=== PATIENT | female | born 1985 | race Caucasian/White ===

== ENCOUNTER → 2017-08-25 09:57 | Outpatient (CLI) | payer MEDICAID, SELFPAY ==
--- NOTE | 2017-08-25 09:58 | MRI_ITS ---
STUDY: MRI BILATERAL HIPS T PELVIS REASON FOR EXAM: Lesion of the left ischium on radiographs. TECHNIQUE: Standardized fat and water weighted pulse sequences were obtained in all 3 orthogonal planes. COMPARISON: CT images 04/22/2017. FINDINGS: RIGHT HIP Normal hip joint without articular joint space narrowing. Normal right acetabulum. Normal right labrum. Normal right femoral head. Normal right femoral neck and intratrochanteric region. Normal right gluteus minimus, medius and iliopsoas tendons and distal insertions. Normal right superior and inferior pubic rami. Normal right pubic symphysis. Normal right ischial tuberosity. Normal origin of the right hamstring tendons. There is mild right sacroiliac arthrosis with mild joint space narrowing and subchondral sclerosis (T1 coronal images 11, 12). LEFT HIP Normal left hip joint without articular joint space narrowing. Normal left acetabulum. Normal left labrum. Normal left femoral head. Normal left femoral neck and intratrochanteric region. Normal left gluteus minimus, medius and iliopsoas tendons and distal insertions. Normal left superior and inferior pubic rami. Normal left pubic symphysis. There is a nonaggressive lesion in the left ischial tuberosity measuring approximately 2.6 cm in greatest dimension with sclerotic margins (T1 axial images 27- 29; T1 coronal images 11, 12) unchanged since the CT scan (CT images 173-182). The leading differential consideration is fibrous dysplasia. Normal origin of the left hamstring tendons. Normal visualized left iliac wing, sacroiliac joint, and sacral ala. Normal visualized soft tissue structures of the pelvis. 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 Mild right sacroiliac arthrosis. Electronically Signed: Corby Latham MD at 11:56 EST Tel , Service support ,
== END ==
PROVIDERS: Family Provider Internal Medicine; PCP Internal Medicine; Visit Provider Internal Medicine
DX: R93.7 Abnormal findings on diagnostic imaging of other parts of musculoskeletal system (principal)
CPT/HCPCS: 72195

== ENCOUNTER → 2017-11-10 10:00 | Outpatient (CLI) | payer MEDICAID, SELFPAY ==
[2017-11-10 12:17] LABS: Anion Gap 5 (5-15); BUN 14 mg/dL (7-18); BUN/Creat Ratio 18.9 RATIO (10-20); Calcium,Total 8.8 mg/dL (8.5-10.1); Chloride 104 mmol/L (98-107); Creatinine, Serum 0.74 mg/dL (0.55-1.02); EST Glomerular Filtration Rate 96 mL/min (>60); Est Glom Filt Rate - Afr Amer 116 mL/min (>60); Glucose 83 mg/dL (74-106); Magnesium 1.9 mg/dL (1.6-2.6); Sodium Level 139 mmol/L (136-145)
== END ==
PROVIDERS: Family Provider Internal Medicine; PCP Internal Medicine; Visit Provider Internal Medicine
DX: I10 Essential (primary) hypertension (principal)
CPT/HCPCS: 36415; 80048; 83735

== ENCOUNTER → 2018-05-04 09:40 | Outpatient (CLI) | payer MEDICAID, SELFPAY ==
[2018-05-04 13:56] LABS: Absolute Lymphocyte Count 2.54 X10^3/ul (0.83-4.51); Absolute Neutrophil Count 5.9 X10^3/uL (2.0-7.7); Basophil# 0.03 X10^3/uL; Basophil% 0.3 % (0-1); Eosinophil# 0.14 X10^3/uL; Eosinophils% 1.5 % (0-5); Hematocrit 39.8 % (37-47); Hemoglobin 13.2 g/dl (12.0-15.0); Lymphocyte # 2.54 X10^3/ul (4.0); Lymphocyte % 27.3 % (19-41); Mean Corp Hgb Conc 33.2 g/gl (32-36); Mean Corpuscular Volume 87.5 fL (81-99); Mean Platelet Vol. 10.1 fl (6.2-12.0); Monocyte# 0.63 X10^3/uL; Monocyte% 6.8 % (0-10); Neutrophil # 5.89 X10^3/uL (2.7-7.7); Neutrophil % 63.3 % (47-70); POSITIVE COUNT NO; POSITIVE DIFFERENTIAL NO; POSITIVE MORPHOLOGY NO; Platelet Count 372 K/mm3 (150-450); RBC Distribution Width CV 12.8 % (11.6-14.6); Red Blood Count 4.55 M/mm3 (4.2-5.4); White Blood Count 9.3 K/mm3 (4.4-11.0)
[2018-05-04 14:07] LABS: BUN 8 mg/dL (7-18); Creatinine, Serum 0.67 mg/dL (0.55-1.02); Glucose 97 mg/dL (74-106)
[2018-05-04 14:08] LABS: Anion Gap 7 (5-15); Calcium,Total 8.6 mg/dL (8.5-10.1); Chloride 101 mmol/L (98-107); Cholesterol 202 mg/dL (200); EST Glomerular Filtration Rate 107 mL/min (>60); Est Glom Filt Rate - Afr Amer 130 mL/min (>60); High Density Lipoprotein 33 mg/dL; Potassium 3.7 mmol/L (3.5-5.1); Sodium Level 136 mmol/L (136-145); Triglycerides 183 mg/dL; Very Low Density Lipoprotein 37 mg/dL (5-40)
[2018-05-04 15:03] LABS: Chlamydia Trachomatis by PCR Negative (Negative); Neisserai gonorrhoeae by PCR Negative (Negative); Probe Check PASS; Sample Adequacy Control PASS; Specimen Processing Control PASS
[2018-05-05 10:24] LABS: HEPATITIS B SURFACE AG Negative (Negative); Hep C Antibodies <0.1 s/co ratio (0.0-0.9)
[2018-05-05 12:28] LABS: HIV - WCH Non-Reactive (Nonreactive)
[2018-05-07 01:58] LABS: Rapid Plasmin Reagin (RPR) NONREACTIVE (NONREACTIVE)
== END ==
PROVIDERS: Internal Medicine; Visit Provider Obstetrics & Gynecology
DX: Z11.3 Encounter for screening for infections with a predominantly sexual mode of transmission (principal); I10 Essential (primary) hypertension
CPT/HCPCS: 36415; 80048; 80061; 85025; 86592; 86703; 86803; 87340; 87491; 87591

== ENCOUNTER 2018-05-11 16:50 | Emergency (ER) | payer MEDICAID, SELFPAY ==
[2018-05-11 16:52] VITALS: BP 144/78; PULSE 68; RESP 18; TEMP 37.1; O2SAT 98; BMI 30.4
== END 2018-05-11 18:19 | disposition left against medical advice (07) ==
LOC: ED 18:05
PROVIDERS: Emergency Provider Emergency Medicine
DX: K21.9 Gastro-esophageal reflux disease without esophagitis (principal); R10.9 Unspecified abdominal pain

== ENCOUNTER → 2018-12-06 09:33 | Outpatient (CLI) | payer MEDICAID, SELFPAY ==
[2018-12-06 09:15] VITALS: BMI 34.5
[2018-12-06 12:36] LABS: Anion Gap 12 (5-15); BUN 9 mg/dL (7-18); Calcium,Total 9.3 mg/dL (8.5-10.1); Chloride 101 mmol/L (98-107); Creatinine, Serum 0.75 mg/dL (0.55-1.02); EST Glomerular Filtration Rate 94 mL/min (>60); Est Glom Filt Rate - Afr Amer 113 mL/min (>60); Glucose 165 mg/dL (74-106); Potassium 3.6 mmol/L (3.5-5.1); Sodium Level 140 mmol/L (136-145)
[2018-12-06 12:46] LABS: Hemoglobin A1c 5.4 % (4.2-6.3)
== END ==
PROVIDERS: PCP Internal Medicine; Visit Provider Internal Medicine
DX: I10 Essential (primary) hypertension (principal); E78.5 Hyperlipidemia, unspecified; E66.9 Obesity, unspecified
CPT/HCPCS: 36415; 80048; 83036

== ENCOUNTER → 2019-03-22 09:45 | Outpatient (CLI) | payer MEDICAID, SELFPAY ==
[2019-03-22 09:10] VITALS: BMI 34.5
[2019-03-23 20:07] LABS: Endomysial Antibody IgA Negative (Negative)
[2019-03-24 18:26] LABS: Immunoglobulin A 89 mg/dL (87-352); t-Transglutaminase IgA <2 U/mL (0-3)
== END ==
PROVIDERS: PCP Internal Medicine; Visit Provider Nurse Practitioner Family
DX: R10.9 Unspecified abdominal pain (principal); K90.41 Non-celiac gluten sensitivity; K90.9 Intestinal malabsorption, unspecified; R19.7 Diarrhea, unspecified
CPT/HCPCS: 36415; 82784; 83516; 86255

== ENCOUNTER → 2019-03-31 10:16 | Outpatient (CLI) | payer MEDICAID, SELFPAY ==
[2019-03-22 09:10] VITALS: BMI 34.5
== END ==
PROVIDERS: PCP Internal Medicine; Visit Provider Nurse Practitioner Family
DX: R19.7 Diarrhea, unspecified (principal); R10.9 Unspecified abdominal pain; K90.9 Intestinal malabsorption, unspecified; K90.41 Non-celiac gluten sensitivity
CPT/HCPCS: 83630

== ENCOUNTER → 2019-04-25 09:58 | Outpatient (CLI) | payer MEDICAID, SELFPAY ==
[2019-03-22 09:10] VITALS: BMI 34.5
== END ==
PROVIDERS: Family Provider Internal Medicine; PCP Internal Medicine; Referring Provider Nurse Practitioner Family; Visit Provider Nurse Practitioner Family
DX: R10.9 Unspecified abdominal pain (principal); R19.7 Diarrhea, unspecified; K90.9 Intestinal malabsorption, unspecified; K90.41 Non-celiac gluten sensitivity
CPT/HCPCS: 36415

== ENCOUNTER → 2019-04-25 10:34 | Outpatient (CLI) | payer MEDICAID, SELFPAY ==
[2019-03-22 09:10] VITALS: BMI 34.5
== END ==
PROVIDERS: Family Provider Internal Medicine; PCP Internal Medicine; Visit Provider Nurse Practitioner Family
DX: Z00.00 Encounter for general adult medical examination without abnormal findings (principal)

== ENCOUNTER → 2019-06-14 09:53 | Outpatient (CLI) | payer MEDICAID, SELFPAY ==
[2019-06-14 09:21] VITALS: BMI 34.5
[2019-06-14 12:30] LABS: Anion Gap 5 (5-15); BUN 12 mg/dL (7-18); BUN/Creat Ratio 15.9 RATIO (10-20); Calcium,Total 8.9 mg/dL (8.5-10.1); Chloride 104 mmol/L (98-107); Cholesterol 211 mg/dL (200); Creatinine, Serum 0.75 mg/dL (0.55-1.02); EST Glomerular Filtration Rate 93 mL/min (>60); Est Glom Filt Rate - Afr Amer 112 mL/min (>60); Glucose 97 mg/dL (74-106); High Density Lipoprotein 31 mg/dL; Potassium 3.5 mmol/L (3.5-5.1); Sodium Level 140 mmol/L (136-145); Thyroid Stim Hormone (TSH) 2.68 uIU/mL (0.358-3.74); Triglycerides 168 mg/dL; Very Low Density Lipoprotein 34 mg/dL (5-40)
== END ==
PROVIDERS: Family Provider Internal Medicine; PCP Internal Medicine; Visit Provider Nurse Practitioner Family
DX: I10 Essential (primary) hypertension (principal); E78.5 Hyperlipidemia, unspecified; F41.9 Anxiety disorder, unspecified
CPT/HCPCS: 36415; 80048; 80061; 84443

== ENCOUNTER → 2019-07-14 09:59 | Outpatient (CLI) | payer MEDICAID, SELFPAY ==
[2019-06-14 09:21] VITALS: BMI 34.5
[2019-07-14 12:27] LABS: Probe Check PASS; Sample Adequacy Control PASS; Specimen Processing Control PASS; Trichomonas Vag DNA by PCR Negative (Negative)
[2019-07-14 12:51] LABS: Chlamydia Trachomatis by PCR Negative (Negative); Neisserai gonorrhoeae by PCR Negative (Negative); Probe Check PASS; Sample Adequacy Control PASS; Specimen Processing Control PASS
[2019-07-14 16:15] LABS: HIV - WCH Non-Reactive (Nonreactive); Hepatitis B Surface Antigen Non-Reactive (Nonreactive); Hepatitis C Antibody Non-Reactive (Nonreactive)
[2019-07-17 14:12] LABS: HSV 2 IgG < 0.91 index (0.00-0.90)
[2019-07-19 16:07] LABS: Age Gdln ACOG Testing 30-65 (.)
[2019-07-19 18:47] LABS: HPV APTIMA, High Risk Negative (Negative); HPV Reflexed? YES, CHARGE PATIENT
[2019-07-21 02:55] LABS: Rapid Plasmin Reagin (RPR) NONREACTIVE (NONREACTIVE)
== END ==
PROVIDERS: Visit Provider Advanced Practice Midwife
DX: Z12.4 Encounter for screening for malignant neoplasm of cervix (principal); Z11.3 Encounter for screening for infections with a predominantly sexual mode of transmission
CPT/HCPCS: 36415; 86592; 86695; 86696; 86703; 86803; 87340; 87491; 87591; 87624; 87661; 88175; G0145

== ENCOUNTER → 2019-12-14 09:05 | Outpatient (CLI) | payer MEDICAID, SELFPAY ==
[2019-12-14 08:18] VITALS: BMI 34.5
[2019-12-14 12:57] LABS: Anion Gap 5 (5-15); BUN 12 mg/dL (7-18); BUN/Creat Ratio 16.1 RATIO (10-20); Calcium,Total 9.2 mg/dL (8.5-10.1); Chloride 102 mmol/L (98-107); Creatinine, Serum 0.75 mg/dL (0.55-1.02); EST Glomerular Filtration Rate 94 mL/min (>60); Est Glom Filt Rate - Afr Amer 113 mL/min (>60); Glucose 121 mg/dL (74-106); Potassium 3.9 mmol/L (3.5-5.1); Sodium Level 138 mmol/L (136-145)
[2019-12-14 13:04] LABS: Cholesterol 209 mg/dL (200); High Density Lipoprotein 31 mg/dL; Triglycerides 222 mg/dL; Very Low Density Lipoprotein 44 mg/dL (5-40)
== END ==
PROVIDERS: Nurse Practitioner Family; PCP Internal Medicine; Referring Provider Internal Medicine; Visit Provider Internal Medicine
DX: I10 Essential (primary) hypertension (principal); E78.5 Hyperlipidemia, unspecified
CPT/HCPCS: 36415; 80048; 80061

== ENCOUNTER → 2020-06-19 | Outpatient (CLI) | payer MEDICAID, SELFPAY ==
[2020-03-20 09:46] VITALS: BMI 34.5
[2020-06-19 12:40] LABS: ALB/GLOB Ratio 0.9 RATIO (0.9-2.4); AST(SGOT) 8 U/L (15-37); Alanine Aminotransfer ALT/SGPT 24 U/L (13-56); Albumin, Serum 3.7 g/dL (3.2-5.0); Alkaline Phosphatase 69 U/L (45-117); Anion Gap 7 (5-15); BUN 14 mg/dL (7-18); BUN/Creat Ratio 17.2 RATIO (10-20); Calcium,Total 9.1 mg/dL (8.5-10.1); Chloride 104 mmol/L (98-107); Cholesterol 189 mg/dL (200); Creatinine, Serum 0.81 mg/dL (0.55-1.02); EST Glomerular Filtration Rate 85 mL/min (>60); Est Glom Filt Rate - Afr Amer 102 mL/min (>60); Globulin 4.2 g/dL (2.2-4.2); Glucose 112 mg/dL (74-106); High Density Lipoprotein 33 mg/dL; Potassium 3.7 mmol/L (3.5-5.1); Protein, Total 7.9 g/dL (6.4-8.2); Sodium Level 141 mmol/L (136-145); Thyroid Stim Hormone (TSH) 1.92 uIU/mL (0.358-3.74); Triglycerides 218 mg/dL; Very Low Density Lipoprotein 44 mg/dL (5-40)
== END | disposition home or self-care (01) ==
LOC: BIMLAB 09:38
PROVIDERS: PCP Internal Medicine; Referring Provider Nurse Practitioner Family; Visit Provider Nurse Practitioner Family
DX: I10 Essential (primary) hypertension (principal); E78.5 Hyperlipidemia, unspecified
CPT/HCPCS: 36415; 80053; 80061; 84443

== ENCOUNTER → 2020-08-28 | Outpatient (CLI) | payer MEDICAID, SELFPAY ==
[2020-03-20 09:46] VITALS: BMI 34.5
[2020-09-02 14:26] LABS: HPV APTIMA, High Risk Negative (Negative)
== END | disposition home or self-care (01) ==
LOC: LABSPEC 15:15
PROVIDERS: PCP Internal Medicine; Visit Provider Student in an Organized Health Care Education/Training Program
DX: Z12.4 Encounter for screening for malignant neoplasm of cervix (principal); D06.9 Carcinoma in situ of cervix, unspecified
CPT/HCPCS: 87624; 88175; G0145

== ENCOUNTER → 2020-10-10 | Outpatient (CLI) | payer MEDICAID, SELFPAY ==
[2020-09-19 09:14] VITALS: BMI 36.1
[2020-10-10 12:38] LABS: Amphetamine Urine VISTA NEGATIVE (<1000 ng/mL); Barbiturate Urine VISTA NEGATIVE (< 200 ng/mL); Benzodiazepine Urine VISTA NEGATIVE (< 200 ng/mL); Cocaine Urine VISTA NEGATIVE (< 300 ng/mL); Ecstacy Urine VISTA NEGATIVE (< 500 ng/mL); Methadone Urine VISTA NEGATIVE (< 300 ng/mL); PCP Urine VISTA NEGATIVE (< 25 ng/mL); THC Urine VISTA NEGATIVE (< 50 ng/mL); Vista UDS pH Range 6
== END | disposition home or self-care (01) ==
LOC: LABSPEC 09:52
PROVIDERS: PCP Internal Medicine; Referring Provider Nurse Practitioner Family; Visit Provider Nurse Practitioner Family
DX: F41.8 Other specified anxiety disorders (principal)
CPT/HCPCS: 80307

== ENCOUNTER 2021-04-04 17:25 | Emergency (ER) | payer MEDICAID, SELFPAY ==
[2021-04-04 17:26] VITALS: BP 139/95; PULSE 85; RESP 14; TEMP 36.6; O2SAT 98; BMI 37.0
[2021-04-04 17:41] VITALS: BP 135/79; PULSE 71; RESP 16; O2SAT 97
--- NOTE | 2021-04-04 17:41 | ED.VIS.DYS ---
HPI History of Present Illness Chief Complaint: Shortness of Breath Informant: patient Narrative Narrative: 35-year-old female presenting to the emergency department with shortness of breath. Patient states that on 25 March she developed symptoms of Covid. Her son had been diagnosed with Covid on 22 March. She states that she developed fever diarrhea cough nasal congestion myalgias and fatigue. She states that she her symptoms have gotten significantly better and as this is day 11 she went back to work today. She notes however that she feels more dyspneic than normal and more fatigue. She denies any chest pain. She has any shoulder or back pain. No prior history of DVT PE. [facility] Medical History (Updated 04/04/21 @ 18:[address] Vicente Ortiz DO) Anxiety Depression Hypertension Kidney stones Home Medications bupropion HCl 100 mg tablet,12 hr sustained-release 100 mg PO BID #60 ea 02/07/20 [Rx Last Taken Unknown] ibuprofen 600 mg tablet 600 mg PO TID PRN #30 tab 06/19/20 [Rx Last Taken Unknown] hydrochlorothiazide 25 mg tablet 25 mg PO DAILY #90 tab 07/12/20 [Rx Last Taken Unknown] lorazepam 0.5 mg tablet 0.5 mg PO BID PRN PRN #30 tab 09/19/20 [Rx Last Taken Unknown] losartan 100 mg tablet 100 mg PO DAILY #90 tab 12/06/20 [Rx Last Taken Unknown] albuterol sulfate [Ventolin HFA] 2 puff INHALATION Q4H PRN PRN #1 inhaler 04/04/21 [Rx Last Taken Unknown] dexamethasone 6 mg PO DAILY #5 tab 04/04/21 [Rx Last Taken Unknown] Allergy/AdvReac Type Severity Reaction Status Date / Time amoxicillin Allergy palms itchy Verified 04/04/21 17:28 Family History Mother Hypertension Arthritis Heart disease Depression Father Diabetes Hypertension Hyperlipemia Myocardial infarction, Onset Age: 49 Grandmother Heart disease Hypertension Osteoporosis CVA (cerebral vascular accident) Grandfather Cancer Brother Hypertension Grandmother Myocardial infarction, Onset Age: 60 Surgical History History of 2 sections history of leep proceure with D&C History of partial hysterectomy Social History Smoking Status: Never smoker alcohol intake: current alcohol intake frequency: holidays/special occasions only substance use type: does not use what type of physical activity do you participate in: none ROS ROS ED ROS Narrative Fatigue Constitutional Constitutional ED: Reports chills and fever(s); Denies weight loss Eyes Eyes: Denies change in vision or diplopia ENT ENT ED: Reports rhinorrhea; Denies ear pain or sore throat Cardiovascular Cardiovascular: Denies chest pain, orthopnea, palpitations or racing heartbeat Respiratory/Chest Respiratory/Chest: Reports cough and dyspnea; Denies orthopnea Gastrointestinal Gastrointestinal: Reports diarrhea; Denies abdominal pain, nausea or vomiting Genitourinary Genitourinary ED: Denies dysuria, hematuria or urinary frequency Musculoskeletal Musculoskeletal: Reports myalgias; Denies arthralgias Integumentary Denies abscess or rash Neurologic Neurologic: Reports headache(s); Denies weakness Psychiatric Psychiatric: Denies anxiety, depression, suicidal ideation or suicidal thoughts Endocrine Endocrinology: Denies polydipsia, polyphagia or polyuria Allergic/Immunologic Allergic/Immunologic ED: Denies mouth swelling, tongue swelling or urticaria EXAM Physical Exam Const Vital Signs: 04/04/21 17:26 04/04/21 17:41 04/04/21 17:43 Temperature 97.8 F Temperature Source Temporal Pulse Rate 85 71 Respiratory Rate 14 16 Respiratory Effort Short of Breath Respiratory Depth Normal Respiratory Pattern Normal Blood Pressure 139/95 H 135/79 H Blood Pressure Mean 109 97 Pulse Ox 98 97 Oxygen Delivery Method Room Air Room Air Room Air Positive well nourished, well developed and obese General Appearance ED: well developed Nutritional Appearance: obese HEENT Reports normocephalic, head/scalp atraumatic, TM's clear and moist mucous membranes Tympanic Membrane ED: Yes TM's clear Eyes PERRL and EOMs intact bilaterally Neck no lymphadenopathy, supple and no JVD Resp normal respiratory effort and clear to auscultation bilaterally Cardio regular rate, regular rhythm and no murmurs GI normal to inspection, nondistended, normoactive bowel sounds and non-tender Palpation: soft Back/Spine no CVA tenderness and normal ROM Extremity normal to inspection General Extremety ED: Negative for edema General Extremity: Negative for edema Neuro oriented x3 and CN's II-XII intact bilaterally Sensorium / Orientation: alert Motor Exam: strength 5/5 throughout Psych mental status grossly normal Mood & Affect: Negative for depressed or tearful Skin no rashes or lesions noted and no wounds MDM MDM MDM Narrative Medical decision making narrative: Patient is PERC negative. Patient's Covid test is positive. Her chest x-ray is consistent with patchy bilateral airspace opacities. Patient is [id number]% on room air. Her work of breathing is minimal. Patient was started on dexamethasone and albuterol MDI. She was advised to continue to quarantine. Radiography Diagnostic Testing: Radiology Impression Chest X-Ray 04/04/21 17:52 IMPRESSION: Subtle patchy bilateral airspace opacities consistent with Covid pneumonia. Electronically Signed: Raymond Coello MD at 18:05 EDT Tel , Service support , Discharge Plan Triage Chief Complaint: Shortness of Breath ED Provider: Vicente Ortiz Dx/Rx/DC Orders Clinical Impression: Pneumonia due to COVID-19 virus, Acute dyspnea, Fatigue Instructions: Coronavirus Disease 2019 (COVID-19): Caring for Yourself or Others Prescriptions: New dexamethasone 6 MG tablet 6 mg PO DAILY Qty: 5 RF: 0 albuterol sulfate [Ventolin HFA] 1 INHALER inhaler 2 puff inhalation Q4H PRN PRN (Reason: Wheezing) Qty: 1 RF: 0 No Action bupropion HCl [Wellbutrin SR] 100 mg tablet sustained-release 12 hr 100 mg PO BID Qty: 60 RF: 1 ibuprofen 600 mg tablet 600 mg PO TID PRN (Reason: pain) Qty: 30 RF: 0 lorazepam 0.5 mg tablet 0.5 mg PO BID PRN PRN (Reason: Anxiety) Qty: 30 RF: 0 hydrochlorothiazide 25 mg tablet 25 mg PO DAILY Qty: 90 RF: 3 losartan 100 mg tablet 100 mg PO DAILY Qty: 90 RF: 2 Primary Care Provider: Geraldine Greenberg Referrals: Geraldine Greenberg MD [Primary Care Provider] -
[2021-04-04 17:43] VITALS: O2SAT 97
--- NOTE | 2021-04-04 17:52 | RAD_ITS ---
INDICATION: covid 19 EXAMINATION/TECHNIQUE: X-RAY - XR Chest 1 View COMPARISON: 03/01/2017. FINDINGS: Subtle patchy bilateral airspace opacities. The cardiomediastinal silhouette is unremarkable. No pleural effusion or pneumothorax. No acute osseous abnormalities. RAD/Chest 1 View (Portable) IMPRESSION: Subtle patchy bilateral airspace opacities consistent with Covid pneumonia. Electronically Signed: Raymond Coello MD at 18:05 EDT Tel , Service support ,
[2021-04-04 18:56] VITALS: PULSE 68; RESP 16; O2SAT 96
== END 2021-04-04 18:57 | disposition home or self-care (01) ==
PROVIDERS: Emergency Provider Emergency Medicine; PCP Internal Medicine
DX: U07.1 COVID-19 (principal); J12.82 Pneumonia due to coronavirus disease 2019; I10 Essential (primary) hypertension; E66.9 Obesity, unspecified; F32.9 Major depressive disorder, single episode, unspecified; F41.9 Anxiety disorder, unspecified; Z79.899 Other long term (current) drug therapy
CPT/HCPCS: 71045; 87426; 99282

== ENCOUNTER → 2021-05-09 09:33 | Outpatient (CLI) | payer MEDICAID, SELFPAY ==
--- NOTE | 2021-05-09 09:37 | EKG12_ITS ---
Test Reason : CP Blood Pressure : / mmHG Vent. Rate : 072 BPM Atrial Rate : 072 BPM P-R Int : 134 ms QRS Dur : 082 ms QT Int : 382 ms P-R-T Axes : 033 053 035 degrees QTc Int : 418 ms Normal sinus rhythm Normal ECG Confirmed by LINA MONTIEL, TYRA ([id number]), online editor TYSON SOLORIO ([id number]) on 05/13/2021 10:10:16 A M Referred By: Vinnie Lundberg Confirmed By:XAVIER MILLS MD
--- NOTE | 2021-05-09 10:05 | RAD_ITS ---
STUDY: X-RAY - ABDOMEN/PELVIS REASON FOR EXAM: Female, 36 years old. Flank pain TECHNIQUE: Two AP supine views of the abdomen and pelvis. COMPARISON: No recent studies FINDINGS: Normal visualized lung bases. There is an unremarkable bowel gas pattern. There is no demonstrated free abdominal air. Punctate calcifications overlying the left renal shadow Normal soft tissue structures. 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
--- NOTE | 2021-05-09 10:05 | RAD_ITS ---
STUDY: X-RAY CHEST REASON FOR EXAM: Female, 36 years old. Chest pain TECHNIQUE: PA and lateral views of the chest. COMPARISON: 04/04/2021 FINDINGS: The lungs are clear and expanded. There is no demonstrated pleural abnormality. Normal size heart. Normal mediastinum and theodore. Normal visualized pulmonary arteries. Normal visualized aortic arch and descending thoracic aorta. Normal visualized thoracic spine. Normal visualized ribs, clavicles, and shoulders. There is no demonstrated abnormality of the visualized soft tissue structures of the upper abdomen. RAD/Chest PA and Lateral IMPRESSION: Normal x-ray examination of the chest. Electronically Signed: Sher Cleveland MD at 10:36 EDT , Service support ,
== END ==
PROVIDERS: PCP Internal Medicine; Referring Provider Nurse Practitioner Family; Visit Provider Nurse Practitioner Family
DX: U07.1 COVID-19 (principal); J12.82 Pneumonia due to coronavirus disease 2019; N20.0 Calculus of kidney; R07.9 Chest pain, unspecified; E78.5 Hyperlipidemia, unspecified; F41.8 Other specified anxiety disorders
CPT/HCPCS: 71046; 74018; 93005

== ENCOUNTER 2021-05-12 18:49 | Emergency (ER) | payer MEDICAID, SELFPAY ==
--- NOTE | 2021-05-12 19:05 | ED.RN ---
PT REQUESTED TO BE CHECKED IN FOR FLU TEST. WHILE ASSESSING PT, SHE VOICES BEING UPSET WITH OTHER STAFF REGARDING BEING ASKED IF SHE HAD A PCP AND REASON FOR ER VISIT. SHE REPORTS SHE HAD A TEMP OF 100.5 PRIOR TO ARRIVAL AND TOOK MEDICATION FOR SYMPTOMS, AND SYMPTOMS ARE CURRENTLY UNDER CONTROL. TEMP DURING TRIAGE WAS 97.9. EDUCATED THAT THERE IS A POSSIBILITY SHE MAY NOT BE TESTED, HER SYMPTOMS JUST STARTED TODAY AND ARE ABLE TO BE CONTROLLED WITH OTC MEDS. SHE VOICES FRUSTRATION BECAUSE SHE STATES STAFF MADE HER FEEL DUMB, APOLOGIZED TO PT, VERBALIZING THAT THIS NURSE WAS JUST TRYING TO EDUCATE ON CONTROLLED VS UNCONTROLLED SYMPTOMS. PT STATES SO ARE YOU SAYING YOU WON'T SEE ME? THIS NURSE VERBALIZED THAT ER COULD NOT REFUSE TO SEE HER, WE JUST COULDN'T GUARANTEE SHE WOULD GET A TEST. SHE THEN VERBALIZES THAT SHE CHANGED HER MIND AND DIDN'T WANT TO BE SEEN. ATTEMPTED TO VALIDATE FEELINGS AND EDUCATE, UNSUCCESSFUL.
== END 2021-05-12 18:54 | disposition left against medical advice (07) ==
LOC: ED 19:25
PROVIDERS: PCP Internal Medicine
DX: R50.9 Fever, unspecified (principal); Z53.21 Procedure and treatment not carried out due to patient leaving prior to being seen by health care provider

== ENCOUNTER 2021-08-02 14:00 | Outpatient (CLI) | payer MEDICAID, SELFPAY ==
[2021-08-02 14:19] LABS: Bacteria 0 SEEN /hpf (None Seen); Mucous, Urine 0 SEEN /hpf (<or=2+)
[2021-08-02 15:24] LABS: Color, Urine Yellow (Yellow); Glucose, Dipstick Normal (Normal); Ketone-Dipstick Negative (Negative); Leukocyte Esterase-Dipstick Negative /ul (Negative); Nitrite-Dipstick Negative (Negative); Occult Blood-Urine Negative /ul (Negative); Protein-Dipstick Negative (Negative); Urine Bilirubin Dipstick Negative (Negative); Urine Clarity Clear (Clear); Urine Urobilinogen Normal (Normal)
[2021-08-02 15:25] LABS: Absolute Lymphocyte Count 3.59 X10^3/uL (0.83-4.51); Absolute Neutrophil Count 6.5 X10^3/uL (2.0-7.7); Basophil# 0.05 X10^3/uL; Basophil% 0.5 % (0-1); Eosinophil# 0.13 X10^3/uL; Eosinophils% 1.2 % (0-5); Hematocrit 40.2 % (37-47); Hemoglobin 13.2 g/dL (12.0-15.0); Lymphocyte # 3.59 X10^3/ul (0.83-4.51); Lymphocyte % 32.6 % (19-41); Mean Corp Hgb Conc 32.8 g/dL (32-36); Mean Corpuscular Hgb 28.3 pg (27.0-32.0); Mean Corpuscular Volume 86.1 fL (81-99); Mean Platelet Vol. 9.9 fl (6.2-12.0); Monocyte# 0.67 X10^3/uL; Monocyte% 6.1 % (0-10); NRBC Flagged by Analyzer 0 % (0-5); Neutrophil # 6.52 X10^3/uL (2.7-7.7); Neutrophil % 59.2 % (47-70); Platelet Count 419 K/mm3 (150-450); RBC Distribution Width CV 12.8 % (11.6-14.6); RBC Distribution Width SD 39.6 fl (35.1-43.9); Red Blood Count 4.67 M/mm3 (4.2-5.4)
[2021-08-02 15:46] LABS: ALB/GLOB Ratio 0.9 RATIO (0.9-2.4); AST(SGOT) 17 U/L (15-37); Alanine Aminotransfer ALT/SGPT 27 U/L (13-56); Albumin, Serum 3.8 g/dL (3.2-5.0); Alkaline Phosphatase 62 U/L (45-117); Anion Gap 6 (5-15); BUN 10 mg/dL (7-18); BUN/Creat Ratio 16.7 RATIO (10-20); Calcium,Total 9.2 mg/dL (8.5-10.1); Chloride 104 mmol/L (98-107); Cholesterol 186 mg/dL (200); EST Glomerular Filtration Rate 120 mL/min (>60); Est Glom Filt Rate - Afr Amer 145 mL/min (>60); Globulin 4.2 g/dL (2.2-4.2); Glucose 79 mg/dL (74-106); High Density Lipoprotein 32 mg/dL; Potassium 3.5 mmol/L (3.5-5.1); Sodium Level 139 mmol/L (136-145); Thyroid Stim Hormone (TSH) 2.93 uIU/mL (0.358-3.74); Triglycerides 194 mg/dL; Very Low Density Lipoprotein 39 mg/dL (5-40)
[2021-08-02 15:51] LABS: White Blood Cells 0-5 SEEN /hpf (0-5)
[2021-08-02 15:52] LABS: Red Blood Cells-Urine 0 SEEN /hpf (0-5); Squamous Epithelial Cells - UA 5-10 SEEN /hpf (5-10)
== END 2021-08-02 23:59 | disposition short-term general hospital (02) ==
LOC: BIMLAB 14:00
PROVIDERS: PCP Internal Medicine; Referring Provider Nurse Practitioner Family; Visit Provider Nurse Practitioner Family
DX: U07.1 COVID-19 (principal); J12.82 Pneumonia due to coronavirus disease 2019; F41.8 Other specified anxiety disorders; E78.5 Hyperlipidemia, unspecified; R07.9 Chest pain, unspecified; R10.9 Unspecified abdominal pain
CPT/HCPCS: 36415; 80053; 80061; 81001; 84443; 85025

== ENCOUNTER 2022-04-16 23:08 | Emergency (ER) | payer MEDICAID, SELFPAY ==
[2022-04-16 23:12] VITALS: BP 167/78; PULSE 93; RESP 16; TEMP 37.9; O2SAT 100; BMI 38.0
[2022-04-16 23:41] VITALS: BP 151/72; PULSE 97; RESP 18; TEMP 38.5; O2SAT 99
[2022-04-16] MEDS: 0.9% Normal Saline 1,000 ML 999 ML IV (23:45)
[2022-04-16 23:46] LABS: Absolute Lymphocyte Count 1.28 X10^3/uL (0.83-4.51); Absolute Neutrophil Count 14.2 X10^3/uL (2.0-7.7); Basophil# 0.06 X10^3/uL; Basophil% 0.4 % (0-1); Eosinophil# 0.11 X10^3/uL; Eosinophils% 0.7 % (0-5); Hematocrit 39.6 % (37-47); Lymphocyte # 1.28 X10^3/ul (0.83-4.51); Lymphocyte % 7.7 % (19-41); Mean Corp Hgb Conc 32.8 g/dL (32-36); Mean Corpuscular Hgb 28.7 pg (27.0-32.0); Mean Corpuscular Volume 87.4 fL (81-99); Mean Platelet Vol. 9.6 fl (6.2-12.0); Monocyte# 0.96 X10^3/uL; Monocyte% 5.7 % (0-10); NRBC Flagged by Analyzer 0 % (0-5); Neutrophil # 14.19 X10^3/uL (2.7-7.7); Neutrophil % 84.9 % (47-70); Platelet Count 326 K/mm3 (150-450); RBC Distribution Width CV 12.9 % (11.6-14.6); RBC Distribution Width SD 41.1 fl (35.1-43.9); Red Blood Count 4.53 M/mm3 (4.2-5.4); White Blood Count 16.7 K/mm3 (4.4-11.0)
[2022-04-16] MEDS: dexAMETHasone 10 MG/ML Vial IV (23:46)
[2022-04-16] MEDS: Ketorolac 30 MG/ML Syringe IV (23:46)
--- NOTE | 2022-04-16 23:55 | RAD_ITS ---
STUDY: X-RAY CHEST REASON FOR EXAM: Female, 37 years old. cough TECHNIQUE: Single AP portable view of the chest. COMPARISON: 05/09/2021. FINDINGS: The lungs are clear and expanded. There is no demonstrated pleural abnormality. Normal size heart. Normal mediastinum and theodore. Normal visualized pulmonary arteries. Normal visualized aortic arch and descending thoracic aorta. Normal visualized thoracic spine. Normal visualized ribs, clavicles, and shoulders. There is no demonstrated abnormality of the visualized soft tissue structures of the upper abdomen. RAD/Chest 1 View (Portable) IMPRESSION: Normal x-ray examination of the chest. Electronically Signed: Jannet Farr MD at 0:26 EDT ,
[2022-04-17 00:02] LABS: Anion Gap 8 (5-15); BUN 19 mg/dL (7-18); BUN/Creat Ratio 17.8 RATIO (10-20); Calcium,Total 10.2 mg/dL (8.5-10.1); Chloride 102 mmol/L (98-107); Creatinine, Serum 1.07 mg/dL (0.55-1.02); EST Glomerular Filtration Rate 61 mL/min (>60); Est Glom Filt Rate - Afr Amer 74 mL/min (>60); Estimated Creatinine Clearance 64.15 ml/min; Glucose 123 mg/dL (74-106); Magnesium 1.8 mg/dL (1.6-2.6); Potassium 3.5 mmol/L (3.5-5.1); Sodium Level 137 mmol/L (136-145)
[2022-04-17 00:18] VITALS: BP 137/74; PULSE 92; RESP 18; TEMP 37.7; O2SAT 98
[2022-04-17] MEDS: Acetaminophen 325 MG Tablet 1000 MG PO (00:22)
--- NOTE | 2022-04-17 00:35 | CT_ITS ---
STUDY: CTA CHEST REASON FOR EXAM: Female, 37 years old. dyspnea RADIATION DOSAGE (If Supplied By Facility): CTDIvol = ( 16.23 ) mGy, DLP = ( 531.15 ) mGycm TECHNIQUE: The examination was performed with the intravenous administration of IV 100mL Isovue-370. Post-processing of the angiographic images was performed, with multiplanar reformation and 3D reconstruction. Individualized dose optimization techniques were used for this CT. COMPARISON: None. FINDINGS: Normal enhancement of the main pulmonary artery and right and left pulmonary arteries. Normal enhancement of the bilateral peripheral pulmonary arteries. There is no demonstrated pulmonary embolism. Normal thoracic aorta and visualized great vessels. There is no demonstrated aortic dissection. Normal heart and pericardium. Normal mediastinum. Normal hilar regions. Normal visualized trachea and bronchi. The lungs are well expanded. Normal pulmonary parenchyma. Normal pleura. Normal chest wall structures. Normal osseous structures. Normal visualized upper abdomen. CT/CTA Chest W/WO Contrast IMPRESSION: Normal CTA chest examination, without a demonstrated pulmonary embolism or arterial dissection. No acute cardiopulmonary disease. Electronically Signed: Jannet Farr MD at 1:36 EDT ,
--- NOTE | 2022-04-17 00:43 | EDS_ITS ---
HPI History of Present Illness Chief Complaint: General Illness Narrative Narrative: Patient is a 37-year-old female with history of anxiety depression hypertension hyperlipidemia. She states that her daughter was sick with nasal congestion and slight cough and then a few days later she began with similar symptoms. She states her daughter symptoms resolved after about 5 to 7 days she is approaching 10 to 14 days and does not feel any improvement. She has she states that she feels worse with subjective fevers and chills as well as cough mild shortness of breath and back pain. She states last time she felt this way she had COVID- pneumonia. She has concern for that once again and therefore comes in for evaluation. [facility] Medical History Anxiety Chest pain Depression Hypertension Irritable bowel syndrome with diarrhea Kidney stones Low back pain Home Medications ibuprofen 600 mg tablet 600 mg PO TID PRN pain #30 tabs 06/19/20 [Rx Last Taken Unknown] cyclobenzaprine 10 mg tablet 5 - 10 mg PO TID PRN muscle spasm #30 tabs 08/02/21 [Rx Last Taken Unknown] losartan 100 mg tablet 100 mg PO DAILY #90 tabs 09/16/21 [Rx Last Taken Unknown] hydrochlorothiazide 25 mg tablet 25 mg PO DAILY #90 tabs 11/04/21 [Rx Last Taken Unknown] bupropion HCl 100 mg tablet,12 hr sustained-release (Wellbutrin SR) 100 mg PO QHS #90 ea 01/01/22 [Rx Last Taken Unknown] lorazepam 0.5 mg tablet 0.5 mg PO BID PRN PRN Anxiety #30 tabs 01/01/22 [Rx Last Taken Unknown] prednisone 20 mg tablet 40 mg PO DAILY 5 days #10 tabs 04/17/22 [Rx Last Taken Unknown] promethazine 6.25 mg-codeine 10 mg/5 mL syrup 5 ml PO 4X/DAY PRN PRN cough 7 days #140 mL 04/17/22 [Rx Last Taken Unknown] Allergy/AdvReac Type Severity Reaction Status Date / Time amoxicillin Allergy palms itchy Verified 04/16/22 23:15 Family History Mother Hypertension Arthritis Heart disease Depression Father Diabetes Hypertension Hyperlipemia Myocardial infarction, Onset Age: 49 Grandmother Heart disease Hypertension Osteoporosis CVA (cerebral vascular accident) Grandfather Cancer Brother Hypertension Grandmother Myocardial infarction, Onset Age: 60 Surgical History History of 2 sections history of leep proceure with D&C History of partial hysterectomy Social History Smoking Status: Never smoker alcohol intake: current alcohol intake frequency: holidays/special occasions only substance use type: does not use what type of physical activity do you participate in: none ROS ROS ED Constitutional Constitutional ED: Reports chills and fever(s) ENT ENT ED: Reports rhinorrhea and sore throat Cardiovascular Cardiovascular: Denies chest pain Respiratory/Chest Respiratory/Chest: Reports cough and dyspnea Gastrointestinal Gastrointestinal: Reports diarrhea and nausea; Denies abdominal pain or vomiting Genitourinary Genitourinary ED: Denies dysuria Musculoskeletal Musculoskeletal: Reports myalgias Integumentary Denies rash Neurologic Neurologic: Reports headache(s) Hematologic/Lymphatic Hematologic/Lymphatic: Denies easy bleeding or easy bruising EXAM Physical Exam Const Vital Signs: 04/16/22 23:12 04/16/22 23:15 04/16/22 23:41 Temperature 100.3 F H 101.3 F H Temperature Source Oral Oral Pulse Rate 93 97 Respiratory Rate 16 18 Respiratory Effort Non-Labored Blood Pressure 167/78 H 151/72 H Blood Pressure Mean 107 98 Pulse Ox 100 99 Oxygen Delivery Method Room Air Room Air 04/17/22 00:18 04/17/22 01:16 04/17/22 01:16 Temperature 99.8 F H 98.1 F 98.1 F Temperature Source Oral Oral Oral Pulse Rate 92 86 88 Respiratory Rate 18 26 H 21 H Respiratory Effort Blood Pressure 137/74 H 122/64 H 122/64 H Blood Pressure Mean 95 83 83 Pulse Ox 98 97 98 Oxygen Delivery Method Room Air Room Air Room Air Positive well nourished, well developed and obese General Appearance ED: well developed Nutritional Appearance: obese HEENT Reports dry mucous membranes HEENT Narrative: Nasal mucosa is hyperemic and boggy with enlarged inferior nasal turbinate. There is cobblestoning the posterior pharynx consistent with sinus drainage without airway edema or compromise. No tongue or lip swelling noted. Mouth ED: Yes dry mucous membranes Mouth: dry mucous membranes Eyes PERRL and EOMs intact bilaterally Neck supple and no JVD Neck Narrative: No meningeal sign. Positive anterior cervical lymphadenopathy noted Resp normal respiratory effort and clear to auscultation bilaterally Resp Narrative: Breath sounds are diminished throughout but overall clear to auscultation Cardio regular rate and regular rhythm GI normal to inspection, nondistended, normoactive bowel sounds, non-tender and non-distended GI Narrative: No voluntary guarding or rigidity no pulsatile mass Auscultation: normoactive bowel sounds Palpation: soft Extremity normal to inspection Extremity Narrative: No asymmetric edema no pitting edema negative Homans' sign bilaterally Neuro oriented x3 and CN's II-XII intact bilaterally Sensorium / Orientation: alert Psych mental status grossly normal Skin no rashes or lesions noted MDM MDM MDM Narrative Medical decision making narrative: Patient presented to the ER with low-grade fever but otherwise no signs of respiratory distress. Her constellation of symptoms are more viral in nature especially with symptoms starting after exposure to her daughter who is also sick. Because of her previous history of COVID-pneumonia a COVID swab influenza and chest x-ray will be obtained. With a low-grade fever basic blood work will be ordered as well. Labs showed leukocytosis at 16.7 but otherwise no clinically significant findings. The chest x-ray revealed no obvious infiltrate and her viral swabs are negative. Because of her cough and mild back pain as well as the fever with leukocytosis I was concerned that we may be missing a pneumonia that is not showing up on x-ray so a CTA was ordered. This showed no PE which could also be a cause of back pain and low-grade fever nor did it show any type of pneumonia. Patient does not have abdominal pain on exam and denies any urinary symptoms I do not feel there is need for imaging of her abdomen or UA. On reevaluation after she has been given fluids Toradol and Tylenol her fever has resolved and she is in no acute distress. Therefore this time I feel she probably had developed an initial viral infection from her daughter and now has a secondary viral infection leading to the worsening symptoms. As she is not showing signs of septicemia or respiratory distress however there is no need for admission and she is otherwise safe for discharge Lab Data Attestation: I reviewed the patient's lab results. Labs: Laboratory Results - last 24 hr 04/16/22 04/16/22 23:39 23:39 WBC 16.7 H RBC 4.53 Hgb 13.0 Hct 39.6 MCV 87.4 MCH 28.7 MCHC 32.8 RDW Std Deviation 41.1 RDW Coeff of Campos 12.9 Plt Count 326 MPV 9.6 Immature Gran % (Auto) 0.600 Neut % (Auto) 84.9 H Lymph % (Auto) 7.7 L Sawyer % (Auto) 5.7 Eos % (Auto) 0.7 Baso % (Auto) 0.4 Absolute Neuts (auto) 14.2 H Absolute Lymphs (auto) 1.28 Nucleated RBC % 0 Sodium 137 Potassium 3.5 Chloride 102 Carbon Dioxide 27.0 Anion Gap 8 BUN 19 H Creatinine 1.07 H Estim Creat Clear Calc 64.15 Est GFR (MDRD) Af Amer 74 Est GFR (MDRD) Non-Af 61 BUN/Creatinine Ratio 17.8 Glucose 123 H Calcium 10.2 H Magnesium 1.8 Radiography Diagnostic Testing: Clinical Impression(s) from Imaging Studies Chest X-Ray 04/16/22 23:55 IMPRESSION: Normal x-ray examination of the chest. Electronically Signed: Jannet Farr MD at 0:26 EDT Reading Location ID and State: [id number] / [employer] , Service support , Chest CTA 04/17/22 00:35 IMPRESSION: Normal CTA chest examination, without a demonstrated pulmonary embolism or arterial dissection. No acute cardiopulmonary disease. Electronically Signed: Jannet Farr MD at 1:36 EDT Reading Location ID and State: [id number] / [employer] , Service support , 1 view chest x-ray as interpreted by the emergency medicine physician reveals no acute infiltrate pneumothorax or pleural effusion Discharge Plan Triage Chief Complaint: General Illness ED Provider: Richie Sterling Dx/Rx/DC Orders Clinical Impression: Viral upper respiratory tract infection, Pyrexia, Mild dehydration Instructions: ED Fever Control (Adult), ED URI, Viral, No Abx (Adult) Prescriptions: New prednisone 20 mg tablet 40 mg PO DAILY 5 Days Qty: 10 0RF promethazine-codeine 6.25-10 mg/5 mL syrup 5 ml PO 4X/DAY PRN PRN (Reason: cough) 7 Days Qty: 140 0RF No Action ibuprofen 600 mg tablet 600 mg PO TID PRN (Reason: pain) Qty: 30 0RF Rx Instructions: take with food cyclobenzaprine 10 mg tablet 5 - 10 mg PO TID PRN (Reason: muscle spasm) Qty: 30 0RF bupropion HCl [Wellbutrin SR] 100 mg tablet sustained-release 12 hr 100 mg PO QHS Qty: 90 1RF lorazepam 0.5 mg tablet 0.5 mg PO BID PRN PRN (Reason: Anxiety) Qty: 30 0RF losartan 100 mg tablet 100 mg PO DAILY Qty: 90 3RF hydrochlorothiazide 25 mg tablet 25 mg PO DAILY Qty: 90 3RF Stand Alone Forms: ED Work / School Excuse Primary Care Provider: Geraldine Greenberg Referrals: Geraldine Greenberg MD [Primary Care Provider] - Disposition Disposition: Home, Self Care
[2022-04-17 01:16] VITALS: BP 122/64; PULSE 86; PULSE 88; RESP 21; RESP 26; TEMP 36.7; O2SAT 97; O2SAT 98
[2022-04-17 01:50] VITALS: BP 122/64; PULSE 86; RESP 26; TEMP 36.7; O2SAT 97
== END 2022-04-17 01:55 | disposition home or self-care (01) ==
PROVIDERS: Emergency Provider Emergency Medicine; PCP Internal Medicine; Visit Provider Emergency Medicine
DX: J06.9 Acute upper respiratory infection, unspecified (principal); E86.0 Dehydration; K58.0 Irritable bowel syndrome with diarrhea; M54.9 Dorsalgia, unspecified; Z20.822 Contact with and (suspected) exposure to COVID-19; I10 Essential (primary) hypertension; E78.5 Hyperlipidemia, unspecified; E66.9 Obesity, unspecified; F32.A Depression, unspecified; F41.9 Anxiety disorder, unspecified; Z79.52 Long term (current) use of systemic steroids; Z79.899 Other long term (current) drug therapy
CPT/HCPCS: 71045; 71275; 80048; 83735; 85025; 87428; 96361; 96374; 96375; 99284; J7030; Q9967; A4216

== ENCOUNTER → 2022-11-13 | Outpatient (CLI) | payer MEDICAID, SELFPAY ==
[2022-11-13 12:21] LABS: Absolute Lymphocyte Count 3.28 X10^3/uL (0.83-4.51); Absolute Neutrophil Count 6.6 X10^3/uL (2.0-7.7); Basophil# 0.05 X10^3/uL; Basophil% 0.5 % (0-1); Eosinophil# 0.16 X10^3/uL; Eosinophils% 1.5 % (0-5); Hematocrit 38.3 % (37-47); Hemoglobin 12.7 g/dL (12.0-15.0); Lymphocyte # 3.28 X10^3/ul (0.83-4.51); Lymphocyte % 30.5 % (19-41); Mean Corp Hgb Conc 33.2 g/dL (32-36); Mean Corpuscular Hgb 28.9 pg (27.0-32.0); Mean Platelet Vol. 9.9 fl (6.2-12.0); Monocyte# 0.59 X10^3/uL; Monocyte% 5.5 % (0-10); NRBC Flagged by Analyzer 0 % (0-5); Neutrophil # 6.61 X10^3/uL (2.7-7.7); Neutrophil % 61.4 % (47-70); Platelet Count 372 K/mm3 (150-450); RBC Distribution Width CV 12.7 % (11.6-14.6); RBC Distribution Width SD 39.9 fl (35.1-43.9); White Blood Count 10.8 K/mm3 (4.4-11.0)
[2022-11-13 12:33] LABS: Vitamin B12 409 pg/mL (211-911); Vitamin D,25 Hydroxy 15.7 ng/mL
[2022-11-13 12:35] LABS: Hemoglobin A1c 5.5 % (3.8-5.6)
[2022-11-13 12:56] LABS: ALB/GLOB Ratio 0.9 RATIO (0.9-2.4); AST(SGOT) 15 U/L (15-37); Alanine Aminotransfer ALT/SGPT 32 U/L (13-56); Albumin, Serum 3.5 g/dL (3.2-5.0); Alkaline Phosphatase 56 U/L (45-117); Anion Gap 7 (5-15); BUN 11 mg/dL (7-18); BUN/Creat Ratio 16.5 RATIO (10-20); Calcium,Total 9.1 mg/dL (8.5-10.1); Chloride 104 mmol/L (98-107); Cholesterol 178 mg/dL (200); Creatinine, Serum 0.67 mg/dL (0.55-1.02); EST Glomerular Filtration Rate 105 mL/min (>60); Est Glom Filt Rate - Afr Amer 127 mL/min (>60); Globulin 3.9 g/dL (2.2-4.2); Glucose 134 mg/dL (74-106); High Density Lipoprotein 30 mg/dL; Potassium 3.4 mmol/L (3.5-5.1); Protein, Total 7.4 g/dL (6.4-8.2); Sodium Level 138 mmol/L (136-145); Thyroid Stim Hormone (TSH) 3.33 uIU/mL (0.358-3.74); Triglycerides 328 mg/dL; Very Low Density Lipoprotein 66 mg/dL (5-40)
== END | disposition home or self-care (01) ==
LOC: BIMLAB 10:56
PROVIDERS: PCP Internal Medicine; Referring Provider Nurse Practitioner Family; Visit Provider Nurse Practitioner Family
DX: F32.9 Major depressive disorder, single episode, unspecified (principal); F41.9 Anxiety disorder, unspecified; I10 Essential (primary) hypertension; R53.83 Other fatigue; G47.10 Hypersomnia, unspecified; R73.09 Other abnormal glucose
CPT/HCPCS: 36415; 80053; 80061; 82306; 82607; 83036; 84443; 85025

== ENCOUNTER → 2022-11-17 | Outpatient (CLI) | payer MEDICAID, SELFPAY | END | disposition home or self-care (01) | PROVIDERS: PCP Internal Medicine; Visit Provider Nurse Practitioner Family | DX: G47.10 Hypersomnia, unspecified (principal) | CPT/HCPCS: 95801; 95806 ==

== ENCOUNTER → 2022-12-17 | Outpatient (CLI) | payer MEDICAID, SELFPAY | END | disposition home or self-care (01) | LOC: SL 08:20 | PROVIDERS: PCP Internal Medicine; Visit Provider Nurse Practitioner Family | DX: Z00.00 Encounter for general adult medical examination without abnormal findings (principal) ==

== ENCOUNTER → 2022-12-23 | Outpatient (CLI) | payer MEDICAID, SELFPAY | END | disposition home or self-care (01) | LOC: SL 21:09 | PROVIDERS: PCP Internal Medicine; Visit Provider Nurse Practitioner Family | DX: G47.33 Obstructive sleep apnea (adult) (pediatric) (principal) | CPT/HCPCS: 95811 ==

== ENCOUNTER 2023-02-11 12:30 | Outpatient (RCR) | payer MEDICAID, SELFPAY ==
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
--- NOTE | 2023-01-13 12:34 | HP.PTREVAL_ITS ---
Re-Evaluation Intro: Vinnie Lundberg, MAHESH-C, It has been my pleasure to treat YVONNE HULL over the last 11 visits for Chronic back pain. Please see the progress note below for an update on the physical therapy plan of care! Subjective Subjective: Her back pain is better. Some days she has pain and some days she does not. She has most of her pain when she first wakes up. She describes the pain as achy and it feels like she needs her back cracked. She has no pain down the legs and no leg weakness. She is doing stretches at home. She feels massage gun is helping. She does not have another appt until February. She was given Lidocane patches but she has not tried them. She still has pain with meloxicam so she does not take it. Objective Objective/Function: trunk AROM (at time of the eval: Trunk AROM: flex 85%, Ext 15%, SB B 75, Rot B 100% Plan Plan Plan: 2X/ week for 8 weeks for trial of extension principle, neutral spine core stability (h/o 3 abdominal surgeries), LE strength to be able to use legs more than spine, with HEP Balance/Gait/Functional tests Balance/Special Test Scores Oswestry Low Back Score: 9 Goals Goals Goal 1:: I HEP Goal Time Frame: 6-8 Weeks Goal 2:: Decrease LBP to 2/10 with ADL's Goal Time Frame: 6-8 Weeks Goal Progress: Progressing Goal 3:: Increase trunk AROM (at time of the eval: Trunk AROM: flex 75%, Ext 10%, SB B 75, Rot B 75%). Goal Time Frame: 6-8 Weeks Anticipated Interventions Anticipated Interventions Patient/Client Instruction: Educate patient on: Condition and Plan of Care For the Purpose of:: To decrease pain, To increase ROM, To improve nutrient delivery to tissue, To improve muscle performance and motor function, To improve ability to perform ADL's, To increase tolerance to activity/condition/position, To improve performance and independence with ADL's, To decrease level of supervision to perform tasks, To improve ability of physical actions for home/community/work/leisure, To improve gait and locomotor functions, To improve health of tissue, To decrease soft tissue restriction, To increase flexibility/ROM and To improve endurance Therapeutic Exercise to Include: Strength training, Endurance training, Postural training, Flexibilty training, Gait and locomotor training, Neuromotor development, Passive ROM, Active ROM and Dynamic Lumbar Stabilization For the Purpose of:: To decrease pain, To increase ROM, To improve nutrient delivery to tissue, To improve muscle performance and motor function, To improve ability to perform ADL's, To increase tolerance to activity/condition/position, To improve performance and independence with ADL's, To decrease level of supervision to perform tasks, To improve ability of physical actions for home/community/work/leisure, To improve gait and locomotor functions, To improve health of tissue, To decrease soft tissue restriction and To increase flexibility/ROM Manual Therapy Techniques to Include: Mobilization, Passive ROM and Soft tissue mobilization For the Purpose of:: To decrease pain, To increase ROM, To improve nutrient deli very to tissue, To improve muscle performance and motor function, To improve ability to perform ADL's, To increase tolerance to activity/condition/position, To improve performance and independence with ADL's, To decrease level of supervision to perform tasks, To improve health of tissue, To decrease soft tissue restriction and To increase flexibility/ROM Re-Evaluation Ending Re-evaluation ending: Please do not hesitate to contact me at [phone] by phone or if you have questions or concerns regarding this new plan of care! Sincerely, GREG Hopkins
--- NOTE | 2023-02-11 12:55 | HP.PTDCSUM ---
Discharge Summary D/C summary: It has been my pleasure to treat YVONNE HULL referred by LAZARO Barraza, with the diagnosis of Chronic back pain for a total of 17 visit(s). Discharge Date: 02/11/23 Please see the following information for a summary of their discharge status. Subjective Subjective: Her back is not any better. She feels that her mattress is not good. She is not doing much exercises at home. She will make an appt with her Dr. She still has the Lidocane patches. Pt thinks that she will look for a chiropractor. Pain Back Pain: Pain Intensity (Out of 10): 5 Overall Improvement % Improvement: 70 Objective Objective/Function: Trunk AROM: flex 75%, Ext 50%, SB B 75%, Rot B 75% Pt is able to walk on heels and toes Pt demonstrates good posture sitting here in the clinic Goals Goal 1:: I HEP Goal Progress: Goal Met Goal 2:: Decrease LBP to 2/10 with ADL's Goal Progress: Progressing Goal 3:: Increase trunk AROM (at time of the eval: Trunk AROM: flex 75%, Ext 10%, SB B 75, Rot B 75%). Goal Progress: Goal Met Plan Plan: DC PT back to D/C Information Discharge Comments: DC PT d/c sentence: If there are questions or concerns regarding this patient's physical therapy, please feel free to call me at [phone]. Thank you for the referral of this patient. Sincerely, Mireya Macdonald, MPT Balance/Gait/Functional tests Balance/Special Test Scores Oswestry Low Back Score: 9
== END 2023-02-11 19:00 | disposition home or self-care (01) ==
LOC: PT 12:30
PROVIDERS: PCP Internal Medicine; Referring Provider Nurse Practitioner Family; Visit Provider Nurse Practitioner Family
DX: M54.9 Dorsalgia, unspecified (principal); G89.29 Other chronic pain
CPT/HCPCS: 97110; 97140; 97161; 97530

== ENCOUNTER 2023-03-21 15:21 | Emergency (ER) | payer MEDICAID, SELFPAY ==
[2023-03-21 15:22] VITALS: BP 153/112; PULSE 81; RESP 18; TEMP 36.6; O2SAT 99; BMI 38.7
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
== END 2023-03-21 16:09 | disposition home or self-care (01) ==
PROVIDERS: Emergency Provider Emergency Medicine; PCP Internal Medicine; Visit Provider Emergency Medicine
DX: T59.3X4A Toxic effect of lacrimogenic gas, undetermined, initial encounter (principal); H57.89 Other specified disorders of eye and adnexa; M54.50 Low back pain, unspecified; G89.29 Other chronic pain; I10 Essential (primary) hypertension; K58.0 Irritable bowel syndrome with diarrhea; F32.A Depression, unspecified; F41.9 Anxiety disorder, unspecified
CPT/HCPCS: 99284

== ENCOUNTER → 2023-12-31 | Outpatient (CLI) | payer MEDICAID, SELFPAY ==
[2023-12-31 10:18] LABS: Mucous, Urine 0 SEEN /hpf (<or=2+)
--- NOTE | 2023-12-31 10:56 | RAD_ITS ---
STUDY: X-RAY - ABDOMEN/PELVIS REASON FOR EXAM: Female, 38 years old. Abdominal pain. TECHNIQUE: AP supine and upright views of the abdomen and pelvis on 4 images. COMPARISON: None. FINDINGS: Normal visualized lung bases. Normal bowel gas pattern with air seen to the rectosigmoid. Moderate amount of feces within the colon. The visualized liver, spleen and kidneys are grossly normal in size and morphology. Normal soft tissue structures. Normal visualized osseous structures. RAD/Abd Inc Decub and/or Erect IMPRESSION: No acute abnormality identified. Electronically Signed: Pato Dai MD at 11:39 EDT ,
[2023-12-31 12:26] LABS: Color, Urine Yellow (Yellow); Glucose, Dipstick Normal (Normal); Ketone-Dipstick Negative (Negative); Leukocyte Esterase-Dipstick Negative /ul (Negative); Nitrite-Dipstick Negative (Negative); Occult Blood-Urine Negative /ul (Negative); Protein-Dipstick Negative (Negative); Urine Bilirubin Dipstick Negative (Negative); Urine Clarity Sl. Cloudy (Clear); Urine Urobilinogen Normal (Normal)
[2023-12-31 12:32] LABS: Absolute Lymphocyte Count 3.26 X10^3/uL (0.83-4.51); Absolute Neutrophil Count 6.8 X10^3/uL (2.0-7.7); Basophil# 0.07 X10^3/uL; Basophil% 0.6 % (0-1); Eosinophil# 0.14 X10^3/uL; Eosinophils% 1.3 % (0-5); Hematocrit 38.3 % (37-47); Hemoglobin 12.4 g/dL (12.0-15.0); Lymphocyte # 3.26 X10^3/ul (0.83-4.51); Lymphocyte % 29.6 % (19-41); Mean Corp Hgb Conc 32.4 g/dL (32-36); Mean Corpuscular Hgb 28.2 pg (27.0-32.0); Mean Corpuscular Volume 87.2 fL (81-99); Mean Platelet Vol. 10.1 fl (6.2-12.0); Monocyte# 0.64 X10^3/uL; Monocyte% 5.8 % (0-10); NRBC Flagged by Analyzer 0 % (0-5); Neutrophil % 61.9 % (47-70); Platelet Count 371 K/mm3 (150-450); RBC Distribution Width CV 12.6 % (11.6-14.6); RBC Distribution Width SD 40.3 fl (35.1-43.9); Red Blood Count 4.39 M/mm3 (4.2-5.4)
[2023-12-31 12:38] LABS: Bacteria 2+ /hpf (None Seen); Squamous Epithelial Cells - UA 10-25 SEEN /hpf (5-10); White Blood Cells 0-5 SEEN /hpf (0-5)
[2023-12-31 12:51] LABS: Vitamin B12 300 pg/mL (211-911)
[2023-12-31 12:54] LABS: ALB/GLOB Ratio 0.9 RATIO (0.9-2.4); AST(SGOT) 13 U/L (15-37); Alanine Aminotransfer ALT/SGPT 28 U/L (13-56); Albumin, Serum 3.6 g/dL (3.2-5.0); Alkaline Phosphatase 74 U/L (45-117); Anion Gap 6 (5-15); BUN 12 mg/dL (7-18); BUN/Creat Ratio 16.1 RATIO (10-20); Calcium,Total 9.3 mg/dL (8.5-10.1); Chloride 101 mmol/L (98-107); Cholesterol 185 mg/dL (200); Creatinine, Serum 0.74 mg/dL (0.55-1.02); EST Glomerular Filtration Rate 92 mL/min (>60); Est Glom Filt Rate - Afr Amer 111 mL/min (>60); Globulin 4.2 g/dL (2.2-4.2); Glucose 94 mg/dL (74-106); High Density Lipoprotein 34 mg/dL; Magnesium 1.9 mg/dL (1.6-2.6); Potassium 3.4 mmol/L (3.5-5.1); Protein, Total 7.8 g/dL (6.4-8.2); Sodium Level 136 mmol/L (136-145); T4 Free Direct 0.95 ng/dL (0.76-1.46); Thyroid Stim Hormone (TSH) 2.08 uIU/mL (0.358-3.74); Triglycerides 240 mg/dL; Very Low Density Lipoprotein 48 mg/dL (5-40)
[2024-01-01 08:12] LABS: Thyroid Peroxidase AB < 9 IU/mL (0-34)
== END | disposition home or self-care (01) ==
PROVIDERS: PCP Nurse Practitioner Family; Referring Provider Nurse Practitioner Family; Visit Provider Nurse Practitioner Family
DX: I10 Essential (primary) hypertension (principal); E56.9 Vitamin deficiency, unspecified; R10.9 Unspecified abdominal pain; L65.9 Nonscarring hair loss, unspecified
CPT/HCPCS: 36415; 74019; 80053; 80061; 81001; 82306; 82607; 83735; 84439; 84443; 85025; 86376; 87086

== ENCOUNTER → 2024-07-26 | Outpatient (CLI) | payer MEDICAID, SELFPAY ==
[2024-07-29 11:39] LABS: HPV Reflexed? YES, CHARGE PATIENT
== END | disposition home or self-care (01) ==
PROVIDERS: PCP Nurse Practitioner Family; Referring Provider Nurse Practitioner Family; Visit Provider Nurse Practitioner Family
DX: Z11.3 Encounter for screening for infections with a predominantly sexual mode of transmission (principal)
CPT/HCPCS: 87624; 88142

== ENCOUNTER → 2024-07-26 | Outpatient (CLI) | payer MEDICAID, SELFPAY ==
--- NOTE | 2024-07-26 10:53 | EKG12_ITS ---
Test Reason : HYPERTENSION Blood Pressure : */* mmHG Vent. Rate : 73 BPM Atrial Rate : 73 BPM P-R Int : 132 ms QRS Dur : 84 ms QT Int : 380 ms P-R-T Axes : 56 75 10 degrees QTcB Int : 418 ms Normal sinus rhythm Nonspecific T wave abnormality Abnormal ECG When compared with ECG of 09-May-2021 09:53, Nonspecific T wave abnormality, worse in Inferior leads Nonspecific T wave abnormality now evident in Lateral leads Confirmed by LINA MONTIEL, TYRA ([id number]), state editor STANLEY MINER ([id number]) on 08/01/2024 2:16:26 PM Referred By: Vinnie Lundberg Confirmed By: TYRA MILLS MD
[2024-07-26 13:18] LABS: HIV - WCH Non-Reactive (Nonreactive); Syphilis Antibodies Non-reactive
[2024-07-27 05:07] LABS: HEPATITIS B SURFACE AG Negative (Negative); Hep B Surface Antibodies Non Reactive (.); Hepatitis B Core Ab Total Negative (Negative); Hepatitis C Ab Non Reactive (Non Reactive)
== END | disposition home or self-care (01) ==
LOC: PSN 10:48
PROVIDERS: PCP Nurse Practitioner Family; Referring Provider Nurse Practitioner Family; Visit Provider Nurse Practitioner Family
DX: Z11.3 Encounter for screening for infections with a predominantly sexual mode of transmission (principal); I10 Essential (primary) hypertension
CPT/HCPCS: 36415; 86703; 86704; 86705; 86706; 86707; 86780; 86803; 87340; 87350; 93005

== ENCOUNTER → 2024-09-08 | Outpatient (CLI) | payer MEDICAID, SELFPAY ==
--- NOTE | 2024-09-08 13:01 | BI_ITS ---
PROCEDURE: SCRN MAMM (CAD)W/DEBORAH BILAT REASON FOR EXAM: F, Age 39 y/o , . no family history. TECHNIQUE: Bilateral screening digital breast tomosynthesis with 2D and 3D images. Computer aided detection. COMPARISON: None. This is a baseline mammogram. FINDINGS: There are scattered areas of fibroglandular density. Small bilateral fat containing axillary lymph nodes. No suspicious masses, areas of developing architectural distortion, or suspicious calcifications. BI/SCRN MAMM (CAD)W/DEBORAH BILAT IMPRESSION: BI-RADS 2: BENIGN. RECOMMEND ANNUAL MAMMOGRAPHIC SCREENING. Follow-up code: Routine Follow-up The patient will be notified of the results by letter. Reading Location: [facility]
== END | disposition home or self-care (01) ==
LOC: OPBI 12:59
PROVIDERS: PCP Nurse Practitioner Family; Referring Provider Nurse Practitioner Family; Visit Provider Nurse Practitioner Family
DX: Z12.31 Encounter for screening mammogram for malignant neoplasm of breast (principal)
CPT/HCPCS: 77063; 77067

== ENCOUNTER → 2024-09-28 | Outpatient (CLI) | payer MEDICAID, SELFPAY ==
[2024-09-28 19:59] LABS: AST(SGOT) 17 U/L (<=31); Alanine Aminotransfer ALT/SGPT 17 U/L (<=34); Albumin, Serum 4.4 g/dL (3.5-5.0); Alkaline Phosphatase 67 U/L (35-104); Bilirubin, Direct 0.21 mg/dL (0.00-0.30); Globulin 3.3 g/dL (2.2-4.2); Protein, Total 7.7 g/dL (5.9-8.4); Total Bilirubin 0.53 mg/dL (0.00-1.30)
[2024-09-28 20:38] LABS: Cholesterol 206 mg/dL (<=200); High Density Lipoprotein 36 mg/dL; Low Density Lipoprotein Calc. 135 mg/dL; Triglycerides 173 mg/dL; Very Low Density Lipoprotein 35 mg/dL (5-40); cholesterol:hdl ratio screen 5.69
== END | disposition home or self-care (01) ==
LOC: LAB 15:46
PROVIDERS: PCP Nurse Practitioner Family; Referring Provider Internal Medicine Cardiovascular Disease; Visit Provider Internal Medicine Cardiovascular Disease
DX: I10 Essential (primary) hypertension (principal)
CPT/HCPCS: 36415; 80061; 80076; 82088; 84244

== ENCOUNTER → 2024-10-28 | Outpatient (CLI) | payer MEDICAID, SELFPAY ==
--- NOTE | 2024-10-28 06:44 | ECHOD_ITS ---
Reason For Study Reason For Study: ESSENTIAL HTN Procedure This was a 2D Doppler, Color Flow transthoracic echocardiogram. Exam performed in department. Left Ventricle Normal LV size. Left ventricular systolic function is normal. The left ventricular ejection fraction is 65 %. No regional wall motion abnormalities noted. Right Ventricle Normal RV size. Normal systolic function. Atria Normal left atrium. Normal right atrium. Mitral Valve Normal mitral valve. Tricuspid Valve Normal tricuspid valve. Mild tricuspid valve insufficiency. Pulmonary artery systolic pressure is 24 mmHg. Pulmonic Valve Normal pulmonic valve. Great Vessels Normal aortic root. The pulmonary artery is normal size. Inferior vena cava collapse with respiration. Pericardium/Pleural No pericardial effusion. MMode/2D Measurements & Calculations LVIDd: 4.8 cm IVSd: 0.81 cm Ao root diam: 3.3 cm LVIDs: 2.8 cm LVPWd: 0.93 cm RVDd: 3.0 cm FS: 42.3 % LAV(MOD-bp): 53.8 ml LVAd ap4: 30.0 cm2 LVAd ap2: 22.2 cm2 LAV(MOD-bp) Indexed: 25.7 ml/m2 LVLd ap4: 7.8 cm LVLd ap2: 8.0 cm LAV(MOD-sp2): 48.0 ml EDV(MOD-sp4): 95.1 ml EDV(MOD-sp2): 54.6 ml LAV(MOD-sp4): 55.7 ml EDV(sp4-el): 97.9 ml EDV(sp2-el): 52.2 ml LVAs ap4: 14.5 cm2 LVAs ap2: 11.4 cm2 LVLs ap4: 6.6 cm LVLs ap2: 6.2 cm ESV(MOD-sp4): 29.1 ml ESV(MOD-sp2): 19.1 ml ESV(sp4-el): 27.0 ml ESV(sp2-el): 17.7 ml EF(MOD-sp4): 69.4 % EF(MOD-sp2): 65.0 % EF(sp4-el): 72.4 % SV(MOD-sp4): 66.0 ml SV(MOD-sp2): 35.5 ml SV(sp4-el): 70.9 ml SI(MOD-sp4): 31.5 ml/m2 SI(MOD-sp2): 16.9 ml/m2 LA A4 area: 18.9 cm2 LA dimension(2D): 3.5 cm RA A4 area: 15.8 cm2 TAPSE: 2.0 cm Time Measurements MV dec time: 0.26 sec Doppler Measurements & Calculations MV E max angel luis: 68.9 cm/sec Lat Peak E' Angel Luis: 9.0 cm/sec Med Peak E' Angel Luis: 5.7 cm/sec MV A max angel luis: 75.9 cm/sec E/E' lat: 7.7 E/E' med: 12.1 MV E/A: 0.91 MV V2 max: 77.0 cm/sec MV P1/2t max angel luis: 66.6 cm/sec Ao V2 max: 145.2 cm/sec MV max P.4 mmHg MV P1/2t: 74.5 msec Ao max P.4 mmHg MV V2 mean: 41.5 cm/sec Ao V2 mean: 89.1 cm/sec MV mean P.80 mmHg MV dec slope: 261.9 cm/sec2 Ao mean P.7 mmHg MV V2 VTI: 19.0 cm MVA(P1/2t): 3.0 cm2 Ao V2 VTI: 24.9 cm PA V2 max: 93.4 cm/sec TR max angel luis: 229.0 cm/sec PA V2 mean: 63.5 cm/sec TR max P.0 mmHg ECHO/Echo Complete Interpretation Summary Normal LV size. Left ventricular systolic function is normal. The left ventricular ejection fraction is 65 %. Pulmonary artery systolic pressure is 24 mmHg. Ordering Physician: Kyree Iglesias Referring Physician: Vinnie Lundberg Performed By: Arcelia Gates, NEYDA, RVT
== END | disposition home or self-care (01) ==
LOC: CVS 06:44
PROVIDERS: PCP Nurse Practitioner Family; Referring Provider Internal Medicine Cardiovascular Disease; Visit Provider Internal Medicine Cardiovascular Disease
DX: I10 Essential (primary) hypertension (principal)
CPT/HCPCS: 93306

== ENCOUNTER → 2024-11-04 | Outpatient (CLI) | payer MEDICAID, SELFPAY ==
--- NOTE | 2024-11-04 08:51 | RDU_ITS ---
Reason For Study Reason For Study: HTN Right Renal Artery Left Renal Artery Right renal artery ostium 94.2/30.3 Left renal artery ostium 106.7/21.1 RSV/EDV. PSV/EDV. Right renal artery proximal 149.2/58.6 Left renal artery proximal PSV/EDV PSV/EDV. 106.7/29.8 . Right renal artery mid 162.2/45.6 Left renal artery mid 116.4/41.2 PSV/EDV. PSV/EDV . Right renal artery distal 176.6/44 Left renal artery distal 91.7/23.5 PSV/EDV. PSV/EDV. Right Renal Parenchyma Left Renal Parenchyma Upper Pole Medula 26.7/9.7 PSV/EDV. Left upper pole medulla 27.6/6.7 Right upper pole medulla EDR 0.4 . PSV/EDV . Right upper pole medulla R.I. 0.64 . Left upper pole medulla EDR 0.76 . Upper Kevin Cortx 19.5/7.2 PSV/EDV. Left upper pole medulla R.I. 18.4/6.7 . Right upper pole cortex EDR 0.4 . UP Cortex 0.4 PSV/EDV. Right upper pole cortex R.I. 0.63 . Left upper pole cortex EDR 0.4 . Right lower Pole medulla 26.3/6.9 Left upper pole cortex R.I. 0.64 . PSV/EDV . Left lower Pole medulla 28.8/11 PSV/EDV . Right lower pole medulla EDR 0.3 . Left lower pole medulla EDR 0.4 . Right lower pole medulla R.I. 0.74 . Left lower pole medulla R.I. 0.62 . Lower Pole Cortex 21.5/8.3 PSV/EDV. Lower Pole Cortx 19/6.7 PSV/EDV. Right lower pole cortex EDR 0.4 . Left lower pole cortex EDR 0.4 . Right lower pole cortex R.I. 0.61 . Left lower pole cortex R.I. 0.65 . Right Renal Hilar Left Renal Hilar Right Hilar avg 55.7/21.6 PSV/EDV. LT Hilar avg 61.9/21.2 PSV/EDV . Right hilar acceleration time 30 m/sec. Left hilar acceleration time 40 m/sec. Right Renal Dimensions Left Renal Dimensions Right kidney size 10.49 cm . Left kidney size 35.1 cm . Right cortical dimension 1.65 cm . Left cortical dimension 1.92 cm . Aorta Proximal abdominal aorta 1.80 x 1.76 cm . Proximal abdominal aorta peak systolic velocity is 84.3 cm/sec . Distal abdominal aorta 1.07 x 1.05 cm . Distal abdominal aorta peak systolic velocity is 118 cm/sec . VL/Renal Artery Duplex Ultrasound Interpretation Summary Right renal artery patent with normal velocities and no evidence of stenosis. Left renal artery patent with normal velocities and no evidence of stenosis. Right renal vein patent. Left renal vein patent. Right kidney normal in size. Left kidney normal in size. Ordering Physician: Kyree Iglesias Referring Physician: Vinnie Lundberg Performed By: Mackenzie Thopmson RVT
== END | disposition home or self-care (01) ==
PROVIDERS: PCP Nurse Practitioner Family; Referring Provider Internal Medicine Cardiovascular Disease; Visit Provider Internal Medicine Cardiovascular Disease
DX: I10 Essential (primary) hypertension (principal)
CPT/HCPCS: 93975

== ENCOUNTER 2025-01-25 16:18 | Outpatient (CLI) | payer MEDICAID, SELFPAY ==
[2025-01-25 16:54] LABS: Hematocrit 36.4 % (37-47); Hemoglobin 12.5 g/dL (12.0-15.0); Immature Granulocytes Count 0.090 X10^3/uL (0.0-0.0); Mean Corp Hgb Conc 34.3 g/dL (32-36); Mean Corpuscular Volume 84.8 fL (81-99); Mean Platelet Vol. 9.6 fl (6.2-12.0); NRBC Flagged by Analyzer 0 % (0-5); Platelet Count 408 K/mm3 (150-450); RBC Distribution Width CV 12.5 % (11.6-14.6); RBC Distribution Width SD 38.3 fl (35.1-43.9); Red Blood Count 4.29 M/mm3 (4.2-5.4); White Blood Count 12.6 K/mm3 (4.4-11.0)
[2025-01-25 17:00] LABS: Color, Urine Straw (Yellow); Glucose, Dipstick Normal (Normal); Ketone-Dipstick Negative (Negative); Leukocyte Esterase-Dipstick Negative /ul (Negative); Nitrite-Dipstick Negative (Negative); Occult Blood-Urine Negative /ul (Negative); Protein-Dipstick Negative (Negative); Specific Gravity, Urine 1.015 (1.002-1.030); Urine Bilirubin Dipstick Negative (Negative)
[2025-01-25 18:08] LABS: AST(SGOT) 16 U/L (<=31); Alanine Aminotransfer ALT/SGPT 20 U/L (<=34); Albumin, Serum 4.4 g/dL (3.5-5.0); Alkaline Phosphatase 74 U/L (35-104); Anion Gap 14 (5-15); BUN 14 mg/dL (4-19); BUN/Creat Ratio 21.1 RATIO (10-20); Calcium,Total 9.8 mg/dL (7.6-11.0); Carbon Dioxide 25.2 mmol/L (21.0-32.0); Chloride 100 mmol/L (98-108); Cholesterol 212 mg/dL (<=200); Globulin 3.3 g/dL (2.2-4.2); Glucose 91 mg/dL (70-99); Low Density Lipoprotein Calc. 123 mg/dL; Potassium 3.2 mmol/L (3.3-5.1); Triglycerides 276 mg/dL; Very Low Density Lipoprotein 55 mg/dL (5-40); Vitamin B12 381 pg/mL (180-914); Vitamin D,25 Hydroxy 21.2 ng/mL (30-100); cholesterol:hdl ratio screen 6.29
== END 2025-01-25 23:59 | disposition home or self-care (01) ==
LOC: VSLAB 16:19
PROVIDERS: PCP Nurse Practitioner Family; Visit Provider Nurse Practitioner Family
DX: I10 Essential (primary) hypertension (principal); E56.9 Vitamin deficiency, unspecified
CPT/HCPCS: 36415; 80053; 80061; 81002; 82306; 82607; 83036; 84443; 85025

== ENCOUNTER → 2025-02-07 | Outpatient (CLI) | payer MEDICAID, SELFPAY ==
--- NOTE | 2025-02-07 09:31 | US_ITS ---
PROCEDURE: ABDOMEN LIMITED 02/07/2025 REASON FOR EXAM: RUQ PAIN COMPARISON: None FINDINGS: Liver: Diffusely echogenic suggesting fatty infiltration. The liver measures 16.6 cm. Gallbladder: No stones sludge wall thickening or tenderness. Common bile duct: Normal measuring 5 mm . Pancreas: Normal Other: Visualized portions of the right kidney are unremarkable. No right upper quadrant ascites. US/Abdomen Limited IMPRESSION: Fatty infiltration of the liver. No evidence of gallstones. Reading Location: [id number]
== END | disposition home or self-care (01) ==
PROVIDERS: PCP Nurse Practitioner Family; Referring Provider Surgery; Visit Provider Surgery
DX: R10.11 Right upper quadrant pain (principal)
CPT/HCPCS: 76705

== ENCOUNTER → 2025-03-29 | Outpatient (CLI) | payer MEDICAID, SELFPAY ==
[2025-03-29 17:06] LABS: Potassium 3.6 mmol/L (3.3-5.1)
== END | disposition home or self-care (01) ==
LOC: VSLAB 16:02
PROVIDERS: PCP Nurse Practitioner Family
DX: E87.6 Hypokalemia (principal)
CPT/HCPCS: 36415; 84132

== ENCOUNTER 2025-04-26 07:21 | Day surgery (SDC) | payer MEDICAID, SELFPAY ==
--- NOTE | 2025-04-24 13:03 | PAT.ANESEVAL ---
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 When Was Last Pacemaker Check QUESTION #4 FULL TEXT: You/Your Family Experience fever (hyperthermia) with Anesthesia Last Oral Intake Last Oral intake: Last Oral Intake NPO since Meds taken in AM with sips of water? Meds patient instructed to take am of surgery PONV PONV - hospice care sales consultant: PONV - hospice care sales consultant Female Yes 04/24/25 09:48 HX of Motion Sickness No 04/24/25 09:48 HX of N/V After Surgery No 04/24/25 09:48 Non-Smoker Yes 04/24/25 09:48 Duration of Surgery greater No 04/24/25 09:48 than 60 minutes Number of Risk Factors 2 04/24/25 09:48 PONV Score Moderate Risk 04/24/25 09:48 Height & Weight Height & Weight: Anesthesia: Height & Weight Height 5 ft 5 in 09/28/24 15:15 Respiratory Assessment Respiratory Assessment - hospice care sales consultant: Respiratory Tract Infection Hx - hospice care sales consultant Hx Respiratory Tract Infection No 04/24/25 09:48 STOP Sleep Apnea STOP Sleep Apnea - hospice care sales consultant: STOP Sleep Apnea - hospice care sales consultant Hx Hypertension Yes: CONTROLLED WITH MED 04/24/25 09:48 Hx Sleep Apnea Yes 04/24/25 09:48 CPAP Yes 04/24/25 09:48 BIPAP No 04/24/25 09:48 Do you snore loudly (louder than talking or can be heard Do you often feel tired/ fatigued/ sleepy during daytime? Has anyone observed you stop breathing during sleep? STOP Results Positive 04/24/25 09:48 QUESTION #5 FULL TEXT : Do you snore loudly (louder than talking or can be heard through closed doors)? 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 Specify any problems Hx of Preganancy in last 3 N/A 04/24/25 09:48 Months Nurse Filling Out Transfusion [facility]BU[facility] 04/24/25 09:48 & Questions: Date: 04/24/25 04/24/25 09:48 Time: 09:50 04/24/25 09:48 Patient unable to answer at this time (ie. confused, unrespo /Reproduction History /Reproductive History - hospice care sales consultant: /Reproductive Hx- hospice care sales consultant Hx Now No 04/24/25 09:48 Gestational Age (in weeks): EDC: Hx Hx Para Hx Section SAB No 04/24/25 09:48 [facility] Medical History (Updated 04/24/25 @ 09:58 by Latoya Azar) Fatty liver Migraine headache Gastric reflux Leg cramps CPAP (continuous positive airway pressure) dependence Sleep apnea Non-smoker History of echocardiogram Cardiology follow-up encounter Panic disorder Abnormal EKG Obstructive sleep apnea Chronic back pain Fatigue Hypersomnia Irritable bowel syndrome with diarrhea Low back pain Chest pain Obesity (BMI 30-39.9) Hyperlipidemia Kidney stones Depression Anxiety Hypertension Home Medications ?Medication ?Instructions ?Recorded ?Last Taken ?Type hydrochlorothiazide 25 mg tablet 25 mg PO DAILY #90 tabs 11/13/22 Unknown Rx lidocaine 5 % topical patch 2 patch topical DAILY PRN back 11/13/22 Unknown Rx pain #30 ea losartan 100 mg tablet 100 mg PO DAILY #90 tabs 11/13/22 Unknown Rx ergocalciferol (vitamin D2) 1,250 See Rx Instructions .Route 03/04/23 Unknown Rx mcg (50,000 unit) capsule .COMPLEX #8 caps desvenlafaxine succinate 25 mg 25 mg PO QDAY 08/24/24 Unknown History tablet,extended release 24 hr lorazepam 0.5 mg tablet 0.5 mg PO QDAY PRN anxiety 08/24/24 Unknown History hydroxyzine HCl 25 mg tablet 25 mg PO QHS PRN sleep 03/31/25 Unknown History amlodipine 10 mg tablet 10 mg PO QHS 04/24/25 Unknown History bisacodyl 5 mg tablet,delayed 20 mg (4 x 5 mg) PO ONCE #4 tabs 04/24/25 Unknown Rx release (Dulcolax (bisacodyl)) polyethylene glycol 3350 17 See Rx Instructions PO .COMPLEX 04/24/25 Unknown Rx gram/dose oral powder (Miralax) #238 grams vit no.95-ferrous 1 tab PO DAILY 04/24/25 Unknown History fumarate 28 mg-folic acid 800 mcg tablet () Allergy/AdvReac Type Severity Reaction Status Date / Time metronidazole Allergy Intermediate Hives Verified 04/24/25 09:44 amoxicillin Allergy palms itchy Verified 04/24/25 09:44 Family History Mother Hypertension Arthritis Heart disease Depression Father Diabetes Hypertension Hyperlipemia Myocardial infarction, Onset Age: 49 Grandmother Heart disease Hypertension Osteoporosis CVA (cerebral vascular accident) Grandfather Cancer Brother Hypertension Grandmother Myocardial infarction, Onset Age: 60 Surgical History (Updated 04/24/25 @ 09:58 by Latoya Azar) history of leep proceure with D&C History of 2 sections History of partial hysterectomy Social History Smoking Status: Never smoker alcohol intake: current alcohol intake frequency: holidays/special occasions only substance use type: does not use what type of physical activity do you participate in: none Audit: Pertinent Findings Pertinent Findings EKG Perinent findings: 09/28/2024. Sinus rhythm. Nonspecific T wave abnormality. Echo (EF%) pertinent findings: 10/28/2024. Normal size function EF 65%. Pulmonary artery pressure 24. Consult pertinent findings: Cardiology 03/31/2025. Chronic hypertension. Continue antihypertensive agents. Follow-up 1 year. Recommendation Anesthesia Recommendation Anesthesia recommendation: OPTIMIZED for anesthesia
--- OUTSIDE RECORDS SUMMARY | 2025-04-26 07:24 | XMS RPT_ITS | CCD ---
Author Organization [facility] Care Team Providers Care Specialist Managers Name Role Phone Unavailable Primary Care Provider Dr. Rani Kim Primary Care Provider [phone] Dr. Rani Greenberg Referring Provider [phone] Tamika COMPLIANCE REVIEW SPECIALIST, COMPLIANCE REVIEW SPECIALIST-C Vinnie Attending Provider [phone] Rani Greenberg MD Primary Care Provider [phone] SILVINA CADE Attending Unavailable RANI GREENBERG Primary Care Unavailable Dr. Rani Greenberg Primary Care Provider Dr. Rani Greenberg Referring Provider Tamika ARAGON, COMPLIANCE REVIEW SPECIALIST-C Vinnie Attending Provider [phone] Dr. Rani Greenberg Attending Provider [phone] Vinnie Morales Primary Care Provider Rani Greenberg MD Primary Care Provider [phone] Vinnie Morales Primary Care Provider QUINN Suarez Referring Unavailable AJ LANE Referring Unavailable Tamiak ARAGON-C, Vinnie Primary Care Provider Tamika ARAGON-CVinnie Attending Provider Tamika COMPLIANCE REVIEW SPECIALIST-CVinnie Referring Provider Jona ARAGON-CSailaja Other Provider Palak MONTIEL, Dr. Moise Attending Provider Jona ARAGON-C, Sailaja Attending Provider Jona COMPLIANCE REVIEW SPECIALIST-C, Sailaja Referring Provider Morales COMPLIANCE REVIEW SPECIALIST-C, Vinnie Primary Care Provider Jona COMPLIANCE REVIEW SPECIALIST-C, Sailaja Attending Provider Jona COMPLIANCE REVIEW SPECIALIST-C, Sailaja Referring Provider Harris MONTIEL, Dr. Adorno Attending Provider Harris MONTIEL, Dr. Adorno Referring Provider [phone] Trice MONTIEL, Dr. Sutherland Attending Provider Morales COMPLIANCE REVIEW SPECIALIST-C, Vinnie Primary Care Provider Harris MONTIEL, Dr. Adorno Attending Provider [phone] Harris MONTIEL, Dr. Adorno Referring Provider Morales COMPLIANCE REVIEW SPECIALIST-C, Vinnie Attending Provider Veronica MONTIEL, Dr. Nick Attending Provider Veronica MONTIEL, Dr. Nick Referring Provider Morales COMPLIANCE REVIEW SPECIALIST-C, Vinnie Primary Care Physician Morales COMPLIANCE REVIEW SPECIALIST-C, Vinnie Attending Physician Dr. Sandoval Martin MD Attending Physician Beam COMPLIANCE REVIEW SPECIALIST-C, Shahnaz Attending Physician Morales COMPLIANCE REVIEW SPECIALIST-C, Vinnie Referring Provider Alvino Daugherty Attending Physician Morales, Vinnie Primary Care Unavailable Morales, Vinnie Attending Unavailable Morales, Vinnie Primary Care Unavailable Morales, Vinnie Referring Unavailable Taya Craig Attending Unavailable Morales, Vinnie Primary Care Unavailable Cebul VSCSandoval Referring Unavailable Cebul VSC, Sandoval Attending Unavailable Morales, Vinnie Primary Care Unavailable Beam VSC, Shahnaz Attending Unavailable Morales, Vinnie Referring Unavailable Jose Maria Cid Attending Unavailabl e Morales, Ivnnie Primary Care Unavailable Morales, Vinnie Primary Care Unavailable Harris, [place] Attending Unavailable Morales, Vinnie Primary Care Unavailable Harris, [place] Referring Unavailable Koko Carnes Attending Unavailable Morales, Vinnie Primary Care Unavailable Morales, Vinnie Referring Unavailable Alvino Greenwood Attending Unavailable Morales, Vinnie Referring Unavailable Harris, [place] Attending Unavailable Morales, Vinnie Primary Care Unavailable Morales, Vinnie Referring Unavailable Morales, Vinnie Attending Unavailable Jona, Sailaja Consulting Unavailable Morales, Vinnie Primary Care Unavailable Jona, Sailaja Referring Unavailable Jona, Sailaja Attending Unavailable Morales, Vinnie Primary Care Unavailable Jona, Sailaja Referring Unavailable Jona, Sailaja Attending Unavailable Morales, Vinnie Primary Care Unavailable Morales, Vinnie Primary Care Unavailable Harris, Kyree Attending Unavailable Harris, Kyree Referring Unavailable Morales, Vinnie Primary Care Unavailable Harris, [place] Attending Unavailable Harris, [place] Referring Unavailable Morales, Vinnie Primary Care Unavailable Harris, [place] Attending Unavailable Harris, Kyree Referring Unavailable Allergies Allergy Classification Reported Allergen(s) Allergy Type Date of Onset Reaction(s) Facility (20 sources) Amoxicillin; Translations: [AMOXICILLIN] Drug Allergy 5 Itching, Rash [place], [place] (7 sources) metroNIDAZOLE Drug Allergy 5 Rash [facility] (1 source) Amoxicillin Drug Allergy 5 [facility] (1 source) metroNIDAZOLE Drug Allergy 5 [facility] Medications Current Medications Medication Drug Class(es) Dates Sig (Normalized) Sig (Original) [id number] 200 actuat albuterol 0.09 mg/actuat metered dose inhaler (20 sources) beta2-Adrenergic Agonist Start: 05-16-2024 take 2 puff(s) by inhalation every four hours as needed for wheezing albuterol HFA (PROVENTIL HFA, VENTOLIN HFA) 90 mcg/actuation inhaler Indications: Pneumonia of right upper lobe due to infectious organism Inhale 2 Puffs as instructed every 4 hours as needed for wheezing/shortnes s of breath. 18 g 05/16/2024 Active Start: 04-04-2021 End: 05-01-2021 Albuterol Sulfate (Ventolin Hfa) 1 INHALER inhaler Discontinued 2 NMA INHALATION EVERY 4 HOURS NEEDED as needed for Wheezing 1 0 April 04, 2021 12:00am May 01, 2021 9:49am with spacer Start: 04-04-2021 End: 05-01-2021 take 1 puff(s) by inhalation every four hours as needed Albuterol Sulfate (Ventolin Hfa) 1 INHALER inhaler Discontinued 2 PUFF INHALATION EVERY 4 HOURS NEEDED April 04, 2021 12:00am May 01, 2021 9:49am with spacer Start: 02-09-2017 End: 05-16-2024 take 2 puff(s) by inhalation every four hours as needed for wheezing albuterol HFA (VENTOLIN HFA) 90 mcg/actuation inhaler Indications: Acute bronchitis, unspecified organism Inhale 2 Puffs as instructed every 4 hours as needed for Wheezing/Shortness of Breath. 1 Inhaler 02/09/2017 05/16/2024 Discontinued Comment on above: Inhale 2 Puffs as in structed every 4 hours as needed for Wheezing/Shortness of Breath. amLODIPine 10 mg oral tablet (6 sources) Dihydropyridine Calcium Channel Naun Start: 2024 take 1 tablet by mouth once daily Amlodipine 10 mg tablet Active 10 mg PO daily 90 September 28, 2024 12:00am Complies with drug therapy brompheniramine maleate 0.4 mg/ml / dextromethorphan hydrobromide 2 mg/ml / pseudoephedrine hydrochloride 6 mg/ml oral solution (2 sources) alpha-Adrenergic Agonist, Uncompetitive X-qmjkns-P-aspartate Receptor Antagonist, Sigma-1 Agonist Start: 2023 take 10 mL by mouth every six hours as needed Brompheniramine-Pseu doeph-DM (BROMFED DM) 2-30-10 mg/5 mL syrup Take 10 mL by mouth four times a day as needed. 200 mL 05/30/2024 Active cefdinir 300 mg oral capsule (1 source) Cephalosporin Antibacterial Start: 2023 End: 2023 take 1 capsule by mouth twice daily cefdinir (OMNICEF) 300 mg capsule Indications: Acute otitis media, unspecified otitis media type Take 1 capsule by mouth two times a day for 7 days. 14 capsule 0 11/19/2023 11/26/2023 Active 24 hr desvenlafaxine succinate 25 mg extended release oral tablet (13 sources) Serotonin and Norepinephrine Reuptake Inhibitor Start: 2024 take 1 tablet by mouth once daily Desvenlafaxine Succinate 25 mg tablet extended release 24 hr Active 25 mg PO daily August 24, 2024 1:00am Complies with drug therapy Start: 03-21-2024 take 1 tablet by mouth once de svenlafaxine ER (PRISTIQ) 25 mg 24 hr tablet Take 1 tablet by mouth every afternoon. 03/21/2024 Active doxycycline monohydrate 100 mg oral capsule (1 source) Tetracycline-class Drug Start: 05-16-2024 End: 05-21-2024 take 1 capsule by mouth twice daily doxycycline monohydrate (MONODOX) 100 mg capsule Indications: Pneumonia of right upper lobe due to infectious organism Take 1 capsule by mouth two times a day for 5 days. 10 capsule 05/16/2024 05/21/2024 Active hydrOXYzine hydrochloride 25 mg oral tablet (8 sources) Antihistamine Start: 09-28-2024 End: 03-31-2025 take 1 tablet by mouth at bedtime as needed Hydroxyzine Hcl 25 mg tablet Active 25 mg PO AT BEDTIME as needed March 31, 2025 1:17pm Complies with drug therapy Start: 09-28-2024 take 1 tablet by yoselin th at bedtime Hydroxyzine Hcl 25 mg tablet Active 25 mg PO AT BEDTIME September 28, 2024 12:00am Inhalational Spacing Device (1 source) Start: 05-16-2024 End: 05-16-2024 Inhalational Spacing Device 1 Device one time only for 1 dose. 1 Each 05/16/2024 05/16/2024 Active lidocaine 0.05 mg/mg medicated patch (12 sources) Antiarrhythmic, Amide Local Anesthetic Start: 11-13-2022 Lidocaine 5 % adhesive patch,medicated Active 2 NMA TOPICAL DAILY as needed for back pain 30 November 13, 2022 12:00am leave on most painful area for up to 12 hrs Complies with drug therapy LORazepam 0.5 mg oral tablet (20 sources) Benzodiazepine Start: 08-24-2024 take 1 tablet by mouth once daily as needed Lorazepam 0.5 mg tablet Active 0.5 mg PO daily as needed August 24, 2024 1:00am Complies with drug therapy Start: 03-03-2017 End: 11-13-2022 take 1 tablet by mouth twice daily as needed for anxiety Lorazepam 0.5 mg tablet Discontinued 0.5 mg PO TWICE DAILY NEEDED as needed for Anxiety 30 August 02th, 2022 5:25pm September 27, 2021 2:58pm take 0.5 mg by mouth every eight hours as needed LORazepam (ATIVAN) 0.5 mg Take 0.5 mg by mouth three times daily as needed. Active Comment on above: Take 0.5 mg by mouth three times daily as needed. nystatin [id number] unt/ml topical cream (1 source) Polyene Antifungal Start: 07-26-2024 nystatin (MYCOSTATIN) cream APPLY TO AFFECTED AREA UNDER BREAST TWICE DAILY 07/26/2024 Active predniSONE 10 mg oral tablet (20 sources) Start: 08-04-2024 End: 08-13-2024 predniSONE (DELTASONE) 10 mg tablet Indications: Rash Take 4 tabs daily for 3 days, then 2 tabs daily for 3 days, then 1 tab daily for 3 days with food. 21 tablet 08/04/2024 08/13/2024 Active Start: 05-30-2024 End: 06-04-2024 take 2 tablets by mouth once daily predniSONE (DELTASONE) 20 mg tablet Take 2 tablets by mouth once daily for 5 days. 10 tablet 05/30/2024 06/04/2024 Active Start: 04-17-2022 End: 11-13-2022 take 2 tablets by mouth once daily Prednisone 20 mg tablet Discontinued 40 mg PO DAILY April 17, 2022 12:00am November 13, 2022 9:53am Start: 04-17-2022 End: 11-13-2022 take 40 mg by mouth once daily Prednisone Discontinued 40 MG PO DAILY 04 09April 17, 2022 12:00am November 13, 2022 9:53am Completed/Discontinued Medications Medication Drug Class(es) Dates Sig (Normalized) Sig (Original) acetaminophen 325 mg / HYDROcodone bitartrate 5 mg oral tablet (13 sources) Opioid Agonist Start: 04-22-2017 End: 07-14-2017 Hydrocodone-Acetami nophen 1 TABLET tablet Discontinued 1 - 2 {tbl} PO EVERY 4 HOURS NEEDED as needed for Pain April 22, 2017 12:00am July 14, 2017 10:48am Start: 04-22-2017 End: 07-14-2017 take 1 tablet by mouth every four hours as needed Hydrocodone-Acetaminophen Discontinued 1 - 2 TABLET PO EVERY 4 HOURS NEEDED April 22, 2017 12:00am July 14, 2017 10:48am 12 hr buPROPion hydrochloride 100 mg extended release oral tablet (20 sources) Aminoketone Start: 08-02-2021 End: 05-16-2024 take 1 tablet by mouth once daily at bedtime buPROPion SR (WELLBUTRIN SR) 100 mg 12 hr tablet Take 100 mg by mouth daily at bedtime. 08/02/2021 05/16/2024 Discontinued Start: 08-02-2021 End: 11-13-2022 take 1 tablet by mouth every twelve hours at bedtime Bupropion Hcl (Wellbutrin Sr) 100 mg tablet sustained-release 12 hr Discontinued 100 mg PO AT BEDTIME 90 January 01, 2022 10:25am November 13, 2022 9:52am Start: 02-07-2020 End: 05-01-2021 Bupropion Hcl (Wellbutrin Sr ) 100 mg tablet sustained-release 12 hr Discontinued 100 mg PO TWICE A DAY 60 February 07, 2020 12:00am May 01, 2021 10:33am take daily for the first week, then increase to twice a day Comment on above: Take 100 mg by mouth daily at bedtime. busPIRone hydrochloride 5 mg oral tablet (12 sources) Start: 05-07-20 End: 11-14-19 23 take 1 tablet by mouth twice daily Buspirone 5 mg tablet Discontinued 5 mg PO TWICE A DAY 60 May 07, 2022 12:00am November 13, 2022 9:52am cephalexin 500 mg oral capsule (2 sources) Cephalosporin Antibacterial Start: 10-29-19 End: 11-08-19 cephALEXin (KEFLEX) capsule 500 mg citalopram 20 mg oral tablet (13 sources) Serotonin Reuptake Inhibitor Start: 06-14-20 19 End: 02-07-20 take 1 tablet by mouth once daily Citalopram 20 mg tablet Discontinued 20 mg PO DAILY June 14, 2019 1:00am February 07, 2020 9:14am codeine phosphate 2 mg/ml / promethazine hydrochloride 1.25 mg/ml oral solution (20 sources) Opioid Agonist, Phenothiazine Start: 04-17-20 End: 05-07-20 take 1 mL by mouth four times daily as needed for cough Promethazine-Codeine 6.25-10 mg/5 mL syrup Discontinued 5 mL PO 4 TIMES DAILY as needed for cough 140 7 0 April 17, 2022 6:30am May 07, 2022 1:13pm Viral upper respiratory tract infection Acute upper respiratory infection, unspecified Start: 04-17-2022 End: 05-07-2022 take 1 mL by mouth four times daily Promethazine-Codeine Discontinued 5 ML P O 4 TIMES DAILY 140 7 April 17, 2022 6:30am May 07, 2022 1:13pm cyclobenzaprine hydrochloride 10 mg oral tablet (13 sources) Muscle Relaxant Start: 08-02-2021 End: 11-13-2022 take 5-10 mg by mouth three times daily as needed for muscle spasms Cyclobenzaprine 10 mg tablet Discontinued 5 - 10 mg PO THREE TIMES A DAY as needed for muscle spasm 30 0 August 02, 2021 1:00am November 13, 2022 9:52am dexamethasone 6 mg oral tablet (13 sources) Corticosteroid Start: 04-04-2021 End: 05-01-2021 take 1 tablet by mouth once daily Dexamethasone 6 MG tablet Discontinued 6 mg PO DAILY 5 0 April 04, 2021 12:00am May 01, 2021 9:49am dicyclomine hydrochloride 10 mg oral capsule (13 sources) Anticholinergic Start: 05-03-2019 End: 12-14-2019 take 1 capsule by mouth three times daily at mealtime Dicyclomine 10 mg capsule Discontinued 10 mg PO THREE TIMES A DAY 90 1 May 03, 2019 12:00am December 14, 2019 8:10am take with meals ergocalciferol 1.25 mg oral capsule (20 sources) Provitamin D2 Compound Start: 11-18-2022 End: 03-04-2023 take 1 capsule by mouth every week Ergocalciferol (Vitamin D2) 1,250 mcg (50,000 unit) capsule Discontinued 0 .ROUTE .COMPLEX 8 0 January 09, 2023 1:57pm March 04, 2023 7:44pm Take 1 capsule by mouth once a week Start: 11-18-2022 End: 01-09-2023 take 1 capsule by mouth every week Ergocalciferol (Vitamin D2) Active 0 .ROUTE .COMPLEX 8 January 09, 2023 1:57pm Take 1 capsule by mouth once a week FLUoxetine 40 mg oral capsule (20 sources) Serotonin Reuptake Inhibitor Start: 12-06-2018 End: 03-22-2019 take 1 capsule by mouth once daily Fluoxetine 40 mg capsule Discontinued 40 mg PO DAILY 180 December 06, 2018 12:56pm March 22, 2019 9:08am Start: 08-25-2017 End: 12-06-2018 take 1 capsule by mouth twice daily Fluoxetine 20 mg capsule Discontinued 20 mg PO TWICE A DAY 180 January 22, 2018 9:37am December 06, 2018 12:56pm Start: 07-14-2017 End: 05-16-2024 take 1 capsule by mouth once daily Fluoxetine 20 mg capsule Discontinued 20 mg PO daily 60 July 14, 2017 1:00am August 25, 2017 10:34am Comment on above: Take 20 mg by mouth once daily. fluticasone propionate 0.05 mg/actuat metered dose nasal spray (9 sources) Corticosteroid Start : 11-23 End: 05-16 take 2 spray(s) by mouth once daily fluticasone (FLONASE) 50 mcg/actuation nasal spray Indications: URI with cough and congestion Use 2 Sprays in each nostril once daily. Rinse mouth after use. 1 Bottle 11/23/2017 05/16/2024 Discontinued Comment on above: Use 2 Sprays in each nostril once daily. Rinse mouth after use. hydroCHLOROthiazide 25 mg oral tablet (20 sources) Thiazide Diuretic Start : 11-17 End: 11-13 take 1 tablet by mouth once daily Hydrochlorothiazide 25 mg tablet Discontinued 25 mg PO DAILY 90 3 November 04, 2021 9:47am November 13, 2022 10:25am Comment on above: Take 1 tablet by yoselin th once daily. ibuprofen 600 mg oral tablet (20 sources) Nonsteroidal Anti-inflammatory Drug Start : 06-14 End: 08-24 take 1 tablet by mouth three times daily at mealtime for pain Ibuprofen 600 mg tablet Discontinued 600 mg PO THREE TIMES A DAY as needed for pain 30 0 June 19, 2020 10:20am August 24, 2024 3:19pm take with food ketorolac tromethamine 10 mg oral tablet (13 sources) Nonsteroidal Anti-inflammatory Drug, Cyclooxygenase Inhibitor Start : 04-22 End: 07-14 take 1 tablet by mouth every six hours as needed for pain Ketorolac 10 MG tablet Discontinued 10 mg PO EVERY 6 HOURS as needed for Pain 14 0 April 22, 2017 7:48pm July 14, 2017 10:49am losartan potassium 100 mg oral tablet (20 sources) Angiotensin 2 Receptor Naun Start : 11-07 End: 11-13 take 1 tablet by mouth once daily Losartan 100 mg tablet Discontinued 100 mg PO DAILY 90 October 10, 2022 1:00pm November 13, 2022 10:25am Start: 04-22-2017 End: 11-08-2019 take 1 tablet by mouth once daily Losartan 50 mg tablet Discontinued 50 mg PO DAILY 90 June 15, 2019 12:04pm November 08, 2019 4:20pm Comment on above: Take 50 mg by mouth once daily. meloxicam 15 mg oral tablet (12 sources) Nonsteroidal Anti-inflammatory Drug Start: 11-14-19 End: 08-24-19 take 1 tablet by mouth once daily as needed for pain Meloxicam 15 mg tablet Discontinued 15 mg PO DAILY as needed for back pain November 13, 2022 12:00am August 24, 2024 3:19pm 24 hr metoprolol succinate 25 mg extended release oral tablet (8 sources) beta-Adrenergic Naun Start: 08-24-19 End: 09-29-19 take 1 tablet by mouth once daily Metoprolol Succinate 25 mg tablet extended release 24 hr Discontinued 25 mg PO daily August 24, 2024 1:00am September 28, 2024 3:39pm metroNIDAZOLE 500 mg oral tablet (1 source) Nitroimidazole Antimicrobial Start: 07-28-19 End: 08-04-19 take 1 tablet by mouth twice daily metroNIDAZOLE (FLAGYL) 500 mg tablet TAKE 1 TABLET BY MOUTH TWICE DAILY FOR 7 DAYS. AVOID ALCOHOL UNTIL 48 HOURS AFTER LAST DOSE 07/28/2024 08/04/2024 Discontinued ondansetron 4 mg disintegrating oral tablet (13 sources) Serotonin-3 Receptor Antagonist Start: 04-22-20 End: 07-14-19 take 1 tablet by mouth every eight hours as needed for nausea Ondansetron 4 MG tablet Discontinued 4 mg PO EVERY 8 HOURS NEEDED as needed for Nausea April 22, 2017 12:00am July 14, 2017 10:49am Vit No.[id number] (Classic ) 28 mg iron- 800 mcg tablet (12 sources) Start: 11-14-19 End: 08-24-19 Vit No.127-Dmhg-Lgcnb (Classic ) 28 mg iron- 800 mcg tablet Discontinued 1 {tbl} PO daily November 13, 2022 12:00am August 24, 2024 3:20pm Start: 11-13-2022 End: 08-24-2024 Vit No.025-Vvkv-Pgg ic (Classic ) 28 mg iron- 800 mcg tablet Discontinued 1 {tbl} PO daily November 13, 2022 12:00am August 24, 2024 3:20pm Start: 11-13-2022 take 1 tablet by yoselin th once daily Vit No.376-Ubfo-Maqgr (Classic ) 28 mg iron- 800 mcg tablet Active 1 TABLET PO daily November 13, 2022 12:00am sertraline 50 mg oral tablet (13 sources) Serotonin Reuptake Inhibitor Start: 04-23-2017 End: 07-14-2017 take 1 tablet by mouth once daily Sertraline 50 MG tablet Discontinued 50 mg PO DAILY April 23, 2017 12:00am July 14, 2017 10:48am 24 hr venlafaxine 37.5 mg extended release oral capsule (13 sources) Serotonin and Norepinephrine Reuptake Inhibitor Start: 05-01-2021 End: 08-02-2021 take 1 capsule by mouth every twenty-four hours at bedtime Venlafaxine 37.5 mg capsule,extended release 24hr Discontinued 37.5 mg PO AT BEDTIME 90 0 May 01, 2021 12:00am August 02, 2021 2:51pm Problems Active Problems Problem Classification Problem Date Documented Da te Episodic/Chronic Abdominal pain (1 source) Right upper quadrant pain; Translations: [Right upper quadrant pain] Onset: 02-13-2025 Episodic Anxiety disorders (20 sources) Mixed anxiety and depressive disorder; Translations: [Other specified anxiety disorders] Chronic Calculus of urinary tract (20 sources) Kidney stone; Translations: [Calculus of kidney] Onset: 09-25-2022 Episodic Disorders of lipid metabolism (15 sources) Hyperlipidemia; Translations: [Hyperlipidemia, unspecified] Onset: 09-28-2024 08-03-2018 Chronic Essential hypertension (20 sources) Hypertensive disorder; Translations: [Essential (primary) hypertension] Onset: 01-30-2025 Chronic Fever of unknown origin (13 sources) Fever; Translations: [Fever, unspecified] 04-25-2022 Episodic Fluid and electrolyte disorders (14 sources) Mild dehydration; Translations: [Dehydration] Onset: 04-04-2025 04-25-2022 Episodic Mood disorders (18 sources) Depressive disorder; Translations: [Depression] Chronic Other eye disorders (8 sources) Inflammatory disorder of the eye; Translations: [Other specified disorders of eye and adnexa] 03-29-2023 Episodic Other gastrointestinal disorders (13 sources) Irritable bowel syndrome with diarrhea; Translations: [Irritable bowel syndrome with diarrhea] 01-01-2022 Chronic Other gastrointestinal disorders (1 source) Irritable bowel syndrome with diarrhea; Translations: [Irritable bowel syndrome] Chronic Other injuries and conditions due to external causes (2 sources) Injury of right foot; Translations: [Unspecified injury of right foot, initial encounter] 03-30-2023 Episodic Other lower respiratory disease (13 sources) Dyspnea; Translations: [Dyspnea, unspecified] 04-12-2021 Episodic Other lower respiratory disease (2 sources) Cough; Translations: [Acute cough] 05-16-2024 Episodic Other lower respiratory disease (2 sources) Cough; Translations: [Subacute cough] 05-30-2024 Episodic Other lower respiratory disease (1 source) H/O: pneumonia; Translations: [Personal history of pneumonia (recurrent)] 05-30-2024 Episodic Other nutritional; endocrine; and metabolic disorders (13 sources) Body mass index 30+ - obesity; Translations: [Obesity, unspecified] 12-06-2018 Chronic Other skin disorders (1 source) Eruption; Translations: [Rash and other nonspecific skin eruption] 08-04-2024 Episodic Other upper respiratory infections (16 sources) Streptococcal sore throat; Translations: [Viral upper respiratory tract infection] 04-25-2022 Episodic Otitis media and related conditions (1 source) Acute otitis media; Translations: [Otitis media, unspecified, unspecified ear] 11-19-2023 Episodic Pneumonia (except that caused by tuberculosis or sexually transmitted disease) (1 source) Right upper zone pneumonia; Translations: [Pneumonia, unspecified organism] 05-16-2024 Episodic Poisoning by nonmedicinal substances (8 sources) Toxic effect of other specified substances, accidental (unintentional), initial encounter; Translations: [Toxic effect of pepper spray] 03-29-2023 Episodic Residual codes; unclassified (12 sources) Hypersomnia; Translations: [Hypersomnia, unspecified] 11-13-2022 Chronic Residual codes; unclassified (4 sources) Hypersomnia, unspecified; Translations: [Hypersomnia, unspecified] 11-13-2022 Chronic Residual codes; unclassified (9 sources) Obstructive sleep apnea syndrome; Translations: [Obstructive sleep apnea (adult) (pediatric)] 01-16-2023 Chronic Residual codes; unclassified (1 source) Obstructive sleep apnea (adult) (pediatric); Translations: [Obstructive sleep apnea (adult)(pediatric)] 01-16-2023 Chronic Spondylosis; intervertebral disc disorders; other back problems (20 sources) Low back pain; Translations: [Low back pain] 09-27-2021 Episodic Unclassified (1 source) Subacute cough; Translations: [Subacute cough] Onset: 05-30-2024 Unclassified (1 source) Acute cough; Translations: [Acute cough] Onset: 05-16-2024 Viral infection (13 sources) COVID-19; Translations: [Pneumonia due to COVID-19 virus] 04-04-2021 Episodic Past or Other Problems Problem Classification Problem Date Documented Date Episodic/Chronic Immunizations and screening for infectious disease (1 source) Encounter for screening for infections with a predominantly sexual mode of transmission; Translations: [Encounter for screening for infections with a predominantly sexual mode of transmission] Onset: 09-23-2024 Episodic Malaise and fatigue (20 sources) Fatigue; Translations: [Other fatigue] Onset: 09-28-2024 11-13-2022 Episodic Nonspecific chest pain (14 sources) Chest pain; Translations: [Chest pain, unspecified] Onset: 09-28-2024 05-01-2021 Episodic Other screening for suspected conditions (not mental disorders or infectious disease) (20 sources) Plain X-ray pelvis abnormal; Translations: [Abnormal findings on diagnostic imaging of other parts of musculoskeletal system] Onset: 09-20-2024 07-14-2017 Episodic Unclassified (13 sources) history of leep proceure with D&C 01-25-2022 Results Test Name Value Interpretation Reference Range Facility MR/PATMi 04-24-2025 [facility] [address] [facility] [address] PAT - Anesthesia 04/24/25 1303 MR#: [id number] Acct: [id number] Name: BARBARA HULL Rep #: [id number] : 1985 40 From: Terrence Shipley MD PCP: Vinnie Morales NP-C Status:PRE ORC Y Race: C Location: EN Pre-Assessment Diagnosis/Proposed Procedure Planned Operative Procedure(s): EGD, CSCOPE Anesthesia History Anesthesia History - manager community relations: Anesthesia History - manager community relations Hx Hospitalization No 04/24/25 09:48 Any Problems With Anesthesia No 04/24/25 09:48 Cholinesterase deficiency No 04/24/25 09:48 You/Your Family Experience No 04/24/25 09:48 fever (hyperthermia) with Relationship Recent Exposure to Contagious No 11/01/13 07:31 Disease Does patient have nerve No 04/24/25 09:48 stimulator Patient instructed to have device shut off --Does patient have Pacemaker or ICD? When Was Last Pacemaker Check QUESTION #4 FULL TEXT: You/Your Family Experience fever (hyperthermia) with Anesthesia Last Oral Intake Last Oral intake: Last Oral Intake NPO since Meds taken in AM with sips of water? Meds patient instructed to take am of surgery PONV PONV - manager community relations: PONV - manager community relations Female Yes 04/24/25 09:48 HX of Motion Sickness No 04/24/25 09:48 HX of N/V After Surgery No 04/24/25 09:48 Non-Smoker Yes 04/24/25 09:48 Duration of Surgery greater No 04/24/25 09:48 than 60 minutes Number of Risk Factors 2 04/24/25 09:48 PONV Score Moderate Risk 04/24/25 09:48 Height Weight Height Weight: Anesthesia: Height Weight Height 5 ft 5 in 09/28/24 15:15 Respiratory Assessment Respiratory Assessment - manager community relations: Respiratory Tract Infection Hx - manager community relations Hx Respiratory Tract Infection No 04/24/25 09:48 STOP Sleep Apnea STOP Sleep Apnea - manager community relations: STOP Sleep Apnea - manager community relations Hx Hypertension Yes: CONTROLLED WITH MED 04/24/25 09:48 Hx Sleep Apnea Yes 04/24/25 09:48 CPAP Yes 04/24/25 09:48 BIPAP No 04/24/25 09:48 Do you snore loudly (louder than talking or can be heard Do you often feel tired/ fatigued/ sleepy during daytime? Has anyone observed you stop breathing during sleep? STOP Results Positive 04/24/25 09:48 QUESTION #5 FULL TEXT : Do you snore loudly (louder than talking or can be heard through closed doors)? Tobacco Use History Tobacco Use History - manager community relations: Tobacco Use History - manager community relations Tobacco Use Smoking Status Never smoker 04/24/25 09:48 Hx Tobacco Use No 04/24/25 09:48 Years Smoking Packs Smoked per Day Smoking Cessation Date was within the last 15 years Hx Smoking Cessation Date Hx Smoking Cessation Counseling Hematologic Medial History Hematologic Hx - manager community relations: Hematologic Medical Hx - manager flight Hx of Blood Transfusion No 04/24/25 09:48 Hx of Transfusion in last 3 No 04/24/25 09:48 Months Date of Last Transfusion (if within last 3 months) Ever experience any problems No 04/24/25 09:48 with transfusion(s)? Specify any problems Hx of Preganancy in last 3 N/A 04/24/25 09:48 Months Nurse Filling Out Transfusion NBUCHER 04/24/25 09:48 Questions: Date: 04/24/25 04/24/25 09:48 Time: 09:50 04/24/25 09:48 Patient unable to answer at this time (ie. confused, unrespo /Reproduction History /Reproductive History - manager community relations: /Reproductive Hx- manager community relations Hx Now No 04/24/25 09:48 Gestational Age (in weeks): EDC: Hx Hx Para Hx Section SAB No 04/24/25 09:48 [facility] Medical History (Updated 04/24/25 @ 09:58 by Latoya Azar) Fatty liver Migraine headache Gastric reflux Leg cramps CPAP (continuous positive airway pressure) dependence Sleep apnea Non-smoker History of echocardiogram Cardiology follow-up encounter Panic disorder Abnormal EKG Obstructive sleep apnea Chronic back pain Fatigue Hypersomnia Irritable bowel syndrome with diarrhea Low back pain Chest pain Obesity (BMI 30-39.9) Hyperlipidemia Kidney stones Depression Anxiety Hypertension Home Medications ???Medication ???Instructions ???Recorded ???Last Taken ???Type hydrochlorothiazide 25 mg tablet 25 mg PO DAILY #90 tabs 11/13/22 U nknown Rx lidocaine 5 % topical patch 2 patch topical DAILY PRN back 05/28 Unknown Rx pain #30 ea losartan 100 mg tablet 100 mg PO DAILY #90 tabs 11/13/22 Unknown Rx ergocalciferol (vitamin D2) 1,250 See Rx Instructions .Route Unknown Rx mcg (50,000 unit) capsule .C (more content not included)... Normal [facility] Cardiology Visit Reporton Cardiology Visit Report [facility] [address] [place] [address] OFFICE VISIT Date of Service: 03/31/25 MR#: [id number] Acct: [id number] Name: BARBARA HULL Rep #: [id number] : 1985 Provider: GHULAM Albert Age/Sex: 39/F Location: [facility] [place] Status: Signed HPI HPI History of Present Illness Details: Barbara Hull is a 39-year-old female who presents to office today for follow-up for monitoring her cardiovascular health. She established with our office in September 2024. She has a history of anxiety disorder and significant family history of coronary artery disease. Echocardiogram 10/28/24 demonstrates a preserved ejection fraction at 65%, no regional wall motion abnormalities, no significant valve disease. Upon presentation today, patient reports fatigue described as feeling tired after waking up and sleeping 8 hours. She does have sleep apnea and reports she should probably be wearing her PAP mask at home more. She reports bilateral LE edema that started after taking amlodipine. She notices her edema mid-day and worsens in to the evening. She reports heartburn that is chronic and is directly associated with certain foods. Further ROS below. Intake Vital Signs 09/28/24 15:15 03/31/25 08:42 Height 5 ft 5 in 5 ft 5 in Weight: 223 lb BMI 37.0 BP 128/86 H Blood Pressure Location Lt brachial Position Sitting Respiration 18 Pulse 62 Pulse Source Monitor Pulse Oximetry (%) 97 Intake Visit Reasons: 6 M FU B2B Account Executive Required: No Is patient in pain?: No Allergies metronidazole Allergy (Intermediate, Verified 09/28/24 15:20) Hives amoxicillin Allergy (Verified 03/21/23 15:23) palms itchy Medications ???Medication ???Instructions ???Recorded ???Confirmed ???Type hydrochlorothiazide 25 mg tablet 25 mg PO DAILY #90 tabs 11/13/22 0 03/31/25 Rx lidocaine 5 % topical patch 2 patch topical DAILY PRN back 05/2803/31/25 Rx pain #30 ea losartan 100 mg tablet 100 mg PO DAILY #90 tabs 11/13/22 03/31/25 Rx ergocalciferol (vitamin D2) 1,250 See Rx Instructions .Route 03/31/25 Rx mcg (50,000 unit) capsule .COMPLEX #8 caps desvenlafaxine succinate 25 mg 25 mg PO QDAY 08/24/24 03/31/25 Hi story tablet,extended release 24 hr lorazepam 0.5 mg tablet 0.5 mg PO QDAY PRN 08/24/24 History amlodipine 10 mg tablet 10 mg PO QDAY #90 tabs 09/28/24 Rx hydroxyzine HCl 25 mg tablet 25 mg PO QHS PRN 03/31/25 03/31/25 History Ejection fraction %: 65 Have you fallen in the past year?: No PFSH Medical History Panic disorder Abnormal EKG Obstructive sleep apnea Chronic back pain Fatigue Hypersomnia Irritable bowel syndrome with diarrhea Low back pain Chest pain Obesity (BMI 30-39.9) Hyperlipidemia Kidney stones Depression Anxiety Hypertension Surgical History history of leep proceure with D C History of 2 sections History of partial hysterectomy Family History Mother Hypertension Arthritis Heart disease Depression Father Diabetes Hypertension Hyperlipemia Myocardial infarction, Onset Age: 49 Grandmother Heart disease Hypertension Osteoporosis CVA (cerebral vascular accident) Grandfather Cancer Brother Hypertension Grandmother Myocardial infarction, Onset Age: 60 Social History Smoking Status: Never smoker alcohol intake: current alcohol intake frequency: holidays/special occasions only substance use type: does not use what type of physical activity do you participate in: none ROS Const Const: Positive for fatigue; Negative for weakness, headache(s) or frequent falls Eyes Eyes: Negative for blurry vision ENT ENT: Negative for headache(s), dizziness or Nosebleed/epistaxis Cardio Chest Pain: No Palpitations: No Edema: Bilateral Muscle aches with walking: None Resp Respiratory: Negative for SOB with activity, SOB at rest or SOB orthopnea SOB lying down GI GI: Positive for heartburn; Negative nausea, vomiting, bright, red blood in stools or black,tarry stools : Negative for hematuria Neuro Neuro: Negative for dizziness, lightheadedness, near syncope, syncope, frequent falls, headache(s), weakness or blurry vision Endo Endo: Positive for fatigue Cardiology Exam Const Appearance: cooperative, comfortable, no acute distress and well developed; Negative diaphoretic or ill appearing Nutritional Appearance: obese Orientation: alert and oriented x3 Ambulating without assistive device Head Head: normal to inspection, normocephalic and atraumatic (more content not included)... Normal [facility] Potassiumon 03-29-2025 Potassium [Moles/Vol] 3.6 mmol/L Normal 3.3-5.1 [facility] Comment on above: Order Comment: PT WI LL GO TO THE HOSPITAL Performed By: #### L 3000.0800, L509.8000, L3890.6005 #### [facility] [address] [facility] [place], [address] Potassium measurement (mass/ volume)Ordered By: Shahnaz Clark on 03-29-2025 Potassium (Unsp spec) [Mass/Vol] 3.6 mmol/L 3.3-5.1 [facility] Abdomen Limitedon 02-07-2025 Abdomen Limited [facility] Imaging Services [address] [place], [place] [id number] Abdomen Limited MR#: [id number] Acct: [id number] Name: HULLBARBARA BRIDGES Rep #: [id number] : 1985 F 39 From: Renato delgado MD PCP: LAZARO Barraza Status: REG CLI Study: Abdomen Limited Date of Exam: 02/07/25 Exam# [id number] Ordering Dr: Sandoval Martin MD PROCEDURE: ABDOMEN LIMITED 02/07/2025 REASON FOR EXAM: RUQ PAIN COMPARISON: None FINDINGS: Liver: Diffusely echogenic suggesting fatty infiltration. The liver measures 16.6 cm. Gallbladder: No stones sludge wall thickening or tenderness. Common bile duct: Normal measuring 5 mm . Pancreas: Normal Other: Visualized portions of the right kidney are unremarkable. No right upper quadrant ascites. US/Abdomen Limited IMPRESSION: Fatty infiltration of the liver. No evidence of gallstones. Reading Location: [id number] CC: LAZARO Morales; GRAYSON Andrade MD Central Office Repairer: Signed Normal [facility] Absolute lymphocyte countOrd ered By: Vinnie Morales on 01-25-2025 Lymphocytes Auto (Unsp spec) [#/Vol] 3.66 10*3/uL 0.83-4.51 [facility] Absolute neutrophil countOrd ered By: Vinnie Morales on 01-25-2025 Neutrophils (Bld) [#/Vol] 7.9 10*3/uL High 2.0-7.7 [facility] Anion gap in Serum or Plasma Ordered By: Vinnie Morales on 01-25-2025 Anion gap [Moles/Vol] 14 mmol/L 5-15 [facility] Automated lymphocyte count a s percentage of total leukocytesOrdered By: Vinnie Morales on 01-25-2025 Lymphocytes/100 WBC Auto (Unsp spec) 29.1 % 19-41 [facility] BUN/creatinine ratioOrdered By: Vinnie Morales on 01-25-2025 Urea nitrogen/Creatinine [Mass ratio] 21.1 mg/mg High 10-20 [facility] Basophil percentageOrdered B y: Vinnie Morales on 01-25-2025 Basophils/100 WBC (Bld) 0.4 % 0-1 [facility] Bilirubin Test strip Ql (U)O rdered By: Vinnie Morales on 01-25-2025 Bilirubin Ql (U) Negative Negative [facility] Bilirubin, totalOrdered By: Vinnie Morales on 01-25-2025 Bilirubin [Mass/Vol] 0.32 mg/dL 0.00-1.30 [facility] CBC W/Diff, Automatedon 01-04 Absolute Lymph 3.66 X10 3/uL Normal 0.83-4.51 [facility] Comment on above: Performed By: #### L 3000.0800, L509.8000, L3890.6005 #### [facility] [address] [place], [address] Absolute Neut 7.9 X10 3/uL High 2.0-7.7 [facility] Comment on above: Performed By: #### L 3000.0800, L509.8000, [id number] #### [facility] [address] [place], [address] Basophils/100 WBC (Bld) 0.4 % Normal 0-1 [facility] Comment on above: Performed By: #### L 3000.0800, L509.8000, [id number] #### [facility] [address] [place], [address] Eosinophils/100 WBC (Bld) 1.6 % Normal 0-5 [facility] Comment on above: Performed By: #### L 3000.0800, L509.8000, [id number] #### [facility] [address] [place], [address] Erythrocyte distribution width (RBC) [Ratio] 12.5 % Normal 11.6-14.6 [facility] Comment on above: Performed By: #### L 3000.0800, L509.8000, [id number] #### [facility] [address] [place], [address] Hematocrit (Bld) [Volume fraction] 36.4 % Low 37-47 [facility] Comment on above: Performed By: #### L 3000.0800, L509.8000, [id number] #### [facility] [address] [place], [address] Hemoglobin (Bld) [Mass/Vol] 12.5 g/dL Normal 12.0-15.0 [facility] Comment on above: Performed By: #### L 3000.0800, L509.8000, [id number] #### [facility] [address] [place], [address] IG% 0.700 Normal 0.0-0.9 [facility] Comment on above: Result Comment: IG% - Immature Granulocytes (promyelocytes, myelocytes and metamyelocytes) > 1% indicates that a LEFT SHIFT is Present. Performed By: #### L 3000.0800, L509.8000, [id number] #### [facility] [address] [place], [address] Lymphocytes/100 WBC (Bld) 29.1 % Normal 19-41 [facility] Comment on above: Performed By: #### L 3000.0800, L509.8000, [id number] #### [facility] [address] [place], [address] MCH (RBC) [Entitic mass] 29.1 pg Normal 27.0-32.0 [facility] Comment on above: Performed By: #### L 3000.0800, L509.8000, [id number] #### [facility] [address] [place], [address] MCHC (RBC) [Mass/Vol] 34.3 g/dL Normal 32-36 [facility] Comment on above: Performed By: #### L 3000.0800, L509.8000, [id number] #### [facility] [address] [place], [address] MCV (RBC) [Entitic vol] 84.8 fL Normal 81-99 [facility] Comment on above: Performed By: #### L 3000.0800, L509.8000, [id number] #### [facility] [address] [place], [address] Monocytes/100 WBC (Bld) 5.7 % Normal 0-10 [facility] Comment on above: Performed By: #### L 3000.0800, L509.8000, [id number] #### [facility] [address] [place], [address] Neutrophils/100 WBC (Bld) 62.5 % Normal 47-70 [facility] Comment on above: Performed By: #### L 3000.0800, L509.8000, [id number] #### [facility] [address] [place], [address] Nucleated RBC (Bld) [#/Vol] 0 10*3/uL Normal 0-5 [facility] Comment on above: Performed By: #### L 3000.0800, L509.8000, [id number] #### [facility] [address] [place], [address] Platelet mean volume (Bld) [Entitic vol] 9.6 fL Normal 6.2-12.0 [facility] Comment on above: Performed By: #### L 3000.0800, L509.8000, [id number] #### [facility] [address] [place], [address] Platelets (Bld) [#/Vol] 408 10*3/uL Normal 150-450 [facility] Comment on above: Performed By: #### L 3000.0800, L509.8000, [id number] #### [facility] [address] [place], [address] RBC (Bld) [#/Vol] 4.29 10*6/uL Normal 4.2-5.4 [facility] Comment on above: Performed By: #### L 3000.0800, L509.8000, [id number] #### [facility] [address] [place], [address] RDW SD 38.3 fl Normal 35.1-43.9 [facility] Comment on above: Performed By: #### L 3000.0800, L509.8000, [id number] #### [facility] [address] [place], [address] WBC (Bld) [#/Vol] 12.6 10*3/uL High 4.4-11.0 [facility] Comment on above: Performed By: #### L 3000.0800, L509.8000, L3890.6005 #### [facility] [address] [place], [address] Calculated very low density lipoprotein (VLDL) cholesterol measurementOrdered By: Vinnie Morales on 01-25-2025 Calculated very low density lipoprotein (VLDL) cholesterol measurement 55 mg/dL High 5-40 [facility] Carbon dioxide, total [Moles /volume] in Central venous bloodOrdered By: Vinnie Morales on 01-25-2025 CO2 [Moles/Vol] 25.2 mmol/L 21.0-32.0 [facility] Chloride assayOrdered By: Shantel Morales on 01-25-2025 Chloride [Moles/Vol] 100 mmol/L 98-108 [facility] Comprehensive Metabolic Prof ilon 01-25-2025 Albumin [Mass/Vol] 4.4 g/dL Normal 3.5-5.0 [facility] Comment on above: Performed By: #### L 3000.0800, L509.8000, L3890.6005 #### [facility] [address] [place], [address] Albumin/Globulin [Mass ratio] 1.3 {ratio} Normal 0.9-2.4 [facility] Comment on above: Performed By: #### L 3000.0800, L509.8000, [id number] #### [facility] [address] [place], [address] ALK PHOS 74 U/L Normal 35-104 [facility] Comment on above: Performed By: #### L 3000.0800, L509.8000, [id number] #### [facility] [address] [place], [address] ALT [Catalytic activity/Vol] 20 U/L Normal <=34 [facility] Comment on above: Performed By: #### L 3000.0800, L509.8000, [id number] #### [facility] [address] [place], [address] AST [Catalytic activity/Vol] 16 U/L Normal <=31 [facility] Comment on above: Performed By: #### L 3000.0800, L509.8000, [id number] #### [facility] [address] [place], [address] Bilirubin [Mass/Vol] 0.32 mg/dL Normal 0.00-1.30 [facility] Comment on above: Performed By: #### L 3000.0800, L509.8000, [id number] #### [facility] [address] [place], [address] BUN/CRE 21.1 RATIO High 10-20 [facility] Comment on above: Performed By: #### L 3000.0800, L509.8000, [id number] #### [facility] [address] [place], [address] Calcium [Mass/Vol] 9.8 mg/dL Normal 7.6-11.0 [facility] Comment on above: Performed By: #### L 3000.0800, L509.8000, [id number] #### [facility] [address] [place], [address] Chloride [Moles/Vol] 100 mmol/L Normal 98-108 [facility] Comment on above: Performed By: #### L 3000.0800, L509.8000, L3890.6005 #### [facility] [address] [place], [address] CO2 [Moles/Vol] 25.2 mmol/L Normal 21.0-32.0 [facility] Comment on above: Performed By: #### L 3000.0800, L509.8000, [id number] #### [facility] [address] [place], [address] Creatinine [Mass/Vol] 0.65 mg/dL Low 0.70-1.20 [facility] Comment on above: Performed By: #### L 3000.0800, L509.8000, [id number] #### [facility] [address] [place], [address] GAP 14 Normal 5-15 [facility] Comment on above: Performed By: #### L 3000.0800, L509.8000, [id number] #### [facility] [address] [place], [address] GFR/1.73 sq M.predicted among non-blacks MDRD (S/P/Bld) [Vol rate/Area] 114 mL/min/{1.73_m2} Normal >60 [facility] Comment on above: Result Comment: mL/m in/1.73m2 CKD-EPI Creatinine Equation (2020) Performed By: #### L 3000.0800, L509.8000, [id number] #### [facility] [address] [place], [address] Globulin (S) [Mass/Vol] 3.3 g/dL Normal 2.2-4.2 [facility] Comment on above: Performed By: #### L 3000.0800, L509.8000, [id number] #### [facility] [address] [place], [address] Glucose [Mass/Vol] 91 mg/dL Normal 70-99 [facility] Comment on above: Performed By: #### L 3000.0800, L509.8000, [id number] #### [facility] [address] [place], [address] Potassium [Moles/Vol] 3.2 mmol/L Low 3.3-5.1 [facility] Comment on above: Performed By: #### L 3000.0800, L509.8000, [id number] #### [facility] [address] [place], [address] Sodium [Moles/Vol] 139 mmol/L Normal 133-145 [facility] Comment on above: Performed By: #### L 3000.0800, L509.8000, [id number] #### [facility] [address] [place], [address] T PROT 7.7 g/dL Normal 5.9-8.4 [facility] Comment on above: Performed By: #### L 3000.0800, L509.8000, [id number] #### [facility] [address] [place], [address] Urea nitrogen [Mass/Vol] 14 mg/dL Normal 4-19 [facility] Comment on above: Performed By: #### L 3000.0800, L509.8000, [id number] #### [facility] [address] [place], [address] Eosinophil percentageOrdered By: Vinnie Morales on 01-25-2025 Eosinophils/100 WBC (Bld) 1.6 % 0-5 [facility] Erythrocyte distribution wid th ratioOrdered By: Vinnie Morales on 01-25-2025 Erythrocyte distribution width (RBC) [Ratio] 12.5 % 11.6-14.6 [facility] Erythrocyte distribution wid th standard deviationOrdered By: Vinnie Morales on 01-25-2025 Erythrocyte distribution width (RBC) [Ratio] 38.3 fl 35.1-43.9 [facility] Glomerular filtration rate ( GFR) estimation/1.73 sq m using serum, plasma, or whole bOrdered By: Vinnie Morales on 01-25-2025 GFR/1.73 sq M.predicted among non-blacks MDRD (S/P/Bld) [Vol rate/Area] 114 mL/min/{1.73_m2} >60 [facility] Comment on above: mL/min/1.73m2 CKD-EP I Creatinine Equation (2020) Hematocrit Auto (Bld) [Volum e fraction]Ordered By: Vinnie Morales on 01-25-2025 Hematocrit (Bld) [Volume fraction] 36.4 % Low 37-47 [facility] Hemoglobin A1con 01-25-2025 HbA1c (Bld) [Mass fraction] 5.8 % High <=5.6 [facility] Comment on above: Result Comment: Norm al < 5.7 % Prediabetic 5.7 - 6.4 % Diabetic >or= 6.5 % Please note range changes. Performed By: #### L 3000.0800, L509.8000, L3890.6005 #### [facility] [address] [place] [address], [id number] Hemoglobin A1c percentageOrd ered By: Vinnie Morales on 01-25-2025 HbA1c (Bld) [Mass fraction] 5.8 % High <5.7 [facility] Comment on above: Normal < 5.7 % Predi abetic 5.7 - 6.4 % Diabetic >or= 6.5 % Please note range changes. Hemoglobin measurementOrdere d By: Vinnie Morales on 01-25-2025 Hemoglobin (Bld) [Mass/Vol] 12.5 g/dL 12.0-15.0 [facility] Immature granulocytes/100 WB C Auto (Bld)Ordered By: Vinnie Morales on 01-25-2025 Immature granulocytes/100 WBC (Bld) 0.700 % 0.0-0.9 [facility] Comment on above: IG% - Immature Granu locytes (promyelocytes, myelocytes and metamyelocytes) > 1% indicates that a LEFT SHIFT is Present. Ketones Test strip Ql (U)Ord ered By: Vinnie Morales on 01-25-2025 Ketones Ql (U) Negative Negative [facility] [facility] LDL calc ser/plasOrdered By: Vinnie Morales on 01-25-2025 Cholesterol in LDL [Mass/Vol] 123 mg/dL [facility] Comment on above: Tpqxwufytg=419-817 m g/dL & Higher Hvbl=208 mg/dL or greater Laboratory - Chemistry and C hemistry - challengeOrdered By: Vinnie Morales on 01-25-2025 AST [Catalytic activity/Vol] 16 U/L <32 [facility] Lipid Profileon 01-25-2025 CHOL:HDL 6.29 Normal [facility] Comment on above: Performed By: #### L 3000.0800, L509.8000, L3890.6005 #### [facility] [address] [place], [place], [id number] Cholesterol [Mass/Vol] 212 mg/dL High <=200 [facility] Comment on above: Result Comment: Chol esterol level, Desirable <200 mg/dL Borderline high cholesterol 200-239 mg/dL High cholesterol >=240 mg/dL Recommendations of the NCEP Adult Treatment Panel for the following risk-cutoff thresholds for the [place] population. Performed By: #### L 3000.0800, L509.8000, L3890.6005 #### [facility] [address] [place], [place], [address] Cholesterol in HDL [Mass/Vol] 34 mg/dL Low [facility] Comment on above: Result Comment: Fabienne onal Cholesterol Education Program (NCEP) guidelines: <40 mg/dL: Low HDL-cholesterol (major risk factor for CHD) >= 60 mg/dL: High HDL-cholesterol (negative risk factor for CHD) HDL-cholesterol is affected by a number of factors, e.g. smoking, exercise, hormones, sex and age. Performed By: #### L 3000.0800, L509.8000, L3890.6005 #### [facility] [address] [place], [address] Cholesterol in LDL [Mass/Vol] 123 mg/dL Normal [facility] Comment on above: Result Comment: Bord rzyexo=276-247 mg/dL Higher Lqcu=924 mg/dL or greater Performed By: #### L 3000.0800, L509.8000, L3890.6005 #### [facility] [address] [place], [address] Cholesterol in VLDL [Mass/Vol] 55 mg/dL High 5-40 [facility] Comment on above: Performed By: #### L 3000.0800, L509.8000, L3890.6005 #### [facility] [address] [place], [address] Triglyceride [Mass/Vol] 276 mg/dL High [facility] Comment on above: Result Comment: The drugs N-Acetylcysteine and Metamizole may falsely depress this assay. Normal range: <150 mg/dL Borderline High: 150-199 mg/dL High: 200-499 mg/dL Very High: >500 mg/dL Performed By: #### L 3000.0800, L509.8000, L3890.6005 #### [facility] [address] [place], [address] MCV (mean corpuscular volume ) determinationOrdered By: Vinnie Morales on 01-25-2025 MCV (RBC) [Entitic vol] 84.8 fL 81-99 [facility] Mean corpuscular hemoglobin (MCH) determinationOrdered By: Vinnie Morales on 01-25-2025 MCH (RBC) [Entitic mass] 29.1 pg 27.0-32.0 [facility] Mean corpuscular hemoglobin concentration (MCHC) determinationOrdered By: Vinnie Morales on 01-25-2025 MCHC (RBC) [Mass/Vol] 34.3 g/dL 32-36 [facility] Mean platelet volume determi nationOrdered By: Vinnie Morales on 01-25-2025 Platelet mean volume (Bld) [Entitic vol] 9.6 fL 6.2-12.0 [facility] Monocyte percentageOrdered B y: Vinnie Morales on 01-25-2025 Monocytes/100 WBC (Bld) 5.7 % 0-10 [facility] Neutrophil percentageOrdered By: Vinnie Morales on 01-25-2025 Neutrophils/100 WBC (Bld) 62.5 % 47-70 [facility] Nucleated red blood cell per centageOrdered By: Vinnie Morales on 01-25-2025 Nucleated RBC/100 WBC (Bld) [Ratio] 0 % 0-5 [facility] Platelet countOrdered By: Shantel Morales on 01-25-2025 Platelets (Bld) [#/Vol] 408 10*3/uL 150-450 [facility] Potassium measurement (mass/ volume)Ordered By: Vinnie Morales on 01-25-2025 Potassium (Unsp spec) [Mass/Vol] 3.2 mmol/L Low 3.3-5.1 [facility] Protein Test strip Ql (U)Ord ered By: Vinnie Morales on 01-25-2025 Protein Ql (U) Negative Negative [facility] RBC Auto (Bld) [#/Vol]Ordere d By: Vinnie Morales on 01-25-2025 RBC (Bld) [#/Vol] 4.29 10*6/uL 4.2-5.4 [facility] Screening total cholesterol/ high density lipoprotein (HDL) cholesterol ratioOrdered By: Vinnie Morales on 01-25-2025 Cholesterol.total/Chol esterol in HDL [Mass ratio] 6.29 {ratio} [facility] Serum creatinine measurement (mass/volume)Ordered By: Vinnie Morales on 01-25-2025 Creatinine [Mass/Vol] 0.65 mg/dL Low 0.70-1.20 [facility] Serum globulin measurementOr dered By: Vinnie Morales on 01-25-2025 Globulin (S) [Mass/Vol] 3.3 g/dL 2.2-4.2 [facility] Serum glucose measurement (m ass/volume)Ordered By: Vinnie Morales on 01-25-2025 Glucose [Mass/Vol] 91 mg/dL 70-99 [facility] Serum or plasma alanine daly otransferase (ALT) measurementOrdered By: Vinnie Morales on 01-25-2025 ALT [Catalytic activity/Vol] 20 U/L <35 [facility] Serum or plasma albumin jaimie urement (mass/volume)Ordered By: Vinnie Morales on 01-25-2025 Albumin [Mass/Vol] 4.4 g/dL 3.5-5.0 [facility] Serum or plasma albumin/glob ulin mass ratioOrdered By: Vinnie Morales on 01-25-2025 Albumin/Globulin [Mass ratio] 1.3 {ratio} 0.9-2.4 [facility] Serum or plasma alkaline jenelle sphatase measurementOrdered By: Vinnie Morales on 01-25-2025 ALP [Catalytic activity/Vol] 74 U/L 35-104 [facility] Serum or plasma calcium jaimie urement (mass/volume)Ordered By: Vinnie Morales on 01-25-2025 Calcium [Mass/Vol] 9.8 mg/dL 7.6-11.0 [facility] Serum or plasma cholesterol in HDL measurement (mass/volume)Ordered By: Vinnie Morales on 01-25-2025 Cholesterol in HDL [Mass/Vol] 34 mg/dL Low >40 [facility] Comment on above: National Cholesterol Education Program (NCEP) guidelines:<40 mg/dL: Low HDL-cholesterol (major risk factor for CHD)>= 60 mg/dL: High HDL-cholesterol (negative risk factor for CHD)HDL-cholesterol is affected by a number of factors, e.g. smoking, exercise, hormones, sex and age. Serum or plasma cholesterol measurement (mass/volume)Ordered By: Vinnie Morales on 01-25-2025 Cholesterol [Mass/Vol] 212 mg/dL High <201 [facility] Comment on above: Cholesterol level, D esirable <200 mg/dLBorderline high cholesterol 200-239 mg/dLHigh cholesterol >=240 mg/dLRecommendations of the NCEP Adult Treatment Panel for the following risk-cutoff thresholds for the [place] population. Serum or plasma urea nitroge n measurement (mass/volume)Ordered By: Vinnie Morales on 01-25-2025 Urea nitrogen [Mass/Vol] 14 mg/dL 4-19 [facility] Sodium levelOrdered By: Vinnie Tamika on 01-25-2025 Sodium [Moles/Vol] 139 mmol/L 133-145 [facility] TSH DL <= 0.005 mIU/L QnOrde red By: Vinnie Tamika on 01-25-2025 TSH Qn 3.190 uIU/mL 0.300-4.200 [facility] Thyroid Stim Hormone (TSH)on 01-25-2025 TSH 3.190 uIU/mL Normal 0.300-4.200 [facility] Comment on above: Performed By: #### L 3000.0800, L509.8000, L3890.6005 #### [facility] [address] [place], [address] Total proteinOrdered By: Patience kerrie Tamika on 01-25-2025 Protein [Mass/Vol] 7.7 g/dL 5.9-8.4 [facility] Triglycerides measurementOrd ered By: Vinnie Tamika on 01-25-2025 Triglyceride [Mass/Vol] 276 mg/dL High <199 [facility] Comment on above: The drugs N-Acetylcy steine and Metamizole may falsely depress this assay. Normal range: <150 mg/dLBorderline High: 150-199 mg/dLHigh: 200-499 mg/dLVery High: >500 mg/dL Urinalysis, Routine (Dipstic k)on 01-25-2025 BILIRUBIN URINE Negative Normal Negative [facility] Comment on above: Order Comment: CLEAN CATCH Performed By: #### L 3000.0800, L509.8000, L3890.6005 #### [facility] [address] [place], [address] GLUCOSE, UR Normal Normal Normal [facility] Comment on above: Order Comment: CLEAN CATCH Performed By: #### L 3000.0800, L509.8000, L3890.6005 #### [facility] [address] [place], [address] KETONE UR Negative Normal Negative [facility] Comment on above: Order Comment: CLEAN CATCH Performed By: #### L 3000.0800, L509.8000, L3890.6005 #### [facility] [address] [place], [address] LEUK ESTERASE Negative Normal Negative [facility] Comment on above: Order Comment: CLEAN CATCH Performed By: #### L 3000.0800, L509.8000, L3890.6005 #### [facility] [address] [place], [address] OCCULT BLOOD-UR Negative Normal Negative [facility] Comment on above: Order Comment: CLEAN CATCH Performed By: #### L 3000.0800, L509.8000, L3890.6005 #### [facility] [address] [place], [address] pH UR 7.0 Normal 5.0 - 8.0 [facility] Comment on above: Order Comment: CLEAN CATCH Performed By: #### L 3000.0800, L509.8000, L3890.6005 #### [facility] [address] [place], [address] PROT DIPSTX Negative Normal Negative [facility] Comment on above: Order Comment: CLEAN CATCH Performed By: #### L 3000.0800, L509.8000, L3890.6005 #### [facility] [address] [place], [address] SP.GR. DIPSTX 1.015 Normal 1.002-1.030 [facility] Comment on above: Order Comment: CLEAN CATCH Performed By: #### L 3000.0800, L509.8000, L3890.6005 #### [facility] [address] [place], [address] UROBILI Normal Normal Normal [facility] Comment on above: Order Comment: CLEAN CATCH Performed By: #### L 3000.0800, L509.8000, L3890.6005 #### [facility] [address] [place], [address] Urine clarityOrdered By: Patience Morales on 01-25-2025 Clarity (U) Clear Normal Clear [facility] Comment on above: Order Comment: CLEAN CATCH Performed By: #### L 3000.0800, L509.8000, L3890.6005 #### [facility] [address] [place], [address] Urine color determinationOrd ered By: Vinnie Morales on 01-25-2025 Color (U) Straw Normal Yellow [facility] Comment on above: Order Comment: CLEAN CATCH Performed By: #### L 3000.0800, L509.8000, L3890.6005 #### [facility] [address] [place], [address] Urine glucose detectionOrder ed By: Vinnie Morales on 01-25-2025 Glucose Ql (U) Normal mg/dl Normal [facility] Urine leukocyte esterase det ection by dipstickOrdered By: Vinnie Morales on 01-25-2025 Leukocyte esterase Test strip Ql (U) Negative Negative [facility] Urine nitrite test by dipsti ckOrdered By: Vinnie Morales on 01-25-2025 Nitrite Ql (U) Negative Normal Negative [facility] Comment on above: Order Comment: CLEAN CATCH Performed By: #### L 3000.0800, L509.8000, L3890.6005 #### [facility] [address] [place], [address] Urine pHOrdered By: Vinnie almazan on 01-25-2025 pH (U) 7.0 [pH] 5.0 - 8.0 [facility] Urine specific gravity measu rementOrdered By: Vinnie Morales on 01-25-2025 Specific gravity (U) [Rel density] 1.015 1.002-1.030 [facility] Urine urobilinogen measureme ntOrdered By: Vinnie Morales on 01-25-2025 Urobilinogen Ql (U) Normal mg/dl Normal [facility] Vitamin B12on 01-25-2025 Cobalamin (Vitamin B12) [Mass/Vol] 381 pg/mL Normal 180-914 [facility] Comment on above: Performed By: #### L 3000.0800, L509.8000, L3890.6005 #### [facility] [address] [place], [address] Vitamin B12 ser/plasOrdered By: Vinnie Morales on 01-25-2025 Cobalamin (Vitamin B12) [Mass/Vol] 381 pg/mL 180-914 [facility] Vitamin D,25 Hydroxyon 01-25 Vitamin D 25-OH 21.2 ng/mL Low 30-100 [facility] Comment on above: Result Comment: Melia min D Status Deficiency: <20 ng/mL (50nmol/L) Insufficiency: 20-30 ng/mL (50-75 nmol/L) Sufficiency: 30-100 ng/mL (75-250 nmol/L) Toxicity: >100 ng/mL (>250 nmol/L) Performed By: #### L 3000.0800, L509.8000, L3890.6005 #### [facility] [address], [address] White blood cell (WBC) count Ordered By: Vinnie Morales on 01-25-2025 WBC (Bld) [#/Vol] 12.6 10*3/uL High 4.4-11.0 [facility] Duplex ultrasound of renal a rtery reportOrdered By: Koko Carnes on 11-07-2024 Study report [facility] [address] [place] [address] Renal Artery Duplex Ultrasound 11/04/24 0852 MR#: [id number] Acct: [id number] Name: BARBARA HULL Rep #:[id number] : 1985 39 From: Koko Sahu Attending Dr: Dr. Kyree Iglesias MD S tatus: REG CLI Ordering Dr: Kyree Iglesias MD Date: 08/30 Location: [facility] Sex: F C Admitted: Reason For Study Reason For Study: HTN Right Renal Artery Left Renal Artery Right renal artery ostium 94.2/30.3 Left renal artery ostium 106.7/21.1 RSV/EDV. PSV/EDV. Right renal artery proximal 149.2/58.6 Left renal artery proximal PSV/EDV PSV/EDV. 106.7/29.8 . Right renal artery mid 162.2/45.6 Left renal artery mid 116.4/41.2 PSV/EDV. PSV/EDV . Right renal artery distal 176.6/44 Left renal artery distal 91.7/23.5 PSV/EDV. PSV/EDV. Right Renal Parenchyma Left Renal Parenchyma Upper Pole Medula 26.7/9.7 PSV/EDV. Left upper pole medulla 27.6/6.7 Right upper pole medulla EDR 0.4 . PSV/EDV . Right upper pole medulla R.I. 0.64 . Left upper pole medulla EDR 0.76 . Upper Kevin Cortx 19.5/7.2 PSV/EDV. Left upper pole medulla R.I. 18.4/6.7 . Right upper pole cortex EDR 0.4 . UPCortex 0.4 PSV/EDV. Right upper pole cortex R.I. 0.63 . Left upper pole cortex EDR 0.4 . Right lower Pole medulla 26.3/6.9 Left upper pole cortex R.I. 0.64 . PSV/EDV . Left lower Pole medulla 28.8/11 PSV/EDV . Right lower pole medulla EDR 0.3 . Left lower pole medulla EDR 0.4 . Right lower pole medulla R.I. 0.74 . Left lower pole medulla R.I. 0.62 . Lower Pole Cortex 21.5/8.3 PSV/EDV. Lower Pole Cortx 19/6.7 PSV/EDV. Right lower pole cortex EDR 0.4 . Left lower pole cortex EDR 0.4 . Right lower pole cortex R.I. 0.61 . Left lower pole cortex R.I. 0.65 . Right Renal Hilar Left Renal Hilar Right Hilar avg 55.7/21.6 PSV/EDV. LTHilar avg 61.9/21.2 PSV/EDV . Right hilar acceleration time 30 m/sec. Left hilar acceleration time 40 m/sec. Right Renal Dimensions Left Renal Dimensions Right kidney size 10.49 cm . Left kidney size 35.1 cm . Right cortical dimension 1.65 cm . Left cortical dimension 1.92 cm . Aorta Proximal abdominal aorta 1.80 x 1.76 cm . Proximal abdominal aorta peak systolicvelocity is 84.3 cm/sec . Distal abdominal aorta 1.07 x 1.05 cm . Distal abdominal aorta peak systolic velocity is 118 cm/sec . VL/Renal Artery Duplex Ultrasound Interpretation Summary Right renal artery patent with normal velocities and no evidence of stenosis. Left renal artery patent with normal velocities and no evidence of stenosis. Right renal vein patent. Left renal vein patent. Right kidney normal in size. Left kidney normal in size. Ordering Physician: Kyree Iglesias Referring Physician: Vinnie Morales Performed By: Mackenzie Thompson RVT 11/07/24728 Date _ Koko Carnes MD CC: COMPLIANCE REVIEW SPECIALIST-Yomi Morales; Dr. Kyree Iglesias MD ~ Date Dictated: 11/04/24851 Date Transcribed: 11/07/24728 Central Office Repairer: Signed [facility] Work Phone: Renal Artery Duplex Ultrasou ndon 11-04-2024 Renal Artery Duplex Ultrasound [facility] [address] [place] [address] Renal Artery Duplex Ultrasound 11/04/24851 MR#: [id number] Acct: [id number] Name: BARBARA HULL Rep #: [id number] : 1985 39 From: Koko Carnes MD Attending Dr: Dr. Kyree Iglesias MD Status: REG C GIULIANA Ordering Dr: Kyree Iglesias MD Date: 11/04/24 Location: [facility] Sex: F C Admitted: Reason For Study Reason For Study: HTN Right Renal Artery Left Renal Artery Right renal artery ostium 94.2/30.3 Left renal artery ostium 106.7/21.1 RSV/EDV. PSV/EDV. Right renal artery proximal 149.2/58.6 Left renal artery proximal PSV/EDV PSV/EDV. 106.7/29.8 . Right renal artery mid 162.2/45.6 Left renal artery mid 116.4/41.2 PSV/EDV. PSV/EDV . Right renal artery distal 176.6/44 Left renal artery distal 91.7/23.5 PSV/EDV. PSV/EDV. Right Renal Parenchyma Left Renal Parenchyma Upper Pole Medula 26.7/9.7 PSV/EDV. Left upper pole medulla 27.6/6.7 Right upper pole medulla EDR 0.4 . PSV/EDV . Right upper pole medulla R.I. 0.64 . Left upper pole medulla EDR 0.76 . Upper Kevin Cortx 19.5/7.2 PSV/EDV. Left upper pole medulla R.I. 18.4/6.7 . Right upper pole cortex EDR 0.4 . UP Cortex 0.4 PSV/EDV. Right upper pole cortex R.I. 0.63 . Left upper pole cortex EDR 0.4 . Right lower Pole medulla 26.3/6.9 Left upper pole cortex R.I. 0.64 . PSV/EDV . Left lower Pole medulla 28.8/11 PSV/EDV . Right lower pole medulla EDR 0.3 . Left lower pole medulla EDR 0.4 . Right lower pole medulla R.I. 0.74 . Left lower pole medulla R.I. 0.62 . Lower Pole Cortex 21.5/8.3 PSV/EDV. Lower Pole Cortx 19/6.7 PSV/EDV. Right lower pole cortex EDR 0.4 . Left lower pole cortex EDR 0.4 . Right lower pole cortex R.I. 0.61 . Left lower pole cortex R.I. 0.65 . Right Renal Hilar Left Renal Hilar Right Hilar avg 55.7/21.6 PSV/EDV. LT Hilar avg 61.9/21.2 PSV/EDV . Right hilar acceleration time 30 m/sec. Left hilar acceleration time 40 m/sec. Right Renal Dimensions Left Renal Dimensions Right kidney size 10.49 cm . Left kidney size 35.1 cm . Right cortical dimension 1.65 cm . Left cortical dimension 1.92 cm . Aorta Proximal abdominal aorta 1.80 x 1.76 cm . Proximal abdominal aorta peak systolic velocity is 84.3 cm/sec . Distal abdominal aorta 1.07 x 1.05 cm . Distal abdominal aorta peak systolic velocity is 118 cm/sec . VL/Renal Artery Duplex Ultrasound Interpretation Summary Right renal artery patent with normal velocities and no evidence of stenosis. Left renal artery patent with normal velocities and no evidence of stenosis. Right renal vein patent. Left renal vein patent. Right kidney normal in size. Left kidney normal in size. Ordering Physician: Kyree Iglesias Referring Physician: Vinnie Morales Performed By: Mackenzie Thompson [facility] 11/07/24728 Date Koko Carnes MD CC: COMPLIANCE REVIEW SPECIALIST-C Vinnie Morales; Dr. Kyree Iglesias MD Date Dictated: 11/04/2452 Date Transcribed: 11/07/24728 Central Office Repairer: Signed Normal [facility] Echo Completeon 10-28-2024 Echo Complete [facility] [address] [place] [address] Echo Complete 10/28/24 0657 MR#: [id number] Acct: [id number] Name: BARBARA HULL Rep #: [id number] : 1985 39 From: Kyree Iglesias MD Attending Dr: Dr. Kyree Iglesias MD Status: BEBA GIORDANO Ordering Dr: Kyree Iglesias MD Date: 10/28/24 Location: [facility] Sex: F C Admitted: Reason For Study Reason For Study: ESSENTIAL HTN Procedure This was a 2D Doppler, Color Flow transthoracic echocardiogram. Exam performed in department. Left Ventricle Normal LV size. Left ventricular systolic function is normal. The left ventricular ejection fraction is 65 %. No regional wall motion abnormalities noted. Right Ventricle Normal RV size. Normal systolic function. Atria Normal left atrium. Normal right atrium. Mitral Valve Normal mitral valve. Tricuspid Valve Normal tricuspid valve. Mild tricuspid valve insufficiency. Pulmonary artery systolic pressure is 24 mmHg. Pulmonic Valve Normal pulmonic valve. Great Vessels Normal aortic root. The pulmonary artery is normal size. Inferior vena cava collapse with respiration. Pericardium/Pleural No pericardial effusion. MMode/2D Measurements Calculations LVIDd: 4.8 cm IVSd: 0.81 cm Ao root diam: 3.3 cm LVIDs: 2.8 cm LVPWd: 0.93 cm RVDd: 3.0 cm FS: 42.3 % LAV(MOD-bp): 53.8 ml LVAd ap4: 30.0 cm2 LVAd ap2: 22.2 cm2 LAV(MOD-bp) Indexed: 25.7 ml/m2 LVLd ap4: 7.8 cm LVLd ap2: 8.0 cm LAV(MOD-sp2): 48.0 ml EDV(MOD-sp4): 95.1 ml EDV(MOD-sp2): 54.6 ml LAV(MOD-sp4): 55.7 ml EDV(sp4-el): 97.9 ml EDV(sp2-el): 52.2 ml LVAs ap4: 14.5 cm2 LVAs ap2: 11.4 cm2 LVLs ap4: 6.6 cm LVLs ap2: 6.2 cm ESV(MOD-sp4): 29.1 ml ESV(MOD-sp2): 19.1 ml ESV(sp4-el): 27.0 ml ESV(sp2-el): 17.7 ml EF(MOD-sp4): 69.4 % EF(MOD-sp2): 65.0 % EF(sp4-el): 72.4 % SV(MOD-sp4): 66.0 ml SV(MOD-sp2): 35.5 ml SV(sp4-el): 70.9 ml SI(MOD-sp4): 31.5 ml/m2 SI(MOD-sp2): 16.9 ml/m2 LA A4 area: 18.9 cm2 LA dimension(2D): 3.5 cm RA A4 area: 15.8 cm2 TAPSE: 2.0 cm Time Measurements MV dec time: 0.26 sec Doppler Measurements Calculations MV E max dali: 68.9 cm/sec Lat Peak E' Dali: 9.0 cm/sec Med Peak E' Dali: 5.7 cm/sec MV A max dali: 75.9 cm/sec E/E' lat: 7.7 E/E' med: 12.1 MV E/A: 0.91 MV V2 max: 77.0 cm/sec MV P1/2t max dali: 66.6 cm/sec Ao V2 max: 145.2 cm/sec MV max P.4 mmHg MV P1/2t: 74.5 msec Ao max P.4 mmHg MV V2 mean: 41.5 cm/sec Ao V2 mean: 89.1 cm/sec MV mean P.80 mmHg MV dec slope: 261.9 cm/sec2 Ao mean P.7 mmHg MV V2 VTI: 19.0 cm MVA(P1/2t): 3.0 cm2 Ao V2 VTI: 24.9 cm PA V2 max: 93.4 cm/sec TR max dali: 229.0 cm/sec PA V2 mean: 63.5 cm/sec TR max P.0 mmHg ECHO/Echo Complete Interpretation Summary Normal LV size. Left ventricular systolic function is normal. The left ventricular ejection fraction is 65 %. Pulmonary artery systolic pressure is 24 mmHg. Ordering Physician: Kyree Iglesias Referring Physician: Vinnie Morales Performed By: Arcelia Gates, NEYDA, RVT 11/01/24840 Date Kyree Iglesias MD CC: COMPLIANCE REVIEW SPECIALIST-C Vinnie Morales; Dr. Kyree Iglesias MD Date Dictated: 10/28/24656 Date Transcribed: 11/01/24840 Central Office Repairer: Signed Normal [facility] Aldosterone, Serumon 025 ALDOSTERONE,S 3.1 ng/dL Normal 0.0-30.0 [facility] Comment on above: Order Comment: Test( s) 233417-Jmrao Activity, Plasmawas developed and its performance characteristicsdetermined by [employer]. It has not been cleared or approvedby the Food and Drug Administration. Result Comment: Perf ormed at: - [address] [id number] Accident Examiner: Martín Moyer MD, Phone: [phone] Performed By: #### L 3000.3823, E698.7475, O0364.2892 #### [facility] [address] [place], [place], [address] Renin, Plasmaon 10-05-2024 RENIN, PLASMA 13.393 ng/mL/hr High 0.167-5.380 [facility] Comment on above: Order Comment: Test( s) 146314-Vrylc Activity, Plasmawas developed and its performance characteristicsdetermined by [employer]. It has not been cleared or approvedby the Food and Drug Administration. Performed By: #### L 3000.0800, L509.8000, L3890.6005 #### [facility] [address] [place], [address] 12 Lead EKG performed by [facility] on 09-28-2024 12 Lead EKG performed by [facility] [address] [place] [address] 12 Lead EKG performed by [facility] 09/28/241514 MR#: [id number] Acct: [id number] Name: BARBARA HULL Rep #: [id number] : 1985 39 From: Kyree Iglesias MD Attending Dr: Dr. Kyree Iglesias MD Status: DEP A MB Ordering Dr: Kyree Iglesias MD Date: 09/28/24 Location: [facility] [place] Sex: F C Admitted: BMS/12 Lead EKG performed by [facility] [place] ECG Report Interpretation Sinus Rhythm - Nonspecific T-abnormality. ABNORMAL Electronically signed on 09/29/2024 at 15:53 by Kryee Ig[employer] Version [id number] 09/29/247 Date Kyree Iglesias MD CC: LAZARO Morales Date Dictated: 09/28/241514 Date Transcribed: 09/28/241514 Central Office Repairer: [place] Signed Normal [facility] Aldosterone, serumOrdered By : Kyree Iglesias on 09-28-2024 Aldosterone 3.1 ng/dL 0.0-30.0 [facility] Comment on above: Performed at: [address] [id number] Director: Martín Moyer MD, Phone: [phone] Bilirubin directOrdered By: Kyree Iglesias on 09-28-2024 Bilirubin.direct [Mass/Vol] 0.21 mg/dL 0.00-0.30 [facility] Bilirubin, totalOrdered By: Kyree Iglesias on 09-28-2024 Bilirubin [Mass/Vol] 0.53 mg/dL 0.00-1.30 [facility] Calculated very low density lipoprotein (VLDL) cholesterol measurementOrdered By: Kyree Iglesias on 09-28-2024 VLDL Cholesterol 35 mg/dL 5-40 [facility] Cardiology Visit Reporton Cardiology Visit Report [facility] [address] [place], [place] [address] OFFICE VISIT Date of Service: 09/28/24 MR#: [id number] Acct: [id number] Name: BARBARA HULL Rep #: [id number] : 1985 Provider: Dr. Kyree Iglesias MD Age/Sex: 39/F Location: [facility] [place] Status: Signed HPI HPI History of Present Illness Details: Pleasant 39-year-old lady with no previous cardiac history but a history of anxiety disorder and significant family history of coronary artery disease. She recently lost her mother and grandmother within the last 6 months a day apart. She has been noted to have elevated blood pressure but denies any headaches or significant palpitations. She saw you at the clinic and was put on an ARB as well as a diuretic and later on a beta-naun was added. You do remember that she has reported a lack of energy and does not feel like getting out of bed. She has of course been under significant amount of stress recently. Blood work done in March last year demonstrated a GFR of 92 a total cholesterol 185 LDL of 103 and HDL of 34. Her physical exam today is otherwise unremarkable her electrocardiogram demonstrates sinus rhythm with a rate of 74 bpm. Intake Vital Signs 03/21/23 15:22 09/28/24 15:15 Height 5 ft 5 in 5 ft 5 in Weight: 229 lb BMI 38.1 BP 150/92 H Blood Pressure Location Lt brachial Position Sitting Respiration 16 Pulse 76 Pulse Source Monitor Intake Visit Reasons: ABN EKG (MORALES) B2B Account Executive Required: No Accompanied by: Self Is patient in pain?: No Allergies metronidazole Allergy (Intermediate, Verified 09/28/24 15:20) Hives amoxicillin Allergy (Verified 03/21/23 15:23) palms itchy Medications ???Medication ???Instructions ???Recorded ???Confirmed ???Type hydrochlorothiazide 25 mg tablet 25 mg PO DAILY #90 tabs 11/13/22 0 09/28/24 Rx lidocaine 5 % topical patch 2 patch topical DAILY PRN back 05/2809/28/24 Rx pain #30 ea losartan 100 mg tablet 100 mg PO DAILY #90 tabs 11/13/22 09/28/24 Rx ergocalciferol (vitamin D2) 1,250 See Rx Instructions .Route 09/28/24 Rx mcg (50,000 unit) capsule .COMPLEX #8 caps desvenlafaxine succinate 25 mg 25 mg PO QDAY 08/24/24 09/28/24 Hi story tablet,extended release 24 hr lorazepam 0.5 mg tablet 0.5 mg PO QDAY PRN 08/24/24 History amlodipine 10 mg tablet 10 mg PO QDAY #90 tabs 09/28/24 Rx hydroxyzine HCl 25 mg tablet 25 mg PO QHS 09/28/24 09/28/24 His tory [facility] Medical History Panic disorder Abnormal EKG Obstructive sleep apnea Chronic back pain Fatigue Hypersomnia Irritable bowel syndrome with diarrhea Low back pain Chest pain Obesity (BMI 30-39.9) Hyperlipidemia Kidney stones Depression Anxiety Hypertension Surgical History history of leep proceure with D C History of 2 sections History of partial hysterectomy Family History Mother Hypertension Arthritis Heart disease Depression Father Diabetes Hypertension Hyperlipemia Myocardial infarction, Onset Age: 49 Grandmother Heart disease Hypertension Osteoporosis CVA (cerebral vascular accident) Grandfather Cancer Brother Hypertension Grandmother Myocardial infarction, Onset Age: 60 Social History Smoking Status: Never smoker alcohol intake: current alcohol intake frequency: holidays/special occasions only substance use type: does not use what type of physical activity do you participate in: none ROS Const Const: Positive for fatigue; Negative for weakness, headache(s), daytime sleepiness or difficulty sleeping ENT ENT: Negative for headache(s), dizziness or Nosebleed/epistaxis Cardio Chest Pain: No Palpitations: No Edema: None Resp Respiratory: Negative for SOB with activity, SOB at rest, SOB orthopnea SOB lying down or Cough GI GI: Negative nausea, vomiting or heartburn Neuro Neuro: Negative for dizziness, lightheadedness, near syncope, headache(s) or weakness Endo Endo: Positive for fatigue Cardiology Exam Const Appearance: cooperative, healthy appearing, no acute distress, well developed and well groomed Nutritional Appearance: average body habitus and well nourished Orientation: alert, awake and oriented x3 Head Head: normal to inspection, normocephalic and atraumatic Ears: hearing grossly normal bilaterally and external ears normal Nose: external nose normal, nares normal, nasal mucous membranes and turbinates normal, septum normal and no nasal discharge Face and Sinus: face symmetric Mouth: oral mucosae normal, tongue normal, o (more content not included)... Normal [facility] LDL calc ser/plasOrdered By: Kyree Iglesias on 09-28-2024 LDL Cholesterol, Calculated 135 mg/dL [facility] Comment on above: Dcuybedvsj=491-897 m g/dL & Higher Akhz=900 mg/dL or greater Laboratory - Chemistry and C hemistry - challengeOrdered By: Kyree Iglesias on 09-28-2024 AST [Catalytic activity/Vol] 17 U/L <32 [facility] Lipid Profileon 09-28-2024 CHOL:HDL 5.69 Normal [facility] Comment on above: Performed By: #### L 3000.0800, L509.8000, L3890.6005 #### [facility] [address] [place], [address] Cholesterol [Mass/Vol] 206 mg/dL High <=200 [facility] Comment on above: Result Comment: Chol esterol level, Desirable <200 mg/dL Borderline high cholesterol 200-239 mg/dL High cholesterol >=240 mg/dL Recommendations of the NCEP Adult Treatment Panel for the following risk-cutoff thresholds for the [place] population. Performed By: #### L 3000.0800, L509.8000, L3890.6005 #### [facility] [address] [place], [address] Cholesterol in HDL [Mass/Vol] 36 mg/dL Low [facility] Comment on above: Result Comment: Fabienne onal Cholesterol Education Program (NCEP) guidelines: <40 mg/dL: Low HDL-cholesterol (major risk factor for CHD) >= 60 mg/dL: High HDL-cholesterol (negative risk factor for CHD) HDL-cholesterol is affected by a number of factors, e.g. smoking, exercise, hormones, sex and age. Performed By: #### L 3000.0800, L509.8000, L3890.6005 #### [facility] [address] [place], [address] Cholesterol in LDL [Mass/Vol] 135 mg/dL Normal [facility] Comment on above: Result Comment: Bord kdnbcd=500-484 mg/dL Higher Lvnb=980 mg/dL or greater Performed By: #### L 3000.0800, L509.8000, [id number] #### [facility] [address] [place], [address] Cholesterol in VLDL [Mass/Vol] 35 mg/dL Normal 5-40 [facility] Comment on above: Performed By: #### L 3000.0800, L509.8000, [id number] #### [facility] [address] [place], [address] Triglyceride [Mass/Vol] 173 mg/dL Normal [facility] Comment on above: Result Comment: The drugs N-Acetylcysteine and Metamizole may falsely depress this assay. Normal range: <150 mg/dL Borderline High: 150-199 mg/dL High: 200-499 mg/dL Very High: >500 mg/dL Performed By: #### L 3000.0800, L509.8000, [id number] #### [facility] [address] [place], [address] Liver Profileon 09-28-2024 Albumin [Mass/Vol] 4.4 g/dL Normal 3.5-5.0 [facility] Comment on above: Performed By: #### L 3000.0800, L509.8000, [id number] #### [facility] [address] [place], [address] ALK PHOS 67 U/L Normal 35-104 [facility] Comment on above: Performed By: #### L 3000.0800, L509.8000, [id number] #### [facility] [address] [place], [address] ALT [Catalytic activity/Vol] 17 U/L Normal <=34 [facility] Comment on above: Performed By: #### L 3000.0800, L509.8000, [id number] #### [facility] [address] [place], [address] AST [Catalytic activity/Vol] 17 U/L Normal <=31 [facility] Comment on above: Performed By: #### L 3000.0800, L509.8000, [id number] #### [facility] [address] [place], [address] Bilirubin [Mass/Vol] 0.53 mg/dL Normal 0.00-1.30 [facility] Comment on above: Performed By: #### L 3000.0800, L509.8000, [id number] #### [facility] [address] [place], [address] Bilirubin.direct [Mass/Vol] 0.21 mg/dL Normal 0.00-0.30 [facility] Comment on above: Performed By: #### L 3000.0800, L509.8000, [id number] #### [facility] [address] [place], [address] Globulin (S) [Mass/Vol] 3.3 g/dL Normal 2.2-4.2 [facility] Comment on above: Performed By: #### L 3000.0800, L509.8000, [id number] #### [facility] [address] [place], [address] T PROT 7.7 g/dL Normal 5.9-8.4 [facility] Comment on above: Performed By: #### L 3000.0800, L509.8000, [id number] #### [facility] [address] [place], [address] Renin (P) [Catalytic activit y/Vol]Ordered By: Kyree Iglesias on 09-28-2024 Renin 13.393 ng/mL/hr High 0.167-5.380 [facility] Screening total cholesterol/ high density lipoprotein (HDL) cholesterol ratioOrdered By: Kyree Iglesias on 09-28-2024 Cholesterol.total/Chol esterol in HDL [Mass ratio] 5.69 {ratio} [facility] Serum globulin measurementOr dered By: Kyree Iglesias on 09-28-2024 Globulin (S) [Mass/Vol] 3.3 g/dL 2.2-4.2 [facility] Serum or plasma alanine daly otransferase (ALT) measurementOrdered By: Kyree Iglesias on 09-28-2024 ALT [Catalytic activity/Vol] 17 U/L <35 [facility] Serum or plasma albumin jaimie urement (mass/volume)Ordered By: Kyree Iglesias on 09-28-2024 Albumin [Mass/Vol] 4.4 g/dL 3.5-5.0 [facility] Serum or plasma alkaline jenelle sphatase measurementOrdered By: Kyree Iglesias on 09-28-2024 ALP [Catalytic activity/Vol] 67 U/L 35-104 [facility] Serum or plasma cholesterol in HDL measurement (mass/volume)Ordered By: Kyree Iglesias on 03-26-2025 Cholesterol in HDL [Mass/Vol] 36 mg/dL Low >40 [facility] Comment on above: National Cholesterol Education Program (NCEP) guidelines:<40 mg/dL: Low HDL-cholesterol (major risk factor for CHD)>= 60 mg/dL: High HDL-cholesterol (negative risk factor for CHD)HDL-cholesterol is affected by a number of factors, e.g. smoking, exercise, hormones, sex and age. Serum or plasma cholesterol measurement (mass/volume)Ordered By: Kyree Iglesias on 09-28-2024 Cholesterol [Mass/Vol] 206 mg/dL High <201 [facility] Comment on above: Cholesterol level, D esirable <200 mg/dLBorderline high cholesterol 200-239 mg/dLHigh cholesterol >=240 mg/dLRecommendations of the NCEP Adult Treatment Panel for the following risk-cutoff thresholds for the [place] population. Total proteinOrdered By: Hiram Iglesias on 09-28-2024 Protein [Mass/Vol] 7.7 g/dL 5.9-8.4 [facility] Triglycerides measurementOrd ered By: Kyree Iglesias on 09-28-2024 Triglyceride [Mass/Vol] 173 mg/dL <199 [facility] Comment on above: The drugs N-Acetylcy steine and Metamizole may falsely depress this assay. Normal range: <150 mg/dLBorderline High: 150-199 mg/dLHigh: 200-499 mg/dLVery High: >500 mg/dL Breast imaging reportOrdered By: Renato Little on 09-08-2024 Study report [facility] Imaging Services [address], [place] [id number] SCRN MAMM (CAD)W/DEBORAH BILAT MR#: [id number] Acct: [id number] Name: BARBARA HULL Rep #: [id number] : 1985 F 39 From: Shyam Little MD PCP: Vinnie Morales COMPLIANCE REVIEW SPECIALIST-C Status: [facility] Study:SCRN MAMM (CAD)W/DEBORAH BILAT Date of Exa m: 09/08/24 Exam# [id number] Ordering Dr: Sailaja Tenorio [facility] COMPLIANCE REVIEW SPECIALIST-C PROCEDURE: SCRN MAMM (CAD)W/DEBORAH BILAT REASON FOR EXAM: F, Age 39 y/o , . no family history. TECHNIQUE: Bilateral screening digital breast tomosynthesis with 2D and 3D images. Computeraided detection. COMPARISON: None. This is a baseline mammogram. FINDINGS: There are scattered areas of fibroglandular density. Small bilateral fat containing axillary lymph nodes. No suspicious masses, areas of developing architectural distortion, or suspicious calcifications. BI/SCRN MAMM (CAD)W/DEBORAH BILAT IMPRESSION: BI-RADS 2: BENIGN. RECOMMEND ANNUAL MAMMOGRAPHIC SCREENING. Follow-up code: Routine Follow-up The patient will be notified of the results by letter. Reading Location: [id number] CC: LAZARO Morales; [facility] COMPLIANCE REVIEW SPECIALIST-C Sailaja Tenorio ~ Central Office Repairer: Signed [facility] SCRN MAMM (CAD)W/DEBORAH BILATo n 09-08-2024 SCRN MAMM (CAD)W/DEBORAH BILAT [facility] Imaging Services [address], [place] [address] SCRN MAMM (CAD)W/DEBORAH BILAT MR#: [id number] Acct: [id number] Name: BARBARA HULL Rep #: [id number] : 1985 F 39 From: Renato delgado MD PCP: LAZARO Barraza Status: [facility] Study: SCRN MAMM (CAD)W/DEBORAH BILAT Date of Exam: 12/28 Exam# [id number] Ordering Dr: Sailaja Tenorio [facility] COMPLIANCE REVIEW SPECIALIST-C PROCEDURE: SCRN MAMM (CAD)W/DEBORAH BILAT REASON FOR EXAM: F, Age 39 y/o , . no family history. TECHNIQUE: Bilateral screening digital breast tomosynthesis with 2D and 3D images. Computer aided detection. COMPARISON: None. This is a baseline mammogram. FINDINGS: There are scattered areas of fibroglandular density. Small bilateral fat containing axillary lymph nodes. No suspicious masses, areas of developing architectural distortion, or suspicious calcifications. BI/SCRN MAMM (CAD)W/DEBORAH BILAT IMPRESSION: BI-RADS 2: BENIGN. RECOMMEND ANNUAL MAMMOGRAPHIC SCREENING. Follow-up code: Routine Follow-up The patient will be notified of the results by letter. Reading Location: [id number] CC: LAZARO Morales; [facility] LAZARO Tenorio Central Office Repairer: Signed Normal [facility] CNOVon 08-04-2024 CNOV Office Visit (UCWSTR ) -- BARBARA HULL ([id number]) 1985 F Date Time Provider Department 08/04/24 10:45 AM ZULEYKA MACIAS [facility] During your visit today, we recorded the following information about you: Temperature Pulse Respiration Blood pressure 99.1 degrees 85/minute 18/minute 129/85 Weight 102.4 kg Zuleyka Macias APRN.TABULATING CLERK 08/04/2024 11:37 AM Signed Subjective Rash Associated symptoms include a sore throat. Pertinent negatives include no congestion, cough or fever. Barbara Hull is a 39 year old female who presents with chills last night and a rash today. Rash is red and itchy. It is not painful. She states she had a sore throat this morning but states she probably slept with her mouth open. She is currently taking Flagyl for BV. She also started Pristiq at the beginning of this month. She denies any new lotions, soaps or detergents. She did eat some cake Thursday which contained strawberries and raspberries, but she has never had a reaction to this before. Review of Systems Constitutional: Positive for chills. Negative for fever. HENT: Positive for sore throat. Negative for congestion. Respiratory: Negative for cough. Cardiovascular: Negative. Musculoskeletal: Negative. Skin: Positive for itching and rash. BP 129/85 Pulse 85 Temp 37.3 ?C (99.1 ?F) Resp 18 Wt 102.4 kg (225 lb 12 oz) LMP 07/05/2007 SpO2 100% BMI 37.28 kg/m? PAST MEDICAL HISTORY Diagnosis Date Anxiety Hyperlipidemia Hypertension Obesity ALEX (obstructive sleep apnea) Pre-eclampsia PAST SURGICAL HISTORY Procedure Laterality Date HYSTERECTOMY HX ALLERGIES Amoxicillin MEDICATIONS ergocalciferol 50,000 unit capsule (VITAMIN D2, DRISDOL) Take 1 capsule by mouth one time a week. metroNIDAZOLE (FLAGYL) 500 mg tablet TAKE 1 TABLET BY MOUTH TWICE DAILY FOR 7 DAYS. AVOID ALCOHOL UNTIL 48 HOURS AFTER LAST DOSE nystatin (MYCOSTATIN) cream APPLY TO AFFECTED AREA UNDER BREAST TWICE DAILY losartan (COZAAR) 100 mg tablet Take 1 tablet by mouth every afternoon. desvenlafaxine ER (PRISTIQ) 25 mg 24 hr tablet Take 1 tablet by mouth every afternoon. LORazepam (ATIVAN) 0.5 mg Take 0.5 mg by mouth three times daily as needed. hydroCHLOROthiazide (HYDRODIURIL, ESIDRIX) 25 mg tablet Take 1 tablet by mouth once daily. Brompheniramine-Pseudoeph- DM (BROMFED DM) 2-30-10 mg/5 mL syrup Take 10 mL by mouth four times a day as needed. (Patient not taking: Reported on 08/04/2024) albuterol HFA (PROVENTIL HFA, VENTOLIN HFA) 90 mcg/actuation inhaler Inhale 2 Puffs as instructed every 4 hours as needed for wheezing/shortness of breath. (Patient not taking: Reported on 08/04/2024) losartan (COZAAR) 50 mg tablet Take 50 mg by mouth once daily. (Patient not taking: Reported on 08/04/2024) FAMILY HISTORY Problem Relation Age of Onset Hypertension Mother Headache Mother Cancer Maternal Grandfather pancreatic Coronary Artery Disease Maternal Grandmother Stroke Paternal Grandfather Social History Tobacco Use Smoking status: Never Smokeless tobacco: Never Substance Use Topics Alcohol use: Yes Comment: occaional Drug use: No ' Objective Physical Exam Vitals and nursing note reviewed. Constitutional: General: She is not in acute distress. Appearance: Normal appearance. She is not ill-appearing. HENT: Mouth/Throat: Mouth: Mucous membranes are moist. Pharynx: Uvula midline. Posterior oropharyngeal erythema present. No oropharyngeal exudate. Cardiovascular: Rate and Rhythm: Normal rate and regular rhythm. Heart sounds: Normal heart sounds. Pulmonary: Effort: Pulmonary effort is normal. No respiratory distress. Breath sounds: Normal breath sounds. No wheezing or rales. Musculoskeletal: Cervical back: Neck supple. Lymphadenopathy: Cervical: No cervical adenopathy. Skin: General: Skin is warm and dry. Findings: Erythema and rash present. Neurological: Mental Status: She is alert. ASSESSMENT/PLAN: 1. Rash - ICD9: 782.1, ICD10: R21 - unknown etiology. Discussed possibility that flagyl was the cause-she should stop this medication and avoid this medication in the future. - PREDNISONE 10 MG TABLET - Follow-up with your PCP in 3-5 days if symptoms have not improved or sooner if symptoms worsen - Discussed red flags and need for immediate medical evaluation if any occur. - Discussed supportive care treatment with fluids, rest and analgesia. - Discussed expected course of illness JADON Hummel Kathy, APRN.CNP 08/04/2024 11:37 AM Addendum ASSESSMENT/PLAN: 1. Rash - ICD9: 782.1, ICD10: R21 - unknown etiology. Discussed possibility that flagyl was the cause-she should avoid this medication in the future. - PREDNISONE 10 MG TABLET - Follow-up with your PCP in 3-5 days if symptoms have not improved or sooner if sy (more content not included)... Normal [facility] STREP A MOLECULAR (POC)on Procedural Control Valid [facility] Strep A (POCT) Negative Negative [facility] LQD PAP High Risk HPVon 07-07 ADEQ Comment Normal . [facility] Comment on above: Order Comment: Speci men Comment: Source.............VaginaSpecimen Comment: LMP / Prev Treat...Hyst PartSpecimen Comment: No. of containers..01 ThinPrep Vial Result Comment: Sati sfactory for evaluation. No endocervical cells are present. This is consistent with a history of hysterectomy. Performed By: #### L 3000.0800, L509.8000, L3890.6005 #### [facility] [address] [place], [address] COMM . Normal . [facility] Comment on above: Order Comment: Speci men Comment: Source.............VaginaSpecimen Comment: LMP / Prev Treat...Hyst PartSpecimen Comment: No. of containers..01 ThinPrep Vial Performed By: #### L 3000.0800, L509.8000, L3890.6005 #### [facility] [address] [place], [address] DIAG Comment Normal . [facility] Comment on above: Order Comment: Speci men Comment: Source.............VaginaSpecimen Comment: LMP / Prev Treat...Hyst PartSpecimen Comment: No. of containers..01 ThinPrep Vial Result Comment: NEGA TIVE FOR INTRAEPITHELIAL LESION OR MALIGNANCY. Performed By: #### L 3000.0800, L509.8000, L3890.6005 #### [facility] [address] [place], [place], [id number] PAPSMR Comment Normal . [facility] Comment on above: Order Comment: Speci men Comment: Source.............VaginaSpecimen Comment: LMP / Prev Treat...Hyst PartSpecimen Comment: No. of containers..01 ThinPrep Vial Result Comment: The Pap smear is a screening test designed to aid in the detection of premalignant and malignant conditions of the uterine cervix. It is not a diagnostic procedure and should not be used as the sole means of detecting cervical cancer. Both false-positive and false-negative reports do occur. Performed By: #### L 3000.0800, L509.8000, L3890.6005 #### [facility] [address] [place], [place], [address] PERFORM Comment Normal . [facility] Comment on above: Order Comment: Speci men Comment: Source.............VaginaSpecimen Comment: LMP / Prev Treat...Hyst PartSpecimen Comment: No. of containers..01 ThinPrep Vial Result Comment: Syeda Reynaga, [employer] Machine Offbearer (ASCP) Performed By: #### L 3000.0800, L509.8000, L3890.6005 #### [facility] [address] [place], [address] Hepatitis B/C Profile VIIIon 07-27-2024 COMMENT Comment Normal . [facility] Comment on above: Result Comment: Not infected with HCV unless early or acute infection is suspected (which may be delayed in an immunocompromised individual), or other evidence exists to indicate HCV infection. Performed at: [address] [id number] Accident Examiner: Kevin Vizcarra PhD, Phone: [phone] Performed By: #### L 3000.0800, L509.8000, L3890.6005 #### [facility] [address] [place], [address] HEP B CORE,TOT Negative Normal Negative [facility] Comment on above: Performed By: #### L 3000.0800, L509.8000, L3890.6005 #### [facility] [address] [place], [address] Hep B Galileo AB Non-Reactive Normal . [facility] Comment on above: Result Comment: Non Reactive: Not immune to HBV infection. Equivocal: Unable to determine if anti-HBs is present at levels consistent with immunity. Reactive: Anti-HBs concentration detected at greater than 10 mIU/mL. Individual is considered to be immune to infection with HBV. Performed By: #### L 3000.0800, L509.8000, L3890.6005 #### [facility] [address] [place], [address] HEP B SURF AG Negative Normal Negative [facility] Comment on above: Performed By: #### L 3000.0800, L509.8000, L3890.6005 #### [facility] [address] [place], [address] HEP C Antibody Non-Reactive Normal Non Reactive [facility] Comment on above: Performed By: #### L 3000.0800, L509.8000, L3890.6005 #### [facility] [address] [place], [address] 12 Lead EKGon 07-26-2024 12 Lead EKG [facility] Cardiovascular Services [address] [place] [address] 12 Lead EKG 07/26/24 1056 MR#: [id number] Acct: [id number] Name: BARBARA HULL Rep #: [id number] : 1985 39 From: Jose Maria Cid MD Attending Dr: SHAD BarrazaC Status: REG CLI Ordering Dr: Vinnie Morales [facility] COMPLIANCE REVIEW SPECIALIST-C Date: 07/26/24 Location: [facility] Sex: F C Admitted: Test Reason : HYPERTENSION Blood Pressure : */* mmHG Vent. Rate : 73 BPM Atrial Rate : 73 BPM P-R Int : 132 ms QRS Dur : 84 ms QT Int : 380 ms P-R-T Axes : 56 75 10 degrees QTcB Int : 418 ms Normal sinus rhythm Nonspecific T wave abnormality Abnormal ECG When compared with ECG of 09-May-2021 09:53, Nonspecific T wave abnormality, worse in Inferior leads Nonspecific T wave abnormality now evident in Lateral leads Confirmed by PALAK MONTIEL, TYRA ([id number]), senior editor STANLEY MINER ([id number]) on 08/01/2024 2:16:26 PM Referred By: Vinnie Morales Confirmed By: TYRA CID MD 08/01/24 1416 Date Jose Maria Cid MD CC: COMPLIANCE REVIEW SPECIALIST-C Vinnie Morales Signed Normal [facility] Scheduler Cyto stain Nom (C vx/Vag) [ID]Ordered By: [facility] Sailaja Tenorio on 07-26-2024 Pap Smear Performed By Comment . [facility] Comment on above: Syeda Reynaga, Cytotec hnologist (ASCP) Cytology report Cyto stain D oc (Cvx/Vag)Ordered By: [facility] Sailaja Tenorio on 07-26-2024 Thin Prep Pap Smear Comment . [facility] Comment on above: The Pap smear is a s creening test designed to aid in thedetection of premalignant and malignant conditions of theuterine cervix. It is not a diagnostic procedure andshould not be used as the sole means of detecting cervicalcancer. Both false-positive and false-negative reports dooccur. HBV core Ab Ql (S)Ordered By : Vinnie Morales on 07-26-2024 Hepatitis B Core Total Antibody Negative Negative [facility] HBV surface Ag IA QlOrdered By: Vinnie Morales on 07-26-2024 Hepatitis B Surface Antigen Negative Negative [facility] HIV - WCHon 07-26-2024 HIV Non-Reactive Normal Nonreactive [facility] Comment on above: Performed By: #### L 3000.0800, L509.8000, L3890.6005 #### [facility] [place], [address] HIV 1+2 Ab+HIV1 p24 Ag IA Ql Ordered By: Vinnie Morales on 07-26-2024 HIV (1&2) Antibody Non-Reactive Nonreactive [facility] Hepatitis B surface antibody Ordered By: Vinnie Morales on 07-26-2024 Hepatitis B Surface Antibody Non-Reactive . [facility] Comment on above: Non Reactive: Not im mune to HBV infection. Equivocal: Unable to determine if anti-HBs is present at levels consistent with immunity. Reactive: Anti-HBs concentration detected at greater than 10 mIU/mL. Individual is considered to be immune to infection with HBV. Hepatitis C virus antibody a ssay by recombinant immunoblot assayOrdered By: Vinnie Morales on 07-26-2024 Hepatitis C Antibody Non-Reactive Non Reactive [facility] Image-guided liquid-based Pa pOrdered By: [facility] Sailaja Tenorio on 07-26-2024 Pap Smear Diagnosis Comment . [facility] Comment on above: NEGATIVE FOR INTRAEP ITHELIAL LESION OR MALIGNANCY. L509.8000on 07-26-2024 Syphilis Abs Non-Reactive Normal [facility] Comment on above: Performed By: #### L 3000.0800, L509.8000, L3890.6005 #### [facility] [address] [place], [address] No Panel InformationOrdered By: Vinnie Morales on 07-26-2024 Hepatitis C Antibody Comment Comment . [facility] Comment on above: Not infected with HC V unless early or acute infection issuspected (which may be delayed in an immunocompromisedindividual), or other evidence exists to indicate HCVinfection.Performed at: [address] [id number] Director: Kevin Vizcarra PhD, Phone: [phone] Service comment (Unsp spec) [Interp]Ordered By: [facility] Sailaja Tenorio on 07-26-2024 Pap Smear Comment (3) . . [facility] Treponema sp Ab Ql (S)Ordere d By: Vinnie Morales on 07-26-2024 Syphilis Total Antibody Non-Reactive [facility] CNOVon 05-30-2024 CNOV Office Visit (WSTR ) -- BARBARA HULL ([id number]) 1985 F Date Time Provider Department 05/30/24 4:[address] [facility] During your visit today, we recorded the following information about you: Temperature Pulse Respiration Blood pressure 97.7 degrees 98/minute 18/minute 146/98 [address] PA-C 05/30/2024 5:32 PM Signed This note was created using NoteWriter. Subjective Barbaranaomi Hull is a 39 year old female. HPI Patient presents with a chief complaint of a cough. She was seen on May 16 and had pneumonia in the right upper lobe on chest x-ray. She completed doxycycline but states she is still coughing. no fever. She states her back has been achy on both sides as well. Does worsen with twisting and some movements. No shortness of breath. Review of Systems Constitutional: Negative. HENT: Negative. Respiratory: Positive for cough. Negative for shortness of breath and wheezing. Cardiovascular: Negative for chest pain, palpitations and leg swelling. Gastrointestinal: Negative. Musculoskeletal: Positive for back pain. All other systems reviewed and are negative. PAST MEDICAL HISTORY Diagnosis Date Anxiety Hyperlipidemia Hypertension Obesity ALEX (obstructive sleep apnea) Pre-eclampsia Current Outpatient Medications Medication Sig Dispense Refill desvenlafaxine ER (PRISTIQ) 25 mg 24 hr tablet Take 1 tablet by mouth every afternoon. albuterol HFA (PROVENTIL HFA, VENTOLIN HFA) 90 mcg/actuation inhaler Inhale 2 Puffs as instructed every 4 hours as needed for wheezing/shortness of breath. 18 g 0 losartan (COZAAR) 50 mg tablet Take 50 mg by mouth once daily. LORazepam (ATIVAN) 0.5 mg Take 0.5 mg by mouth three times daily as needed. hydroCHLOROthiazide (HYDRODIURIL, ESIDRIX) 25 mg tablet Take 1 tablet by mouth once daily. 30 tablet 2 predniSONE (DELTASONE) 20 mg tablet Take 2 tablets by mouth once daily for 5 days. 10 tablet 0 Brompheniramine-Pseudoeph- DM (BROMFED DM) 2-30-10 mg/5 mL syrup Take 10 mL by mouth four times a day as needed. 200 mL 0 No current facility-administered medications for this visit. PAST SURGICAL HISTORY Procedure Laterality Date HYSTERECTOMY HX FAMILY HISTORY Problem Relation Age of Onset Hypertension Mother Headache Mother Cancer Maternal Grandfather pancreatic Coronary Artery Disease Maternal Grandmother Stroke Paternal Grandfather Social History Tobacco Use Smoking status: Never Smokeless tobacco: Never Substance Use Topics Alcohol use: Yes Comment: occaional Drug use: No Objective BP 146/98 Pulse 98 Temp 36.5 ?C (97.7 ?F) Resp 18 Wt 105.6 kg (232 lb 12.9 oz) LMP 07/05/2007 SpO2 98% BMI 38.44 kg/m? Physical Exam Vitals reviewed. Constitutional: Appearance: Normal appearance. HENT: Head: Normocephalic and atraumatic. Right Ear: Tympanic membrane, ear canal and external ear normal. Left Ear: Tympanic membrane, ear canal and external ear normal. Nose: Nose normal. Mouth/Throat: Mouth: Mucous membranes are moist. Pharynx: Oropharynx is clear. Cardiovascular: Rate and Rhythm: Normal rate and regular rhythm. Heart sounds: Normal heart sounds. Pulmonary: Effort: Pulmonary effort is normal. Breath sounds: Normal breath sounds. Musculoskeletal: Cervical back: Neck supple. Comments: Patient is tender minimally bilaterally on her ribs on her lower thoracic back. Some pain with twisting as well. No pain with a deep breath. She does have some pain on bending and extending. Skin: General: Skin is warm and dry. Neurological: Mental Status: She is alert. Assessment and Plan ASSESSMENT/PLAN: 1. Subacute cough - ICD9: 786.2, ICD10: R05.2 (primary diagnosis) Patient's chest x-ray shows that the pneumonia has resolved. The pain in her back is reproducible with twisting and palpation, likely musculoskeletal pain. I will treat with prednisone. Also given cough medication. Follow-up with PCP if not improving. Patient agreeable. - XR CHEST 2V FRONTAL/LAT 2. History of pneumonia - ICD9: V12.61, ICD10: Z87.01 GHULAM Marion-C Allergies As of Date: 05/30/2024 Noted Allergy Reaction AMOXICILLIN 11/13/2014 2 - Rash Date Reviewed: 05/30/2024 Reviewed by: Nathaly Prince MA - Fully Assessed Reason for Visit: Cough [28] Cmt: productive and mid back pain dx with pneumonia given doxy 2 weeks ago Primary Visit Diagnosis:Subacute cough [R05.2] Other Visit Diagnosis:History of pneumonia [Z87.01] Order(s):XR CHEST 2V FRONTAL/LAT [[id number]] Order #: [id number] FUTURE predniSONE (DELTASONE) 20 mg tabletTake 2 tablets by mouth once daily for 5 days.Disp: 10 tabletRfl: 0 Brompheniramine-Pseudoeph- DM (BROMFED DM) 2-30-10 mg/5 mL syrupTake 10 mL by mouth four times a day as needed.Disp: 200 mLRfl: 0 Prescriptions as of 05/30/2024 - predniSONE (DELTASONE (more content not included)... Normal [facility] XR CHEST 2V FRONTAL/LATon XR CHEST 2V FRONTAL/LAT * * *Final Report* * * DATE OF EXAM: May 30 2024 4:27PM WOX [id number] - XR CHEST 2V FRONTAL/LAT / PROCEDURE REASON: Subacute cough * * * * Physician Interpretation * * * * EXAMINATION: CHEST RADIOGRAPH (2 VIEW FRONTAL and LATERAL) CLINICAL HISTORY: Subacute cough MQ: XC2_6 EXAM DATE/TIME: 05/30/2024 4:27 PM COMPARISON: Chest x-ray on 05/16/2024 RESULT: Lines, tubes, and devices: None. Lungs and pleura: Interval resolution/near total resolution of pulmonary infiltrates in the right upper lung. No new consolidations. No lung mass. No pleural effusion. No pneumothorax. Cardiomediastinal silhouette: Normal cardiomediastinal silhouette. Bones and soft tissues: Unremarkable. IMPRESSION: Interval resolution/near total resolution of pulmonary infiltrates in the right lung Central Office Repairer: INDY Transcribe Date/Time: May 30 2024 4:32P Dictated by : BASILIO ZAFAR MD This examination was interpreted and the report reviewed and electronically signed by: BASILIO ZAFAR MD on May 30 2024 4:34PM EST [id number] Normal [facility] XR Chest PA and Lateralon IMPRESSION: Interval resolution/near total resolution of pulmonary infiltrates in the right lung Central Office Repairer: PSC Transcribe Date/Time: May 30 2024 4:32P Dictated by : BASILIO ZAFAR MD This examination was interpreted and the report reviewed and electronically signed by: BASILIO ZAFAR MD on May 30 2024 4:34PM EST DIVISION OF RADIOLOGY * * *Final Report* * * DATE OF EXAM: May 30 2024 4:27PM WOX [id number] - XR CHEST 2V FRONTAL/LAT / PROCEDURE REASON: Subacute cough * * * * Physician Interpretation * * * * EXAMINATION: CHEST RADIOGRAPH (2 VIEW FRONTAL & LATERAL) CLINICAL HISTORY: Subacute cough MQ: XC2_6 EXAM DATE/TIME: 05/30/2024 4:27 PM COMPARISON: Chest x-ray on 05/16/2024 RESULT: Lines, tubes, and devices: None. Lungs and pleura: Interval resolution/near total resolution of pulmonary infiltrates in the right upper lung. No new consolidations. No lung mass. No pleural effusion. No pneumothorax. Cardiomediastinal silhouette: Normal cardiomediastinal silhouette. Bones and soft tissues: Unremarkable. DIVISION OF RADIOLOGY Provider, Carmen Perez - 05/30/2024 * * *Final Report* * * DATE OF EXAM: May 30 2024 4:27PM WOX 5291 - XR CHEST 2V FRONTAL/LAT / PROCEDURE REASON: Subacute cough * * * * Physician Interpretation * * * * EXAMINATION: CHEST RADIOGRAPH (2 VIEW FRONTAL & LATERAL) CLINICAL HISTORY: Subacute cough MQ: XC2_6 EXAM DATE/TIME: 05/30/2024 4:27 PM COMPARISON: Chest x-ray on 05/16/2024 RESULT: Lines, tubes, and devices: None. Lungs and pleura: Interval resolution/near total resolution of pulmonary infiltrates in the right upper lung. No new consolidations. No lung mass. No pleural effusion. No pneumothorax. Cardiomediastinal silhouette: Normal cardiomediastinal silhouette. Bones and soft tissues: Unremarkable. IMPRESSION IMPRESSION: Interval resolution/near total resolution of pulmonary infiltrates in the right lung Central Office Repairer: PAUL Transcribe Date/Time: May 30 2024 4:32P Dictated by : BASILIO ZAFAR MD This examination was interpreted and the report reviewed and electronically signed by: BASILIO ZAFAR MD on May 30 2024 4:34PM EST [facility] Radiology Study observation (narrative) [facility] XR Chest PA and LateralOrder ed By: [facility]cf Provider on 05-30-2024 [facility] CNOVon 05-16-2024 CNOV Office Visit (UCWSTR ) -- BARBARA HULL ([id number]) 1985 F Date Time Provider Department 05/16/24 5:15 PM QUINN VILLALOBOS [facility] During your visit today, we recorded the following information about you: Temperature Pulse Respiration Blood pressure 99.1 degrees 80/minute 21/minute 148/90 Weight 102.5 kg Quinn Villalobos MD 05/16/2024 5:07 PM Signed Patient presents with: Cough: Chest congestion x 4 days HPI: Feeling sick for 5 days. Positive symptoms: cough, Wheezing, Chest pain, upper back pain, Fever, Chills, Malaise, Fatigue, Negative symptoms: Nasal Congestion, Rhinorrhea, Vomiting, Diarrhea, OTC: Coricidin Cold Medicine, Tylenol She has had pneumonia in the past and this feels similar. Denies risk of -hysterectomy. PAST MEDICAL HISTORY Diagnosis Date Anxiety Hyperlipidemia Hypertension Obesity ALEX (obstructive sleep apnea) Pre-eclampsia PAST SURGICAL HISTORY Procedure Laterality Date HYSTERECTOMY HX MEDICATIONS: Current Outpatient Medications Medication Sig desvenlafaxine ER (PRISTIQ) 25 mg 24 hr tablet Take 1 tablet by mouth every afternoon. losartan (COZAAR) 50 mg tablet Take 50 mg by mouth once daily. LORazepam (ATIVAN) 0.5 mg Take 0.5 mg by mouth three times daily as needed. hydroCHLOROthiazide (HYDRODIURIL, ESIDRIX) 25 mg tablet Take 1 tablet by mouth once daily. No current facility-administered medications for this visit. ALLERGIES: ALLERGIES Allergen Reactions Amoxicillin Rash VITALS: BP 148/90 Pulse 80 Temp 37.3 ?C (99.1 ?F) Resp 21 Wt 102.5 kg (225 lb 15.5 oz) LMP 07/05/2007 SpO2 98% BMI 37.32 kg/m? PHYSICAL EXAM: GEN: mildly ill appearing HEENT: PERRL, EOMI, conjunctiva clear Ears: canals clear. TMs without erythema, bulge, or effusion Sinuses: non-tender frontal sinus, non-tender maxillary sinuses Throat: moist mucous membranes, mild erythema, no exudate Neck: supple, no thyromegaly, no lymphadenopathy HEART: regular rate and rhythm, no murmurs LUNGS: faint end expiratory crackles right upper lung, no increased WOB ASSESSMENT/PLAN: 1. Pneumonia of right upper lobe due to infectious organism - ICD9: 486, ICD10: J18.9 (primary diagnosis) 2. Acute cough - ICD9: 786.2, ICD10: R05.1 - XR CHEST 2V FRONTAL/LAT - Right upper lobe pneumonia - DOXYCYCLINE MONOHYDRATE 100 MG CAPSULE - ALBUTEROL SULFATE HFA 90 MCG/ACTUATION AEROSOL INHALER Continue supportive care with as needed analgesia and cough and cold medicine. Follow up with worsening cough, worsening shortness of breath, increasing chest pain, or late onset fever. Quinn Villalobos MD Allergies As of Date: 05/16/2024 Noted Allergy Reaction AMOXICILLIN 11/13/2014 2 - Rash Date Reviewed: 05/16/2024 Reviewed by: Sonja Morales MA - Fully Assessed Reason for Visit: Cough [28] Cmt: Chest congestion x 4 days Primary Visit Diagnosis:Pneumonia of right upper lobe due to infectious organism [J18.9] Other Visit Diagnosis:Acute cough [R05.1] Order(s):XR CHEST 2V FRONTAL/LAT [[id number]] Order #: [id number] FUTURE doxycycline monohydrate (MONODOX) 100 mg capsuleTake 1 capsule by mouth two times a day for 5 days.Disp: 10 capsuleRfl: 0 albuterol HFA (PROVENTIL HFA, VENTOLIN HFA) 90 mcg/actuation inhalerInhale 2 Puffs as instructed every 4 hours as needed for wheezing/shortness of breath.Disp: 18 gRfl: 0 Inhalational Spacing Device1 Device one time only for 1 dose.Disp: 1 EachRfl: 0 Prescriptions as of 05/16/2024 - desvenlafaxine ER (PRISTIQ) 25 mg 24 hr tablet Take 1 tablet by mouth every afternoon. - doxycycline monohydrate (MONODOX) 100 mg capsule Take 1 capsule by mouth two times a day for 5 days. - albuterol HFA (PROVENTIL HFA, VENTOLIN HFA) 90 mcg/actuation inhaler Inhale 2 Puffs as instructed every 4 hours as needed for wheezing/shortness of breath. - Inhalational Spacing Device 1 Device one time only for 1 dose. - losartan (COZAAR) 50 mg tablet Take 50 mg by mouth once daily. - LORazepam (ATIVAN) 0.5 mg Take 0.5 mg by mouth three times daily as needed. - hydroCHLOROthiazide (HYDRODIURIL, ESIDRIX) 25 mg tablet Take 1 tablet by mouth once daily. Problem List As Of Date 05/16/2024 Noted Resolved Hypertension [I10] Kidney stone [N20.0] 09/25/2022 Prescriptions ordered this encounter Disp Refills Start End DOXYCYCLINE MONOHYDRATE 100 MG CAPSU* 10 c* 0 05/16/2024 05/21/2024 Route: ORAL Sig: Take 1 capsule by mouth two times a day for 5 days. ALBUTEROL SULFATE HFA 90 MCG/ACTUATI* 18 g 0 05/16/2024 Cmt: Generic or brand: dispense inhaler preferred by patient/insurance unless CLEOPATRA flag is selected. Route: INHALATION Sig: Inhale 2 Puffs as instructed every 4 hours as needed for wheezing/shortness of breath. INHALATIONAL SPACING DEVICE 1 Ea* 0 05/16/2024 05/16/2024 Route: Misc Si Device one time only for 1 dose. Medic (more content not included)... Normal [facility] XR CHEST 2V FRONTAL/LATon XR CHEST 2V FRONTAL/LAT * * *Final Report* * * DATE OF EXAM: May 16 2024 4:47PM WOX 5291 - XR CHEST 2V FRONTAL/LAT / PROCEDURE REASON: Acute cough * * * * Physician Interpretation * * * * EXAMINATION: CHEST RADIOGRAPH (2 VIEW FRONTAL and LATERAL) CLINICAL HISTORY: Acute cough MQ: XC2_6 EXAM DATE/TIME: 05/16/2024 4:47 PM COMPARISON: No relevant prior studies available. RESULT: Lines, tubes, and devices: None. Lungs and pleura: Focal air space consolidation in the right upper lobe abutting the right minor fissure compatible with pneumonia. No pleural effusion or pneumothorax. Cardiomediastinal silhouette: Normal cardiomediastinal silhouette. Bones and soft tissues: Unremarkable. IMPRESSION: Right upper lobe pneumonia Central Office Repairer: PAUL Transcribe Date/Time: May 16 2024 4:49P Dictated by : KEITH EASLEY MD This examination was interpreted and the report reviewed and electronically signed by: KEITH EASLEY MD on May 16 2024 4:49PM EST [id number] Normal [facility] XR Chest PA and Lateralon IMPRESSION: Right upper lobe pneumonia Central Office Repairer: PSCKaleb Transcribe Date/Time: May 16 2024 4:49P Dictated by : KEITH EASLEY MD This examination was interpreted and the report reviewed and electronically signed by: KEITH EASLEY MD on May 16 2024 4:49PM EST DIVISION OF RADIOLOGY * * *Final Report* * * DATE OF EXAM: May 16 2024 4:47PM WOX 5291 - XR CHEST 2V FRONTAL/LAT / PROCEDURE REASON: Acute cough * * * * Physician Interpretation * * * * EXAMINATION: CHEST RADIOGRAPH (2 VIEW FRONTAL & LATERAL) CLINICAL HISTORY: Acute cough MQ: XC2_6 EXAM DATE/TIME: 05/16/2024 4:47 PM COMPARISON: No relevant prior studies available. RESULT: Lines, tubes, and devices: None. Lungs and pleura: Focal air space consolidation in the right upper lobe abutting the right minor fissure compatible with pneumonia. No pleural effusion or pneumothorax. Cardiomediastinal silhouette: Normal cardiomediastinal silhouette. Bones and soft tissues: Unremarkable. DIVISION OF RADIOLOGY Provider, [facility] - 05/16/2024 * * *Final Report* * * DATE OF EXAM: May 16 2024 4:47PM WOX 5291 - XR CHEST 2V FRONTAL/LAT / PROCEDURE REASON: Acute cough * * * * Physician Interpretation * * * * EXAMINATION: CHEST RADIOGRAPH (2 VIEW FRONTAL & LATERAL) CLINICAL HISTORY: Acute cough MQ: XC2_6 EXAM DATE/TIME: 05/16/2024 4:47 PM COMPARISON: No relevant prior studies available. RESULT: Lines, tubes, and devices: None. Lungs and pleura: Focal air space consolidation in the right upper lobe abutting the right minor fissure compatible with pneumonia. No pleural effusion or pneumothorax. Cardiomediastinal silhouette: Normal cardiomediastinal silhouette. Bones and soft tissues: Unremarkable. IMPRESSION IMPRESSION: Right upper lobe pneumonia Central Office Repairer: PSCB Transcribe Date/Time: May 16 2024 4:49P Dictated by : KEITH EASLEY MD This examination was interpreted and the report reviewed and electronically signed by: KEITH EASLEY MD on May 16 2024 4:49PM EST [facility] Radiology Study observation (narrative) [facility] XR Chest PA and LateralOrder ed By: Ccf Provider on 05-16-2024 [facility] CNOVon 11-19-2023 CNOV Office Visit ([facility]WSTR ) -- BARBARA HULL ([id number]) 1985 F Date Time Provider Department 11/19/23 3:15 PM GARCIA WILLIS [facility] During your visit today, we recorded the following information about you: Temperature Pulse Respiration Blood pressure 98 degrees 85/minute 21/minute 140/100 Weight 103.4 kg Garcia Willis APRN.[facility] 11/19/2023 3:43 PM Signed CC: Patient presents with: Sore Throat: Bilateral ear pain x 1 week HPI: Barbara Hull is a 38 year old female who presents to the office with complaint of sore throat, sinus symptoms, and ear symptoms for a week. Symptoms are staying the same. Associated symptoms includes ear pain. Denies body aches, fever, nausea, vomiting , and diarrhea. Treatments tried include nothing so far. with no relief of symptoms. Sick contacts: unknown. History of asthma, frequent episodes of bronchitis, chronic bronchitis, bronchiectasis or COPD: No Smoker: No Seasonal/environmental allergies: No The ROS is otherwise negative. The patient's pmh, medications, allergies, and past visits are reviewed. PHYSICAL EXAM: BP 140/100 Pulse 85 Temp 36.7 ?C (98 ?F) Resp 21 Wt 103.4 kg (227 lb 15.3 oz) LMP 07/05/2007 SpO2 98% BMI 37.64 kg/m? General appearance: alert, cooperative, pleasant, in no acute distress Head: Normocephalic Eyes: EOM's intact, conjunctiva pink and moist, no icterus, sclera white, non-injected Ears: Right ear: External ear/canal- Normal, TM - erythematous, bulging. Left ear: External ear/canal- Normal, TM - clear with good landmarks Oropharynx:mild erythema, without exudates present Heart: Negative. RRR without obvious murmur, gallop, or rubs. No ectopy. Lungs: clear to auscultation, without rales or wheeze, good air exchange PAST MEDICAL HISTORY Diagnosis Date Anxiety Hypertension Obesity Pre-eclampsia PAST SURGICAL HISTORY Procedure Laterality Date HYSTERECTOMY HX ALLERGIES Amoxicillin MEDICATIONS losartan (COZAAR) 50 mg tablet Take 50 mg by mouth once daily. LORazepam (ATIVAN) 0.5 mg Take 0.5 mg by mouth three times daily as needed. hydroCHLOROthiazide (HYDRODIURIL, ESIDRIX) 25 mg tablet Take 1 tablet by mouth once daily. buPROPion SR (WELLBUTRIN SR) 100 mg 12 hr tablet Take 100 mg by mouth daily at bedtime. (Patient not taking: Reported on 09/25/2022) fluticasone (FLONASE) 50 mcg/actuation nasal spray Use 2 Sprays in each nostril once daily. Rinse mouth after use. (Patient not taking: Reported on 07/10/2018) FLUoxetine (PROZAC) 20 mg capsule Take 20 mg by mouth once daily. (Patient not taking: Reported on 09/12/2021) albuterol HFA (VENTOLIN HFA) 90 mcg/actuation inhaler Inhale 2 Puffs as instructed every 4 hours as needed for Wheezing/Shortness of Breath. (Patient not taking: Reported on 07/10/2018) FAMILY HISTORY Problem Relation Age of Onset Hypertension Mother Headache Mother Cancer Maternal Grandfather pancreatic Coronary Artery Disease Maternal Grandmother Stroke Paternal Grandfather Social History Tobacco Use Smoking status: Never Smokeless tobacco: Never Substance Use Topics Alcohol use: Yes Comment: occaional Drug use: No ASSESSMENT/PLAN: 1. Sore throat - ICD9: 462, ICD10: J02.9 (primary diagnosis) - STREP A MOLECULAR (POC)-neg 2. Acute otitis media, unspecified otitis media type - ICD9: 382.9, ICD10: H66.90 - CEFDINIR 300 MG CAPSULE Prescription instructions reviewed with patient as applicable. Potential red flag symptoms discussed with the patient. Reviewed appropriate action plan to take if red flag symptoms occur. Patient agreeable to treatment plan. Garcia Willis APRN.TABULATING CLERK Allergies As of Date: 11/19/2023 Noted Allergy Reaction AMOXICILLIN 11/13/2014 2 - Rash Date Reviewed: 11/19/2023 Reviewed by: Sonja Morales MA - Fully Assessed Reason for Visit: Sore Throat [200] Cmt: Bilateral ear pain x 1 week Primary Visit Diagnosis:Sore throat [J02.9] Other Visit Diagnosis:Acute otitis media, unspecified otitis media type [H66.90] Order(s):STREP A MOLECULAR (POC) [[id number]] Order #: [id number]. #:[id number] 6-LAB cefdinir (OMNICEF) 300 mg capsuleTake 1 capsule by mouth two times a day for 7 days.Disp: 14 capsuleRfl: 0 Prescriptions as of 11/19/2023 - cefdinir (OMNICEF) 300 mg capsule Take 1 capsule by mouth two times a day for 7 days. - buPROPion SR (WELLBUTRIN SR) 100 mg 12 hr tablet Take 100 mg by mouth daily at bedtime. - fluticasone (FLONASE) 50 mcg/actuation nasal spray Use 2 Sprays in each nostril once daily. Rinse mouth after use. - losartan (COZAAR) 50 mg tablet Take 50 mg by mouth once daily. - FLUoxetine (PROZAC) 20 mg capsule Take 20 mg by mouth once daily. - albuterol HFA (VENTOLIN HFA) 90 mcg/actuation inhaler Inhale 2 Puffs as instructed every 4 hours as needed for Wheezing/Shortness of Breath. - LO (more content not included)... Normal [facility] STREP A MOLECULAR (POC)on Procedural Control Valid [facility] Strep A (POCT) Negative Negative [facility] XR FOOT GENERAL 3V AP/LAT/OB L RIGHTon 03-30-2023 [facility] XR Foot - right AP and Later al and obliqueon 03-30-2023 IMPRESSION: Negative right foot. Central Office Repairer: PSCB Transcribe Date/Time: Mar 30 2023 8:32P Dictated by : TRIPP QUINN MD This examination was interpreted and the report reviewed and electronically signed by: TRIPP QUINN MD on Mar 30 2023 8:33PM [facility] DIVISION OF RADIOLOGY * * *Final Report* * * DATE OF EXAM: Mar 30 2023 8:14PM WOX [id number] - XR FOOT 3V AP/LAT/OBL RT / PROCEDURE REASON: Injury of right foot, initial encounter * * * * Physician Interpretation * * * * RIGHT FOOT X-RAY SERIES CLINICAL HISTORY: Rolled foot today regarding down steps TECHNIQUE: AP, lateral and oblique views. COMPARISON: None available. RESULT: No fracture or malalignment. Joint spaces and articular surfaces are preserved. DIVISION OF RADIOLOGY Provider, Cherelle Timbo gallegos [place] - 03/30/2023 * * *Final Report* * * DATE OF EXAM: Mar 30 2023 8:14PM WOX [id number] - XR FOOT 3V AP/LAT/OBL RT / PROCEDURE REASON: Injury of right foot, initial encounter * * * * Physician Interpretation * * * * RIGHT FOOT X-RAY SERIES CLINICAL HISTORY: Rolled foot today regarding down steps TECHNIQUE: AP, lateral and oblique views. COMPARISON: None available. RESULT: No fracture or malalignment. Joint spaces and articular surfaces are preserved. IMPRESSION IMPRESSION: Negative right foot. Central Office Repairer: PAUL Transcribe Date/Time: Mar 30 2023 8:32P Dictated by : TRIPP QUINN MD This examination was interpreted and the report reviewed and electronically signed by: TRIPP QUINN MD on Mar 30 2023 8:33PM EST [facility] Radiology Study observation (narrative) [facility] XR Foot - right AP and Later al and obliqueOrdered By: Ccf Provider on 03-30-2023 [facility] STREP A MOLECULAR (POC)on Procedural Control Valid [facility] Strep A (POCT) Negative Negative [facility] Absolute lymphocyte countOrd ered By: Vinnie Morales on 11-13-2022 Lymphocytes Auto (Unsp spec) [#/Vol] 3.28 10*3/uL 0.83-4.51 [facility] Basophil percentageOrdered B y: Vinnie Morales on 11-13-2022 Basophils/100 WBC (Bld) 0.5 % 0-1 [facility] Bilirubin [Mass/Vol] 0.40 mg/dL 0.20-1.00 [facility] Comment on above: For patients on eltr ombopag therapy, use of [address] TBIL is not recommended. Chloride [Moles/Vol] 104 mmol/L 98-107 [facility] Cholesterol [Mass/Vol] 178 mg/dL <200 [facility] Comment on above: <200 mg/dL Desirable 200-240 mg/dL Borderline >240 mg/dL High Risk Eosinophils/100 WBC (Bld) 1.5 % 0-5 [facility] Glucose [Mass/Vol] 134 mg/dL 74-106 [facility] Comment on above: Fasting Glucose resu lt greater than or equal to 126 mg/dL suggests DIABETES MELLITUS per A.D.A. criteria. Neutrophils (Bld) [#/Vol] 6.6 10*3/uL 2.0-7.7 [facility] Neutrophils/100 WBC (Bld) 61.4 % 47-70 [facility] Potassium [Moles/Vol] 3.4 mmol/L 3.5-5.1 [facility] Protein [Mass/Vol] 7.4 g/dL 6.4-8.2 [facility] Sodium [Moles/Vol] 138 mmol/L 136-145 [facility] Triglyceride [Mass/Vol] 328 mg/dL <199 [facility] Comment on above: The drugs N-Acetylcy steine and Metamizole may falsely depress this assay.Serum Triglycerides Reference Interval Normal <150 mg/dL Borderline high 150 - 199 mg/dL High 200 - 499 mg/dL Very High > or = 500 mg/dL WBC (Bld) [#/Vol] 10.8 10*3/uL 4.4-11.0 [facility] Blood erythrocytes count (nu mber/volume)Ordered By: Vinnie Morales on 11-13-2022 RBC (Bld) [#/Vol] 4.40 10*6/uL 4.2-5.4 [facility] Blood hemoglobin measurement (mass/volume)Ordered By: Vinnie Morales on 11-13-2022 Hemoglobin (Bld) [Mass/Vol] 12.7 g/dL 12.0-15.0 [facility] Blood lymphocytes/100 leukoc ytesOrdered By: Vinnie Morales on 11-13-2022 Lymphocytes/100 WBC (Bld) 30.5 % 19-41 [facility] Blood monocytes/100 leukocyt esOrdered By: Vinnie Morales on 11-13-2022 Monocytes/100 WBC (Bld) 5.5 % 0-10 [facility] Blood platelet mean volumeOr dered By: Vinnie Morales on 11-13-2022 Platelet mean volume (Bld) [Entitic vol] 9.9 fL 6.2-12.0 [facility] Determination of erythrocyte mean corpuscular volume (MCV)Ordered By: Vinnie Morales on 11-13-2022 MCV (RBC) [Entitic vol] 87.0 fL 81-99 [facility] Hematocrit Auto (Bld) [Volum e fraction]Ordered By: Vinnie Morales on 11-13-2022 Hematocrit (Bld) [Volume fraction] 38.3 % 37-47 [facility] Laboratory - Chemistry and C hemistry - challengeOrdered By: Vinnie Morales on 11-13-2022 ALP [Catalytic activity/Vol] 56 U/L 45-117 [facility] ALT [Catalytic activity/Vol] 32 U/L 13-56 [facility] CO2 [Moles/Vol] 27.0 mmol/L 21.0-32.0 [facility] Cobalamin (Vitamin B12) [Mass/Vol] 409 pg/mL 211-911 [facility] Globulin (S) [Mass/Vol] 3.9 g/dL 2.2-4.2 [facility] Urea nitrogen/Creatinine [Mass ratio] 16.5 mg/mg 10-20 [facility] Laboratory - Hematology and Cell countsOrdered By: Vinnie Morales on 11-13-2022 Erythrocyte distribution width (RBC) [Entitic vol] 39.9 fL 35.1-43.9 [facility] Erythrocyte distribution width (RBC) [Ratio] 12.7 % 11.6-14.6 [facility] Immature granulocytes/100 WBC (Bld) 0.600 % 0.0-0.9 [facility] Comment on above: IG% - Immature Granu locytes (promyelocytes, myelocytes and metamyelocytes) > 1% indicates that a LEFT SHIFT is Present. MCH (RBC) [Entitic mass] 28.9 pg 27.0-32.0 [facility] Nucleated RBC/100 WBC (Bld) [Ratio] 0 % 0-5 [facility] MCHC Auto (RBC) [Mass/Vol]Or dered By: Vinnie Morales on 11-13-2022 MCHC (RBC) [Mass/Vol] 33.2 g/dL 32-36 [facility] No Panel InformationOrdered By: Vinnie Morales on 11-13-2022 Estimated GFR (MDRD) Amer 127 mL/min >60 [facility] Comment on above: GFR Calc Estimated GFR (MDRD) Non-Af Amer 105 mL/min >60 [facility] Comment on above: Non- GFR Calc Thyroid Stimulating Hormone (TSH) 3.33 uIU/mL 0.358-3.74 [facility] Vitamin D 25-Hydroxy 15.7 ng/mL [facility] Comment on above: Vitamin D 25(OH) Sta tus Range Deficiency <20 ng/mL (50nmol/L) Insufficiency 20 - 30 ng/mL (50 - 75 nmol/L) Sufficiency 30 - 100 ng/mL (75 - 250 nmol/L) Toxicity >100 ng/mL (>250 nmol/L) Platelets bldOrdered By: Patience Morales on 11-13-2022 Platelets (Bld) [#/Vol] 372 10*3/uL 150-450 [facility] Serum or plasma albumin jaimie urement (mass/volume)Ordered By: Vinnie Morales on 11-13-2022 Albumin [Mass/Vol] 3.5 g/dL 3.2-5.0 [facility] Serum or plasma albumin/glob ulin mass ratioOrdered By: Vinnie Morales on 11-13-2022 Albumin/Globulin [Mass ratio] 0.9 {ratio} 0.9-2.4 [facility] Serum or plasma calcium jaimie urement (mass/volume)Ordered By: Vinnie Morales on 11-13-2022 Calcium [Mass/Vol] 9.1 mg/dL 8.5-10.1 [facility] Serum or plasma cholesterol in HDL measurement (mass/volume)Ordered By: Vinnie Morales on 11-13-2022 Cholesterol in HDL [Mass/Vol] 30 mg/dL >40 [facility] Comment on above: The drugs N-Acetylcy steine and Metamizole may falsely depress this assay. Reference Range HDL <40 mg/dL Low HDL Cholesterol HDL >or= 60 mg/dL High HDL Cholesterol Serum or plasma cholesterol in VLDL measurement (mass/volume)Ordered By: Vinnie Morales on 11-13-2022 Cholesterol in VLDL [Mass/Vol] 66 mg/dL 5-40 [facility] Serum or plasma creatinine m easurement (mass/volume)Ordered By: Vinnie Morales on 11-13-2022 Creatinine [Mass/Vol] 0.67 mg/dL 0.55-1.02 [facility] Comment on above: The validity of the calculated GFR & GFRAA in patients over 70 years has not been determined. Clinical correlation is essential. Serum or plasma low density lipoprotein (LDL) cholesterol measurement (mass/volume)Ordered By: Vinnie Morales on 11-13-2022 Cholesterol in LDL [Mass/Vol] 82 mg/dL 0-130 [facility] Serum or plasma urea nitroge n measurement (mass/volume)Ordered By: Vinnie Morales on 11-13-2022 Urea nitrogen [Mass/Vol] 11 mg/dL 7-18 [facility] Thin prep Papanicolaou smear with manual screeningOrdered By: Vinnie Morales on 11-13-2022 Thin prep Papanicolaou smear with manual screening 15 U/L 15-37 [facility] Thin prep Papanicolaou smear with manual screening 7 5-15 [facility] Whole blood hemoglobin A1c/t otal hemoglobin ratio (mass fraction)Ordered By: Vinnie Morales on 11-13-2022 HbA1c (Bld) [Mass fraction] 5.5 % 3.8-5.6 [facility] Comment on above: Normal < 5.7 % Predi abetic 5.7 - 6.4 % Diabetic >or= 6.5 % Please note range changes. CNOVon 09-25-2022 CNOV Office Visit (URCANT ) -- BARBARA HULL ([id number]) 1985 F Date Time Provider Department 09/25/22 10:40 AM SILVINA CADE During your visit today, we recorded the following information about you: Pulse Weight 76/minute 102.1 kg Silvina Cade MD 09/25/2022 11:00 AM Signed ESTABLISHED PATIENT OFFICE VISIT Follow-up kidney stones. She denies any colic since her last visit. She does say that she has some chronic musculoskeletal low back pain. I reviewed her KUB. There are some scattered calcifications over the kidneys. LAB RESULTS Creatinine Date Value Ref Range Status 11/17/2016 0.75 0.58 - 0.96 mg/dL Final GLUCOSE UA (POCT) (mg/dL) Date Value 09/25/2022 Negative BILIRUBIN UA (POCT) (no units) Date Value 09/25/2022 Negative KETONE UA (POCT) (mg/dL) Date Value 09/25/2022 Negative SPECIFIC GRAVITY UA (POCT) (no units) Date Value 09/25/2022 1.020 HEMOGLOBIN/BLOOD UA (POCT) (no units) Date Value 09/25/2022 Negative PH UA (POCT) (no units) Date Value 09/25/2022 6.5 PROTEIN UA (POCT) (mg/dL) Date Value 09/25/2022 Negative UROBILINOGEN UA (POCT) (E.U./dL) Date Value 09/25/2022 0.2 NITRITE UA (POCT) (no units) Date Value 09/25/2022 Negative LEUKOCYTES UA (POCT) (no units) Date Value 09/25/2022 Trace (A) COLOR UA (POCT) (no units) Date Value 09/25/2022 Yellow CLARITY UA (POCT) (no units) Date Value 09/25/2022 Clear ] ALLERGIES Allergen Reactions Amoxicillin Rash MEDICATIONS: losartan (COZAAR) 50 mg tablet Take 50 mg by mouth once daily. LORazepam (ATIVAN) 0.5 mg Take 0.5 mg by mouth three times daily as needed. hydroCHLOROthiazide (HYDRODIURIL, ESIDRIX) 25 mg tablet Take 1 tablet by mouth once daily. buPROPion SR (WELLBUTRIN SR) 100 mg 12 hr tablet Take 100 mg by mouth daily at bedtime. (Patient not taking: Reported on 09/25/2022) fluticasone (FLONASE) 50 mcg/actuation nasal spray Use 2 Sprays in each nostril once daily. Rinse mouth after use. (Patient not taking: No sig reported) FLUoxetine (PROZAC) 20 mg capsule Take 20 mg by mouth once daily. (Patient not taking: No sig reported) albuterol HFA (VENTOLIN HFA) 90 mcg/actuation inhaler Inhale 2 Puffs as instructed every 4 hours as needed for Wheezing/Shortness of Breath. (Patient not taking: No sig reported) REVIEW OF SYSTEMS GENERAL: No unintentional weight loss, malaise or fevers. NEUROLOGIC: pt is alert and oriented GASTROINTESTINAL: No nausea, vomiting, or diarrhea GENITOURINARY: No history of dysuria, frequency or incontinence MUSCULOSKELETAL: Negative for joint pain or swelling, back pain or muscle pain SKIN: Negative for lesions, rash, and itching. ACTIVE PROBLEM LIST Hypertension Kidney Stone HISTORIES PAST MEDICAL HISTORY Diagnosis Date Anxiety Hypertension Obesity Pre-eclampsia FAMILY HISTORY Problem Relation Age of Onset Hypertension Mother Headache Mother Cancer Maternal Grandfather pancreatic Coronary Artery Disease Maternal Grandmother Stroke Paternal Grandfather PAST SURGICAL HISTORY Procedure Laterality Date HYSTERECTOMY HX SOCIAL HISTORY Social History Tobacco Use Smoking status: Never Smokeless tobacco: Never Substance Use Topics Alcohol use: Yes Comment: occaional Drug use: No PHYSICAL EXAMINATION General appearance: Well appearing, alert, in no acute distress, well-hydrated, well nourished Psych Alert and oriented to person, place and time Genitourinary: FEMALE EXAM: Exam NOT Indicated ASSESSMENT/PLAN: 1. Kidney stone - ICD9: 592.0, ICD10: N20.0 I discussed prevention. I told her that I would not need to see her back unless she had a problem. Silvina Cade MD Allergies As of Date: 09/25/2022 Noted Allergy Reaction AMOXICILLIN 11/13/2014 2 - Rash Date Reviewed: 09/25/2022 Reviewed by: Chandni Downey MA - Fully Assessed Reason for Visit: Follow Up [171] Cmt: 1 year Visit Diagnosis:Kidney stone [N20.0] Order(s):UA DIP, URINE (POC) [[id number]] Order #: [id number]. #:[id number] [id number] Prescriptions as of 09/25/2022 - buPROPion SR (WELLBUTRIN SR) 100 mg 12 hr tablet Take 100 mg by mouth daily at bedtime. - fluticasone (FLONASE) 50 mcg/actuation nasal spray Use 2 Sprays in each nostril once daily. Rinse mouth after use. - losartan (COZAAR) 50 mg tablet Take 50 mg by mouth once daily. - FLUoxetine (PROZAC) 20 mg capsule Take 20 mg by mouth once daily. - albuterol HFA (VENTOLIN HFA) 90 mcg/actuation inhaler Inhale 2 Puffs as instructed every 4 hours as needed for Wheezing/Shortness of Breath. - LORazepam (ATIVAN) 0.5 mg Take 0.5 mg by mouth three times daily as needed. - hydroCHLOROthiazide (HYDRODIURIL, ESIDRIX) 25 mg tablet Take 1 tablet by mouth once daily. Problem List As Of Date 09/25/2022 Noted Resolved Hypertension [I10] Kidney stone [N20.0] 09/25/2022 (more content not included)... Normal [facility] UA DIP, URINE (POC)on 2022 BILIRUBIN UA (POCT) Negative Negative [facility] CLARITY UA (POCT) Clear [facility] COLOR UA (POCT) Yellow [facility] GLUCOSE UA (POCT) Negative Negative mg/dL [facility] HEMOGLOBIN/BLOOD UA (POCT) Negative Negative [facility] KETONE UA (POCT) Negative Negative mg/dL [facility] LEUKOCYTES UA (POCT) Trace Abnormal Negative [facility] NITRITE UA (POCT) Negative Negative [facility] PH UA (POCT) 6.5 4.5 - 8.0 [facility] Protein Ql (U) Negative Negative mg/dL [facility] SPECIFIC GRAVITY UA (POCT) 1.020 1.005 - 1.030 [facility] UROBILINOGEN UA (POCT) 0.2 E.U./dL Debby l E.U./dL [facility] XR ABDOMEN 1V SUPINEon 09-24 [facility] CNPNon 08-18-2022 CNPN Telephone (URCANT) -- BARBARA HULL ([id number]) 1985 F Date Time Provider Department 08/18/22 SILVINA CADE During your visit today, we recorded the following information about you: Mesha Sharon 08/18/2022 4:18 PM Signed Patient requests order for xray prior to her visit 09/25/22 in [facility]. Silvina Cade MD 08/18/2022 5:47 PM Signed done Mesha Herrera 08/19/2022 9:01 AM Signed Patient is aware that order is in Allergies As of Date: 08/18/2022 Noted Allergy Reaction AMOXICILLIN 11/13/2014 2 - Rash Date Reviewed: 09/12/2021 Reviewed by: Yodit Sousa MA - Fully Assessed Reason for Visit: Orders [681] Primary Visit Diagnosis:Kidney stone [N20.0] Order(s):XR ABDOMEN 1V SUPINE [[id number]] Order #: [id number] FUTURE Prescriptions as of 08/19/2022 - buPROPion SR (WELLBUTRIN SR) 100 mg 12 hr tablet Take 100 mg by mouth daily at bedtime. - fluticasone (FLONASE) 50 mcg/actuation nasal spray Use 2 Sprays in each nostril once daily. Rinse mouth after use. - losartan (COZAAR) 50 mg tablet Take 50 mg by mouth once daily. - FLUoxetine (PROZAC) 20 mg capsule Take 20 mg by mouth once daily. - albuterol HFA (VENTOLIN HFA) 90 mcg/actuation inhaler Inhale 2 Puffs as instructed every 4 hours as needed for Wheezing/Shortness of Breath. - LORazepam (ATIVAN) 0.5 mg tab Take 0.5 mg by mouth three times daily as needed. - hydroCHLOROthiazide (HYDRODIURIL, ESIDRIX) 25 mg tablet Take 1 tablet by mouth once daily. Problem List As Of Date 08/18/2022 Noted Resolved Hypertension [I10] Encounter Status:Closed by MESHA HERRERA on 08/19/22 [facility] Absolute lymphocyte counton 04-16-2022 Lymphocytes Auto (Unsp spec) [#/Vol] 1.28 10*3/uL 0.83-4.51 [facility] Work Phone: Basophil percentageon 2021 Basophils/100 WBC (Bld) 0.4 % 0-1 [facility] Work Phone: Chloride [Moles/Vol] 102 mmol/L 98-107 [facility] Work Phone: Eosinophils/100 WBC (Bld) 0.7 % 0-5 [facility] Work Phone: Glucose [Mass/Vol] 123 mg/dL 74-106 [facility] Work Phone: Comment on above: Fasting Glucose resu lt from 100 to 125 mg/dL suggests IMPAIRED HOMEOSTASIS per A.D.A. criteria. Neutrophils (Bld) [#/Vol] 14.2 10*3/uL 2.0-7.7 [facility] Work Phone: Neutrophils/100 WBC (Bld) 84.9 % 47-70 [facility] Work Phone: Potassium [Moles/Vol] 3.5 mmol/L 3.5-5.1 [facility] Work Phone: Sodium [Moles/Vol] 137 mmol/L 136-145 [facility] Work Phone: WBC (Bld) [#/Vol] 16.7 10*3/uL 4.4-11.0 [facility] Work Phone: Blood erythrocytes count (nu mber/volume)on 04-16-2022 RBC (Bld) [#/Vol] 4.53 10*6/uL 4.2-5.4 [facility] Work Phone: Blood hemoglobin measurement (mass/volume)on 04-16-2022 Hemoglobin (Bld) [Mass/Vol] 13.0 g/dL 12.0-15.0 [facility] Work Phone: Blood lymphocytes/100 leukoc yteson 04-16-2022 Lymphocytes/100 WBC (Bld) 7.7 % 19-41 [facility] Work Phone: Blood monocytes/100 leukocyt eson 04-16-2022 Monocytes/100 WBC (Bld) 5.7 % 0-10 [facility] Work Phone: [phone] Blood platelet mean volumeon 04-16-2022 Platelet mean volume (Bld) [Entitic vol] 9.6 fL 6.2-12.0 [facility] Work Phone: [phone] Determination of erythrocyte mean corpuscular volume (MCV)on 04-16-2022 MCV (RBC) [Entitic vol] 87.4 fL 81-99 [facility] Work Phone: [phone] Hematocrit Auto (Bld) [Volum e fraction]on 04-16-2022 Hematocrit (Bld) [Volume fraction] 39.6 % 37-47 [facility] Work Phone: [phone] Laboratory - Chemistry and C hemistry - challengeon 04-16-2022 CO2 [Moles/Vol] 27.0 mmol/L 21.0-32.0 [facility] Work Phone: [phone] Magnesium [Mass/Vol] 1.8 mg/dL 1.6-2.6 [facility] Work Phone: [phone] Urea nitrogen/Creatinine [Mass ratio] 17.8 mg/mg 10-20 [facility] Work Phone: [phone] Laboratory - Hematology and Cell countson 04-16-2022 Erythrocyte distribution width (RBC) [Entitic vol] 41.1 fL 35.1-43.9 [facility] Work Phone: [phone] Erythrocyte distribution width (RBC) [Ratio] 12.9 % 11.6-14.6 [facility] Work Phone: [phone] Immature granulocytes/100 WBC (Bld) 0.600 % 0.0-0.9 [facility] Work Phone: [phone] Comment on above: IG% - Immature Granu locytes (promyelocytes, myelocytes and metamyelocytes) > 1% indicates that a LEFT SHIFT is Present. MCH (RBC) [Entitic mass] 28.7 pg 27.0-32.0 [facility] Work Phone: [phone] Nucleated RBC/100 WBC (Bld) [Ratio] 0 % 0-5 [facility] Work Phone: MCHC Auto (RBC) [Mass/Vol]on 04-16-2022 MCHC (RBC) [Mass/Vol] 32.8 g/dL 32-36 [facility] Work Phone: No Panel Informationon 04-16 Estimated Creatinine Clearance Calc 64.15 ml/min [facility] Work Phone: Estimated GFR (MDRD) Amer 74 mL/min >60 [facility] Work Phone: Comment on above: GFR Calc Estimated GFR (MDRD) Non-Af Amer 61 mL/min >60 [facility] Work Phone: Comment on above: Non- GFR Calc Platelets bldon 04-16-2022 Platelets (Bld) [#/Vol] 326 10*3/uL 150-450 [facility] Work Phone: Serum or plasma calcium jaimie urement (mass/volume)on 04-16-2022 Calcium [Mass/Vol] 10.2 mg/dL 8.5-10.1 [facility] Work Phone: Serum or plasma creatinine m easurement (mass/volume)on 04-16-2022 Creatinine [Mass/Vol] 1.07 mg/dL 0.55-1.02 [facility] Work Phone: Comment on above: The validity of the calculated GFR & GFRAA in patients over 70 years has not been determined. Clinical correlation is essential. Serum or plasma urea nitroge n measurement (mass/volume)on 04-16-2022 Urea nitrogen [Mass/Vol] 19 mg/dL 7-18 [facility] Work Phone: Thin prep Papanicolaou smear with manual screeningon 04-16-2022 Thin prep Papanicolaou smear with manual screening 8 5-15 [facility] Work Phone: ABDOMEN OR KUBon 04-10-2020 ABDOMEN OR KUB ABDOMEN OR KUB Ordering Physician: Ana Rosa Quintero 04/10/2020 10:27 AM KUB THE ABDOMEN Clinical Statement: Kidney stones. Comparison 04/26/2019 FINDINGS: Multiple punctate calcifications are noted overlying both kidneys, not significantly changed compared with the prior study. No definite ureteral calculi. Bowel gas pattern is unremarkable. No acute osseous abnormalities. Lung bases are clear. IMPRESSION: Punctate bilateral nephrolithiasis, not significantly changed compared with the prior study. ---- Electronic Signature on File ---- Signed By: Asiya Milian MD [email or web address] Dictated: 04/10/2020 10:51 AM Signed: 04/10/2020 10:53 AM Reported By: ASIYA MILIAN M.D. Signed By: ASIYA MILIAN M.D. [facility] [id number] 10-30-2019 SARS-CoV-2 SARS-CoV-2 --> Statu s: F Not Detected Expected Result: Not Detected _ Real-time, RT-PCR performed on the [employer] System by the [facility] Service. Negative results do not preclude SARS-CoV-2 infection and should not be used as the sole basis for treatment or other patient management decisions. This assay was developed by [employer] and distributed under an Emergency Use Authorization (EUA) granted by the FDA for the qualitative detection of SARS-CoV-2 nucleic acid. Expected Result: Not Detected _ Real-time, RT-PCR performed on the [employer] System by [facility]. Negative results do not preclude SARS-CoV-2 infection and should not be used as the sole basis for treatment or other patient management decisions. This assay was developed by [employer] and distributed under an Emergency Use Authorization (EUA) granted by the FDA for the qualitative detection of SARS-CoV-2 nucleic acid. [facility] Comment on above: Order Comment: Speci men Source Comment:Nasopharyngeal Swab Performed By: #### C OVID #### [facility] [address] [place] [id number] HCG,Urine Qualon 10-29-2019 Beta HCG ( test) Ql (U) Negative Normal [facility] Comment on above: Result Comment: Preg jayden is the most common reason for HCG in urine, although choriocarcinoma, hydatidiform mole, and certain nontropho- blastic malignancies also result in detectable urinary HCG levels. Sensitivity = 20mIU/mL. Performed By: #### H FRANK, STRP3 #### [facility] [address] [place] [address] HGC Urine Qual [place] 2019 Beta HCG ( test) Ql (U) Negative Negative NA [place], [place] Comment on above: is the mos t common reason for HCG in urine, although choriocarcinoma, hydatidiform mole, and certain nontropho- blastic malignancies also result in detectable urinary HCG levels. Sensitivity = 20mIU/mL. Otheron 10-29-2019 Test Performed by [facility], [address] , [place], [place] [id number] [place] [address] Rapid Strep Screenon 020 Interpretation and review of laboratory results Abnormal [place], [place] S. pyogenes Ag Ql (Throat) see below Abnormal Negative NA [place], [place] Comment on above: POSITIVE for Group A Streptococcus antigen. Method: Immunochromatographic Assay Strep A Rapidon 10-29-2019 S. pyogenes Ag IA Ql (Unsp spec) see below Abnormal Negative [facility] Comment on above: Result Comment: POSI TIVE for Group A Streptococcus antigen. Method: Immunochromatographic Assay Performed By: #### H FRANK, STRP3 #### [facility] [address] [place] [address] ABDOMEN OR KUBon 04-26-2019 ABDOMEN OR KUB ABDOMEN OR KUB Ordering Physician: Ana Rosa Quintero 04/26/2019 9:04 AM ABDOMEN/KUB (TWO IMAGES): Clinical Statement: Kidney stones. Comparison: Abdomen/KUB 09/21/2018. FINDINGS: Bilateral lung bases are grossly unremarkable. Nonobstructive bowel gas pattern. No supine evidence of intra-abdominal free air. Moderate amount of fecal material is identified within the colon. No portal venous gas. No organomegaly. The abdominal fat planes are intact. Bilateral renal shadows are partially obscured by overlying bowel gas and fecal material. Several tiny calcifications project over the bilateral renal shadows, more or less unchanged since prior exam. No obvious ureteral calculi identified. There is redemonstration of a left ischial tuberosity lytic lesion, similar in appearance when compared to 09/21/2018 and remote prior exam 05/12/2017. IMPRESSION: 1. Unchanged bilateral nephrolithiasis. No obvious ureteral calculi. 2. Demonstration of a left ischial tuberosity lytic lesion, grossly unchanged when compared to 09/21/2018 and 05/12/2017. However, please note that evaluation is suboptimal on this exam. ---- Electronic Signature on File ---- Signed By: Ephraim Asif MD [email or web address] Dictated: 04/26/2019 10:00 AM Signed: 04/26/2019 3:15 PM Reported By: EPHRAIM ASIF M.D. Signed By: EPHRAIM ASIF M.D. [facility] No Panel Information SARS-CoV-2 & FLU Antigen (Rapid) [facility] Work Phone: Vital Signs Date Time Vital Sign Value Performing Clinician Facility 03-31-2025 08:42-0400 Body mass index (BMI) [Ratio] 37 kg/m2 Vinnie Morales COMPLIANCE REVIEW SPECIALIST-C Work Phone: [facility] 03-31-2025 08:42-0400 Body weight 101.15 kg Vinnie Morales COMPLIANCE REVIEW SPECIALIST-C Work Phone: [facility] 03-31-2025 08:42-0400 Diastolic blood pressure 86 mm[Hg] Vinnie Morales COMPLIANCE REVIEW SPECIALIST-C Work Phone: [facility] 03-31-2025 08:42-0400 Heart rate 62 /min Vinnie Morales COMPLIANCE REVIEW SPECIALIST-C Work Phone: [facility] 03-31-2025 08:42-0400 Respiratory rate 18 /min Vinnie Morales COMPLIANCE REVIEW SPECIALIST-C Work Phone: [facility] 03-31-2025 08:42-0400 SaO2% (BldA) [Mass fraction] 97 % Vinnie Morales COMPLIANCE REVIEW SPECIALIST-C Work Phone: [facility] 03-31-2025 08:42-0400 Systolic blood pressure 128 mm[Hg] Vinnie Morales COMPLIANCE REVIEW SPECIALIST-C Work Phone: [facility] 09-28-2024 15:15-0400 Body height 165.1 cm Vinnie Morales COMPLIANCE REVIEW SPECIALIST-C Work Phone: [facility] 09-28-2024 15:15-0400 Body mass index (BMI) [Ratio] 38.1 kg/m2 Vinnie Morales COMPLIANCE REVIEW SPECIALIST-C Work Phone: [facility] 09-28-2024 15:15-0400 Body weight 103.87 kg Vinnie Morales COMPLIANCE REVIEW SPECIALIST-C Work Phone: [facility] 09-28-2024 15:15-0400 Diastolic blood pressure 92 mm[Hg] Vinnie Morales COMPLIANCE REVIEW SPECIALIST-C Work Phone: [facility] 09-28-2024 15:15-0400 Heart rate 76 /min Vinnie Morales COMPLIANCE REVIEW SPECIALIST-C Work Phone: [facility] 09-28-2024 15:15-0400 Respiratory rate 16 /min Vinnie Morales COMPLIANCE REVIEW SPECIALIST-C Work Phone: [facility] 09-28-2024 15:15-0400 Systolic blood pressure 150 mm[Hg] Vinnie Morales COMPLIANCE REVIEW SPECIALIST-C Work Phone: [facility] 08-04-2024 11:03-0500 Body mass index (BMI) [Ratio] 37.28 kg/m2 Zuleyka Praisler-Wood FINANCE OFFICER.TABULATING CLERK Work Phone: [facility] 08-04-2024 11:03-0500 Body temperature 99.1 [degF] Zuleyka Praisler-Wood FINANCE OFFICER.TABULATING CLERK Work Phone: [facility] 08-04-2024 11:03-0500 Body weight 102.4 kg Zuleyka Praisler-Wood FINANCE OFFICER.TABULATING CLERK Work Phone: [facility] 08-04-2024 11:03-0500 Diastolic blood pressure 85 mm[Hg] Zuleyka Praisler-Wood FINANCE OFFICER.TABULATING CLERK Work Phone: [facility] 08-04-2024 11:03-0500 Heart rate 85 /min Zuleyka Praisler-Wood FINANCE OFFICER.TABULATING CLERK Work Phone: [facility] 08-04-2024 11:03-0500 Respiratory rate 18 /min Zuleyka Praisler-Wood FINANCE OFFICER.TABULATING CLERK Work Phone: [facility] 08-04-2024 11:03-0500 SaO2% (BldA) [Mass fraction] 100 % Zuleyka Praisler-Wood FINANCE OFFICER.TABULATING CLERK Work Phone: [facility] 08-04-2024 11:03-0500 Systolic blood pressure 129 mm[Hg] Zuleyka Praisler-Wood FINANCE OFFICER.TABULATING CLERK Work Phone: [facility] 05-30-2024 16:03-0500 Body mass index (BMI) [Ratio] 38.44 kg/m2 Aj Athy PA-C Work Phone: [facility] 05-30-2024 16:03-0500 Body temperature 97.7 [degF] Aj Athy PA-C Work Phone: [facility] 05-30-2024 16:03-0500 Body weight 105.6 kg Aj Athy PA-C Work Phone: [facility] 05-30-2024 16:03-0500 Diastolic blood pressure 98 mm[Hg] Aj Athy PA-C Work Phone: [facility] 05-30-2024 16:03-0500 Heart rate 98 /min Aj Athy PA-C Work Phone: [facility] 05-30-2024 16:03-0500 Respiratory rate 18 /min Aj Athy PA-C Work Phone: [facility] 05-30-2024 16:03-0500 SaO2% (BldA) [Mass fraction] 98 % Aj Athy PA-C Work Phone: [facility] 05-30-2024 16:03-0500 Systolic blood pressure 146 mm[Hg] Aj Athy PA-C Work Phone: [facility] 05-16-2024 16:33-0500 Body mass index (BMI) [Ratio] 37.32 kg/m2 Quinn Villalobos MD Work Phone: [facility] 05-16-2024 16:33-0500 Body temperature 99.1 [degF] Quinn Villalobos MD Work Phone: [facility] 05-16-2024 16:33-0500 Body weight 102.5 kg Quinn Villalobos MD Work Phone: [facility] 05-16-2024 16:33-0500 Diastolic blood pressure 90 mm[Hg] Quinn Villalobos MD Work Phone: [facility] 05-16-2024 16:33-0500 Heart rate 80 /min Quinn Villalobos MD Work Phone: [facility] 05-16-2024 16:33-0500 Respiratory rate 21 /min Quinn Villalobos MD Work Phone: [facility] 05-16-2024 16:33-0500 SaO2% (BldA) [Mass fraction] 98 % Quinn Villalobos MD Work Phone: [facility] 05-16-2024 16:33-0500 Systolic blood pressure 148 mm[Hg] Quinn Villalobos MD Work Phone: [facility] 11-19-2023 15:17-0400 Body mass index (BMI) [Ratio] 37.64 kg/m2 Garcia Willis APRN.TABULATING CLERK Work Phone: [facility] 11-19-2023 15:17-0400 Body temperature 98.01 [degF] Garcia Willis APRN.TABULATING CLERK Work Phone: [facility] 11-19-2023 15:17-0400 Body weight 103.4 kg Garcia Willis APRN.TABULATING CLERK Work Phone: [facility] 11-19-2023 15:17-0400 Diastolic blood pressure 100 mm[Hg] Garcia Willis APRN.TABULATING CLERK Work Phone: [facility] 11-19-2023 15:17-0400 Heart rate 85 /min Garcia Willis FINANCE OFFICER.TABULATING CLERK Work Phone: [facility] 11-19-2023 15:17-0400 Respiratory rate 21 /min Garcia James FINANCE OFFICER.TABULATING CLERK Work Phone: [facility] 11-19-2023 15:17-0400 SaO2% (BldA) [Mass fraction] 98 % Garcia Willis FINANCE OFFICER.TABULATING CLERK Work Phone: [facility] 11-19-2023 15:17-0400 Systolic blood pressure 140 mm[Hg] Garcialibia Willis FINANCE OFFICER.TABULATING CLERK Work Phone: [facility] 03-30-2023 19:35-0400 Body temperature 98.6 [degF] Riley Allisonfran FINANCE OFFICER.TABULATING CLERK Work Phone: [facility] 03-30-2023 19:35-0400 Diastolic blood pressure 88 mm[Hg] Riley Allisonfran FINANCE OFFICER.TABULATING CLERK Work Phone: [facility] 03-30-2023 19:35-0400 Heart rate 92 /min Riley Guerra FINANCE OFFICER.TABULATING CLERK Work Phone: [facility] 03-30-2023 19:35-0400 Respiratory rate 16 /min Riley Geurra FINANCE OFFICER.TABULATING CLERK Work Phone: [facility] 03-30-2023 19:35-0400 SaO2% (BldA) [Mass fraction] 96 % Riley Ana Cristinajeanfran FINANCE OFFICER.TABULATING CLERK Work Phone: [facility] 03-30-2023 19:35-0400 Systolic blood pressure 128 mm[Hg] [facility] FINANCE OFFICER.TABULATING CLERK Work Phone: [facility] 01-16-2023 10:55-0400 Body height 165.[address] Rani Greenberg Work Phone: [facility] 01-16-2023 10:55-0400 Body mass index (BMI) [Ratio] 38 kg/m2 Dr. Rani Greenberg Work Phone: [facility] 01-16-2023 10:55-0400 Body temperature 95.1 [degF] Dr. Rani Greenberg Work Phone: [facility] 01-16-2023 10:55-0400 Body weight 103.[address] Rani Greenberg Work Phone: [facility] 01-16-2023 10:55-0400 Diastolic blood pressure 80 mm[Hg] Dr. Rani Greenberg Work Phone: [facility] 01-16-2023 10:55-0400 Heart rate 74 /min Dr. Rani Greenberg Work Phone: [facility] 01-16-2023 10:55-0400 Respiratory rate 18 /min Dr. Rani Greenberg Work Phone: [facility] 01-16-2023 10:55-0400 SaO2% (BldA) [Mass fraction] 95 % Dr. Rani Greenberg Work Phone: [facility] 01-16-2023 10:55-0400 Systolic blood pressure 118 mm[Hg] Dr. Rani Greenberg Work Phone: [facility] 01-08-2023 15:31-0400 Body temperature 97.2 [degF] Garcia Willis APRN.TABULATING CLERK Work Phone: [facility] 01-08-2023 15:31-0400 Body weight 106.14 kg Garcia Willis APRN.TABULATING CLERK Work Phone: [facility] 01-08-2023 15:31-0400 Diastolic blood pressure 88 mm[Hg] Garcia Willis APRN.TABULATING CLERK Work Phone: [facility] 01-08-2023 15:31-0400 Heart rate 73 /min Garcia Willis APRN.TABULATING CLERK Work Phone: [facility] 01-08-2023 15:31-0400 Respiratory rate 14 /min Garcia Willis APRN.TABULATING CLERK Work Phone: [facility] 01-08-2023 15:31-0400 SaO2% (BldA) [Mass fraction] 97 % Garcia Willis APRN.TABULATING CLERK Work Phone: [facility] 01-08-2023 15:31-0400 Systolic blood pressure 128 mm[Hg] Garcia Willis APRN.TABULATING CLERK Work Phone: [facility] 11-13-2022 09:55-0400 Body height 165.[address] Rani Greenberg Work Phone: [facility] 11-13-2022 09:55-0400 Body mass index (BMI) [Ratio] 37.9 kg/m2 Dr. Rani Greenberg Work Phone: [facility] 11-13-2022 09:55-0400 Body temperature 98.3 [degF] Dr. Rani Greenberg Work Phone: [facility] 11-13-2022 09:55-0400 Body weight 103.[address] Rani Greenberg Work Phone: [facility] 11-13-2022 09:55-0400 Diastolic blood pressure 88 mm[Hg] Dr. Rani Greenberg Work Phone: [facility] 11-13-2022 09:55-0400 Heart rate 73 /min Dr. Rani Greenberg Work Phone: [facility] 11-13-2022 09:55-0400 Respiratory rate 16 /min Dr. Rani Greenberg Work Phone: [facility] 11-13-2022 09:55-0400 SaO2% (BldA) [Mass fraction] 97 % Dr. Rani Greenberg Work Phone: [facility] 11-13-2022 09:55-0400 Systolic blood pressure 130 mm[Hg] Dr. Rani Greenberg Work Phone: [facility] 09-25-2022 10:34-0400 Body weight 102.06 kg Silvina Cade MD Work Phone: [facility] 09-25-2022 10:34-0400 Heart rate 76 /min Silvina Cade MD Work Phone: [facility] 09-25-2022 10:34-0400 SaO2% (BldA) [Mass fraction] 96 % Silvina Cade MD Work Phone: [facility] 04-17-2022 01:50-0400 Body temperature 98.1 [degF] Dr. Rani Greenberg Work Phone: [facility] Work Phone: 04-17-2022 01:50-0400 Diastolic blood pressure 64 mm[Hg] Dr. Rani Greenberg Work Phone: [facility] Work Phone: 04-17-2022 01:50-0400 Heart rate 86 /min Dr. Rain Greenberg Work Phone: [facility] Work Phone: 04-17-2022 01:50-0400 Respiratory rate 26 /min Dr. Rani Greenberg Work Phone: [facility] Work Phone: 04-17-2022 01:50-0400 SaO2% (BldA) [Mass fraction] 97 % Dr. Rani Greenberg Work Phone: [facility] Work Phone: 04-17-2022 01:50-0400 Systolic blood pressure 122 mm[Hg] Dr. Rani Greenberg Work Phone: [facility] Work Phone: 04-16-2022 23:12-0400 Body height 165.[address] Rani Greenberg Work Phone: [facility] Work Phone: 04-16-2022 23:12-0400 Body mass index (BMI) [Ratio] 38 kg/m2 Dr. Rani Greenberg Work Phone: [facility] Work Phone: 04-16-2022 23:12-0400 Body weight 103.[address] Rani Greenberg Work Phone: [facility] Work Phone: 01-01-2022 10:09-0400 Body mass index (BMI) [Ratio] 38.3 kg/m2 Dr. Rani Greenberg Work Phone: [facility] Work Phone: 01-01-2022 10:09-0400 Body temperature 97.5 [degF] Dr. Rani Greenberg Work Phone: [facility] Work Phone: 01-01-2022 10:09-0400 Body weight 101.[address] Rani Greenberg Work Phone: [facility] Work Phone: 01-01-2022 10:09-0400 Diastolic blood pressure 74 mm[Hg] Dr. Rani Greenberg Work Phone: [facility] Work Phone: 01-01-2022 10:09-0400 Heart rate 66 /min Dr. Rani Greenberg Work Phone: [facility] Work Phone: 01-01-2022 10:09-0400 Respiratory rate 18 /min Dr. Rani Greenberg Work Phone: [facility] Work Phone: 01-01-2022 10:09-0400 SaO2% (BldA) [Mass fraction] 98 % Dr. Rani Greenberg Work Phone: [facility] Work Phone: 01-01-2022 10:09-0400 Systolic blood pressure 122 mm[Hg] Dr. Rani Greenberg Work Phone: [facility] Work Phone: 10-29-2019 21:39-0400 BP Diastolic 76 mm[Hg] [place] [facility] , [place] 10-29-2019 21:39-0400 BP Systolic 146 mm[Hg] [place] [facility] [place] 10-29-2019 21:39-0400 Pulse (Heart Rate) 110 /min [facility], [place] 10-29-2019 21:39-0400 Respiratory Rate 16 /min [place] [facility], [place] 10-29-2019 19:53-0400 BMI (Body Mass Index) 36.61 kg/m2 [place] Espinosa [facility], [place] 10-29-2019 19:53-0400 Body Temperature 99.61 [degF] [facility] [place] 10-29-2019 19:53-0400 Body weight 99.79 kg [place] [facility] [place] 10-29-2019 19:53-0400 Height 165.1 cm [place] [facility] [place] 10-29-2019 19:53-0400 Pulse Oximetry 99 % [place] [facility] [place] Encounters Encounter Date Encounter Type Care Provider Facility Start: 04-26-2025 ambulatory Vinnie Morales Facility:[facility] Start: 03-31-2025 End: 03-31-2025 Patient encounter procedure Alvino PARMAR -[facility] Work Phone: Start: 03-31-2025 End: 03-31-2025 ambulatory Vinnie Morales COMPLIANCE REVIEW SPECIALIST-C Work Phone: -[facility] Start: 03-29-2025 End: 03-29-2025 ambulatory Vinnie Morales COMPLIANCE REVIEW SPECIALIST-C Work Phone: -[facility] Start: 03-29-2025 End: 03-29-2025 Patient encounter procedure Shahnaz Clark COMPLIANCE REVIEW SPECIALIST-C -[facility] Start: 03-29-2025 End: 03-29-2025 ambulatory Vinnie Morales Facility:[facility] Start: 02-07-2025 End: 02-07-2025 ambulatory Vinnie Morales COMPLIANCE REVIEW SPECIALIST-C Work Phone: -[facility]trasound [facility] Start: 02-07-2025 End: 02-07-2025 Patient encounter procedure Sandoval Martin MD -[facility]trasound [facility] Work Phone: Start: 02-07-2025 End: 02-07-2025 ambulatory Vinnie Morales Facility:[facility] Start: 01-25-2025 End: 01-25-2025 Patient encounter procedure Vinnie Morales COMPLIANCE REVIEW SPECIALIST-C -[facility] Start: 01-25-2025 End: 01-25-2025 ambulatory Vinnie Morales COMPLIANCE REVIEW SPECIALIST-C Work Phone: -[facility]atory [facility] Start: 11-04-2024 Non-patient / Non-visit Dr. Koko jerry MD -[facility] Start: 11-04-2024 End: 11-04-2024 ambulatory Vinnie Morales COMPLIANCE REVIEW SPECIALIST-C Work Phone: [facility] Work Phone: Start: 11-04-2024 End: 11-04-[address] Kyree Iglesias MD -Cardiovascular Services Work Phone: Start: 11-04-2024 End: 11-04-2024 ambulatory Vinnie Morales Facility:[facility] Start: 10-28-2024 ambulatory Vinnie Morales Facility:[facility] Start: 10-28-2024 Non-patient / Non-visit Dr. Sonia MNOTIEL -[facility] Start: 10-28-2024 End: 10-28-[address] Kyree Iglesias MD -Cardiovascular Services Work Phone: Start: 10-28-2024 End: 10-28-2024 ambulatory Vinnie Morales Facility:[facility] Start: 09-28-2024 End: 09-28-[address] Kyree Iglesias MD -[facility] Work Phone: Start: 09-28-2024 End: 09-28-2024 ambulatory Vinnie Morales COMPLIANCE REVIEW SPECIALIST-C Work Phone: [facility] Work Phone: Start: 09-28-2024 End: 09-28-2024 ambulatory Vinnie Morales Facility:[facility] Start: 09-08-2024 End: 09-08-2024 ambulatory Vinnie Killiander COMPLIANCE REVIEW SPECIALIST-C Work Phone: [facility] Work Phone: Start: 09-08-2024 End: 09-08-2024 Patient encounter procedure [facility] Sailaja Tenorio COMPLIANCE REVIEW SPECIALIST-C -Outpatient Breast Imaging Work Phone: Start: 09-08-2024 End: 09-08-2024 ambulatory Sailaja eTnorio Facility:[facility] Start: 08-04-2024 End: 08-04-2024 ambulatory QUINN VILLALOBOS Facility:[facility] Start: 08-04-2024 End: 08-04-2024 Patient encounter procedure Zuleyka Macias APRN.CNP Work Phone: [facility] Comment on above: Rash (Primary Dx) Start: 07-26-2024 End: 07-26-2024 Non-patient / Non-visit Dr. Jose Maria Cid MD -[facility] Work Phone: Start: 07-26-2024 End: 07-26-2024 ambulatory Vinnie Morales COMPLIANCE REVIEW SPECIALIST-C Work Phone: [facility] Work Phone: Start: 07-26-2024 End: 07-26-2024 Patient encounter procedure Vinnie Killiander COMPLIANCE REVIEW SPECIALIST-C -Pulmonary Services/Neurology Work Phone: Start: 07-26-2024 End: 07-26-2024 ambulatory Vinnie Morales Facility:[facility] Start: 05-30-2024 End: 05-30-2024 Subsequent hospital visit by physician [facility] Work Phone: Radiology Comment on above: Subacute cough [R05. 2] Start: 05-30-2024 End: 05-30-2024 ambulatory AJ R JAKLeona Facility:[facility] Start: 05-30-2024 End: 05-30-2024 Patient encounter procedure Aj R Sandro ERICKSONC Work Phone: [facility] Comment on above: Subacute cough (Prim sarwat Dx); History of pneumonia Start: 05-16-2024 End: 05-16-2024 Office outpatient visit 25 minutes Quinn Villalobos MD Work Phone: [facility] Comment on above: Pneumonia of right u pper lobe due to infectious organism (Primary Dx); Acute cough Start: 05-16-2024 End: 05-16-2024 ambulatory QUINN VILLALOBOS Facility:[facility] Start: 05-16-2024 End: 05-16-2024 Subsequent hospital visit by physician [facility] Work Phone: Radiology Comment on above: Acute cough [R05.1] Start: 11-19-2023 End: 11-19-2023 ambulatory QUINN VILLALOBOS Facility:[facility] Start: 11-19-2023 End: 11-19-2023 Patient encounter procedure Garcia Willis APRN.TABULATING CLERK Work Phone: [facility] Comment on above: Sore throat (Primary Dx); Acute otitis media, unspecified otitis media type Start: 03-30-2023 End: 03-30-2023 Subsequent hospital visit by physician [facility] [place] Work Phone: Radiology Comment on above: Injury of right foot , initial encounter [S99.921A] Start: 03-30-2023 End: 03-30-2023 Office outpatient visit 15 minutes Riley Guerra FINANCE OFFICER.TABULATING CLERK Work Phone: [facility] Comment on above: Injury of right foot , initial encounter (Primary Dx) Start: 03-30-2023 Telephone encounter Riley davila APRN.TABULATING CLERK Work Phone: [facility] Comment on above: Results Start: 02-11-2023 End: 02-11-[address] Rani Greenberg Work Phone: [facility] Work Phone: Start: 02-11-2023 End: 02-11-[address] Rani Greenberg Work Phone: [facility]-Physical Therapy Work Phone: Start: 01-16-2023 End: 01-16-[address] Rani Greenberg Work Phone: [facility] Internal Medicine Work Phone: Start: 01-08-2023 End: 01-08-2023 Patient encounter procedure Garcia Willis APRN.[facility] Work Phone: [facility] Comment on above: Sore throat (Primary Dx) Start: 12-24-[address] Briseida Greenberg Work Phone: [facility]-Physical Therapy Start: 12-23-2022 End: 12-23-[address] Rani Greenberg Work Phone: [facility] Work Phone: Start: 12-23-2022 End: 12-23-[address] Rani Greenberg Work Phone: [facility]-Sleep Lab Start: 12-22-[address] Briseida Greenberg Work Phone: [facility]-Physical Therapy Start: 12-17-2022 End: 12-17-[address] Rani Greenberg Work Phone: [facility] Work Phone: Start: 12-17-2022 End: 12-17-[address] Rani Greenberg Work Phone: [facility]Sleep [facility] Start: 11-17-2022 End: 11-17-[address] Rani Greenberg Work Phone: [facility] Start: 11-13-2022 End: 11-13-[address] Rani Greenberg Work Phone: [facility] Work Phone: Start: 11-13-2022 End: 11-13-[address] Rani Greenberg Work Phone: [facility]-Laboratory, [facility] Start: 11-13-2022 End: 11-13-[address] Rani Greenberg Work Phone: [facility] Internal Medicine Start: 09-25-2022 End: 09-25-2022 ambulatory SILVINA CADE Facility:[id number] Start: 09-25-2022 End: 09-25-2022 Patient encounter procedure Silvina Cade MD Work Phone: Urology Comment on above: Kidney stone Start: 09-24-2022 End: 09-24-2022 Subsequent hospital visit by physician Xr [facility] Work Phone: Radiology Comment on above: Kidney stone [N20.0] Start: 08-18-2022 Telephone encounter Silvina Cade MD Work Phone: Urology Comment on above: Orders Start: 04-16-2022 End: 04-17-2022 Emergency department patient visit Dr. Rani Greenberg Work Phone: [facility] Start: 01-01-2022 End: 01-01-[address] Rani Greenberg Work Phone: [facility] Internal Medicine Start: 10-29-2019 End: 10-29-2019 Emergency department patient visit Bereket Espinosa Work Phone: [facility] Comment on above: Streptococcal sore t hroat (Primary Dx) Procedures Date Procedure Procedure Detail Performing Clinician Start: 02-07-2025 Ultrasonography of abdomen Vinnie WILLIS Work Phone: Start: 01-25-2025 Urnls dip stick/tabl et reagent auto microscopy Vinnie Morales COMPLIANCE REVIEW SPECIALIST-C Work Phone: Start: 01-25-2025 Vitamin D, 25-hydrox y measurement Vinnie Mroales COMPLIANCE REVIEW SPECIALIST-C Work Phone: Comment on above: Vitamin D StatusDefi ciency: <20 ng/mL (50nmol/L)Insufficiency: 20-30 ng/mL (50-75 nmol/L)Sufficiency: 30-100 ng/mL (75-250 nmol/L)Toxicity: >100 ng/mL (>250 nmol/L) Start: 09-28-2024 Evaluation of diagno stic study results Vinnie Morales COMPLIANCE REVIEW SPECIALIST-C Work Phone: Start: 09-08-2024 Screening mammography Larry Morales COMPLIANCE REVIEW SPECIALIST-C Work Phone: Start: 08-04-2024 STREP A MOLECULAR (POC) [facility] Provider Start: 05-30-2024 Radiologic exam ches t [address] PA-C Work Phone: Start: 05-16-2024 Radiologic exam ches t 2 views Quinn Villalobos MD Work Phone: Start: 11-19-2023 STREP A MOLECULAR (POC) Garcia Willis APRN.TABULATING CLERK Work Phone: Start: 03-30-2023 Radex foot complete minimum 3 views Riley Guerra APRN.TABULATING CLERK Work Phone: Start: 01-08-2023 STREP A MOLECULAR (POC) Garcia Willis APRN.TABULATING CLERK Work Phone: Start: 09-25-2022 Urnls dip stick/tabl et rgnt auto w/o microscopy Silvina Cade MD Work Phone: Start: 09-24-2022 Radiologic exam abdo men 1 view Silvina Cade MD Work Phone: Start: 04-17-2022 CT angiography of ch est with contrast Dr. Rani Greenberg Work Phone: Start: 04-16-2022 Plain chest X-ray Dr. Milind Greenberg Work Phone: Start: 10-29-2019 Iaad ia streptococcu s group a Bereket Espinosa Work Phone: Start: 10-29-2019 Urine test visual color cmprsn meths Bereket Espinosa Work Phone: SARS-CoV-2 & FLU Ant igen (Rapid) Dr. Rani Greenberg Work Phone: Plan of Treatment Date Care Activity Detail Author Start: 09-28-2024 Aldosterone [Mass/volume] in Serum or Plasma [facility] Start: 09-28-2024 Renin [Enzymatic activity/volume] in Plasma [facility] Start: 2024 Screening for malign ant neoplasm of breast Mammogram Screening [facility] Start: 03-06-2024 Covid-19 Vaccine ( season) Covid-19 Vaccine ( season) [facility] Start: 03-06-2024 Covid-19 Vaccine ( season) Covid-19 Vaccine ( season) [facility] Start: 03-06-2024 Influenza vaccination C [facility] Start: 07-06-2023 Behavioral Health Screening Behavioral Health Screening [facility] Start: 03-06-2023 Covid-19 Vaccine ( season) Covid-19 Vaccine ( season) [facility] Start: 03-06-2023 Influenza vaccination C [facility] Start: 11-17-2022 Tap Out Operator stdy unatnd w/mi n hrt rate/o2 sat/resp anal MILITARY PAY TECHNICIAN STDY UNATND W/ANAL [facility] Start: 11-13-2022 Patient referral [facility] Work Phone: Start: 07-06-2022 DEPRESSION ASSESSMENT DEPRESSION ASS ESSMENT [facility] Start: 03-06-2022 Influenza vaccination INFLUENZA (#1) [facility] Start: 01-01-2022 Patient referral [facility] Work Phone: Start: 03-06-2020 Influenza vaccination Flu vacc ine (Season Ended) [facility] [place] Start: 2014 HPV TESTING HPV TESTING [facility] Start: 2014 Screening for malign ant neoplasm of cervix HPV Testing [facility] Start: 07-22-2012 PAP TESTING PAP TESTING [facility] Start: 07-22-2012 Screening for malign ant neoplasm of cervix Pap Testing [facility] Start: 07-22-2010 Screening for malign ant neoplasm of cervix Cervical Cancer Screening [facility] Start: 2003 Hepatitis B Vaccine (1 of 3 - 19+ 3-dose series) Hepatitis B Vaccine (1 of 3 - 19+ 3-dose series) [facility] Start: 2003 Urine microalbumin profile [facility] Start: 2002 ANNUAL PCP TEAM MOTORMAN/WOMAN REBEKA DISEASE VISIT ANNUAL PCP TEAM CHRONIC DISEASE VISIT [facility] Start: 2002 Anxiety Screening Anxiety Screening [facility] Start: 2002 BP CONTROLLED (<130/80) BP CON TROLLED (<130/80) [facility] Start: 2002 Depression Screening Depression Scre ening [facility] Start: 2002 HEPATITIS C SCREENING HEPATITIS C [facility] Start: 2002 Hepatitis C screening Hepatitis C [facility] Start: 2002 HIV SCREENING HIV SCREENING [facility] Start: 2002 HIV screening HIV Screening [facility] Start: 1984 COVID-19 VACCINE (#1) COVID-19 VACCI NE (#1) [facility] Start: 1984 HEPATITIS B (1 of 3 - 3-dose series) HEPATITIS B (1 of 3 - 3-dose series) [facility] Start: 1984 Hepatitis B Vaccine (1 of 3 - 3-dose series) Hepatitis B Vaccine (1 of 3 - 3-dose series) [facility] End: 10-29-2019 COVID-19 COVID-19 Lab Routine One Time for 1 Occurrences starting 10/29/2019 until 10/29/2019 [facility] on above: One Time for 1 Occur rences starting 10/29/2019 until 10/29/2019 COVID-19 COVID-19 Lab STA T 10/29/2019 8:53 PM EDT [facility] Patient Education ED Fever Contr ol (Adult) ED URI, Viral, No Abx (Adult) [facility] Work Phone: Patient referral [facility] Work Phone: US [facility] US Renal artery [facility] End: 09-17-2023 XR ABDOMEN 1V SUPINE XR ABDOMEN 1V SUPINE Radiology Routine Kidney stone 1 Occurrences starting 08/18/2022 until 09/17/2023 [facility] Work Phone: Comment on above: 1 Occurrences starti ng 08/18/2022 until 09/17/2023 [facility] Immunizations Immunization Date Immunization Notes Care Provider Sadi armenta 06-01-[address] Rani Greenberg Work Phone: [facility] 06-01-2013 influenza virus vaccine, unspecified formulation Riley Guerra APRN.CNP Work Phone: [facility] 05-31-2013 measles, mumps and rubella virus vaccine Dr. Rani Greenberg Work Phone: [facility] Payers Date Payer Category Payer Self-pay [id number] 2022 Medicaid [id number] 2013 Medicaid [id number] 2013 Unknown [facility] [id number] Unknown [id number] 2.16.8 [id number] Unknown [id number] 2.16.8 [id number] Unknown [id number] 2.16.8 [id number] Unknown [id number] 2.16.8 [id number] Unknown [id number] 2.16.8 [id number] Unknown [id number] 2.16.8 [id number] Unknown [id number] 2.16.8 [id number] Unknown [id number] 2.16.8 [id number] Unknown [id number] 2.16.8 [id number] Unknown [id number] 2.16.8 [id number] Unknown [id number] 2.16.8 [id number] Unknown [id number] 2.16.8 [id number] Unknown [id number] 2.16.8 [id number] Unknown [id number] 2.16.8 [id number] Unknown [id number] 2.16.8 [id number] Social History Date Type Detail Facility Start: 10-29-2019 End: 03-21-2023 Tobacco smoking status NHIS Never smoker [facility] Start: 10-29-2019 End: 08-04-2024 Alcohol intake Current drinker of alcohol (finding) [place], [place] Start: 10-29-2019 Alcohol Comment occasionally [place], [place] Start: 1985 Sex Assigned At Not on file M [place], [place] Exposure to SARS-CoV-2 (event) Unable to assess [place], [place] Start: 04-16-2022 End: 01-16-2023 Tobacco smoking status CTIS Unknown if ever smoked [facility] Start: 1985 Sex Assigned At Female W [facility] Start: 07-16-2017 End: 09-25-2022 Tobacco use and exposure Smokeless tobacco non-user [facility] Start: 07-18-2022 End: 03-30-2023 History of Social function [facility] Start: 07-18-2022 End: 03-30-2023 Tobacco use panel [facility] National Score (1-100), lower number is lower risk 64 [facility] Start: 09-20-2024 End: 11-09-2024 Sex Female (finding) [facility] Mental Status Date Assessment Result Facility 04-16-2022 Cognitive function Level Of Cons ciousness Awake;Alert [facility] Work Phone: Clinical Notes 08-19-2022 to 03-31-2025 Note Date & Type Note Facility 03-31-2025 Evaluation note Diagnosis Onset Date Resolution Hypertension chronic March 312024 1:05pm [facility] Work Phone: 1(692) 100-752609-26-2025 Progress [facility] [address] [place] [address] OFFICE VISIT Date of Service: 03/31/25 MR#: [id number] Acct: [id number] Name: BARBARA HULL Rep #: [id number] : 1985 Provider: GHULAM Alva Age/Sex: 39/F Location: [facility] [place] Status: Signed HPI HPI History of Present Illness Details: Barbara Hull is a 39-year-old female who presents to office today for follow-up for monitoringher cardiovascular health. She established with our office in September 2024. She has a history of anxiety disorder and significant family history of coronary artery disease. Echocardiogram 10/28/24 demonstrates a preserved ejection fraction at 65%, no regional wall motion abnormalities, no significant valve disease. Upon presentation today, patient reports fatigue described as feeling tired after waking up and sleeping 8 hours. She does have sleep apnea and reports she should probably be wearing her PAP mask at home more. She reports bilateral LE edema that started after taking amlodipine. She notices her edema mid-day and worsens in to the evening. She reports heartburn that is chronic and is directlyassociated with certain foods. Further ROS below. Intake Vital Signs 09/28/24 15:15 03/31/25 08:42 Height 5 ft 5 in 5 ft 5 in Weight: 223 lb BMI 37.0 BP 128/86 H Blood Pressure Location Lt brachial Position Sitting Respiration 18 Pulse 62 Pulse Source Monitor Pulse Oximetry (%) 97 Intake Visit Reasons: 6 M FU B2B Account Executive Required: No Is patient in pain?: No Allergies metronidazole Allergy (Intermediate, Verified 09/28/24 15:20) Hives amoxicillin Allergy (Verified 03/21/23 15:23) palms itchy Medications ?Medication ?Instructions ?Recorded ?Confirmed ?Type hydrochlorothiazide 25 mg tablet 25 mg PO DAILY #90 ta bs 11/13/22 03/31/25 Rx lidocaine 5 % topical patch 2 patch topical DAILY PRN back 11/13/22 03/31/25 Rx pain #30 ea losartan 100 mg tablet 100 mg PO DAILY #90 tabs 05/2803/31/25 Rx ergocalciferol (vitamin D2) 1,250 See Rx Instructions .Route 03/04/23 03/31/25 Rx mcg (50,000 unit) capsule .COMPLEX #8 caps desvenlafaxine succinate 25 mg 25 mg PO QDAY 08/24/24 03/31/25 History tablet,extended release 24 hr lorazepam 0.5 mg tablet 0.5 mg PO QDAY PRN 08/24/24 03/31/25 History amlodipine 10 mg tablet 10 mg PO QDAY #90 tabs 09/2803/31/25 Rx hydroxyzine HCl 25 mg tablet 25 mg PO QHS PRN 03/31/25 03/31/25 History Ejection fraction %: 65 Have you fallen in the past year?: No PFSH Medical History Panic disorder Abnormal EKG Obstructive sleep apnea Chronic back pain Fatigue Hypersomnia Irritable bowel syndrome with diarrhea Low back pain Chest pain Obesity (BMI 30-39.9) Hyperlipidemia Kidney stones Depression Anxiety Hypertension Surgical History history of leep proceure with D&C History of 2 sections History of partial hysterectomy Family History Mother Hypertension Arthritis Heart disease Depression Father Diabetes Hypertension Hyperlipemia Myocardial infarction, Onset Age: 49 Grandmother Heart disease Hypertension Osteoporosis CVA (cerebral vascular accident) Grandfather Cancer Brother Hypertension Grandmother Myocardial infarction, Onset Age: 60 Social History Smoking Status: Never smoker alcohol intake: current alcohol intake frequency: holidays/special occasions only substance use type: does not use what type of physical activity do you participate in: none ROS Const Const: Positive for fatigue; Negative for weakness, headache(s) or frequent falls Eyes Eyes: Negative for blurry vision ENT ENT: Negative for headache(s), dizziness or Nosebleed/epistaxis Cardio Chest Pain: No Palpitations: No Edema: Bilateral Muscle aches with walking: None Resp Respiratory: Negative for SOB with activity, SOB at rest or SOB orthopnea\SOB lying down GI GI: Positive for heartburn; Negative nausea, vomiting, bright, red blood in stools or black,tarry stools : Negative for hematuria Neuro Neuro: Negative for dizziness, lightheadedness, near syncope, syncope, frequent falls, headache(s),weakness or blurry vision Endo Endo: Positive for fatigue Cardiology Exam Const Appearance: cooperative, comfortable, no acute distress and well developed; Negative diaphoretic or ill appearing Nutritional Appearance: obese Orientation: alert and oriented x3 Ambulating without assistive device Head Head: normal to inspection, normocephalic and atraumatic Ears: hearing grossly normal bilaterally Nose: external nose normal and Negative epistaxis Face and Sinus: face symmetric Eyes General: appearance normal, both eyes and all related structures Eyelids: eyelids normal Conjunctivae: conjunctivae normal; Negative scleral icterus EOM: EOM intact bilaterally Neck Neck: no JVD Carotids: normal carotid upstroke; Negative bruit Neck Mass: Negative Neck mass Chest Chest inspection: normal respiratory effort; Negative respiratory distress, audible wheezes or tachypneic Auscultation: Bilateral: Clear to Auscultation Cardio Rate: regular rate Rhythm: regular rhythm Heart sounds: S1 normal and S2 normal; Negative rub, gallop or murmur GI GI: obese Neuro General: patient alert, patient awake, patient oriented x3 and moves all extremities Skin Skin: no rashes or lesions noted Extremities Pulses: Normal: Right Posterior Tibial Pulse, Left Posterior Tibial Pulse, RightRadial Pulse and Left Radial Pulse Lower Extremity Edema: None: Bilateral Psych Psychological: normal affect Supplemental Info Supplemental Information CTA Chest 04/17/22 FINDINGS: Normal enhancement of the main pulmonary artery and right and left pulmonary arteries. Normal enhancement of the bilateral peripheral pulmonary arteries. There is no demonstrated pulmonary embolism. Normal thoracic aorta and visualized great vessels. There is no demonstrated aortic dissection. Normal heart and pericardium. Echo Complete 10/2024 Interpretation Summary Normal LV size. Left ventricular systolic function is normal. The left ventricular ejection fraction is 65 %. Pulmonary artery systolic pressure is 24 mmHg. Labs: HDL Cholesterol, (40-) 34 mg/dL L Cholesterol, (<=200) 212 mg/dL H Triglycerides, (-199) 276 mg/dL H Diagnostics: Electrocardiogram Echocardiogram Chest X-Ray Chest CTA Abdomen Ultrasound Abdomen/Pelvis CT Renal Artery Duplex Past Visits: Cardiology Visit 03/31/25 Assessment and Plan Assessment and Plan (1) Hypertension: Status: Chronic Qualifiers: Hypertension type: essential hypertension Qualified Code(s): I10 - Essential (primary) hypertension Plan: BP 128/86 in office today. She reports noticing lower extremity edema with initiation of amlodipine. We discussed options of adjusting medications secondary to the side effect and at this time, patient reports she wishes to continue to monitor and will notify our office if wishing to further adjust. Plan: Recommend patient continue antihypertensive agents, amlodipine, losartan and hydrochlorothiazide. Encourage lifestyle risk factor modification. Recommend patient monitor BP at home environment and notify our office with anypersistently elevated or low findings. Plan Patient will follow-up in 1 year or sooner, if needed. Thank you for allowing me to participate in the care of your patient. Please don't hesitate to callif any issues arise. This note was generated using a voice recognition system and there may be incorrect words, spelling, or punctuation that were not noted when reviewing theoffice note prior to saving. Portions of this documentation were copied and pasted from previous office visitnotes to provide a cohesive continuity of the history. The note has been reviewed, edited, and updated, as necessary. Plan Details Follow Up: 1 Year (WOUND SPECIALIST) Coding Level of Care Code Off vis,est,level 3 Diagnoses Essential hypertension I10 Hypertension type: essential hypertension Coding Level of Care Code Off vis,est,level 3 Diagnoses Essential hypertension I10 Hypertension type: essential hypertension Clinical Quality Measures Falls Risk Screening/Assistive Devices Have you fallen in the past year?: No Cardiac Ejection fraction %: 65 04/05/25 0738 r PA> Date _ Alvino Demiter PA 04/05/25 1037 Cosigner Signature: Date (if applicable) Kyree Iglesias MD CC: LAZARO Morales ~ [facility]08-05-2025 Radiology Diagnostic study note [facility] Imaging Services [address] [place], [place] [address] Abdomen Limited MR#: [id number] Acct: [id number] Name: BARBARA HULL Rep #: [id number] : 1985 F 39 From: Shyam Little MD PCP: LAZARO Barraza Status: REG CLI Study:Abdomen Limited Date of Exam: 11/27 Exam# [id number] Ordering Dr: Rani Martin MD PROCEDURE: ABDOMEN LIMITED 02/07/2025 REASON FOR EXAM: RUQ PAIN COMPARISON: None FINDINGS: Liver: Diffusely echogenic suggesting fatty infiltration. The liver measures 16.6 cm. Gallbladder: No stones sludge wall thickening or tenderness. Common bile duct: Normal measuring 5 mm . Pancreas: Normal Other: Visualized portions of the right kidney are unremarkable. No right upperquadrant ascites. US/Abdomen Limited IMPRESSION: Fatty infiltration of the liver. No evidence of gallstones. Reading Location: [facility] CC: LAZARO Morales; GRAYSON Andrade MD ~ Central Office Repairer: Signed [facility]03-26-2025 Evaluation note* Diagnosis Onset Date Resolution Status Admit Date Hypertension chronic September 28, 2024 3:13pm [facility] Work Phone: 1(493) 711-270601-30-2025 Instructions* Patient Instructions* Zuleyka Macias APRN.CNP - 08/04/2024 11:35 AM EST ASSESSMENT/PLAN: 1. Rash - ICD9: 782.1, ICD10: R21 - unknown etiology. Discussed possibility that flagyl was the cause-she should avoid this medication in the future. - PREDNISONE 10 MG TABLET - Follow-up with your PCP in 3-5 days if symptoms have not improved or sooner if symptoms worsen - Discussed red flags and need for immediate medical evaluation if any occur. - Discussed supportive care treatment with fluids, rest and analgesia. - Discussed expected course of illness Zuleyka Macias APRN.CNP NONSPECIFIC RASH: Our exam shows you have a rash which has no clear cause. Rashes can result from infections, allergies, or irritation of the skin by chemicals or other environmental factors. Rashes can also result from scratching or rubbing the skin too much to relieve itching. Further medical examination may be needed to identify the specific cause and proper treatment of your skin rash. You should treat your rash as recommended by your doctor. If you have itching, you should avoid scratching as much as possible, as this further damages the skin. Ask your doctor or pharmacist if you have any questions about what topical medicines may help relieve your symptoms. Call your doctor right away if your rash is not better in 2-3 days, if it worsens, or if there are signs of infection (increased pain, redness, drainage or pus). [facility] NoteHNO ID: [id number] Author: ZULEYKA MACIAS APRN.DHEERAJ Service: ? Author Type: Nurse Practitioner Type: Progress Notes Filed: 08/04/2024 11:37 Note Text: Subjective Rash Associated symptoms include a sore throat. Pertinent negatives include no congestion, cough or fever. Barbara Hull is a 39 year old female who presents with chills last night and a rash today. Rash is red and itchy. It is not painful. She states she had a sore throat this morning but states she probably slept with her mouth open. She is currently taking Flagyl for BV. She also started Pristiq at the beginning of this month. She denies any new lotions, soaps or detergents. She did eat some cake Thursday which contained strawberries and raspberries, but she has never had a reaction to this before. Review of Systems Constitutional: Positive for chills. Negative for fever. HENT: Positive for sore throat. Negative for congestion. Respiratory: Negative for cough. Cardiovascular: Negative. Musculoskeletal: Negative. Skin: Positive for itching and rash. BP 129/85 Pulse 85 Temp 37.3 ?C (99.1 ?F) Resp 18 Wt 102.4 kg (225 lb 12 oz) LMP 07/05/2007 SpO2 100% BMI 37.28 kg/m? PAST MEDICAL HISTORY Diagnosis Date Anxiety Hyperlipidemia Hypertension Obesity ALEX (obstructive sleep apnea) Pre-eclampsia PAST SURGICAL HISTORY Procedure Laterality Date HYSTERECTOMY HX ALLERGIES Amoxicillin MEDICATIONS ergocalciferol 50,000 unit capsule (VITAMIN D2, DRISDOL) Take 1 capsule by mouth one time a week. metroNIDAZOLE (FLAGYL) 500 mg tablet TAKE 1 TABLET BY MOUTH TWICE DAILY FOR 7 DAYS. AVOID ALCOHOL UNTIL 48 HOURS AFTER LAST DOSE nystatin (MYCOSTATIN) cream APPLY TO AFFECTED AREA UNDER BREAST TWICE DAILY losartan (COZAAR) 100 mg tablet Take 1 tablet by mouth every afternoon. desvenlafaxine ER (PRISTIQ) 25 mg 24 hr tablet Take 1 tablet by mouth every afternoon. LORazepam (ATIVAN) 0.5 mg Take 0.5 mg by mouth three times daily as needed. hydroCHLOROthiazide (HYDRODIURIL, ESIDRIX) 25 mg tablet Take 1 tablet by mouth once daily. Lkzfjmnwnlndqss-Uyqufztgz-ZB (BROMFED DM) 2-30-10 mg/5 mL syrup Take 10 mL by mouth four times a day as needed. (Patient not taking: Reported on 08/04/2024) albuterol HFA (PROVENTIL HFA, VENTOLIN HFA) 90 mcg/actuation inhaler Inhale 2 Puffs as instructed every 4 hours as needed for wheezing/shortness of breath. (Patient not taking: Reported on 08/04/2024) losartan (COZAAR) 50 mg tablet Take 50 mg by mouth once daily. (Patient not taking: Reported on 08/04/2024) FAMILY HISTORY Problem Relation Age of Onset Hypertension Mother Headache Mother Cancer Maternal Grandfather pancreatic Coronary Artery Disease Maternal Grandmother Stroke Paternal Grandfather Social History Tobacco Use Smoking status: Never Smokeless tobacco: Never Substance Use Topics Alcohol use: Yes Comment: occaional Drug use: No ' Objective Physical Exam Vitals and nursing note reviewed. Constitutional: General: She is not in acute distress. Appearance: Normal appearance. She is not ill-appearing. HENT: Mouth/Throat: Mouth: Mucous membranes are moist. Pharynx: Uvula midline. Posterior oropharyngeal erythema present. No oropharyngeal exudate. Cardiovascular: Rate and Rhythm: Normal rate and regular rhythm. Heart sounds: Normal heart sounds. Pulmonary: Effort: Pulmonary effort is normal. No respiratory distress. Breath sounds: Normal breath sounds. No wheezing or rales. Musculoskeletal: Cervical back: Neck supple. Lymphadenopathy: Cervical: No cervical adenopathy. Skin: General: Skin is warm and dry. Findings: Erythema and rash present. Neurological: Mental Status: She is alert. ASSESSMENT/PLAN: 1. Rash - ICD9: 782.1, ICD10: R21 - unknown etiology. Discussed possibility that flagyl was the cause-she should stop this medication and avoid this medication in the future. - PREDNISONE 10 MG TABLET - Follow-up with your PCP in 3-5 days if symptoms have not improved or sooner if symptoms worsen - Discussed red flags and need for immediate medical evaluation if any occur. - Discussed supportive care treatment with fluids, rest and analgesia. - Discussed expected course of illness [facility]uleyka Macias APRN.[facility] History of Present illness Narrative* Zuleyka Macias APRN.TABULATING CLERK - 08/04/2024 11:17 AM EST Images from the original note were not included. Subjective Rash Associated symptoms include a sore throat. Pertinent negatives include no congestion, cough or fever. Barbara Hull is a 39 year old female who presents with chills last night and a rash today. Rash is red and itchy. It is not painful. She states she had a sore throat this morning but states she probably slept with her mouth open. She is currently taking Flagyl for BV. She also started Pristiq at the beginning of this month. She denies any new lotions, soaps or detergents. She did eat some cake Thursday which contained strawberries and raspberries, but she has never had areaction to this before. Review of Systems Constitutional: Positive for chills. Negative for fever. HENT: Positive for sore throat. Negative for congestion. Respiratory: Negative for cough. Cardiovascular: Negative. Musculoskeletal: Negative. Skin: Positive for itching and rash. BP 129/85 Pulse 85 Temp 37.3 C (99.1 F) Resp 18 Wt 102.4 kg (225 lb 12 oz) LMP 07/05/2007 SpO2 100% BMI 37.28 kg/m PAST MEDICAL HISTORY Diagnosis Date Anxiety Hyperlipidemia Hypertension Obesity ALEX (obstructive sleep apnea) Pre-eclampsia PAST SURGICAL HISTORY Procedure Laterality Date HYSTERECTOMY HX ALLERGIES Amoxicillin MEDICATIONS ergocalciferol 50,000 unit capsule (VITAMIN D2, DRISDOL) Take 1 capsule by mouth one time a week. metroNIDAZOLE (FLAGYL) 500 mg tablet TAKE 1 TABLET BY MOUTH TWICE DAILY FOR 7 DAYS. AVOID ALCOHOL UNTIL 48 HOURS AFTER LAST DOSE nystatin (MYCOSTATIN) cream APPLY TO AFFECTED AREA UNDER BREAST TWICE DAILY losartan (COZAAR) 100 mg tablet Take 1 tablet by mouth every afternoon. desvenlafaxine ER (PRISTIQ) 25 mg 24 hr tablet Take 1 tablet by mouth every afternoon. LORazepam (ATIVAN) 0.5 mg Take 0.5 mg by mouth three times daily as needed. hydroCHLOROthiazide (HYDRODIURIL, ESIDRIX) 25 mg tablet Take 1 tablet by mouth once daily. Kxayqopngxiorur-Nctagauzz-PA (BROMFED DM) 2-30-10 mg/5 mL syrup Take 10 mL by mouth four times a day as needed. (Patient not taking: Reported on 08/04/2024) albuterol HFA (PROVENTIL HFA, VENTOLIN HFA) 90 mcg/actuation inhaler Inhale 2 Puffs as instructed every 4 hours as needed for wheezing/shortness of breath. (Patient not taking: Reported on 08/04/2024) losartan (COZAAR) 50 mg tablet Take 50 mg by mouth once daily. (Patient not taking: Reported on 08/04/2024) FAMILY HISTORY Problem Relation Age of Onset Hypertension Mother Headache Mother Cancer Maternal Grandfather pancreatic Coronary Artery Disease Maternal Grandmother Stroke Paternal Grandfather Social History Tobacco Use Smoking status: Never Smokeless tobacco: Never Substance Use Topics Alcohol use: Yes Comment: occaional Drug use: No ' Objective Physical Exam Vitals and nursing note reviewed. Constitutional: General: She is not in acute distress. Appearance: Normal appearance. She is not ill-appearing. HENT: Mouth/Throat: Mouth: Mucous membranes are moist. Pharynx: Uvula midline. Posterior oropharyngeal erythema present. No oropharyngeal exudate. Cardiovascular: Rate and Rhythm: Normal rate and regular rhythm. Heart sounds: Normal heart sounds. Pulmonary: Effort: Pulmonary effort is normal. No respiratory distress. Breath sounds: Normal breath sounds. No wheezing or rales. Musculoskeletal: Cervical back: Neck supple. Lymphadenopathy: Cervical: No cervical adenopathy. Skin: General: Skin is warm and dry. Findings: Erythema and rash present. Neurological: Mental Status: She is alert. ASSESSMENT/PLAN: 1. Rash - ICD9: 782.1, ICD10: R21 - unknown etiology. Discussed possibility that flagyl was the cause-she should stop this medicationand avoid this medication in the future. - PREDNISONE 10 MG TABLET - Follow-up with your PCP in 3-5 days if symptoms have not improved or sooner if symptoms worsen - Discussed red flags and need for immediate medical evaluation if any occur. - Discussed supportive care treatment with fluids, rest and analgesia. - Discussed expected course of illness Zuleyka Macias APRN.TABULATING CLERK documented [facility] encounterSam[facility] NotePap Smear Specimen AdequacyJanuary 2024 9:54amComment.Satisfactory for evaluation. No endocervical cells are present. This isconsistent with a history ofhysterectomy. [facility] A#[id number] Health AdministrationComment on above: Satisfactory for evaluation. No endocervical cells are present. This isconsistent with a history ofhysterectomy.07-26-2024 NotePap Smear Specimen AdequacyJanuary 2024 9:54amComment.Satisfactory for evaluation. No endocervical cells are present. This isconsistent with a history ofhysterectomy. [facility] A#[id number] [facility] on above: Satisfactory for evaluation. No endocervical cells are present. This isconsistent with a history ofhysterectomy.07-26-2024 NotePap Smear Specimen AdequacyJanuary 2024 9:54amComment.Satisfactory for evaluation. No endocervical cells are present. This isconsistent with a history ofhysterectomy. [facility] INTER[facility]AC[facility] A#[id number] Health AdministrationComhenry [facility] on above: Satisfactory for evaluation. No endocervical cells are present. This isconsistent with a history ofhysterectomy.05-30-2024 NoteHNO ID: [id number] Author: AJ LANE PA-C Service: ? Author Type: Physician Marketing Support Coordinator Type: Progress Notes Filed: 05/30/2024 17:32 Note Text: This note was created using PAYFORMANCE HOLDINGriter. Subjective Barbara Hull is a 39 year old female. HPI Patient presents with a chief complaint of a cough. She was seen on May 16 and had pneumonia in the right upper lobe on chest x-ray. She completed doxycycline but states she is still coughing. no fever. She states her back has been achy on both sides as well. Does worsen with twisting and some movements. No shortness of breath. Review of Systems Constitutional: Negative. HENT: Negative. Respiratory: Positive for cough. Negative for shortness of breath and wheezing. Cardiovascular: Negative for chest pain, palpitations and leg swelling. Gastrointestinal: Negative. Musculoskeletal: Positive for back pain. All other systems reviewed and are negative. PAST MEDICAL HISTORY Diagnosis Date Anxiety Hyperlipidemia Hypertension Obesity ALEX (obstructive sleep apnea) Pre-eclampsia Current Outpatient Medications Medication Sig Dispense Refill desvenlafaxine ER (PRISTIQ) 25 mg 24 hr tablet Take 1 tablet by mouth every afternoon. albuterol HFA (PROVENTIL HFA, VENTOLIN HFA) 90 mcg/actuation inhaler Inhale 2 Puffs as instructed every 4 hours as needed for wheezing/shortness of breath. 18 g 0 losartan (COZAAR) 50 mg tablet Take 50 mg by mouth once daily. LORazepam (ATIVAN) 0.5 mg Take 0.5 mg by mouth three times daily as needed. hydroCHLOROthiazide (HYDRODIURIL, ESIDRIX) 25 mg tablet Take 1 tablet by mouth once daily. 30 tablet 2 predniSONE (DELTASONE) 20 mg tablet Take 2 tablets by mouth once daily for 5 days. 10 tablet 0 Vqhkllmnxdvgpop-Ykzlyhfmf-LP (BROMFED DM) 2-30-10 mg/5 mL syrup Take 10 mL by mouth four times a day as needed. 200 mL 0 No current facility-administered medications for this visit. PAST SURGICAL HISTORY Procedure Laterality Date HYSTERECTOMY HX FAMILY HISTORY Problem Relation Age of Onset Hypertension Mother Headache Mother Cancer Maternal Grandfather pancreatic Coronary Artery Disease Maternal Grandmother Stroke Paternal Grandfather Social History Tobacco Use Smoking status: Never Smokeless tobacco: Never Substance Use Topics Alcohol use: Yes Comment: occaional Drug use: No Objective BP 146/98 Pulse 98 Temp 36.5 ?C (97.7 ?F) Resp 18 Wt 105.6 kg (232 lb 12.9 oz) LMP 07/05/2007 SpO2 98% BMI 38.44 kg/m? Physical Exam Vitals reviewed. Constitutional: Appearance: Normal appearance. HENT: Head: Normocephalic and atraumatic. Right Ear: Tympanic membrane, ear canal and external ear normal. Left Ear: Tympanic membrane, ear canal and external ear normal. Nose: Nose normal. Mouth/Throat: Mouth: Mucous membranes are moist. Pharynx: Oropharynx is clear. Cardiovascular: Rate and Rhythm: Normal rate and regular rhythm. Heart sounds: Normal heart sounds. Pulmonary: Effort: Pulmonary effort is normal. Breath sounds: Normal breath sounds. Musculoskeletal: Cervical back: Neck supple. Comments: Patient is tender minimally bilaterally on her ribs on her lower thoracic back. Some pain with twisting as well. No pain with a deep breath. She does have some pain on bending and extending. Skin: General: Skin is warm and dry. Neurological: Mental Status: She is alert. Assessment and Plan ASSESSMENT/PLAN: 1. Subacute cough - ICD9: 786.2, ICD10: R05.2 (primary diagnosis) Patient's chest x-ray shows that the pneumonia has resolved. The pain in her back is reproducible with twisting and palpation, likely musculoskeletal pain. I will treat with prednisone. Also given cough medication. Follow-up with PCP if not improving. Patient agreeable. - XR CHEST 2V FRONTAL/LAT 2. History of pneumonia - ICD9: V12.61, ICD10: Z87.01 GHULAM [facility]11-25-2024 History of Present illness Narrative* Aj Lane PA-C - 05/30/2024 5:28 PM EST This note was created using PA[employer]riter. Subjective Barbara Hull is a 39 year old female. HPI Patient presents with a chief complaint of a cough. She was seen on May 16 and had pneumonia in the right upper lobe on chest x-ray. She completed doxycycline but states she is still coughing. no fever. She states her back has been achy on both sides as well. Does worsen with twisting and somemovements. No shortness of breath. Review of Systems Constitutional: Negative. HENT: Negative. Respiratory: Positive for cough. Negative for shortness of breath and wheezing. Cardiovascular: Negative for chest pain, palpitations and leg swelling. Gastrointestinal: Negative. Musculoskeletal: Positive for back pain. All other systems reviewed and are negative. PAST MEDICAL HISTORY Diagnosis Date Anxiety Hyperlipidemia Hypertension Obesity ALEX (obstructive sleep apnea) Pre-eclampsia Current Outpatient Medications Medication Sig Dispense Refill desvenlafaxine ER (PRISTIQ) 25 mg 24 hr tablet Take 1 tablet by mouth every afternoon. albuterol HFA (PROVENTIL HFA, VENTOLIN HFA) 90 mcg/actuation inhaler Inhale 2 Puffs as instructed every 4 hours as needed for wheezing/shortness of breath. 18 g 0 losartan (COZAAR) 50 mg tablet Take 50 mg by mouth once daily. LORazepam (ATIVAN) 0.5 mg Take 0.5 mg by mouth three times daily as needed. hydroCHLOROthiazide (HYDRODIURIL, ESIDRIX) 25 mg tablet Take 1 tablet by mouth once daily. 30 tablet 2 predniSONE (DELTASONE) 20 mg tablet Take 2 tablets by mouth once daily for 5 days. 10 tablet 0 Fqycmhagqkfkywd-Gahpuvtfs-MH (BROMFED DM) 2-30-10 mg/5 mL syrup Take 10 mL by mouth four times a day as needed. 200 mL 0 No current facility-administered medications for this visit. PAST SURGICAL HISTORY Procedure Laterality Date HYSTERECTOMY HX FAMILY HISTORY Problem Relation Age of Onset Hypertension Mother Headache Mother Cancer Maternal Grandfather pancreatic Coronary Artery Disease Maternal Grandmother Stroke Paternal Grandfather Social History Tobacco Use Smoking status: Never Smokeless tobacco: Never Substance Use Topics Alcohol use: Yes Comment: occaional Drug use: No Objective BP 146/98 Pulse 98 Temp 36.5 C (97.7 F) Resp 18 Wt 105.6 kg (232 lb 12.9 oz) LMP 07/05/2007 SpO2 98% BMI 38.44 kg/m Physical Exam Vitals reviewed. Constitutional: Appearance: Normal appearance. HENT: Head: Normocephalic and atraumatic. Right Ear: Tympanic membrane, ear canal and external ear normal. Left Ear: Tympanic membrane, ear canal and external ear normal. Nose: Nose normal. Mouth/Throat: Mouth: Mucous membranes are moist. Pharynx: Oropharynx is clear. Cardiovascular: Rate and Rhythm: Normal rate and regular rhythm. Heart sounds: Normal heart sounds. Pulmonary: Effort: Pulmonary effort is normal. Breath sounds: Normal breath sounds. Musculoskeletal: Cervical back: Neck supple. Comments: Patient is tender minimally bilaterally on her ribs on her lower thoracic back. Some painwith twisting as well. No pain with a deep breath. She does have some pain on bending and extending. Skin: General: Skin is warm and dry. Neurological: Mental Status: She is alert. Assessment and Plan ASSESSMENT/PLAN: 1. Subacute cough - ICD9: 786.2, ICD10: R05.2 (primary diagnosis) Patient's chest x-ray shows that the pneumonia has resolved. The pain in her back is reproducible with twisting and palpation, likely musculoskeletal pain. I will treat with prednisone. Also given cough medication. Follow-up with PCP if not improving. Patient agreeable. - XR CHEST 2V FRONTAL/LAT 2. History of pneumonia - ICD9: V12.61, ICD10: Z87.[address] PA-C documented in this encounterSam[facility]11-25-2024 History of Present illness Narrative* Eric Barahona RT(R) - 05/30/2024 4:30 PM EST Radiology Service Progress Note PATIENT NAME: Barbara Hull DATE OF SERVICE: May 30, 2024 TIME: 4:21 PM PATIENT IDENTITY VERIFICATION COMPLETED USING TWO (2) IDENTIFIERS: Name and Date of confirmedby patient verbally. FALL SCREENING: Has the patient had 2 falls in the last year or 1 fall with injury or currently using an Ambulatory Assistive Device (Walker, Cane, Wheelchair, Crutches, etc.)? No PATIENT GENDER DATA: Female. status: : No status: NO. PATIENT RELEVANT IMPLANT DATA REVIEWED: Yes PATIENT PRESENTS WITH AN IMPLANTABLE OR ATTACHED RECREATION ESTABLISHMENT MANAGER: No RADIOLOGY DEPARTMENT: General X-ray: Exam(s) Completed: Chest X-Ray PERIPHERAL IV DATA: Not applicable SIGNED BY: RT Haley(R) May 30, 2024 4:21 PM documented in this encounterSam[facility]11-25-2024 NoteHNO ID: [id number] Author: ERIC BARAHONA RT(R) Service: ? Author Type: Keller Machine Operator Type: Progress Notes Filed: 05/30/2024 16:27 Note Text: Radiology Service Progress Note PATIENT NAME: Barbara Hull DATE OF SERVICE: May 30, 2024 TIME: 4:21 PM PATIENT IDENTITY VERIFICATION COMPLETED USING TWO (2) IDENTIFIERS: Name and Date of confirmed by patient verbally. FALL SCREENING: Has the patient had 2 falls in the last year or 1 fall with injury or currently using an Ambulatory Assistive Device (Walker, Cane, Wheelchair, Crutches, etc.)? No PATIENT GENDER DATA: Female. status: : No status: NO. PATIENT RELEVANT IMPLANT DATA REVIEWED: Yes PATIENT PRESENTS WITH AN IMPLANTABLE OR ATTACHED RECREATION ESTABLISHMENT MANAGER: No RADIOLOGY DEPARTMENT: General X-ray: Exam(s) Completed: Chest X-Ray PERIPHERAL IV DATA: Not applicable SIGNED BY: RT Haley(R) May 30, 2024 4:21 [facility] [place]11-11-2024 History of Present illness Narrative* Lucy Springer RT(R) - 05/16/2024 4:50 PM EST Radiology Service Progress Note PATIENT NAME: Barbara Hull DATE OF SERVICE: May 16, 2024 TIME: 4:42 PM PATIENT IDENTITY VERIFICATION COMPLETED USING TWO (2) IDENTIFIERS: Name and Date of confirmedby patient verbally. FALL SCREENING: Has the patient had 2 falls in the last year or 1 fall with injury or currently using an Ambulatory Assistive Device (Walker, Cane, Wheelchair, Crutches, etc.)? No PATIENT GENDER DATA: Female. status: : No status: NO. PATIENT RELEVANT IMPLANT DATA REVIEWED: Not Applicable PATIENT PRESENTS WITH AN IMPLANTABLE OR ATTACHED RECREATION ESTABLISHMENT MANAGER: No RADIOLOGY DEPARTMENT: General X-ray: Exam(s) Completed: Chest X-Ray PERIPHERAL IV DATA: Not applicable SIGNED BY: RT Ileana(Kavon) May 16, 2024 4:42 PM documented in this encounterSam[facility]11-11-2024 NoteHNO ID: [id number] Author: LUCY SPRINGER RT(R) Service: Radiology Author Type: Technologist Type: Progress Notes Filed: 05/16/2024 16:48 Note Text: Radiology Service Progress Note PATIENT NAME: Barbara Hull DATE OF SERVICE: May 16, 2024 TIME: 4:42 PM PATIENT IDENTITY VERIFICATION COMPLETED USING TWO (2) IDENTIFIERS: Name and Date of confirmed by patient verbally. FALL SCREENING: Has the patient had 2 falls in the last year or 1 fall with injury or currently using an Ambulatory Assistive Device (Walker, Cane, Wheelchair, Crutches, etc.)? No PATIENT GENDER DATA: Female. status: : No status: NO. PATIENT RELEVANT IMPLANT DATA REVIEWED: Not Applicable PATIENT PRESENTS WITH AN IMPLANTABLE OR ATTACHED RECREATION ESTABLISHMENT MANAGER: No RADIOLOGY DEPARTMENT: General X-ray: Exam(s) Completed: Chest X-Ray PERIPHERAL IV DATA: Not applicable SIGNED BY: VERITO Tejeda) May 16, 2024 4:42 [facility] [place]11-11-2024 NoteHNO ID: [id number] Author: QUINN VILLALOBOS MD Service: ? Author Type: Physician Type: Progress Notes Filed: 05/16/2024 17:07 Note Text: Patient presents with: Cough: Chest congestion x 4 days HPI: Feeling sick for 5 days. Positive symptoms: cough, Wheezing, Chest pain, upper back pain, Fever, Chills, Malaise, Fatigue, Negative symptoms: Nasal Congestion, Rhinorrhea, Vomiting, Diarrhea, OTC: Coricidin Cold Medicine, Tylenol She has had pneumonia in the past and this feels similar. Denies risk of -hysterectomy. PAST MEDICAL HISTORY Diagnosis Date Anxiety Hyperlipidemia Hypertension Obesity ALEX (obstructive sleep apnea) Pre-eclampsia PAST SURGICAL HISTORY Procedure Laterality Date HYSTERECTOMY HX MEDICATIONS: Current Outpatient Medications Medication Sig desvenlafaxine ER (PRISTIQ) 25 mg 24 hr tablet Take 1 tablet by mouth every afternoon. losartan (COZAAR) 50 mg tablet Take 50 mg by mouth once daily. LORazepam (ATIVAN) 0.5 mg Take 0.5 mg by mouth three times daily as needed. hydroCHLOROthiazide (HYDRODIURIL, ESIDRIX) 25 mg tablet Take 1 tablet by mouth once daily. No current facility-administered medications for this visit. ALLERGIES: ALLERGIES Allergen Reactions Amoxicillin Rash VITALS: BP 148/90 Pulse 80 Temp 37.3 ?C (99.1 ?F) Resp 21 Wt 102.5 kg (225 lb 15.5 oz) LMP 07/05/2007 SpO2 98% BMI 37.32 kg/m? PHYSICAL EXAM: GEN: mildly ill appearing HEENT: PERRL, EOMI, conjunctiva clear Ears: canals clear. TMs without erythema, bulge, or effusion Sinuses: non-tender frontal sinus, non-tender maxillary sinuses Throat: moist mucous membranes, mild erythema, no exudate Neck: supple, no thyromegaly, no lymphadenopathy HEART: regular rate and rhythm, no murmurs LUNGS: faint end expiratory crackles right upper lung, no increased WOB ASSESSMENT/PLAN: 1. Pneumonia of right upper lobe due to infectious organism - ICD9: 486, ICD10: J18.9 (primary diagnosis) 2. Acute cough - ICD9: 786.2, ICD10: R05.1 - XR CHEST 2V FRONTAL/LAT - Right upper lobe pneumonia - DOXYCYCLINE MONOHYDRATE 100 MG CAPSULE - ALBUTEROL SULFATE HFA 90 MCG/ACTUATION AEROSOL INHALER Continue supportive care with as needed analgesia and cough and cold medicine. Follow up with worsening cough, worsening shortness of breath, increasing chest pain, or late onset fever. Quinn Villalobos, [facility]11-11-2024 History of Present illness Narrative* Quinn Villalobos MD - 05/16/2024 4:34 PM EST Patient presents with: Cough: Chest congestion x 4 days HPI: Feeling sick for 5 days. Positive symptoms: cough, Wheezing, Chest pain, upper back pain, Fever, Chills, Malaise, Fatigue, Negative symptoms: Nasal Congestion, Rhinorrhea, Vomiting, Diarrhea, OTC: Coricidin Cold Medicine, Tylenol She has had pneumonia in the past and this feels similar. Denies risk of -hysterectomy. PAST MEDICAL HISTORY Diagnosis Date Anxiety Hyperlipidemia Hypertension Obesity ALEX (obstructive sleep apnea) Pre-eclampsia PAST SURGICAL HISTORY Procedure Laterality Date HYSTERECTOMY HX MEDICATIONS: Current Outpatient Medications Medication Sig desvenlafaxine ER (PRISTIQ) 25 mg 24 hr tablet Take 1 tablet by mouth every afternoon. losartan (COZAAR) 50 mg tablet Take 50 mg by mouth once daily. LORazepam (ATIVAN) 0.5 mg Take 0.5 mg by mouth three times daily as needed. hydroCHLOROthiazide (HYDRODIURIL, ESIDRIX) 25 mg tablet Take 1 tablet by mouth once daily. No current facility-administered medications for this visit. ALLERGIES: ALLERGIES Allergen Reactions Amoxicillin Rash VITALS: BP 148/90 Pulse 80 Temp 37.3 C (99.1 F) Resp 21 Wt 102.5 kg (225 lb 15.5 oz) LMP 07/05/2007 SpO2 98% BMI 37.32 kg/m PHYSICAL EXAM: GEN: mildly ill appearing HEENT: PERRL, EOMI, conjunctiva clear Ears: canals clear. TMs without erythema, bulge, or effusion Sinuses: non-tender frontal sinus, non-tender maxillary sinuses Throat: moist mucous membranes, mild erythema, no exudate Neck: supple, no thyromegaly, no lymphadenopathy HEART: regular rate and rhythm, no murmurs LUNGS: faint end expiratory crackles right upper lung, no increased WOB ASSESSMENT/PLAN: 1. Pneumonia of right upper lobe due to infectious organism - ICD9: 486, ICD10: J18.9 (primary diagnosis) 2. Acute cough - ICD9: 786.2, ICD10: R05.1 - XR CHEST 2V FRONTAL/LAT - Right upper lobe pneumonia - DOXYCYCLINE MONOHYDRATE 100 MG CAPSULE - ALBUTEROL SULFATE HFA 90 MCG/ACTUATION AEROSOL INHALER Continue supportive care with as needed analgesia and cough and cold medicine. Follow up with worsening cough, worsening shortness of breath, increasing chest pain, or late onsetfever. Quinn Villalobos MD documented in this encounterSam[facility]05-16-2024 NoteHNO ID: [id number] Author: GARCIA WILLIS APRN.TABULATING CLERK Service: ? Author Type: Nurse Practitioner Type: Progress Notes Filed: 11/19/2023 15:43 Note Text: CC: Patient presents with: Sore Throat: Bilateral ear pain x 1 week HPI: Barbara Hull is a 38 year old female who presents to the office with complaint of sore throat, sinus symptoms, and ear symptoms for a week. Symptoms are staying the same. Associated symptoms includes ear pain. Denies body aches, fever, nausea, vomiting , and diarrhea. Treatments tried include nothing so far. with no relief of symptoms. Sick contacts: unknown. History of asthma, frequent episodes of bronchitis, chronic bronchitis, bronchiectasis or COPD: No Smoker: No Seasonal/environmental allergies: No The ROS is otherwise negative. The patient's pmh, medications, allergies, and past visits are reviewed. PHYSICAL EXAM: BP 140/100 Pulse 85 Temp 36.7 ?C (98 ?F) Resp 21 Wt 103.4 kg (227 lb 15.3 oz) LMP 07/05/2007 SpO2 98% BMI 37.64 kg/m? General appearance: alert, cooperative, pleasant, in no acute distress Head: Normocephalic Eyes: EOM's intact, conjunctiva pink and moist, no icterus, sclera white, non-injected Ears: Right ear: External ear/canal- Normal, TM - erythematous, bulging. Left ear: External ear/canal- Normal, TM - clear with good landmarks Oropharynx:mild erythema, without exudates present Heart: Negative. RRR without obvious murmur, gallop, or rubs. No ectopy. Lungs: clear to auscultation, without rales or wheeze, good air exchange PAST MEDICAL HISTORY Diagnosis Date Anxiety Hypertension Obesity Pre-eclampsia PAST SURGICAL HISTORY Procedure Laterality Date HYSTERECTOMY HX ALLERGIES Amoxicillin MEDICATIONS losartan (COZAAR) 50 mg tablet Take 50 mg by mouth once daily. LORazepam (ATIVAN) 0.5 mg Take 0.5 mg by mouth three times daily as needed. hydroCHLOROthiazide (HYDRODIURIL, ESIDRIX) 25 mg tablet Take 1 tablet by mouth once daily. buPROPion SR (WELLBUTRIN SR) 100 mg 12 hr tablet Take 100 mg by mouth daily at bedtime. (Patient not taking: Reported on 09/25/2022) fluticasone (FLONASE) 50 mcg/actuation nasal spray Use 2 Sprays in each nostril once daily. Rinse mouth after use. (Patient not taking: Reported on 07/10/2018) FLUoxetine (PROZAC) 20 mg capsule Take 20 mg by mouth once daily. (Patient not taking: Reported on 09/12/2021) albuterol HFA (VENTOLIN HFA) 90 mcg/actuation inhaler Inhale 2 Puffs as instructed every 4 hours as needed for Wheezing/Shortness of Breath. (Patient not taking: Reported on 07/10/2018) FAMILY HISTORY Problem Relation Age of Onset Hypertension Mother Headache Mother Cancer Maternal Grandfather pancreatic Coronary Artery Disease Maternal Grandmother Stroke Paternal Grandfather Social History Tobacco Use Smoking status: Never Smokeless tobacco: Never Substance Use Topics Alcohol use: Yes Comment: occaional Drug use: No ASSESSMENT/PLAN: 1. Sore throat - ICD9: 462, ICD10: J02.9 (primary diagnosis) - STREP A MOLECULAR (POC)-neg 2. Acute otitis media, unspecified otitis media type - ICD9: 382.9, ICD10: H66.90 - CEFDINIR 300 MG CAPSULE Prescription instructions reviewed with patient as applicable. Potential red flag symptoms discussed with the patient. Reviewed appropriate action plan to take if red flag symptoms occur. Patient agreeable to treatment plan. Garcia Willis APRN.[facility]05-16-2024 History of Present illness Narrative* Garcia Willis APRN.[facility] - 11/19/2023 3:18 PM EDT CC: Patient presents with: Sore Throat: Bilateral ear pain x 1 week HPI: Barbara Hull is a 38 year old female who presents to the office with complaint of sore throat, sinus symptoms, and ear symptoms for a week. Symptoms are staying the same. Associated symptoms includes ear pain. Denies body aches, fever, nausea, vomiting , and diarrhea. Treatments tried include nothing so far. with no relief of symptoms. Sick contacts: unknown. History of asthma, frequent episodes of bronchitis, chronic bronchitis, bronchiectasis or COPD: No Smoker: No Seasonal/environmental allergies: No The ROS is otherwise negative. The patient's pmh, medications, allergies, and past visits are reviewed. PHYSICAL EXAM: BP 140/100 Pulse 85 Temp 36.7 C (98 F) Resp 21 Wt 103.4 kg (227 lb 15.3 oz) LMP 07/05/2007 SpO2 98% BMI 37.64 kg/m General appearance: alert, cooperative, pleasant, in no acute distress Head: Normocephalic Eyes: EOM's intact, conjunctiva pink and moist, no icterus, sclera white, non-injected Ears: Right ear: External ear/canal- Normal, TM - erythematous, bulging. Left ear: External ear/canal- Normal, TM - clear with good landmarks Oropharynx:mild erythema, without exudates present Heart: Negative. RRR without obvious murmur, gallop, or rubs. No ectopy. Lungs: clear to auscultation, without rales or wheeze, good air exchange PAST MEDICAL HISTORY Diagnosis Date Anxiety Hypertension Obesity Pre-eclampsia PAST SURGICAL HISTORY Procedure Laterality Date HYSTERECTOMY HX ALLERGIES Amoxicillin MEDICATIONS losartan (COZAAR) 50 mg tablet Take 50 mg by mouth once daily. LORazepam (ATIVAN) 0.5 mg Take 0.5 mg by mouth three times daily as needed. hydroCHLOROthiazide (HYDRODIURIL, ESIDRIX) 25 mg tablet Take 1 tablet by mouth once daily. buPROPion SR (WELLBUTRIN SR) 100 mg 12 hr tablet Take 100 mg by mouth daily at bedtime. (Patient not taking: Reported on 09/25/2022) fluticasone (FLONASE) 50 mcg/actuation nasal spray Use 2 Sprays in each nostril once daily. Rinse mouth after use. (Patient not taking: Reported on 07/10/2018) FLUoxetine (PROZAC) 20 mg capsule Take 20 mg by mouth once daily. (Patient not taking: Reported on 09/12/2021) albuterol HFA (VENTOLIN HFA) 90 mcg/actuation inhaler Inhale 2 Puffs as instructed every 4 hours asneeded for Wheezing/Shortness of Breath. (Patient not taking: Reported on 07/10/2018) FAMILY HISTORY Problem Relation Age of Onset Hypertension Mother Headache Mother Cancer Maternal Grandfather pancreatic Coronary Artery Disease Maternal Grandmother Stroke Paternal Grandfather Social History Tobacco Use Smoking status: Never Smokeless tobacco: Never Substance Use Topics Alcohol use: Yes Comment: occaional Drug use: No ASSESSMENT/PLAN: 1. Sore throat - ICD9: 462, ICD10: J02.9 (primary diagnosis) - STREP A MOLECULAR (POC)-neg 2. Acute otitis media, unspecified otitis media type - ICD9: 382.9, ICD10: H66.90 - CEFDINIR 300 MG CAPSULE Prescription instructions reviewed with patient as applicable. Potential red flag symptoms discussed with the patient. Reviewed appropriate action plan to take if red flag symptoms occur. Patient agreeable to treatment plan. Garcia Willis APRN.CNP documented [facility] encounterSam[facility]-26-[facility]23 Miscellaneous Notes* Telephone Encounter - Nathaly Prince - 03/31/2023 7:28 AM EDT Patient given results and verbalized understanding of instructions given. Nathaly Prince * Telephone Encounter - Riley Guerra APRN.CNP - 03/30/2023 8:40 PM EDT Foot x-ray negative. You may remove Ortho-Glass splint. Treat as a foot/ankle contusion. Follow-up with PCP if symptoms are not improving 5 to 7 days. Riley Guerra APRN.CNP documented in this encounterSam[facility]09-25-2023 History of Present illness Narrative* Lucy Springer RT(R) - 03/30/2023 7:50 PM EDT Radiology Service Progress Note PATIENT NAME: Barbara Hull DATE OF SERVICE: March 30, 2023 TIME: 8:04 PM PATIENT IDENTITY VERIFICATION COMPLETED USING TWO (2) IDENTIFIERS: Name and Date of confirmedby patient verbally. FALL SCREENING: Has the patient had 2 falls in the last year or 1 fall with injury or currently using an Ambulatory Assistive Device (Walker, Cane, Wheelchair, Crutches, etc.)? No PATIENT GENDER DATA: Female. status: : No status: NO. PATIENT RELEVANT IMPLANT DATA REVIEWED: Not Applicable RADIOLOGY DEPARTMENT: General X-ray: Exam(s) Completed: Lower Extremity X- Ray(s): Foot, Right PERIPHERAL IV DATA: Not applicable SIGNED BY: RT Ileana(R) March 30, 2023 8:04 PM documented in this encounterSamar[facility]09-25-2023 History of Present illness Narrative* Riley Guerra, LOI.TABULATING CLERK - 03/30/2023 7:45 PM EDT Subjective HPI Nontoxic-appearing female presents urgent care chief plaint right foot pain. Duration of symptoms 1day. Associated symptoms right foot pain. Patient states inverted her ankle on the last step going out of her house today around 1 PM. Presents today for evaluation. States pain has worsened as the days progressed. No head neck no back pain. No LOC. No numbness no tingling. No decrease sensation. Denies fractures or surgeries past medical history prescription medication use allergies reviewed. .Patient presents with: Pain (foot): right foot pain and swelling x 1pm today, landed on foot going down steps PAST MEDICAL HISTORY Diagnosis Date Anxiety Hypertension Obesity Pre-eclampsia PAST SURGICAL HISTORY Procedure Laterality Date HYSTERECTOMY HX ALLERGIES Amoxicillin MEDICATIONS losartan (COZAAR) 50 mg tablet Take 50 mg by mouth once daily. LORazepam (ATIVAN) 0.5 mg Take 0.5 mg by mouth three times daily as needed. hydroCHLOROthiazide (HYDRODIURIL, ESIDRIX) 25 mg tablet Take 1 tablet by mouth once daily. buPROPion SR (WELLBUTRIN SR) 100 mg 12 hr tablet Take 100 mg by mouth daily at bedtime. (Patient not taking: Reported on 09/25/2022) fluticasone (FLONASE) 50 mcg/actuation nasal spray Use 2 Sprays in each nostril once daily. Rinse mouth after use. (Patient not taking: No sig reported) FLUoxetine (PROZAC) 20 mg capsule Take 20 mg by mouth once daily. (Patient not taking: No sig reported) albuterol HFA (VENTOLIN HFA) 90 mcg/actuation inhaler Inhale 2 Puffs as instructed every 4 hours asneeded for Wheezing/Shortness of Breath. (Patient not taking: No sig reported) FAMILY HISTORY Problem Relation Age of Onset Hypertension Mother Headache Mother Cancer Maternal Grandfather pancreatic Coronary Artery Disease Maternal Grandmother Stroke Paternal Grandfather Social History Tobacco Use Smoking status: Never Smokeless tobacco: Never Substance Use Topics Alcohol use: Yes Comment: occaional Drug use: No BP 128/88 Pulse 92 Temp 37 C (98.6 F) Resp 16 LMP 07/05/2007 SpO2 96% Review of Systems Constitutional: Negative for chills, fever and malaise/fatigue. HENT: Negative for congestion, ear discharge, ear pain, sinus pain and sore throat. Eyes: Negative for blurred vision, pain, discharge and redness. Respiratory: Negative for cough, hemoptysis, sputum production, shortness of breath, wheezing and stridor. Cardiovascular: Negative for chest pain. Gastrointestinal: Negative for abdominal pain, diarrhea, nausea and vomiting. Musculoskeletal: Positive for joint pain. Negative for back pain, falls, myalgias and neck pain. Skin: Negative for itching and rash. Neurological: Negative for dizziness and headaches. Objective Physical Exam Constitutional: General: She is not in acute distress. Appearance: She is not toxic-appearing. HENT: Head: Normocephalic. Nose: Nose normal. Eyes: Pupils: Pupils are equal, round, and reactive to light. Cardiovascular: Rate and Rhythm: Normal rate. Pulmonary: Effort: Pulmonary effort is normal. No respiratory distress. Musculoskeletal: Cervical back: Normal range of motion. Right lower leg: Normal. Right ankle: Normal. Right foot: Decreased range of motion. Normal capillary refill. Tenderness and bony tenderness present. No swelling or deformity. Normal pulse. Skin: General: Skin is warm and dry. Neurological: General: No focal deficit present. Mental Status: She is alert. Patient placed in a posterior short leg splint. Splint comprised of 4 inch Ortho-Glass. Cast padding placed. Padding placed over her heel. Ankle is placed at 90 degrees dorsiflexion. Neurovascular check pre and post splint application no abnormal findings noted. ASSESSMENT/PLAN: 1. Injury of right foot, initial encounter - ICD9: 959.7, ICD10: S99.921A - XR FOOT GENERAL 3V AP/LAT/OBL RIGHT Patient placed in posterior short leg splint. Can discontinue splint if x-rays are negative. Will use crutches and treat as nonweightbearing injury until x- rays are reviewed by radiologist. If x-raysare negative we will treat as ankle foot contusion. Follow-up with PCP if symptoms are not improving 7 to 10 days. Red flags prompt reevaluation discussed. Patient was educated on supportive therapies. Patient will follow up with primary care provider as needed. Patient was instructed to immediately proceed to emergency room for any new, worsening, or symptoms lasting longer than anticipated. Thepatient's clinical presentation is otherwise unremarkable at this time. Based on exam and clinical finding, the patient is stable for discharge. Plan of care was discussed with patient. Patient verbalizes understanding and agrees to plan of care. This note was generated using [employer] software. It may contain errors in wording, punctuation, or spelling. Riley Guerra APRN.TABULATING CLERK documented in this encounterSam[facility]08-09-2023 Discharge summary Author Mireya Macdonald [facility] February 11, 2023 12:55pm Note Date/Time February 11, 2023 12: 55pm [facility] [address] [place] [address]. [address] [place] [address] / REHABILITATION SERVICES DISCHARGE SUMMARY MR#: [id number] Acct: [id number] Name: BARBARA HULL Rep #: [id number] : 1985 37 From: Mireya Cordero Referring Dr.: LAZARO Morales Status: REG RCR Insurance: [employer] Discharge Summary D/C summary: It has been my pleasure to treat BARBARA HULL referred by LAZARO Barraza, with the diagnosis of Chronic back pain for a total of 17 visit(s). Discharge Date: 02/11/23 Please see the following information for a summary of their discharge status. Subjective Subjective: Her back is not any better. She feels that her mattress is not good. She is not doing much exercises at home. She will make an appt with her Dr. She still has the Lidocane patches. Pt thinks that she will look for a chiropractor. Pain Back Pain: Pain Intensity (Out of 10): 5 Overall Improvement % Improvement: 70 Objective Objective/Function: Trunk AROM: flex 75%, Ext 50%, SB B 75%, Rot B 75% Pt is able to walk on heels and toes Pt demonstrates good posture sitting here in the clinic Goals Goal 1:: I HEP Goal Progress: Goal Met Goal 2:: Decrease LBP to 2/10 with ADL's Goal Progress: Progressing Goal 3:: Increase trunk AROM (at time of the eval: Trunk AROM: flex 75%, Ext 10%, SB B 75, Rot B 75%). Goal Progress: Goal Met Plan Plan: DC PT back to D/C Information Discharge Comments: DC PT d/c sentence: If there are questions or concerns regarding this patient's physical therapy, please feel free to call me at [phone]. Thank you for the referral of thispatient. Sincerely, GREG Hopkins Balance/Gait/Functional tests Balance/Special Test Scores Oswestry Low Back Score: 9 <Electronically signed by Mireya Macdonald MPT> 02/11/23 1255 CC: LAZARO Morales; Dr. Rani Greenberg MD ~ Signed [facility] Work Phone: [phone]) 614-780107-06-2023 History of Present illness Narrative* Garcia Willis APRN.TABULATING CLERK - 01/08/2023 3:40 PM EDT CC: Patient presents with: Sore Throat: Ear discomfort, swollen lymph nodes - started today HPI: Barbara Hull is a 37 year old female who presents to the office with complaint of sore throat since this morning. Symptoms are staying the same. Associated symptoms includes swollen glands and ear pain. Denies fever, nausea, vomiting , and diarrhea. Treatments tried include nothing so far. with no relief of symptoms. Sick contacts: unknown. History of asthma, frequent episodes of bronchitis, chronic bronchitis, bronchiectasis or COPD: No Smoker: No Seasonal/environmental allergies: No The ROS is otherwise negative. The patient's pmh, medications, allergies, and past visits are reviewed. PHYSICAL EXAM: BP 128/88 Pulse 73 Temp 36.2 C (97.2 F) (Temporal) Resp 14 Wt 106.1 kg (234 lb) LMP 07/05/2007 SpO2 97% BMI 38.64 kg/m General appearance: alert, cooperative, pleasant, in no acute distress Head: Normocephalic Eyes: EOM's intact, conjunctiva pink and moist, no icterus, sclera white, non-injected Ears: Right ear: External ear/canal- Normal, TM - clear with good landmarks. Left ear: External ear/canal- Normal, TM - clear with good landmarks Oropharynx:mild erythema, without exudates present Neck:positive findings: few small anterior cervical nodes Heart: Negative. RRR without obvious murmur, gallop, or rubs. No ectopy. Lungs: clear to auscultation, without rales or wheeze, good air exchange PAST MEDICAL HISTORY Diagnosis Date Anxiety Hypertension Obesity Pre-eclampsia PAST SURGICAL HISTORY Procedure Laterality Date HYSTERECTOMY HX ALLERGIES Amoxicillin MEDICATIONS buPROPion SR (WELLBUTRIN SR) 100 mg 12 hr tablet Take 100 mg by mouth daily at bedtime. (Patient not taking: Reported on 09/25/2022) fluticasone (FLONASE) 50 mcg/actuation nasal spray Use 2 Sprays in each nostril once daily. Rinse mouth after use. (Patient not taking: No sig reported) losartan (COZAAR) 50 mg tablet Take 50 mg by mouth once daily. FLUoxetine (PROZAC) 20 mg capsule Take 20 mg by mouth once daily. (Patient not taking: No sig reported) albuterol HFA (VENTOLIN HFA) 90 mcg/actuation inhaler Inhale 2 Puffs as instructed every 4 hours asneeded for Wheezing/Shortness of Breath. (Patient not taking: No sig reported) LORazepam (ATIVAN) 0.5 mg Take 0.5 mg by mouth three times daily as needed. hydroCHLOROthiazide (HYDRODIURIL, ESIDRIX) 25 mg tablet Take 1 tablet by mouth once daily. FAMILY HISTORY Problem Relation Age of Onset Hypertension Mother Headache Mother Cancer Maternal Grandfather pancreatic Coronary Artery Disease Maternal Grandmother Stroke Paternal Grandfather Social History Tobacco Use Smoking status: Never Smokeless tobacco: Never Substance Use Topics Alcohol use: Yes Comment: occaional Drug use: No ASSESSMENT/PLAN: 1. Sore throat - ICD9: 462, ICD10: J02.9 - STREP A MOLECULAR (POC) - neg Over the counter medications for symptom management. Potential red flag symptoms discussed with thepatient. Reviewed appropriate action plan to take if red flag symptoms occur. Patient agreeable to treatment plan. Garcia Willis APRN.TABULATING CLERK documented in this encounterSam[facility]03-23-2023 NoteHNO ID: [id number] Author: Silvina Cade MD Service: ? Author Type: Physician Type: Progress Notes Filed: 09/25/2022 11:00 AM Note Text: ESTABLISHED PATIENT OFFICE VISIT Follow-up kidney stones. She denies any colic since her last visit. She does say that she has some chronic musculoskeletal low back pain. I reviewed her KUB. There are some scattered calcifications over the kidneys. LAB RESULTS Creatinine Date Value Ref Range Status 11/17/2016 0.75 0.58 - 0.96 mg/dL Final GLUCOSE UA (POCT) (mg/dL) Date Value 09/25/2022 Negative BILIRUBIN UA (POCT) (no units) Date Value 09/25/2022 Negative KETONE UA (POCT) (mg/dL) Date Value 09/25/2022 Negative SPECIFIC GRAVITY UA (POCT) (no units) Date Value 09/25/2022 1.020 HEMOGLOBIN/BLOOD UA (POCT) (no units) Date Value 09/25/2022 Negative PH UA (POCT) (no units) Date Value 09/25/2022 6.5 PROTEIN UA (POCT) (mg/dL) Date Value 09/25/2022 Negative UROBILINOGEN UA (POCT) (E.U./dL) Date Value 09/25/2022 0.2 NITRITE UA (POCT) (no units) Date Value 09/25/2022 Negative LEUKOCYTES UA (POCT) (no units) Date Value 09/25/2022 Trace (A) COLOR UA (POCT) (no units) Date Value 09/25/2022 Yellow CLARITY UA (POCT) (no units) Date Value 09/25/2022 Clear ] ALLERGIES Allergen Reactions Amoxicillin Rash MEDICATIONS: losartan (COZAAR) 50 mg tablet Take 50 mg by mouth once daily. LORazepam (ATIVAN) 0.5 mg Take 0.5 mg by mouth three times daily as needed. hydroCHLOROthiazide (HYDRODIURIL, ESIDRIX) 25 mg tablet Take 1 tablet by mouth once daily. buPROPion SR (WELLBUTRIN SR) 100 mg 12 hr tablet Take 100 mg by mouth daily at bedtime. (Patient not taking: Reported on 09/25/2022) fluticasone (FLONASE) 50 mcg/actuation nasal spray Use 2 Sprays in each nostril once daily. Rinse mouth after use. (Patient not taking: No sig reported) FLUoxetine (PROZAC) 20 mg capsule Take 20 mg by mouth once daily. (Patient not taking: No sig reported) albuterol HFA (VENTOLIN HFA) 90 mcg/actuation inhaler Inhale 2 Puffs as instructed every 4 hours as needed for Wheezing/Shortness of Breath. (Patient not taking: No sig reported) REVIEW OF SYSTEMS GENERAL: No unintentional weight loss, malaise or fevers. NEUROLOGIC: pt is alert and oriented GASTROINTESTINAL: No nausea, vomiting, or diarrhea GENITOURINARY: No history of dysuria, frequency or incontinence MUSCULOSKELETAL: Negative for joint pain or swelling, back pain or muscle pain SKIN: Negative for lesions, rash, and itching. ACTIVE PROBLEM LIST Hypertension Kidney Stone HISTORIES PAST MEDICAL HISTORY Diagnosis Date Anxiety Hypertension Obesity Pre-eclampsia FAMILY HISTORY Problem Relation Age of Onset Hypertension Mother Headache Mother Cancer Maternal Grandfather pancreatic Coronary Artery Disease Maternal Grandmother Stroke Paternal Grandfather PAST SURGICAL HISTORY Procedure Laterality Date HYSTERECTOMY HX SOCIAL HISTORY Social History Tobacco Use Smoking status: Never Smokeless tobacco: Never Substance Use Topics Alcohol use: Yes Comment: occaional Drug use: No PHYSICAL EXAMINATION General appearance: Well appearing, alert, in no acute distress, well-hydrated, well nourished Psych Alert and oriented to person, place and time Genitourinary: FEMALE EXAM: Exam NOT Indicated ASSESSMENT/PLAN: 1. Kidney stone - ICD9: 592.0, ICD10: N20.0 I discussed prevention. I told her that I would not need to see her back unless she had a problem. Silvina Cade [facility]03-23-2023 History of Present illness Narrative* Silvina Cade MD - 09/25/2022 10:59 AM EDT ESTABLISHED PATIENT OFFICE VISIT Follow-up kidney stones. She denies any colic since her last visit. She does say that she has some chronic musculoskeletal low back pain. I reviewed her KUB. There are some scattered calcifications over the kidneys. LAB RESULTS Creatinine Date Value Ref Range Status 11/17/2016 0.75 0.58 - 0.96 mg/dL Final GLUCOSE UA (POCT) (mg/dL) Date Value 09/25/2022 Negative BILIRUBIN UA (POCT) (no units) Date Value 09/25/2022 Negative KETONE UA (POCT) (mg/dL) Date Value 09/25/2022 Negative SPECIFIC GRAVITY UA (POCT) (no units) Date Value 09/25/2022 1.020 HEMOGLOBIN/BLOOD UA (POCT) (no units) Date Value 09/25/2022 Negative PH UA (POCT) (no units) Date Value 09/25/2022 6.5 PROTEIN UA (POCT) (mg/dL) Date Value 09/25/2022 Negative UROBILINOGEN UA (POCT) (E.U./dL) Date Value 09/25/2022 0.2 NITRITE UA (POCT) (no units) Date Value 09/25/2022 Negative LEUKOCYTES UA (POCT) (no units) Date Value 09/25/2022 Trace (A) COLOR UA (POCT) (no units) Date Value 09/25/2022 Yellow CLARITY UA (POCT) (no units) Date Value 09/25/2022 Clear ] ALLERGIES Allergen Reactions Amoxicillin Rash MEDICATIONS: losartan (COZAAR) 50 mg tablet Take 50 mg by mouth once daily. LORazepam (ATIVAN) 0.5 mg Take 0.5 mg by mouth three times daily as needed. hydroCHLOROthiazide (HYDRODIURIL, ESIDRIX) 25 mg tablet Take 1 tablet by mouth once daily. buPROPion SR (WELLBUTRIN SR) 100 mg 12 hr tablet Take 100 mg by mouth daily at bedtime. (Patient not taking: Reported on 09/25/2022) fluticasone (FLONASE) 50 mcg/actuation nasal spray Use 2 Sprays in each nostril once daily. Rinse mouth after use. (Patient not taking: No sig reported) FLUoxetine (PROZAC) 20 mg capsule Take 20 mg by mouth once daily. (Patient not taking: No sig reported) albuterol HFA (VENTOLIN HFA) 90 mcg/actuation inhaler Inhale 2 Puffs as instructed every 4 hours asneeded for Wheezing/Shortness of Breath. (Patient not taking: No sig reported) REVIEW OF SYSTEMS GENERAL: No unintentional weight loss, malaise or fevers. NEUROLOGIC: pt is alert and oriented GASTROINTESTINAL: No nausea, vomiting, or diarrhea GENITOURINARY: No history of dysuria, frequency or incontinence MUSCULOSKELETAL: Negative for joint pain or swelling, back pain or muscle pain SKIN: Negative for lesions, rash, and itching. ACTIVE PROBLEM LIST Hypertension Kidney Stone HISTORIES PAST MEDICAL HISTORY Diagnosis Date Anxiety Hypertension Obesity Pre-eclampsia FAMILY HISTORY Problem Relation Age of Onset Hypertension Mother Headache Mother Cancer Maternal Grandfather pancreatic Coronary Artery Disease Maternal Grandmother Stroke Paternal Grandfather PAST SURGICAL HISTORY Procedure Laterality Date HYSTERECTOMY HX SOCIAL HISTORY Social History Tobacco Use Smoking status: Never Smokeless tobacco: Never Substance Use Topics Alcohol use: Yes Comment: occaional Drug use: No PHYSICAL EXAMINATION General appearance: Well appearing, alert, in no acute distress, well-hydrated, well nourished Psych Alert and oriented to person, place and time Genitourinary: FEMALE EXAM: Exam NOT Indicated ASSESSMENT/PLAN: 1. Kidney stone - ICD9: 592.0, ICD10: N20.0 I discussed prevention. I told her that I would not need to see her back unless she had a problem. Silvina Cade MD documented in this encounterSam[facility]03-22-2023 History of Present illness Narrative* Nathaly Salas RT(R) - 09/24/2022 9:10 AM EDT Radiology Service Progress Note PATIENT NAME: Barbara Hull DATE OF SERVICE: September 24, 2022 TIME: 9:38 AM PATIENT IDENTITY VERIFICATION COMPLETED USING TWO (2) IDENTIFIERS: Name and Date of confirmedby patient verbally. FALL SCREENING: Has the patient had 2 falls in the last year or 1 fall with injury or currently using an Ambulatory Assistive Device (Walker, Cane, Wheelchair, Crutches, etc.)? No PATIENT GENDER DATA: Female. status: : No status: NO. PATIENT RELEVANT IMPLANT DATA REVIEWED: Not Applicable RADIOLOGY DEPARTMENT: General X-ray: Exam(s) Completed: Abdomen X-Ray: Abdomen, KUB PERIPHERAL IV DATA: Not applicable SIGNED BY: RT Dat(R) September 24, 2022 9:38 AM documented in this encounterSamaritan [facility] Center02-14-2023 Miscellaneous Notes* Telephone Encounter - Mesha Herrera - 08/19/2022 9:01 AM EST Patient is aware that order is in * Telephone Encounter - Silvina Cade MD - 08/18/2022 5:47 PM EST done * Telephone Encounter - Mesha Herrera - 08/18/2022 4:17 PM EST Patient requests order for xray prior to her [facility]. documented in this encounterSamaritan [facility] Health CenterEvaluation note* Diagnosis Onset Date Resolution Status Anxiety chronic Depression chronic Hypertension chronic Irritable bowel syndrome with diarrhea [facility] Work Phone: Evaluation note* Diagnosis Kidney stone- Primary Calculus of kidney documented in this encounter [facility] note* Diagnosis Kidney stone Calculus of kidney documented in this encounter [facility] note* Diagnosis Onset Date Resolution Status Hypersomnia acute Anxiety chronic Chronic back pain chronic Depression chronic Hypertension chronic [facility] Work Phone: evaluation note* Diagnosis Sore throat- Primary Acute pharyngitis documented in this encounter [facility] note* Diagnosis Onset Date Resolution Status Hypersomnia acute Anxiety chronic Chronic back pain chronic Depression chronic Hypertension chronic Depression 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 Hyperlipidemia chronic Hypertension chronic Obstructive sleep apnea 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 [facility] Work Phone: Evaluation note* Diagnosis Injury of right foot, initial encounter- Primary documented in this encounter [facility] note* Diagnosis Kidney stone Calculus of kidney documented in this encounter [facility] note* Diagnosis Sore throat- Primary Acute pharyngitis Acute otitis media, unspecified otitis media type documented in this encounter [facility] note* Diagnosis Injury of right foot, initial encounter documented in this encounter [facility] note* Diagnosis Pneumonia of right upper lobe due to infectious organism- Primary Acute cough Acute cough documented in this encounter [facility] note* Diagnosis Acute cough documented in this encounter [facility] note* Diagnosis Subacute cough- Primary Cough History of pneumonia Personal history of pneumonia (recurrent) Subacute cough Cough documented in this encounter [facility] note* Diagnosis Subacute cough Cough documented in this encounter [facility] note* Diagnosis Rash- Primary Rash and other nonspecific skin eruption documented in this encounter [facility] noteNo assessment information availableWSheltering [facility] Work Phone: Evaluation note* Diagnosis Onset Date Resolution Status Admit Date Hypertension chronic March 312024 1:05pm [facility] Work Phone: Progress note Author Alvino Greenwood [facility] Services Note Date/Time March 31, 2025 1:47pm [facility] [address] [place] [address] OFFICE VISIT Date of Service: 03/31/25 MR#: [id number] Acct: [id number] Name: BARBARA HULL Rep #: [id number] : 1985 Provider: GHULAM Alva Age/Sex: 39/F Location: [facility] [place] Status: Signed HPI HPI History of Present Illness Details: Barbara Hull is a 39-year-old female who presents to office today for follow-up for monitoring her cardiovascular health. She established with our office in September 2024. She has a history of anxiety disorder and significant family history of coronary artery disease. Echocardiogram 10/28/24 demonstrates a preserved ejection fraction at 65%, no regional wall motion abnormalities, no significant valve disease. Upon presentation today, patient reports fatigue described as feeling tired after waking up and sleeping 8 hours. She does have sleep apnea and reports she should probably be wearing her PAP mask at home more. She reports bilateral LE edema that started after taking amlodipine. She notices her edema mid-day and worsens in to the evening. She reports heartburn that is chronic and is directlyassociated with certain foods. Further ROS below. Intake Vital Signs 09/28/24 15:15 03/31/25 08:42 Height 5 ft 5 in 5 ft 5 in Weight: 223 lb BMI 37.0 BP 128/86 H Blood Pressure Location Lt brachial Position Sitting Respiration 18 Pulse 62 Pulse Source Monitor Pulse Oximetry (%) 97 Intake Visit Reasons: 6 M FU B2B Account Executive Required: No Is patient in pain?: No Allergies metronidazole Allergy (Intermediate, Verified 09/28/24 15:20) Hives amoxicillin Allergy (Verified 03/21/23 15:23) palms itchy Medications ?Medication ?Instructions ?Recorded ?Confirmed ?Type hydrochlorothiazide 25 mg tablet 25 mg PO DAILY #90 ta bs 11/13/22 03/31/25 Rx lidocaine 5 % topical patch 2 patch topical DAILY PRN back 11/13/22 03/31/25 Rx pain #30 ea losartan 100 mg tablet 100 mg PO DAILY #90 tabs 05/2803/31/25 Rx ergocalciferol (vitamin D2) 1,250 See Rx Instructions .Route 03/04/23 03/31/25 Rx mcg (50,000 unit) capsule .COMPLEX #8 caps desvenlafaxine succinate 25 mg 25 mg PO QDAY 08/24/24 03/31/25 History tablet,extended release 24 hr lorazepam 0.5 mg tablet 0.5 mg PO QDAY PRN 08/24/24 03/31/25 History amlodipine 10 mg tablet 10 mg PO QDAY #90 tabs 09/2803/31/25 Rx hydroxyzine HCl 25 mg tablet 25 mg PO QHS PRN 03/31/25 03/31/25 History Ejection fraction %: 65 Have you fallen in the past year?: No PFSH Medical History Panic disorder Abnormal EKG Obstructive sleep apnea Chronic back pain Fatigue Hypersomnia Irritable bowel syndrome with diarrhea Low back pain Chest pain Obesity (BMI 30-39.9) Hyperlipidemia Kidney stones Depression Anxiety Hypertension Surgical History history of leep proceure with D&C History of 2 sections History of partial hysterectomy Family History Mother Hypertension Arthritis Heart disease Depression Father Diabetes Hypertension Hyperlipemia Myocardial infarction, Onset Age: 49 Grandmother Heart disease Hypertension Osteoporosis CVA (cerebral vascular accident) Grandfather Cancer Brother Hypertension Grandmother Myocardial infarction, Onset Age: 60 Social History Smoking Status: Never smoker alcohol intake: current alcohol intake frequency: holidays/special occasions only substance use type: does not use what type of physical activity do you participate in: none ROS Const Const: Positive for fatigue; Negative for weakness, headache(s) or frequent falls Eyes Eyes: Negative for blurry vision ENT ENT: Negative for headache(s), dizziness or Nosebleed/epistaxis Cardio Chest Pain: No Palpitations: No Edema: Bilateral Muscle aches with walking: None Resp Respiratory: Negative for SOB with activity, SOB at rest or SOB orthopnea\SOB lying down GI GI: Positive for heartburn; Negative nausea, vomiting, bright, red blood in stools or black,tarry stools : Negative for hematuria Neuro Neuro: Negative for dizziness, lightheadedness, near syncope, syncope, frequent falls, headache(s), weakness or blurry vision Endo Endo: Positive for fatigue Cardiology Exam Const Appearance: cooperative, comfortable, no acute distress and well developed; Negative diaphoretic or ill appearing Nutritional Appearance: obese Orientation: alert and oriented x3 Ambulating without assistive device Head Head: normal to inspection, normocephalic and atraumatic Ears: hearing grossly normal bilaterally Nose: external nose normal and Negative epistaxis Face and Sinus: face symmetric Eyes General: appearance normal, both eyes and all related structures Eyelids: eyelids normal Conjunctivae: conjunctivae normal; Negative scleral icterus EOM: EOM intact bilaterally Neck Neck: no JVD Carotids: normal carotid upstroke; Negative bruit Neck Mass: Negative Neck mass Chest Chest inspection: normal respiratory effort; Negative respiratory distress, audible wheezes or tachypneic Auscultation: Bilateral: Clear to Auscultation Cardio Rate: regular rate Rhythm: regular rhythm Heart sounds: S1 normal and S2 normal; Negative rub, gallop or murmur GI GI: obese Neuro General: patient alert, patient awake, patient oriented x3 and moves all extremities Skin Skin: no rashes or lesions noted Extremities Pulses: Normal: Right Posterior Tibial Pulse, Left Posterior Tibial Pulse, RightRadial Pulse and Left Radial Pulse Lower Extremity Edema: None: Bilateral Psych Psychological: normal affect Supplemental Info Supplemental Information CTA Chest 04/17/22 FINDINGS: Normal enhancement of the main pulmonary artery and right and left pulmonary arteries. Normal enhancement of the bilateral peripheral pulmonary arteries. There is no demonstrated pulmonary embolism. Normal thoracic aorta and visualized great vessels. There is no demonstrated aortic dissection. Normal heart and pericardium. Echo Complete 10/2024 Interpretation Summary Normal LV size. Left ventricular systolic function is normal. The left ventricular ejection fraction is 65 %. Pulmonary artery systolic pressure is 24 mmHg. Labs: HDL Cholesterol, (40-) 34 mg/dL L Cholesterol, (<=200) 212 mg/dL H Triglycerides, (-199) 276 mg/dL H Diagnostics: Electrocardiogram Echocardiogram Chest X-Ray Chest CTA Abdomen Ultrasound Abdomen/Pelvis CT Renal Artery Duplex Past Visits: Cardiology Visit 03/31/25 Assessment and Plan Assessment and Plan (1) Hypertension: Status: Chronic Qualifiers: Hypertension type: essential hypertension Qualified Code(s): I10 - Essential (primary) hypertension Plan: BP 128/86 in office today. She reports noticing lower extremity edema with initiation of amlodipine. We discussed options of adjusting medications secondary to the side effect and at this time, patient reports she wishes to continue to monitor and will notify our office if wishing to further adjust. Plan: Recommend patient continue antihypertensive agents, amlodipine, losartan and hydrochlorothiazide. Encourage lifestyle risk factor modification. Recommend patient monitor BP at home environment and notify our office with anypersistently elevated or low findings. Plan Patient will follow-up in 1 year or sooner, if needed. Thank you for allowing me to participate in the care of your patient. Please don't hesitate to call if any issues arise. This note was generated using a voice recognition system and there may be incorrect words, spelling, or punctuation that were not noted when reviewing theoffice note prior to saving. Portions of this documentation were copied and pasted from previous office visitnotes to provide a cohesive continuity of the history. The note has been reviewed, edited, and updated, as necessary. Plan Details Follow Up: 1 Year (WOUND SPECIALIST) Coding Level of Care Code Off vis,est,level 3 Diagnoses Essential hypertension I10 Hypertension type: essential hypertension Coding Level of Care Code Off vis,est,level 3 Diagnoses Essential hypertension I10 Hypertension type: essential hypertension Clinical Quality Measures Falls Risk Screening/Assistive Devices Have you fallen in the past year?: No Cardiac Ejection fraction %: 65 04/05/25 0738 <Electronically signed by Alvino PARMAR> Date _ Alvino PARMAR 04/05/25 1037<Electronically signed by Kyree Iglesias MD> Cosigner Signature: Date (if applicable) Kyree Iglesias MD CC: LAZARO Morales ~ [employer] Work Phone: reason for referral (narrative)* Diagnostic Procedure Only (Routine) - Pending Review Specialty Diagnoses / Procedures Referred By Contac t Referred To Contact XR IMAGING Diagnoses Kidney stone Procedures XR ABDOMEN 1V SUPINE RADIOLOGIC EXAM ABDOMEN 1 VIEW Silvina Cade MD [address] [place] [id number] Xr Imaging Referral ID Status Reason Start Date Expiration Date Visits Requested Visits Authorized [id number] Pending Review Auto-Generat ed Referral 08/18/2022 09/17/2023 1 1 [facility] for referral (narrative)* Diagnostic Procedure Only (Urgent) - Closed Specialty Diagnoses / Procedures Referred By Contac t Referred To Contact XR IMAGING Diagnoses Injury of right foot, initial encounter Procedures XR FOOT GENERAL 3V AP/LAT/OBL RIGHT RADEX FOOT COMPLETE MINIMUM 3 VIEWS Riley Geurra APRN.TABULATING CLERK [address] [place] [address] [place] [address] Referral ID Status Reason Start Date Expiration Date V isits Requested Visits Authorized [id number] Closed Auto-Generate d Referral 03/30/2023 04/28/2024 1 1 [facility] for referral (narrative)* Diagnostic Procedure Only (Routine) - Closed Specialty Diagnoses / Procedures Referred By Contac t Referred To Contact XR IMAGING Diagnoses Kidney stone Procedures XR ABDOMEN 1V SUPINE RADIOLOGIC EXAM ABDOMEN 1 VIEW Silvina Cade MD [address] [place] [id number] [place] [address] Referral ID Status Reason Start Date Expiration Date V isits Requested Visits Authorized [id number] Closed Auto-Generate d Referral 08/18/2022 09/17/2023 1 1 T [facility] for referral (narrative)* Diagnostic Procedure Only (Urgent) - Closed Specialty Diagnoses / Procedures Referred By Contac t Referred To Contact XR IMAGING Diagnoses Injury of right foot, initial encounter Procedures XR FOOT GENERAL 3V AP/LAT/OBL RIGHT RADEX FOOT COMPLETE MINIMUM 3 VIEWS Riley Guerra APRN.TABULATING CLERK [address] [place] [address] [place] [address] Referral ID Status Reason Start Date Expiration Date V isits Requested Visits Authorized [id number] Closed Auto-Generate d Referral 03/30/2023 04/28/2024 1 1 [facility] ([facility]ative)No reason for referral information availableWSheltering Arms Hospital Work Phone: Reason for visit Narrative* Diagnostic Procedure Only (Routine) - Closed Specialty Diagnoses / Procedures Referred By Contac t Referred To Contact XR IMAGING Diagnoses Kidney stone Procedures XR ABDOMEN 1V SUPINE RADIOLOGIC EXAM ABDOMEN 1 VIEW Silvina Cade MD [address] [place] [address] [place] [address] Referral ID Status Reason Start Date Expiration Date V isits Requested Visits Authorized [id number] Closed Auto-Generate d Referral 08/18/2022 09/17/2023 1 1 [facility] for visit Narrative* Diagnostic Procedure Only (Urgent) - Closed Specialty Diagnoses / Procedures Referred By Contac t Referred To Contact XR IMAGING Diagnoses Injury of right foot, initial encounter Procedures XR FOOT GENERAL 3V AP/LAT/OBL RIGHT RADEX FOOT COMPLETE MINIMUM 3 VIEWS Riley Guerra APRN.TABULATING CLERK [address] [facility] [address] [place] [address] Referral ID Status Reason Start Date Expiration Date V isits Requested Visits Authorized [id number] Closed Auto-Generate d Referral 03/30/2023 04/28/2024 1 1 [facility] Discharge Instructions * Attachments The following attachments cannot be sent through Care Everywhere. * Strep Throat (Tajik) documented in this encounter Assessments Diagnosis Streptococcal sore throat Summary Purpose Family History No Family History Records Found Relationship Condition Age at Onset Recorded Date/T russel mother Hypertension Unknown Arthritis Unknown Cardiac disease Unknown Depression Unknown father Diabetes mellitus Unknown Hypertension Unknown Hyperlipidemia Unknown Myocardial infarction 49 grandmother Cardiac disease Unknown Osteoporosis Unknown Cerebrovascular accident (CVA) Unknown grandfather Malignant neoplasm Unknown brother Hypertension Unknown grandmother Myocardial infarction 60 Advance Directives No Advanced Directives Records Found Advance Directive Response Recorded Date/ Time Advance Directives No October 27, 2 014 1:52pm Living Will No April 16 11:17pm Power of Storage Wharfage Clerk No April 16, 2022 11:17pm Advance Directive Response Recorded Date/ Time Advance Directives No October 27, 2 014 1:52pm Chief Complaint and Reason for Visit Chief Complaint 3 M FU GENERAL ILLNESS Reason for Visit Anxiety Depression Hypertension Irritable bowel syndrome with diarrhea Chief Complaint 6 M FU HYPERSOMNIA Reason for Visit Hypersomnia Anxiety Chronic back pain Depression Hypertension Chief Complaint 6 M FU HYPERSOMNIA ALEX,AUTOPAP SETUP *DEVICE TAGGED BACK PN/RX HERE ALEX Reason for Visit Hypersomnia Anxiety Chronic back pain Depression Hypertension Chief Complaint 6 M FU HYPERSOMNIA ALEX,AUTOPAP SETUP *DEVICE TAGGED ALEX BACK PN/RX HERE Reason for Visit Hypersomnia Anxiety Chronic back pain Depression Hypertension Chief Complaint 6 M FU HYPERSOMNIA ALEX,AUTOPAP SETUP *DEVICE TAGGED ALEX INS COMPLIANCE FOR CPAP BACK PN/RX HERE Reason for Visit Hypersomnia Anxiety Chronic back pain Depression Hypertension Depression with anxiety Hyperlipidemia Hypertension Obstructive sleep apnea Chief Complaint Admit Date HYPERTENSION July 26, 2024 1 0:46am HYPERTENSION July 26, 2024 1 0:56am SCREENING September 08, 2024 12:5 9pm Chief Complaint Admit Date HYPERTENSION July 26, 2024 1 0:46am HYPERTENSION July 26, 2024 1 0:56am SCREENING September 08, 2024 12:5 9pm ABN EKG (MORALES) September 28, 2024 3:1 3pm Reason for Visit Admit Date Hypertension September 28, 2024 3:1 3pm Chief Complaint Admit Date HYPERTENSION July 26, 2024 1 0:46am HYPERTENSION July 26, 2024 1 0:56am SCREENING September 08, 2024 12:5 9pm ABN EKG (MORALES) September 28, 2024 3:1 3pm ESSENTIAL PRIMARY HYPERTENTION October 6:42am ESSENTIAL PRIMARY HYPERTENTSION November 04, 2024 8:50am Chief Complaint Admit Date ESSENTIAL PRIMARY HYPERTENTION October 6:42am ESSENTIAL PRIMARY HYPERTENTSION November 04, 2024 8:50am Chief Complaint Admit Date ESSENTIAL PRIMARY HYPERTENTION October 6:42am ESSENTIAL PRIMARY HYPERTENTSION November 04, 2024 8:50am RUQP February 07, 2025 9:2 6am Chief Complaint Admit Date RUQP February 07, 2025 9:2 6am 6 M FU March 31, 2025 1:05pm Reason for Visit Admit Date Hypertension March 31, 2025 1:05pm Additional Source Comments Reason for Visit (unrecogniz ed section and content) Reason Comments Pharyngitis Generalized Body Aches Reason Comments Orders Reason Comments Follow Up 1 year Reason Comments Sore Throat Ear discomfort, swol pipo lymph nodes - started today Reason Comments Pain (foot) right foot pain and swelling x 1pm today, landed on foot going down steps Reason Comments Results Reason Comments Sore Throat Bilateral ear pain x 1 week Reason Comments Cough Chest congestion x 4 days Reason Comments Cough productive and mid b ack pain dx with pneumonia given doxy 2 weeks ago Reason Comments Rash Chills x last night INFORMATION SOURCE (unrecogn ized section and content) DATE CREATED AUTHOR 04/13/2020 [employer] [facility] [place] DATE CREATED AUTHOR AUTHOR'S ORGANIZ ATION 05/30/2020 [facility] DATE CREATED AUTHOR AUTHOR'S ORGANIZ ATION 09/26/2022 [employer] [facility] DATE CREATED AUTHOR AUTHOR'S ORGANIZ ATION 08/06/2024 [facility] DATE CREATED AUTHOR AUTHOR'S ORGANIZ ATION 04/24/2025 [facility] Goals (unrecognized section and content) Goals may be documented in a n alternate sectionGoals may be documented in an alternate sectionGoals may be documented in an alternate sectionGoals may be documented in an alternate sectionGoals may be documented in an alternate sectionGoals may be documented in an alternate sectionGoals may be documented in an alternate sectionGoals may be documented in an alternate sectionGoals may be documented in an alternate sectionGoals may be documented in an alternate sectionGoals may be documented in an alternate sectionGoals may be documented in an alternate sectionGoals may be documented in an alternate section Source Comments (unrecognize d section and content) In the event this informatio n is protected by the Federal Confidentiality of Alcohol and Drug Abuse Patient Records regulations: The Federal rules restrict any use of the information to criminally investigate or prosecute any alcohol or drug abuse patient.[facility] Center[facility] the event this information is protected by the Federal Confidentiality of Alcohol and Drug Abuse Patient Records regulations: The Federal rules restrict any use of the information to criminally investigate or prosecute any alcohol or drug abuse patient.[facility] CenterIn the event this information is protected by the Federal Confidentiality of Alcohol and Drug Abuse Patient Records regulations: The Federal rules restrict any use of the information to criminally investigate or prosecute any alcohol or drug abuse patient.[facility] Center[facility] the event this information is protected by the Federal Confidentiality of Alcohol and Drug Abuse Patient Records regulations: The Federal rules restrict any use of the information to criminally investigate or prosecute any alcohol or drug abuse patient.[facility] Center[facility] the event this information is protected by the Federal Confidentiality of Alcohol and Drug Abuse Patient Records regulations: The Federal rules restrict any use of the information to criminally investigate or prosecute any alcohol or drug abuse patient.[facility] CenterIn the event this information is protected by the Federal Confidentiality of Alcohol and Drug Abuse Patient Records regulations: The Federal rules restrict any use of the information to criminally investigate or prosecute any alcohol or drug abuse patient.[facility] CenterIn the event this information is protected by the Federal Confidentiality of Alcohol and Drug Abuse Patient Records regulations: The Federal rules restrict any use of the information to criminally investigate or prosecute any alcohol or drug abuse patient.[facility] CenterIn the event this information is protected by the Federal Confidentiality of Alcohol and Drug Abuse Patient Records regulations: The Federal rules restrict any use of the information to criminally investigate or prosecute any alcohol or drug abuse patient.[facility] CenterIn the event this information is protected by the Federal Confidentiality of Alcohol and Drug Abuse Patient Records regulations: The Federal rules restrict any use of the information to criminally investigate or prosecute any alcohol or drug abuse patient.[facility] CenterIn the event this information is protected by the Federal Confidentiality of Alcohol and Drug Abuse Patient Records regulations: The Federal rules restrict any use of the information to criminally investigate or prosecute any alcohol or drug abuse patient.[facility] CenterIn the event this information is protected by the Federal Confidentiality of Alcohol and Drug Abuse Patient Records regulations: The Federal rules restrict any use of the information to criminally investigate or prosecute any alcohol or drug abuse patient.[facility] CenterIn the event this information is protected by the Federal Confidentiality of Alcohol and Drug Abuse Patient Records regulations: The Federal rules restrict any use of the information to criminally investigate or prosecute any alcohol or drug abuse patient.[facility] CenterIn the event this information is protected by the Federal Confidentiality of Alcohol and Drug Abuse Patient Records regulations: The Federal rules restrict any use of the information to criminally investigate or prosecute any alcohol or drug abuse patient.[facility] Care Teams (unrecognized sec tion and content) Specialist Managers Relationship Specialty Start Date End Date Rani Greenberg MD PCP - General Internal Medicine 08/18/17 Specialist Managers Relationship Specialty Start Date End Date Rani Greenberg MD PCP - General Internal Medicine 08/18/17 Team Status: Active Member Role Status Dates Dr. Rani Greenberg MD Family Provider Active Dr. Rani Greenberg MD Primary Care Provider Active Team Status: Inactive Member Role Status Dates Dr. Rani Greenberg MD Primary Care Provider, Refer ring Provider Active Vinnie Morales NP, COMPLIANCE REVIEW SPECIALIST-C Attending Provider Active Team Status: Inactive Member Role Status Dates Dr. Rani Greenberg MD Primary Care Provider Active Vinnie Morales NP, COMPLIANCE REVIEW SPECIALIST-C Attending Provider, Referring Prov ider Active Team Status: Active Member Role Status Dates Dr. Rani Greenberg MD Primary Care Provider Active Vinnie Morales COMPLIANCE REVIEW SPECIALIST, COMPLIANCE REVIEW SPECIALIST-C Attending Provider Active Team Status: Inactive Member Role Status Dates Dr. Rani Greenberg MD Primary Care Provider Active Vinnie Morales COMPLIANCE REVIEW SPECIALIST, COMPLIANCE REVIEW SPECIALIST-C Attending Provider Active Team Status: Active Member Role Status Dates Dr. Rani Greenberg MD Primary Care Provider Active Vinnie Morales NP, COMPLIANCE REVIEW SPECIALIST-C Attending Provider, Referring Prov ider Active Team Status: Inactive Member Role Status Dates Dr. Rani Greenberg MD Primary Care P rovider, Attending Provider, Referring Provider Active Specialist Managers Relationship Specialty Start Date End Date Rani Greenberg MD PCP - General Internal Medicine 08/18/17 Specialist Managers Relationship Specialty Start Date End Date Rani Greenberg MD PCP - General Internal Medicine 08/18/17 Specialist Managers Relationship Specialty Start Date End Date Rani Greenberg MD PCP - General Internal Medicine 08/18/17 Specialist Managers Relationship Specialty Start Date End Date Tamika Vinnie [address] [place] [address] PCP - General 11/19/23 Specialist Managers Relationship Specialty Start Date End Date Rani Greenberg MD PCP - General Internal Medicine 08/18/17 11/18/23 Specialist Managers Relationship Specialty Start Date End Date MoralesVinnie blank PCP - General 11/19/23 Specialist Managers Relationship Specialty Start Date End Date MoralesVinnie blank PCP - General 11/19/23 Specialist Managers Relationship Specialty Start Date End Date MoralesVinnie blank PCP - General 11/19/23 Specialist Managers Relationship Specialty Start Date End Date MoralesVinnie PCP - General 11/19/23 Specialist Managers Relationship Specialty Start Date End Date MoralesVinnie blank PCP - General 11/19/23 Team Status: Active Member Role Status Dates Vinnie Morales VSC, COMPLIANCE REVIEW SPECIALIST-C Primary Care Provider Active Team Status: Inactive Member Role Status Dates Vinnie Morales VSC, COMPLIANCE REVIEW SPECIALIST-C Primary Care Provider Active Start: July 26, 2024 End: July 26, 2024 Vinnie GALICIA, COMPLIANCE REVIEW SPECIALIST-C Attending Provider Active S tart: July 26, 2024 End: July 26, 2024 Vinnie GALICIA, COMPLIANCE REVIEW SPECIALIST-C Referring Provider Active S tart: July 26, 2024 End: July 26, 2024 Sailaja Tenorio VSYomi, COMPLIANCE REVIEW SPECIALIST-C Other Provider Active Start: July 26, 2024 End: July 26, 2024 Team Status: Active Member Role Status Dates Vinnie Morales VSC, COMPLIANCE REVIEW SPECIALIST-C Primary Care Provider Active Start: July 26, 2024 End: July 26, 2024 Vinnie Killiander OSCARC, COMPLIANCE REVIEW SPECIALIST-C Referring Provider Active S tart: July 26, 2024 End: July 26, 2024 Dr. Jose Maria Cid MD Attending Provider Activ e Start: July 26, 2024 End: July 26, 2024 Team Status: Inactive Member Role Status Dates Vinnie Morales VSC, COMPLIANCE REVIEW SPECIALIST-C Primary Care Provider Active Start: September 08, 2024 End: September 08, 2024 Sailaja MOOREC, COMPLIANCE REVIEW SPECIALIST-C Attending Provider Active Start: September 08, 2024 End: September 08, 2024 Sailaja Tenorio VSC, COMPLIANCE REVIEW SPECIALIST-C Referring Provider Active Start: September 08, 2024 End: September 08, 2024 Team Status: Inactive Member Role Status Dates Vinnie MOOREC, COMPLIANCE REVIEW SPECIALIST-C Primary Care Provider Active Start: July 26, 2024 End: July 26, 2024 Sailaja Tenorio VSC, COMPLIANCE REVIEW SPECIALIST-C Attending Provider Active Start: July 26, 2024 End: July 26, 2024 Sailaja Tenorio VSC, COMPLIANCE REVIEW SPECIALIST-C Referring Provider Active Start: July 26, 2024 End: July 26, 2024 Team Status: Inactive Member Role Status Dates Vinnie MOOREC, COMPLIANCE REVIEW SPECIALIST-C Primary Care Provider Active Start: September 28, 2024 End: September 28, 2024 Vinnie MOOREYomi, COMPLIANCE REVIEW SPECIALIST-C Referring Provider Active S tart: September 28, 2024 End: September 28, 2024 Dr. Kyree Iglesias MD Attending Provider Active S tart: September 28, 2024 End: September 28, 2024 Team Status: Inactive Member Role Status Dates Vinnie Morales VSC, COMPLIANCE REVIEW SPECIALIST-C Primary Care Provider Active Start: September 28, 2024 End: September 28, 2024 Dr. Kyree Iglesias MD Attending Provider Active S tart: September 28, 2024 End: September 28, 2024 Dr. Kyree Iglesias MD Referring Provider Active S tart: September 28, 2024 End: September 28, 2024 Team Status: Inactive Member Role Status Dates Vinnie Tamika MOOREC, COMPLIANCE REVIEW SPECIALIST-C Primary Care Provider Active Start: October 28, 2024 End: October 28, 2024 Dr. Kyree Iglesias MD Attending Provider Active S tart: October 28, 2024 End: October 28, 2024 Dr. Kyree Iglesias MD Referring Provider Active S tart: October 28, 2024 End: October 28, 2024 Team Status: Active Member Role Status Dates Vinnie Killiander VSC, COMPLIANCE REVIEW SPECIALIST-C Primary Care Provider Active Start: October 28, 2024 Dr. Kyree Iglesias MD Attending Provider Active S tart: October 28, 2024 Team Status: Inactive Member Role Status Dates Vinnie Killiander VSC, COMPLIANCE REVIEW SPECIALIST-C Primary Care Provider Active Start: November 04, 2024 End: November 04, 2024 Dr. Kyree Iglesias MD Attending Provider Active S tart: November 04, 2024 End: November 04, 2024 Dr. Kyree Iglesias MD Referring Provider Active S tart: November 04, 2024 End: November 04, 2024 Team Status: Active Member Role Status Dates Vinnie Morales VSC, COMPLIANCE REVIEW SPECIALIST-C Primary Care Provider Active Start: November 04, 2024 Dr. Koko Carnes MD Attending Provider Active S tart: November 04, 2024 Team Status: Active Member Role/Relationship Status Dates Vinnie Morales VSC, COMPLIANCE REVIEW SPECIALIST-C Primary Care Provider Active Team Status: Inactive Member Role/Relationship Status Dates Vinnie Morales VSC, COMPLIANCE REVIEW SPECIALIST-C Primary Care Provider Active Start: October 28, 2024 End: October 28, 2024 Dr. Kyree Iglesias MD Attending Provider Active S tart: October 28, 2024 End: October 28, 2024 Dr. Kyree Iglesias MD Referring Provider Active S tart: October 28, 2024 End: October 28, 2024 Team Status: Active Member Role/Relationship Status Dates Vinnie Killiander VSC, COMPLIANCE REVIEW SPECIALIST-C Primary Care Provider Active Start: October 28, 2024 Dr. Kyree Iglesias MD Attending Provider Active S tart: October 28, 2024 Team Status: Inactive Member Role/Relationship Status Dates Vinnie Morales VSC, COMPLIANCE REVIEW SPECIALIST-C Primary Care Provider Active Start: November 04, 2024 End: November 04, 2024 Dr. Kyree Iglesias MD Attending Provider Active S tart: November 04, 2024 End: November 04, 2024 Dr. Kyree Iglesias MD Referring Provider Active S tart: November 04, 2024 End: November 04, 2024 Team Status: Active Member Role/Relationship Status Dates Vinnie Morales VSC, COMPLIANCE REVIEW SPECIALIST-C Primary Care Provider Active Start: November 04, 2024 Dr. Koko Carnes MD Attending Provider Active S tart: November 04, 2024 Dr. Kyree Iglesias MD Referring Provider Active S tart: November 04, 2024 Team Status: Inactive Member Role/Relationship Status Dates Vinnie Morales VSC, COMPLIANCE REVIEW SPECIALIST-C Primary Care Provider Active Start: January 25, 2025 End: January 25, 2025 Vinnie Morales VSC, COMPLIANCE REVIEW SPECIALIST-C Attending Provider Active S tart: January 25, 2025 End: January 25, 2025 Team Status: Inactive Member Role/Relationship Status Dates Vinnie Morales VSC, COMPLIANCE REVIEW SPECIALIST-C Primary Care Provider Active Start: February 07, 2025 End: February 07, 2025 Dr. Sandoval GALICIA MD Attending Provider Active Start: February 07, 2025 End: February 07, 2025 Dr. Sandoval GALICIA MD Referring Provider Active Start: February 07, 2025 End: February 07, 2025 Team Status: Active Member Role/Relationship Status Dates Vinnie Morales VSC, COMPLIANCE REVIEW SPECIALIST-C Primary care physician Active Team Status: Inactive Member Role/Relationship Status Dates Vinnie Morales VSC, COMPLIANCE REVIEW SPECIALIST-C Primary care physician Active Start: January 25, 2025 End: January 25, 2025 Vinnie Morales VSC, COMPLIANCE REVIEW SPECIALIST-C Attending physician Active Start: January 25, 2025 End: January 25, 2025 Team Status: Inactive Member Role/Relationship Status Dates Vinnie Morales VSC, COMPLIANCE REVIEW SPECIALIST-C Primary care physician Active Start: February 07, 2025 End: February 07, 2025 Dr. Sandoval GALICIA MD Attending physician Active Start: February 07, 2025 End: February 07, 2025 Dr. Sandoval GALICIA MD Referring Provider Active Start: February 07, 2025 End: February 07, 2025 Team Status: Inactive Member Role/Relationship Status Dates Vinnie Killiander VSC, COMPLIANCE REVIEW SPECIALIST-C Primary care physician Active Start: March 29, 2025 End: March 29, 2025 Shahnaz Clark VSC, COMPLIANCE REVIEW SPECIALIST-C Attending physician Active Start: March 29, 2025 End: March 29, 2025 Team Status: Inactive Member Role/Relationship Status Dates Vinnie Morales VSC, COMPLIANCE REVIEW SPECIALIST-C Primary care physician Active Start: March 31, 2025 End: March 31, 2025 Vinnie GALICIA, MAHESH-C Referring Provider Active S tart: March 31, 2025 End: March 31, 2025 GHULAM Albert Attending physician Active S tart: March 31, 2025 End: March 31, 2025 FOR RECORDS PERTAINING TO PATIENTS WHO ARE OR HAVE BEEN ENROLLED IN A CHEMICAL DEPENDENCY/SUBSTANCEABUSE PROGRAM, SOME INFORMATION MAY BE OMITTED. This clinical summary was aggregated from multiple sources. Caution should be exercised in using it in the provision of clinical care. This summary normalizes information from multiple sources, and as a consequence, information in this document may materially change the coding, format and clinical context of patient data. In addition, data may be omitted in some cases. CLINICAL DECISIONS SHOULD BE BASED ON THE PRIMARY CLINICAL RECORDS. [facility] [employer] [facility]. provides no warranty or guarantee of the accuracy or completeness of information in this document.
--- NOTE | 2025-04-26 07:28 | PRE.ANES_ITS ---
ASA Classification* ASA Classification ASA Classification: 2 Assessment & Plan Anesthesia* Anesthesia Assessment Anesthesia Assessment: Discussed sedation and/or anesthesia options, risks, benefits, and alternatives with patient/parents/legal guardian/POA. Questions invited. The patient/parents/legal guardian/POA seems to understand and agrees to proceed with anesthesia plan. Reviewed the physical assessment, medical history, allergy history and patient home medications list prior to surgery/procedure/anesthetic and documented any changes. Performed airway and anesthesia risk assessments. Anesthesia Type Anesthesia Type: MAC Anesthesia Focused Assessment* Airway Assessment Mouth opens: >3 cm Mallampati Score: II Labs Anesthesia Preop lab: CBC WBC, (4.4-11.0) 12.6 K/mm3 H 01/25/25, 16:19 RBC, (4.2-5.4) 4.29 M/mm3 01/25/25, 16:19 Hgb, (12.0-15.0) 12.5 g/dL 01/25/25, 16: Hct, (37-47) 36.4 % L 01/25/25, 16:19 Plt Count, (150-450) 408 K/mm3 01/25/25, 16:19 CHEMISTRY Potassium, (3.3-5.1) 3.6 mmol/L 03/29/25, 16:28 Sodium, (133-145) 139 mmol/L 01/25/25, 16:19 Magnesium, (1.6-2.6) 1.9 mg/dL 12/31/23, 10:16 BUN, (4-19) 14 mg/dL 01/25/25, 16:19 Creatinine, (0.70-1.20) 0.65 mg/dL L 01/25/25, 16:19 Glucose, (70-99) 91 mg/dL 01/25/25, 16:19 TSH, (0.300-4.200) 3.190 uIU/mL 01/25/25, 16:19 COAG PT, (11.9-14.4) 11.6 SECONDS L 05/28/13, 13:35 HCG, Quant, (<9 non-preg) 05253 mIU/mL H 11/19/12, 11:5 2 Pre-Assessment Diagnosis/Proposed Procedure Planned Operative Procedure(s): EGD, CSCOPE Anesthesia History Anesthesia History - medical malpractice paralegal: Anesthesia History - medical malpractice paralegal Hx Hospitalization No 04/24/25 09:48 Any Problems With Anesthesia No 04/24/25 09:48 Cholinesterase deficiency No 04/24/25 09:48 You/Your Family Experience No 04/24/25 09:48 fever (hyperthermia) with Relationship Recent Exposure to Contagious No 11/01/13 07:31 Disease Does patient have nerve No 04/24/25 09:48 stimulator Patient instructed to have device shut off --Does patient have Pacemaker or ICD? When Was Last Pacemaker Check QUESTION #4 FULL TEXT: You/Your Family Experience fever (hyperthermia) with Anesthesia Last Oral Intake Last Oral intake: Last Oral Intake NPO since Meds taken in AM with sips of water? Meds patient instructed to take am of surgery PONV PONV - medical malpractice paralegal: PONV - medical malpractice paralegal Female Yes 04/24/25 09:48 HX of Motion Sickness No 04/24/25 09:48 HX of N/V After Surgery No 04/24/25 09:48 Non-Smoker Yes 04/24/25 09:48 Duration of Surgery greater No 04/24/25 09:48 than 60 minutes Number of Risk Factors 2 04/24/25 09:48 PONV Score Moderate Risk 04/24/25 09:48 Height & Weight Height & Weight: Anesthesia: Height & Weight Height 5 ft 5 in 03/31/25 08:42 Respiratory Assessment Respiratory Assessment - medical malpractice paralegal: Respiratory Tract Infection Hx - medical malpractice paralegal Hx Respiratory Tract Infection No 04/24/25 09:48 STOP Sleep Apnea STOP Sleep Apnea - medical malpractice paralegal: STOP Sleep Apnea - medical malpractice paralegal Hx Hypertension Yes: CONTROLLED WITH MED 04/24/25 09:48 Hx Sleep Apnea Yes 04/24/25 09:48 CPAP Yes 04/24/25 09:48 BIPAP No 04/24/25 09:48 Do you snore loudly (louder than talking or can be heard Do you often feel tired/ fatigued/ sleepy during daytime? Has anyone observed you stop breathing during sleep? STOP Results Positive 04/24/25 09:48 QUESTION #5 FULL TEXT : Do you snore loudly (louder than talking or can be heard through closed doors)? Tobacco Use History Tobacco Use History - medical malpractice paralegal: Tobacco Use History - medical malpractice paralegal Tobacco Use Smoking Status Never smoker 04/24/25 09:48 Hx Tobacco Use No 04/24/25 09:48 Years Smoking Packs Smoked per Day Smoking Cessation Date was within the last 15 years Hx Smoking Cessation Date Hx Smoking Cessation Counseling Hematologic Medial History Hematologic Hx - medical malpractice paralegal: Hematologic Medical Hx - welder repair Hx of Blood Transfusion No 04/24/25 09:48 Hx of Transfusion in last 3 No 04/24/25 09:48 Months Date of Last Transfusion (if within last 3 months) Ever experience any problems No 04/24/25 09:48 with transfusion(s)? Specify any problems Hx of Preganancy in last 3 N/A 04/24/25 09:48 Months Nurse Filling Out Transfusion NBUCHER 04/24/25 09:48 & Questions: Date: 04/24/25 04/24/25 09:48 Time: 09:50 04/24/25 09:48 Patient unable to answer at this time (ie. confused, unrespo /Reproduction History /Reproductive History - medical malpractice paralegal: /Reproductive Hx- medical malpractice paralegal Hx Now No 04/24/25 09:48 Gestational Age (in weeks): EDC: Hx Hx Para Hx Section SAB No 04/24/25 09:48 PENDING SALE TO [facility] Medical History Fatty liver Migraine headache Gastric reflux Leg cramps CPAP (continuous positive airway pressure) dependence Sleep apnea Non-smoker History of echocardiogram Cardiology follow-up encounter Panic disorder Abnormal EKG Obstructive sleep apnea Chronic back pain Fatigue Hypersomnia Irritable bowel syndrome with diarrhea Low back pain Chest pain Obesity (BMI 30-39.9) Hyperlipidemia Kidney stones Depression Anxiety Hypertension Home Medications ?Medication ?Instructions ?Recorded ?Last Taken ?Type hydrochlorothiazide 25 mg tablet 25 mg PO DAILY #90 ta bs 11/13/22 Unknown Rx lidocaine 5 % topical patch 2 patch topical DAILY PRN back 11/13/22 Unknown Rx pain #30 ea losartan 100 mg tablet 100 mg PO DAILY #90 tabs 05/28 Unknown Rx ergocalciferol (vitamin D2) 1,250 See Rx Instructions .Route 03/04/23 Unknown Rx mcg (50,000 unit) capsule .COMPLEX #8 caps desvenlafaxine succinate 25 mg 25 mg PO QDAY 08/24/24 Unknown History tablet,extended release 24 hr lorazepam 0.5 mg tablet 0.5 mg PO QDAY PRN anxiety 0 08/24/24 Unknown History hydroxyzine HCl 25 mg tablet 25 mg PO QHS PRN sleep Unknown History amlodipine 10 mg tablet 10 mg PO QHS 04/24/25 Unknow n History bisacodyl 5 mg tablet,delayed 20 mg (4 x 5 mg) PO ONCE #4 tabs 04/24/25 Unknown Rx release (Dulcolax (bisacodyl)) polyethylene glycol 3350 17 See Rx Instructions PO .CO MPLEX 04/24/25 Unknown Rx gram/dose oral powder (Miralax) #238 grams vit no.95-ferrous 1 tab PO DAILY 04/24/25 Unk nown History fumarate 28 mg-folic acid 800 mcg tablet () Allergy/AdvReac Type Severity Reaction Status Date / Time metronidazole Allergy Intermediate Hives Verified 04/24/25 09:44 amoxicillin Allergy palms itchy Verified 04/24/25 09:44 Family History Mother Hypertension Arthritis Heart disease Depression Father Diabetes Hypertension Hyperlipemia Myocardial infarction, Onset Age: 49 Grandmother Heart disease Hypertension Osteoporosis CVA (cerebral vascular accident) Grandfather Cancer Brother Hypertension Grandmother Myocardial infarction, Onset Age: 60 Surgical History history of leep proceure with D&C History of 2 sections History of partial hysterectomy Social History Smoking Status: Never smoker alcohol intake: current alcohol intake frequency: holidays/special occasions only substance use type: does not use what type of physical activity do you participate in: none Review of Systems (Anesthesia) ROS Narrative System reviewed and no additional complaints, except as documented.
--- NOTE | 2025-04-26 07:28 | H&P.OPEN ---
HPI - General General Date of Service: 04/26/25 HPI Narrative YVONNE HULL, is a 40 F who presents for EGD and colonoscopy. Patient did see Dr. Martin at [facility] due to right upper quadrant pain as well as intermittent rectal bleeding. Patient states she gets this right upper quadrant pain which does rub go to the left maybe 1 a couple times every couple months. Patient's does states she has to run to the bathroom mostly after eating occasional have a hard bowel movement but otherwise could be going 3-4 times a day with loose stools and will have a little bit of blood on the toilet paper when she wipes. Was recommended that she have an EGD and colonoscopy. Patient's grandmother may have had a precancerous lesion in her rectum, patient's mother has had polyps unsure of size. [facility] Medical History (Updated 04/26/25 @ 07:[address] Taya Craig MD) Fatty liver Migraine headache Gastric reflux Leg cramps CPAP (continuous positive airway pressure) dependence Sleep apnea Non-smoker History of echocardiogram Cardiology follow-up encounter Panic disorder Abnormal EKG Obstructive sleep apnea Chronic back pain Fatigue Hypersomnia Irritable bowel syndrome with diarrhea Low back pain Chest pain Obesity (BMI 30-39.9) Hyperlipidemia Kidney stones Depression Anxiety Hypertension Home Medications ?Medication ?Instructions ?Recorded ?Last Taken ?Type hydrochlorothiazide 25 mg tablet 25 mg PO DAILY #90 tabs 11/13/22 Unknown Rx lidocaine 5 % topical patch 2 patch topical DAILY PRN back 11/13/22 Unknown Rx pain #30 ea losartan 100 mg tablet 100 mg PO DAILY #90 tabs 11/13/22 Unknown Rx ergocalciferol (vitamin D2) 1,250 See Rx Instructions .Route 03/04/23 Unknown Rx mcg (50,000 unit) capsule .COMPLEX #8 caps desvenlafaxine succinate 25 mg 25 mg PO QDAY 08/24/24 Unknown History tablet,extended release 24 hr lorazepam 0.5 mg tablet 0.5 mg PO QDAY PRN anxiety 08/24/24 Unknown History hydroxyzine HCl 25 mg tablet 25 mg PO QHS PRN sleep 03/31/25 Unknown History amlodipine 10 mg tablet 10 mg PO QHS 04/24/25 Unknown History bisacodyl 5 mg tablet,delayed 20 mg (4 x 5 mg) PO ONCE #4 tabs 04/24/25 Unknown Rx release (Dulcolax (bisacodyl)) polyethylene glycol 3350 17 See Rx Instructions PO .COMPLEX 04/24/25 Unknown Rx gram/dose oral powder (Miralax) #238 grams vit no.95-ferrous 1 tab PO DAILY 04/24/25 Unknown History fumarate 28 mg-folic acid 800 mcg tablet () Allergy/AdvReac Type Severity Reaction Status Date / Time metronidazole Allergy Intermediate Hives Verified 04/24/25 09:44 amoxicillin Allergy palms itchy Verified 04/24/25 09:44 Family History Mother Hypertension Arthritis Heart disease Depression Father Diabetes Hypertension Hyperlipemia Myocardial infarction, Onset Age: 49 Grandmother Heart disease Hypertension Osteoporosis CVA (cerebral vascular accident) Grandfather Cancer Brother Hypertension Grandmother Myocardial infarction, Onset Age: 60 Surgical History (Updated 04/24/25 @ 09:58 by Latoya Azar) history of leep proceure with D&C History of 2 sections History of partial hysterectomy Social History Smoking Status: Never smoker alcohol intake: current alcohol intake frequency: holidays/special occasions only substance use type: does not use what type of physical activity do you participate in: none Past Medical/Surgical History Planned Operation Planned Operative Procedure(s): EGD, CSCOPE S.O.S: No Previous Hospitalizations/Surgeries HX Hospitalizations: No HX of Surgeries: X 2 D & C X2 PLUS LEEP Any Problems With Anesthesia: No You/Your Family Experience Fever (Hyperthermia) With Anes: No Cholinesterase deficiency: No Cardiovascular Hx Chest Pain within Last 2 months: No Hx of Irregular Heartbeat and/or Afib: No Hx Heart Attack: No Hx Congestive Heart Failure: No Hx Rheumatic Fever: No Hx Hypertension: Yes (CONTROLLED WITH MED) Hx Internal Defibrillator: No Hx Pacemaker: No Hx Cardiac Catheterization: No Hx Cardiac Surgery/Stents/Etc.: No Hx Stress Test: No Hx Pain in Legs when Walking/Leg Cramps: No Respiratory Chronic Cough: No HX of Shortness of Breath: No Hoarseness: No Hx Chronic Obstructive Pulmonary Disease (COPD): No Hx Asthma: No Hx Emphysema: No Hx Sleep Apnea: Yes CPAP: Yes BIPAP: No Hx Respiratory Tract Infection/Cold (presently): No Result (for STOP score): Positive Hx Smoking: No Smoking Status: Never smoker Gastrointestinal Hx Gastrointestinal Disorders: No Hx Ulcer: No Hx Hiatal Hernia: No Difficulty Chewing/Swallowing: No Special diet followed at home: No Hx Unplanned Weight Loss of 20#: No HX Unplanned Weight Gain of 20#: No Neurological Hx Seizures: No HX Syncope/Blackout Spells/Unconsciousness: No Hx Transient Ischemic Attacks (TIA): No Hx Multiple Sclerosis: No Hx Parkinson's Disease: No Hx Head/Neck Injury: No Hx Headaches: Yes (GETS OCCA MIGRAINES) Hx Back Injury/Pain: No Recent Onset of Speech Difficulty: No Restless Legs: No Does patient have nerve stimulator: No Blood Disorder Hx Leukemia: No Bleeding Tendencies: No Hx Deep Vein Thrombosis: No Hx High Cholesterol: No Blood Transmitted Disease: No Hx Hepatitis: No Hx Cirrhosis: No Hx Anemia: No Hx Blood Disorders: No Reproduction : No Is Patient Lactating: No Hx Hysterectomy: No Hx Tubal Ligation: No Are You Post Menopause: No Genitourinary Hx Renal Disease: No Musculoskeletal Hx Arthritis: No Hx Rheumatoid Arthritis: No Hx Gout: No Recent Onset of an Orthopedic Problem: No Endocrine Hx Diabetes: No (HAD GESTATIONAL DIABETES) Thyroid Disease: No Hx Steroid Therapy: Yes (ORAL) Psycho/Social Hx Substance Use: No Hx Alcohol Use: Yes (OCCASIONAL SOCIAL) Hx Anxiety: Yes (HX ANXIETY & PANIC DISORDER, NO PROBLEMS IN PAST YEAR) Hx Depression: No Mental Illness: No Hx Dementia: No Miscellaneous Hx Cancer: Yes (PRE CERVICAL CA) Recent Exposure to Contagious Disease: No Hx of C-Diff: No Any Loose Teeth: No Allergies metronidazole Allergy (Intermediate, Verified 04/24/25 09:44) Hives amoxicillin Allergy (Verified 04/24/25 09:44) palms itchy Discharge Is Pt Admitted From a Half-Way, or a [facility]ci: No After D/C, Where Do you Plan to Go: Return Home Physical Exam Const alert, oriented x3 and no apparent distress HEENT normocephalic and head/scalp atraumatic Resp normal respiratory effort Cardio regular rate GI soft to palpation and non-tender; Negative for non-distended Palpation: Negative for guarding Extremity no clubbing, cyanosis or edema Skin no rashes or lesions noted Neuro CN's II-XII intact bilaterally Psych mental status grossly normal Assessment & Plan Assessment/Plan (1) RUQ pain: (2) Rectal bleeding: Surgery Risks - Colonoscopy I discussed with the patient the risks of the procedure: Yes Risks Include but are not Limited To: Plan for an EGD and colonoscopy risks include but are not limited to: Bleeding, perforation requiring further surgery, inability to complete colonoscopy requiring barium enema.
[2025-04-26 07:37] VITALS: BP 136/81; PULSE 80; RESP 16; TEMP 36.3; O2SAT 98; BMI 37.4
[2025-04-26] MEDS: Lactated Ringers 1,000 ML 15 ML IV (07:50)
--- NOTE | 2025-04-26 08:00 | COLBX_PTH ---
PATIENT: YVONNE HULL LOC: EN U#:[id number] AGE/SX: 40/F ROOM: RE04/26/[address]: Dr. Taya Craig MD : 1985 BED: DIS: 04/26/2025 SPEC #: [id number] RECD: 04/26/25 11:30 STATUS: TAMERA REJen #: [id number] ALYSIA: 04/26/25 08:[address]: Taya Craig DEPT: SURGICAL PATHOLOGY RECD BY: Barrington Antunez ENTERED: 04/26/25 13:28 SP TYPE: COLON BX OTHR DR: Vinnie Lundberg, ELECTRICAL CONTROL ASSEMBLER-C Tissues: A - Gastric mucous membrane B - Gastric mucous membrane Procedures: Immunohistochemical Stains Surgery Specimen Level IV HEADER OPERATION: Colonoscopy, EGD, biopsy, polypectomy PRE-OP DIAGNOSIS: Right upper quadrant pain, rectal bleeding TISSUE SUBMITTED: A- Antrum biopsy, B- Gastric polyp MICROSCOPIC DIAGNOSIS A. Stomach, antrum, biopsies: * Pyloric mucosa with slight chronic inflammation * An immunohistochemical stain for Helicobacter pylori is negative B. Stomach, gastric polyp: * Cystic fundic gland polyp MICROSCOPIC DESCRIPTION Slides are reviewed. All matched controls reacted appropriately. These tests were developed and their performance characteristics determined by [facility]. They may not have been cleared or approved by the U.S. Food and Drug Administration. The FDA has determined that such clearance or approval is not necessary. The above immunohistochemical markers are interpreted by the Pathologist. GROSS DESCRIPTION A. Received in fixative is one container labeled with the patient's name and designated Antrum biopsy. The specimen consists of one irregular fragment of pineda tissue that measures 0.4 cm. The specimen is totally submitted in one cassette. B. Received in fixative is one container labeled with the patient's name and designated Gastric polyp. The specimen consists of two irregular fragments of pineda tissue that measure 0.3 and 0.5 cm. The resection margin of the largest fragment is inked black. The specimen is totally submitted in one cassette. CO 04/26/2025 CPT:[id number]
[2025-04-26 08:50] VITALS: BP 111/65; BP 136/81; PULSE 62; RESP 16; TEMP 36.2; O2SAT 97
--- NOTE | 2025-04-26 08:50 | OP.EGD_ITS ---
Patient Name: Barbara Womack Procedure Date: 04/26/2025 8:21 AM Date of : 1985 Age: 40 Procedure: Upper GI endoscopy Indications: Abdominal pain in the right upper quadrant Providers: Taya Craig MD Referring MD: Vinnie Jha, Program Clinician-c Medicines: Monitored Anesthesia Care Patient Profile: This is a 40 year old female. Complications: No immediate complications. Procedure: Pre-Anesthesia Assessment: - Prior to the procedure, a History and Physical was performed, and patient medications and allergies were reviewed. The patient's tolerance of previous anesthesia was also reviewed. The risks and benefits of the procedure and the sedation options and risks were discussed with the patient. All questions were answered, and informed consent was obtained. Prior Anticoagulants: The patient has taken no anticoagulant or antiplatelet agents. ASA Grade Assessment: Per anesthesia. After reviewing the risks and benefits, the patient was deemed in satisfactory condition to undergo the procedure. After obtaining informed consent, the endoscope was passed under direct vision. Throughout the procedure, the patient's blood pressure, pulse, and oxygen saturations were monitored continuously. The Colonoscope was introduced through the mouth, and advanced to the second part of duodenum. The upper GI endoscopy was accomplished without difficulty. The patient tolerated the procedure well. Scope In: 8:26:56 AM Scope Out: 8:34:51 AM Total Procedure Duration Time 0 hours 7 minutes 55 seconds Findings: The Z-line was variable and was found 40 cm from the incisors. The cardia and gastric fundus were normal on retroflexion. Three non-bleeding cratered gastric ulcers with no stigmata of bleeding were found in the gastric antrum and in the prepyloric region of the stomach. The largest lesion was 4 mm in largest dimension. Biopsies were taken with a cold forceps for histology. Biopsies were taken with a cold forceps for Helicobacter pylori cultures. The examined duodenum was normal. No gross lesions were noted in the entire esophagus. Multiple less than 5 mm semi-pedunculated polyps with no bleeding and no stigmata of recent bleeding were found in the gastric body. The polyp was removed with a hot snare. Resection and retrieval were complete. Impression: - Z-line variable, 40 cm from the incisors. - Non-bleeding gastric ulcers with no stigmata of bleeding. Biopsied. - Normal examined duodenum. - No gross lesions in the entire esophagus. - Multiple gastric polyps. Resected and retrieved. Recommendation: - Await pathology results. - Continue present medications. - Use Prilosec (omeprazole) 40 mg PO daily. - Use sucralfate tablets 1 gram PO QID for 1 month. Procedure Code(s): --- Professional --- 33130, PT, Esophagogastroduodenoscopy, flexible, transoral; with removal of tumor(s), polyp(s), or other lesion(s) by snare technique 59554, 59, Esophagogastroduodenoscopy, flexible, transoral; with biopsy, single or multiple Diagnosis Code(s): --- Professional --- K22.89, Other specified disease of esophagus K25.9, Gastric ulcer, unspecified as acute or chronic, without hemorrhage or perforation K31.7, Polyp of stomach and duodenum R10.11, Right upper quadrant pain CPT copyright 2021 [employer]. All rights reserved. The codes documented in this report are preliminary and upon cotton feeder review may be revised to meet current compliance requirements. MD Taya Villa MD 04/26/2025 8:50:46 AM This report has been signed electronically. Number of Addenda: 0 Note Initiated On: 04/26/2025 8:21 AM
--- NOTE | 2025-04-26 08:51 | OP.PROVAT_ITS ---
04/26/2025 Vinnie Lundberg [facility], Dust Collector Operator-c Re : Upper GI endoscopy procedure for Barbara Womack Dear Tamika This procedure was performed on Saturday, April 26, 2025. My impressions and recommendations are as follows: Impressions : - Z-line variable, 40 cm from the incisors. - Non-bleeding gastric ulcers with no stigmata of bleeding. Biopsied. - Normal examined duodenum. - No gross lesions in the entire esophagus. - Multiple gastric polyps. Resected and retrieved. Recommendations : - Await pathology results. - Continue present medications. - Use Prilosec (omeprazole) 40 mg PO daily. - Use sucralfate tablets 1 gram PO QID for 1 month. My findings are described in the full procedure note, which is enclosed. If I can be of further assistance, please feel free to contact me at Doctor phone number(s): , Work: . Sincerely, MD Taya Villa MD 04/26/2025 8:50:46 AM This report has been signed electronically.
--- NOTE | 2025-04-26 08:54 | PCM.POST.ANE ---
Anesthesia: Postop Eval I Current Vital Signs Temperature: 97.1 F Pulse Rate: 62 Blood Pressure: 111/65 Respiratory Rate: 16 Pulse Ox: 97 Oxygen Delivery Method: Room Air Assessment Airway patent: Yes Spontaneous unlabored respirations: Yes Mental status: Awake and Calm nausea: No Vomiting: No Anesthesia Complication: Yes Anesthesia Complication Comment:: IV infiltrated prior to case completion, case ended before 2nd IV attempt Fluid Hydration Crystalloid volume administer (ml): 400 Total IV fluid infused: 400 Progress Note Anesthesia document: Postop Eval 1 completed: Yes
[2025-04-26 08:55] VITALS: BP 107/66; BP 111/65; BP 136/81; PULSE 62; RESP 16; TEMP 36.2; O2SAT 94; O2SAT 97
--- NOTE | 2025-04-26 08:57 | OP.COLON_ITS ---
Patient Name: Barbara Womack Procedure Date: 04/26/2025 8:34 AM Date of : 1985 Age: 40 Procedure: Colonoscopy Indications: Rectal bleeding Providers: Taya Craig MD Referring MD: Vinnie Jha, Health And Safety Manager-c Medicines: Monitored Anesthesia Care Patient Profile: This is a 40 year old female. This is a 40 year old female. Last Colonoscopy: none. The patient's first colonoscopy is today. Complications: No immediate complications. Procedure: Pre-Anesthesia Assessment: - Prior to the procedure, a History and Physical was performed, and patient medications and allergies were reviewed. The patient's tolerance of previous anesthesia was also reviewed. The risks and benefits of the procedure and the sedation options and risks were discussed with the patient. All questions were answered, and informed consent was obtained. Prior Anticoagulants: The patient has taken no anticoagulant or antiplatelet agents. ASA Grade Assessment: Per anesthesia. After reviewing the risks and benefits, the patient was deemed in satisfactory condition to undergo the procedure. - Prior to the procedure, a History and Physical was performed, and patient medications and allergies were reviewed. The patient's tolerance of previous anesthesia was also reviewed. The risks and benefits of the procedure and the sedation options and risks were discussed with the patient. All questions were answered, and informed consent was obtained. Prior Anticoagulants: The patient has taken no anticoagulant or antiplatelet agents. ASA Grade Assessment: Per anesthesia. After reviewing the risks and benefits, the patient was deemed in satisfactory condition to undergo the procedure. After I obtained informed consent, the scope was passed under direct vision. Throughout the procedure, the patient's blood pressure, pulse, and oxygen saturations were monitored continuously. The Colonoscope was introduced through the anus and advanced to the cecum, identified by the appendiceal orifice, ileocecal valve and palpation. The colonoscopy was performed without difficulty. The patient tolerated the procedure well. The quality of the bowel preparation was good. Scope In: 8:35:15 AM Scope Withdrawal Time 0 hours 3 minutes 16 seconds Scope Out: 8:43:22 AM Total Procedure Duration Time 0 hours 8 minutes 7 seconds Findings: Hemorrhoids were found on perianal exam. Non-bleeding internal hemorrhoids were found. The hemorrhoids were Grade I (internal hemorrhoids that do not prolapse). A single small-mouthed diverticulum was found in the sigmoid colon. The exam was otherwise without abnormality. Impression: - Hemorrhoids found on perianal exam. - Non-bleeding internal hemorrhoids. - Diverticulosis in the sigmoid colon. - The examination was otherwise normal. - No specimens collected. Recommendation: - Discharge patient to home. - Resume previous diet. - Continue present medications. - Repeat colonoscopy in 10 years for screening purposes. Procedure Code(s): --- Professional --- 77374, Colonoscopy, flexible; diagnostic, including collection of specimen(s) by brushing or washing, when performed (separate procedure) Diagnosis Code(s): --- Professional --- K64.0, First degree hemorrhoids K62.5, Hemorrhage of anus and rectum K57.30, Diverticulosis of large intestine without perforation or abscess without bleeding CPT copyright 2021 [employer]. All rights reserved. The codes documented in this report are preliminary and upon globe mounter review may be revised to meet current compliance requirements. MD Taya Villa MD 04/26/2025 8:57:18 AM This report has been signed electronically. Number of Addenda: 0 Note Initiated On: 04/26/2025 8:34 AM
--- NOTE | 2025-04-26 08:58 | OP.PROVAT_ITS ---
04/26/2025 Vinnie Lundberg [facility], Manager Media-c Re : Colonoscopy procedure for Barbara Womack Dear Tamika This procedure was performed on Saturday, April 26, 2025. My impressions and recommendations are as follows: Impressions : - Hemorrhoids found on perianal exam. - Non-bleeding internal hemorrhoids. - Diverticulosis in the sigmoid colon. - The examination was otherwise normal. - No specimens collected. Recommendations : - Discharge patient to home. - Resume previous diet. - Continue present medications. - Repeat colonoscopy in 10 years for screening purposes. My findings are described in the full procedure note, which is enclosed. If I can be of further assistance, please feel free to contact me at Doctor phone number(s): , Work: . Sincerely, MD Taya Villa MD 04/26/2025 8:57:18 AM This report has been signed electronically.
[2025-04-26 09:00] VITALS: BP 112/66; BP 136/81; PULSE 67; RESP 16; O2SAT 96
[2025-04-26 09:04] VITALS: BP 101/62; BP 136/81; PULSE 64; RESP 16; TEMP 36.2; O2SAT 97
--- NOTE | 2025-04-26 09:04 | PCM.POSTANE2 ---
Anesthesia Postop Eval I Sum Postop Eval Completion status Anesthesia document: Postop Eval 1 completed: Yes Anesthesia Postop Eval I Summary Anesthesia Postop Eval I Summary: Anesthesia Postop Eval I: Assessment Summary Airway patent Yes 04/26/25 08:55 [email or web address] Spontaneous unlabored Yes 04/26/25 08:55 [email or web address] respirations Mental status Awake,Calm 04/26/25 08:55 [email or web address] nausea No 04/26/25 08:55 [email or web address] Vomiting No 04/26/25 08:55 [email or web address] Anesthesia Postop Eval I: Fluid Summary Crystalloid volume administer 400 04/26/25 08:55 [email or web address] (ml) Colloids volume administered ( ml) Blood Product volume administered (ml) Total IV fluid infused 400 04/26/25 08:55 [email or web address] Anesthesia Postop Eval I: Summary Notes Anesthesia Complication Yes 04/26/25 08:55 [email or web address] Anesthesia Complication IV infiltrated 04/26/25 08:55 [email or web address] Comment: prior to case completion, case ended before 2nd IV attempt Post-operative progress note Anesthesia: Postop Eval II Evaluation Mental status: Awake Pain Level: 0 nausea: No Vomiting: No
[2025-04-26 09:25] VITALS: BP 136/81
== END 2025-04-26 10:22 | disposition home or self-care (01) ==
LOC: EN 07:21 → AC 07:22
PROVIDERS: PCP Nurse Practitioner Family; Referring Provider Nurse Practitioner Family; Visit Provider Surgery
PROC: 0DJD8ZZ Inspection of Lower Intestinal Tract, Via Natural or Artificial Opening Endoscopic (ICD-10-PCS; CPT 45378; principal; 2025-04-26 07:55)
DX: K62.5 Hemorrhage of anus and rectum (principal); K64.0 First degree hemorrhoids; K22.89 Other specified disease of esophagus; K31.7 Polyp of stomach and duodenum; K57.30 Diverticulosis of large intestine without perforation or abscess without bleeding; K25.9 Gastric ulcer, unspecified as acute or chronic, without hemorrhage or perforation; K58.9 Irritable bowel syndrome, unspecified; Z90.710 Acquired absence of both cervix and uterus; Z79.899 Other long term (current) drug therapy; I10 Essential (primary) hypertension; E78.5 Hyperlipidemia, unspecified; Z83.719 Family history of colon polyps, unspecified; R10.11 Right upper quadrant pain; G47.33 Obstructive sleep apnea (adult) (pediatric); Z99.89 Dependence on other enabling machines and devices; F41.9 Anxiety disorder, unspecified; F32.A Depression, unspecified; K64.4 Residual hemorrhoidal skin tags; K29.70 Gastritis, unspecified, without bleeding
CPT/HCPCS: 45378; 43239; 43251; 88305; 88342; J2405